=== PATIENT | female | born 1970 | race Caucasian/White ===

== ENCOUNTER → 2017-11-29 09:59 | Outpatient (CLI) | payer BC, SELFPAY ==
--- NOTE | 2017-11-29 10:01 | MM_ITS ---
MM Dig screening mamm BI w/CAD ORDERING PHYSICIAN : Prince Patel MD PATIENT AGE: 47 years GENDER: Female COMPARISON: Previous studies from this facility dated August 2011 . Also prior studies from [facility] dated March 2015 bilateral [facility] INDICATION: ITS.REASON: Screening TECHNIQUE: Standard CC and MLO images were obtained. R2 CAD reviewed. FINDINGS: Diffuse increased density of fibroglandular elements most likely reflects is not is hormone effect of some. However histories reports no hormone therapy. History sheet indicates prior hysterectomy thus this diffuse increased breast density pattern does not appear to reflect phase of menstrual cycle RIGHT BREAST: 2 Previous percutaneous biopsy with metallic markers. One small metallic marker seen seen at the upper-outer quadrant; and the other at the immediate retroareolar region. These are similar to previous studies. I see no significant new areas of concern otherwise at the right breast. There is no skin thickening associated with this mild diffuse accentuation of fibroglandular elements LEFT BREAST:. Postsurgical changes retroareolar region. Numerous vascular clips seen here unchanged since 2016. But apparently there is a needle biopsy with subsequent lumpectomy (mammogram report from [facility] dated March 14, 2015 states that the patient had a surgical excision yielding results papillomatosis/ fibrocystic change.) This is surgery occurred since 2015 mammogram & was present in March 2015 outside mammogram A small metallic marker from previous percutaneous biopsy is seen at the superior left breast. Stable since 2016 & 2011. On one of today's MLO view question some mild architectural irregularity just superior to this metallic percutaneous biopsy marker, this may reflect some subtle postbiopsy changes but does not persist on a repeat MLO view performed, for nipple profile view. But there may be a few tiny faint calcifications at superior left breast with a biopsy marker.. Slight accentuation area of anterior breast tissue just superior & lateral to the nipple I believe were seen before but mildly accentuated today with the other fibroglandular tissue. IMPRESSION: Diffuse accentuation of fibroglandular elements bilaterally. Typically this reflects his exogenous hormone affect but no history of such given. Clinical correlation required. No persistent new areas of significant concern Small questionable area at superior left breast dissipates on other views, & believe this merely is summation shadow However because of the diffuse increased breast density & overall appearance would suggest a bilateral follow-up in 6-8 months to confirm this appearance as a new stable baseline BI-RADS Category: 3 Probably Benign Finding Short Term Follow-up RECOMMENDED FOLLOW-UP: 6M -8 MONTH FOLLOW-UP (A letter has been sent to the patient regarding results of the study.)
--- NOTE | 2017-11-29 10:01 | US_ITS ---
US transvaginal Ordering Physician: Prince Patel MD Patient Age: 47 years: Female HISTORY: ITS.REASON: DUB Dysfunctional uterine bleeding. Abnormal pelvic exam TECHNIQUE: Transvaginal pelvic ultrasound. COMPARISON :July 2016. CT abdomen pelvis from November 2016 FINDINGS Patient has had a hysterectomy. Uterus and bilateral ovaries have been removed surgically by history. There is suggestion of a possible small cyst posterior aspect of the vaginal cuff. . This measures 4 mm AP x 7 mm transverse & pJust adjacent to the transducer. ( Immediate posterior to the transvaginal transducer) No associated ovary tissue appreciated here nor other structure evident. Otherwise note some moderate fluid filled bowel loops at the throughout the lower pelvis on submitted images. Most prominent measuring 2.25 cm with some semisolid fluid within it. There are some elongated benign-appearing lymph nodes at the right groin. At the right groin there is a 1.6 cm x 3.5 mm benign-appearing lymph node as well as another 1.5 cm node. On the November 2016 CT there were several fluid filled bowel loops seen here lower pelvis as well. AlsoStool filled cecum just to anterior, and above the bladder. IMPRESSION: ------- 1. The uterus & both ovaries have been removed by history. No adnexal findings. Only bowel loops seen here. 2. Note is made of a small 4 x 7 mm cyst at the posterior aspect of vaginal cuff. 3. benign nodes at the right groin incidentally noted. Largest measures 1.6 cm length
== END ==
PROVIDERS: Family Provider Family Medicine; PCP Family Medicine; Visit Provider Obstetrics & Gynecology
DX: Z12.31 Encounter for screening mammogram for malignant neoplasm of breast (principal); N93.8 Other specified abnormal uterine and vaginal bleeding
CPT/HCPCS: 76830; 77067

== ENCOUNTER → 2017-12-23 09:36 | Outpatient (CLI) | payer BC, SELFPAY ==
[2017-12-23 09:39] LABS: Microscopic, Urine URINE MICROSCOPIC (MICROSCOPIC)
[2017-12-23 09:57] LABS: Basophils # 0.1 K/mm3 (0-0.2); Basophils % 0.6 % (0.1-2.0); Eosinophils # 0.2 K/mm3 (0.0-0.4); Eosinophils % 1.9 % (0.1-12.0); Hematocrit 41.5 % (37.0-47.0); Hemoglobin 13.6 g/dL (12.2-16.2); Lymphocytes # 2.6 K/mm3 (0.7-4.5); Lymphocytes % 22.7 K/mm3 (10-50); Mean Corpuscular HGB Conc 32.6 g/dL (31.8-35.4); Mean Corpuscular Hemoglobin 30.5 pg (27.0-31.2); Mean Corpuscular Volume 93.5 fl (81-99); Monocytes # 0.4 K/mm3 (0.1-1.0); Monocytes % 3.6 % (1.7-9.3); Neutrophils # 8.2 K/mm3 (1.8-7.8); Neutrophils % 71.2 % (37.0-80.0); Platelet Count 302 K/mm3 (142-424); Red Blood Count 4.44 M/mm3 (4.20-5.40); Red Cell Distribution Width 12.9 % (11.5-17.5); White Blood Count 11.5 K/mm3 (4.8-10.8)
[2017-12-23 10:19] LABS: Appearance,Urine CLEAR (Clear); Bilirubin,Urine Negative (Negative); Blood, Urine Negative (Negative); Color,Urine YELLOW (Yellow); Glucose,Urine (UA) Negative (Negative); Ketones,Urine Negative (Negative); Leukocyte Esterase,Urine Negative (Negative); Nitrate,Urine Negative (Negative); Protein,Urine Negative (Negative); Specific Gravity, Urine <= 1.005 (1.005-1.030); Urobilinogen,Urine 0.2 EU/dl (0.2)
[2017-12-23 10:29] LABS: Bacteria,Urine 2+ /lpf; WBC,Urine Occasional #/hpf (0-3)
[2017-12-23 10:36] LABS: Alanine Aminotransferase 23 U/L (12-78); Albumin Level 3.5 gm/dL (3.4-5.0); Albumin/Globulin Ratio 1.2 (1.1-1.8); Alkaline Phosphatase 78 U/L (46-116); Anion Gap 11.8 mEq/L (5-15); Aspartate Amino Transferase 12 U/L (15-37); Bilirubin,Total 0.3 mg/dL (0.2-1.0); Blood Urea Nitrogen 11 mg/dL (7-18); Calcium 8.8 mg/dL (8.5-10.1); Carbon Dioxide 30 mmol/L (21.0-32.0); Chloride 105 mmol/L (98-107); Creatinine,Serum 0.69 mg/dL (0.55-1.02); Estimated Glomerular Filt Rate 91 ml/min (>60); GFR (African American) 110 ML/MIN (>60); Globulin 2.9 gm/dl (1.3-3.2); Glucose 86 mg/dL (74-106); Potassium 4.8 mmoL/L (3.5-5.1); Sodium 142 mmol/L (136-145); Total Protein,Serum 6.4 gm/dL (6.4-8.2)
== END ==
PROVIDERS: PCP Family Medicine; Visit Provider Obstetrics & Gynecology
DX: N80.9 Endometriosis, unspecified; Z01.812 Encounter for preprocedural laboratory examination
CPT/HCPCS: 36415; 80053; 81001; 85025; 87086; 87088; 87186

== ENCOUNTER → 2018-01-26 10:53 | Outpatient (CLI) | payer BC, SELFPAY ==
[2018-01-26 10:54] LABS: Adenovirus F 40/41, stool Not Detected (NotDetected); Astrovirus Not Detected (NotDetected); Campylobacter Not Detected (NotDetected); Clostridium Difficile A/B, PCR Not Detected (NotDetected); Cryptosporidium Not Detected (NotDetected); Cyclospora Cayetanesis Not Detected (NotDetected); Entamoeba histolytica Not Detected (NotDetected); Enteroaggregative E coli Not Detected (NotDetected); Enteropathogenic E coli Not Detected (NotDetected); Enterotoxigenic E coli Not Detected (NotDetected); Giardia lamblia Not Detected (NotDetected); Norovirus Not Detected (NotDetected); Plesimonas Shigalloides, PCR Not Detected (NotDetected); Rotavirus A Not Detected (NotDetected); Salmonella, PCR Not Detected (NotDetected); Sapovirus Not Detected (NotDetected); Shiga-like toxin E coli Not Detected (NotDetected); Shigella Enterovasive E coli Not Detected (NotDetected); Vibrio Cholerae Not Detected (NotDetected); Vibrio, PCR Not Detected (NotDetected); Yersinia Entercolitica, PCR Not Detected (NotDetected)
== END ==
PROVIDERS: Visit Provider Surgery
DX: R19.7 Diarrhea, unspecified (principal)
CPT/HCPCS: 87507

== ENCOUNTER → 2018-12-19 09:44 | Outpatient (CLI) | payer BC, SELFPAY ==
--- NOTE | 2018-12-19 09:47 | MM_ITS ---
PROCEDURE: MM DIG SCREENING MAMM BI W/CAD CLINICAL INDICATION: screening There is a history of breast cancer in the patient's 3 maternal aunts. The patient has had a biopsy in each breast, right breast for benign disease, atypical hyperplasia left breast. The previous mammogram had recommended a 6 month follow-up but the patient could not come for the follow-up as she had had a stroke COMPARISON: MY Galactogram Sgl Duct LT from 08/09/2014 MY Digital Dx BILAT from 03/14/2015 [facility] MM Dig screening mamm BI w/CAD from 11/29/2017 TECHNIQUE: . CC and MLO images were obtained. R2 CAD reviewed. FINDINGS: Diffuse heterogenic fibroglandular densities are seen throughout both breast slightly more prominent right breast than left as noted previously. Multiple surgical clips are seen in the subareolar region left breast and there is a biopsy clip upper outer right breast and outer left breast. There is no new or suspicious lesion in either breast and there are no suspicious microcalcifications. IMPRESSION: Moderately dense and heterogenic parenchymal pattern with no suspicious lesions seen BI-RAD Category: 2 Benign Finding(s) FOLLOW-UP: 1YR 1 Year Follow-up (A letter has been sent to the patient regarding results of the study.) Dictated by: Dr. Demetris Henning MD 12/21/2018 17:[address] Demetris Henning MD in [place] 12/21/2018 17:34
== END ==
PROVIDERS: PCP Family Medicine; Visit Provider Obstetrics & Gynecology
DX: Z12.31 Encounter for screening mammogram for malignant neoplasm of breast (principal)
CPT/HCPCS: 77067

== ENCOUNTER → 2020-01-18 10:41 | Outpatient (CLI) | payer BC, SELFPAY ==
--- NOTE | 2020-01-18 10:50 | CA_ITS ---
APPROVED REPORT Car Hop: Phyllis Hitchcock RVT Laterality: Bilateral Study Quality: Excellent Indications: RT BRUIT Risk Factors Hypertension: TIA/CVA History Hyperlipidemia Doppler Spectral Velocity Analysis ECA (R) 133.70/29.90 cm/s ECA (L) 121.00/19.10 cm/s dICA (R) 90.90/37.40 cm/s dICA (L) 83.70/41.80 cm/s Gregg (R) 84.50/27.80 cm/s Gregg (L) 88.20/30.00 cm/s pICA (R) 71.60/29.90 cm/s pICA (L) 81.90/33.70 cm/s dCCA (R) 86.60/23.50 cm/s dCCA (L) 76.40/22.70 cm/s pCCA (R) 114.40/26.70 cm/s pCCA (L) 87.30/30.00 cm/s Vert (R) 54.50/16.00 cm/s Vert (L) 49.10/20.90 cm/s ICA/CCA 1.05 ICA/CCA 1.15 Findings Study suggests no evidence of stenosis of the right internal cartoid artery. Study suggests less than 20% stenosis of the left internal cartoid artery. Antegrade flow seen bilateral vertebral arteries. Conclusion Study suggests no evidence of stenosis of the right internal cartoid artery. Study suggests less than 20% stenosis of the left internal cartoid artery. Antegrade flow seen bilateral vertebral arteries. Electronically signed by : Manolo Valdez MD 01/18/2020 17:44:59
== END ==
PROVIDERS: PCP Family Medicine; Visit Provider Family Medicine
DX: R09.89 Other specified symptoms and signs involving the circulatory and respiratory systems (principal)
CPT/HCPCS: 93880

== ENCOUNTER → 2020-03-14 08:30 | Outpatient (CLI) | payer BC, SELFPAY ==
--- NOTE | 2020-03-14 08:34 | MR_ITS ---
PROCEDURE: MR HEAD/BRAIN WO/W CON CLINICAL INDICATION: MIGRAINE WITH AURA OCULAR MIGRAINE 1 WEEK AGO, NO SYMPTOMS SINCE, PREVIOUS TIA. NO PRIOR COMPARISON: MG MY Galactogram Sgl Duct LT from 08/09/2014 TECHNIQUE: Routine multiplanar multi echo sequences are performed without gadolinium enhancement. FINDINGS: No midline shift, mass effect, intracranial hemorrhage, or hydrocephalus. The cerebellopontine angles, cerebellum, and brainstem have unremarkable appearance. No evidence of acute infarction. No enhancing lesions are apparent. The hippocampal gyri and temporal horns have an unremarkable appearance. There is a small T2 white matter hyperintensity in the left frontal lobe nonspecific this does not demonstrate contrast enhancement or restricted diffusion. The pituitary, optic chiasm, corpus callosum, and craniocervical junction have an unremarkable appearance. No mastoid effusion or sinus air-fluid level. IMPRESSION: 1. No acute intracranial findings. 2. Small T2 white matter hyperintensity in the deep white matter of the left frontal lobe nonspecific and may be due to small incidental ischemic gliotic focus. Stability may be confirmed with follow-up. Dictated by: Manolo Valdez MD 03/16/2020 08:30 Manolo Valdez MD in [place] 03/16/2020 08:30
== END ==
PROVIDERS: PCP Family Medicine; Visit Provider Family Medicine
DX: G43.109 Migraine with aura, not intractable, without status migrainosus (principal)
CPT/HCPCS: 70553; A9576

== ENCOUNTER → 2020-05-31 12:46 | Outpatient (CLI) | payer BC, SELFPAY ==
[2020-05-31 13:32] LABS: Basophils # 0.1 K/mm3 (0-0.2); Basophils % 0.6 % (0.1-2.0); Eosinophils # 0.3 K/mm3 (0.0-0.4); Eosinophils % 3.2 % (0.1-12.0); Hemoglobin 13.3 g/dL (12.2-16.2); Lymphocytes % 29.1 % (10-50); Mean Corpuscular HGB Conc 33.2 g/dL (31.8-35.4); Mean Corpuscular Hemoglobin 29.9 pg (27.0-31.2); Mean Corpuscular Volume 90.1 fl (81-99); Mean Platelet Volume 7.4 fl (7.4-10.4); Monocytes # 0.4 K/mm3 (0.1-1.0); Monocytes % 3.8 % (1.7-9.3); Neutrophils # 6.5 K/mm3 (1.8-7.8); Neutrophils % 63.4 % (37.0-80.0); Platelet Count 278 K/mm3 (142-424); Red Blood Count 4.44 M/mm3 (4.20-5.40); Red Cell Distribution Width 13.2 % (11.5-17.5); White Blood Count 10.3 K/mm3 (4.8-10.8)
== END ==
PROVIDERS: PCP Family Medicine; Visit Provider Nurse Practitioner
DX: Z20.822 Contact with and (suspected) exposure to COVID-19 (principal)
CPT/HCPCS: 36415; 85025; U0003

== ENCOUNTER → 2020-07-23 07:38 | Outpatient (CLI) | payer BC, SELFPAY ==
--- NOTE | 2020-07-23 07:43 | NM_ITS ---
APPROVED REPORT Exam: Nuclear Stress Test Indication: Fatigue, HTN, Former tobacco use Patient Location: Outpatient Stress Tech: Grecia Treadwell NM Tech:Marzena Robertson, ARRT, RT (R)(N) Ht: 5 ft 4 in Wt: 150 lbs Bra Size: B HR: 65 bpm BP: 138/72 mmHg BSA: 1.73 m2 BMI: 25.7 History: Fatigue, HTN, Former tobacco use Procedure: Patient exercised on Juan protocol 9:00 minutes and sec, resting heart rate 65 bpm, resting blood pressure 138/72 mmHg, with exercise maximum heart rate achived was 128 bpm which is Less than 85 % of the maximum predicted heart rate and blood pressure was 190/82 mmHg. Test was stopped due to SOA. Patient denied any complaint of chest pain. Patient has good exercise capacity, achieved 10.1 METs of workload on treadmill, the blood pressure response to exercise was Adequate. Electrocardiogram Resting electrocardiogram showed sinus rhythm, with exercise there is less than 1.[address] segment depression noted from the baseline EKG. The EKG portion of the exercise Myoview is nondiagnostic as patient did not achieve the target heart rate. Cardiac Stress and Resting SPECT Images: Cardiac Stress and Resting SPECT images were obtained using technetium 99m Myoview 28.8 mCi stress and 10.24 mCi at rest. Gated SPECT for analysis of segmental wall motion and calculation of the ejection fraction also done. Prone images were also obtained. Cardiac stress and resting SPECT images show uniform myocardial activity without segmental perfusion abnormality, computer derived ejection fraction 55% with no regional wall motion abnormality, right ventricle is normal size and contractility. Conclusion: 1. The EKG portion of the exercise Myoview was nondiagnostic as patient did not achieve the target heart rate, patient has good exercise capacity achieved 10.1 METs of workload on treadmill, the blood pressure response to exercise was adequate, there was no exercise-induced chest discomfort. 2. No scintigraphic evidence of reversible ischemia seen at this level of exercise, computer derived ejection fraction 55% with no regional wall motion abnormality, right ventricle is normal size and contractility. Electronically signed by : Hung Amezquita, 07/23/2020 19:28:42
--- NOTE | 2020-07-23 09:30 | CA_ITS ---
APPROVED REPORT Exam: Exercise Treadmill Technologist: Grecia Treadwell, Ht: 5 ft 5 in Wt: 150 lbs BSA: 1.75 m2 HR: 65 bpm BP: 138/72 mmHg Rhythm: NSR Medical History Medical History: Hyperlipidemia, Smoking Medications: Aspirin,,,,, Gabapentin,,,,, Estradiol,,,,, Acetaminophen,,,,, AtorvaASTATIN,,,,, ValERATE,,,,, Allergies: No known drug allergies Cardiac Risk Factors: Hyperlipidemia, Smoking Stress Test Details Test: Juan HR Resting HR: 73 bpm Max Heart Rate (APMHR): 170.235870 bpm Max HR Achieved: 128 bpm Target HR (85% APMHR): 144.393286 bpm % of APMHR: 75.29 Recovery HR: 70 bpm BP Resting BP: 138/72 mmHg Max BP: 190/82 mmHg Recovery BP: 126.0/73.0 mmHg ECG Resting ECG: NSR Clinical Exercise duration: 08:59 min Highest Stage Achieved: Stage 3: 3.4 mph at 14% grade. Exercise capacity: 10.1 METs Stress ECG Conclusion PT HAD NO CP, STOPPED DUE TO SOA. OCCASIONAL PVC. NORMAL ST RESPONSE. NORMAL GXP TO HR ACHIEED (73% OF PM) HALO2CLOUDVIEW IMAGES REPORTED SEPERATELY. Electronically signed by : Hung Amezquita, 07/23/2020 19:15:07
--- NOTE | 2020-07-23 10:23 | HMH.ITSHM ---
Current Home Medications as stated by this patient Maryjo Díaz or medical representative. []GABAPENTIN ESTRADIOL ATORVASTATIN ASA ACETAMINOPHEN
== END ==
PROVIDERS: PCP Family Medicine; Visit Provider Family Medicine
DX: R53.82 Chronic fatigue, unspecified (principal); I10 Essential (primary) hypertension; E78.5 Hyperlipidemia, unspecified; Z87.891 Personal history of nicotine dependence
CPT/HCPCS: 78452; 93017; A9502

== ENCOUNTER → 2021-07-31 12:44 | Outpatient (CLI) | payer BC, SELFPAY ==
--- NOTE | 2021-07-31 12:47 | MM_ITS ---
PROCEDURE INFORMATION: Exam: MG Bilateral Screening 3D Mammography Exam date and time: 07/31/2021 12:51 PM Age: 50 years old Clinical indication: Screening examination TECHNIQUE: Imaging protocol: Bilateral Screening tomosynthesis and 2D mammography including computer-aided detection (CAD) when performed. COMPARISON: 1. MG MM DIG SCREENING MAMM BI W/CAD 12/19/2018 10:09 AM 2. MG [facility] MM Dig screening mamm BI w/CAD 11/29/2017 10:38 AM 3. MG MY Digital Dx BILAT 03/14/2015 11:39 AM FINDINGS: MAMMOGRAPHY: Breast composition: The breast is heterogeneously dense, which may obscure small masses. Mass: None. Architectural distortion: No new or suspicious architectural distortion. Calcifications: No new or suspicious calcifications are present Asymmetric density: No new or suspicious asymmetric density is present Skin thickening: None. Axillary adenopathy: None. Other findings: Stable postoperative findings on the left. IMPRESSION: No mammographic evidence of malignancy. Recommend annual screening mammography unless otherwise clinically indicated. ASSESSMENT: BI-RADS category 2: Benign
== END ==
PROVIDERS: PCP Family Medicine; Visit Provider Family Medicine
DX: Z12.31 Encounter for screening mammogram for malignant neoplasm of breast (principal); N60.19 Diffuse cystic mastopathy of unspecified breast
CPT/HCPCS: 77063; 77067

== ENCOUNTER 2021-09-03 14:46 | Emergency (ER) | payer BC, SELFPAY ==
[2021-09-03 14:46] VITALS: BP 127/76; PULSE 86; RESP 18; TEMP 37.2; O2SAT 98; BMI 25.6
--- NOTE | 2021-09-03 14:51 | ECG_ITS ---
APPROVED REPORT Exam: Resting ECG HR:71 bpm ECG Measurements Heart Rate 71 AXES OH 163 P 74 QRSd 94 QRS 57 QT 334 T 57 QTc 356 Conclusion SINUS RHYTHM POSSIBLE LEFT ATRIAL ENLARGEMENT [-0.1mV P-WAVE IN V1/V2] BORDERLINE ECG UNCONFIRMED REPORT Electronically signed by : Chirag Arora MD 09/03/2021 17:26:42
--- NOTE | 2021-09-03 14:58 | PC.NURSE ---
KIM HICKS at
--- NOTE | 2021-09-03 15:01 | CT_ITS ---
FINAL REPORT CLINICAL HISTORY: fall, head injury FINDINGS: Axial images of the head were obtained without contrast. Coronal reformatted images were also obtained.This study was performed with techniques to keep radiation doses as low as reasonably achievable (ALARA). Individualized dose reduction techniques using automated exposure control or adjustment of mA and/or kV according to the patient's size were employed. There is no evidence of intracranial hemorrhage or mass. The ventricular size is within normal limits. There is no evidence of shift of the midline structures. No abnormal extra axial fluid collection is identified. No skull abnormality is seen on the bone window images. IMPRESSION: No acute intracranial abnormality. Reviewed, Interpreted and Dictated by Lexx Acosta III, MD Transcribed by Shawn Matthews Authenticated and [facility]
--- NOTE | 2021-09-03 15:01 | HMH.EDGENADL ---
ED Disposition Clinical Impression: Vasovagal syncope Closed head injury Qualifiers: Encounter type: initial encounter Qualified Code(s): S09.90XA - Unspecified injury of head, initial encounter Disposition: Home, Self-Care Condition on Discharge: Good Instructions: DI for Syncope in Adults (Fainting), DI for Dehydration -- Adult Additional Instructions: You have been evaluated for syncope, passing out. This is likely due to heat, dehydration. It is very important that you monitor your symptoms closely. Follow-up with your primary care doctor. Return to the emergency department at once for any new or worsening symptoms, chest pain, palpitations, headache, seizure-like activity. Referrals: Marcie Alvarez MD [Primary Care Provider] - Time of Disposition: 15:31 - Critical Care Critical Care Time: No Attestation: On 09/03/21, the high probability of a clinically significant, sudden or life threatening deterioration of the following system(s) required my full and direct attention, intervention and personal management. The time I documented below is in addition to time spent performing reported procedures but includes the following listed in this critical care notation. Medical Decision Making - Medical Records Medical records reviewed: Yes: I reviewed the patient's medical records. - Chad Inquiry Pt receiving controlled substance: No Vital Signs: 09/03/21 14:46 Temperature 99.0 F Temperature Source Oral Pulse Rate [Brachial] 86 Respiratory Rate 18 Blood Pressure [Right Arm] 127/76 Blood Pressure Mean [Right Arm] 93 Blood Pressure Source [Right Arm] Automatic Cuff Blood Pressure Position [Right Arm] Standing 02 Sat by Pulse Oximetry 98 - Lab Data Lab Results 09/03/21 15:03: WBC 13.4 H, RBC 5.24, Hgb 15.7, Hct 46.0, MCV 87.8, MCH 30.0, MCHC 34.1, RDW 12.6, Plt Count 293, MPV 7.3 L, Neut % (Auto) 75.6, Lymph % (Auto) 17.7, [place] % (Auto) 4.6, Eos % (Auto) 1.8, Baso % (Auto) 0.4, Neut # (Auto) 10.1 H, Lymph # (Auto) 2.4, [place] # (Auto) 0.6, Eos # (Auto) 0.2, Baso # (Auto) 0.1 09/03/21 15:03: Sodium 138, Potassium 3.8, Chloride 103, Carbon Dioxide 25, Anion Gap 13.8, BUN 15, Creatinine 1.10 H, Estimated Creat Clear 67, Estimated GFR 52 L, Est GFR ( Amer) 63, Glucose 86, Calcium 10.0, Total Bilirubin 0.5, AST 34, ALT 27, Alkaline Phosphatase 80, Total Protein 8.0, Albumin 5.2 H, Globulin 2.8, Albumin/Globulin Ratio 1.9 H Result diagrams: 09/03/21 15:03 09/03/21 15:03 Orders (Tests/Meds): ED MEDICATIONS Generic Name Dose Route Start Last Admin Trade Name Freq PRN Reason Stop Dose Admin Sodium Chloride 1,000 mls @ 999 mls/hr 09/03/21 15:00 09/03/21 15:05 Sod Chlor 0.9% 1000ml Bag IV 09/03/21 16:00 999 mls/hr .Q1H1M MAMI Administration ORDERS Category Date Time Status CT head/brain wo con Stat Cat Scan 09/03/21 15:01 Ordered C-Reactive Protein Stat Lab 09/03/21 15:03 Results Complete Blood Count Auto Diff Stat Lab 09/03/21 15:03 Results Comprehensive Metabolic Panel Stat Lab 09/03/21 15:03 Results Erythrocyte Sedimentation Rate Stat Lab 09/03/21 15:03 Results Trop I [Troponin I] Stat Lab 09/03/21 15:03 Results Troponin I Q3H Lab 09/03/21 18:00 Ordered Troponin I Q3H Lab 09/03/21 21:00 Ordered ECG Request by /Yareli Stat Y 09/03/21 14:50 Ordered - ECG Data Tracing #1 I reviewed this ECG and interpreted as documented below: Sinus rhythm with ventricular rate of 71 bpm. QRS 94, QTc 356. Slight benign early repolarization with J-point elevation. No ST segment elevation. No arrhythmia. Medical Decision Narrative: In summary this is a 50-year-old female presenting to the emergency department after syncopal episode. Patient clinically stable on arrival. Vital signs within normal limits. Will obtain CBC, CMP, AG, ESR, CRP, troponin profile, noncontrast head CT. Patient given IV fluids. EKG shows sinus rhythm without evidence of ischemia or arrh
--- NOTE | 2021-09-03 15:06 | PC.NURSE ---
IVF'S STARTED. BLANKET PROVIDED. FAMILY AT BEDSIDE. NO NEEDS AT THIS TIME
[2021-09-03 15:12] LABS: Basophils # 0.1 K/mm3 (0-0.2); Basophils % 0.4 % (0.1-2.0); Eosinophils # 0.2 K/mm3 (0.0-0.4); Eosinophils % 1.8 % (0.1-12.0); Hemoglobin 15.7 g/dL (12.2-16.2); Lymphocytes # 2.4 K/mm3 (0.7-4.5); Lymphocytes % 17.7 % (10-50); Mean Corpuscular HGB Conc 34.1 g/dL (31.8-35.4); Mean Corpuscular Volume 87.8 fl (81-99); Mean Platelet Volume 7.3 fl (7.4-10.4); Monocytes # 0.6 K/mm3 (0.1-1.0); Monocytes % 4.6 % (1.7-9.3); Neutrophils # 10.1 K/mm3 (1.8-7.8); Neutrophils % 75.6 % (37.0-80.0); Platelet Count 293 K/mm3 (142-424); Red Blood Count 5.24 M/mm3 (4.20-5.40); Red Cell Distribution Width 12.6 % (11.5-17.5); White Blood Count 13.4 K/mm3 (4.8-10.8)
[2021-09-03 15:15] LABS: Chloride 103 mmol/L (98-107); Potassium 3.8 mmoL/L (3.5-5.1); Sodium 138 mmol/L (136-145)
[2021-09-03 15:17] LABS: Alanine Aminotransferase 27 U/L (12-78); Alkaline Phosphatase 80 U/L (38-126); Aspartate Amino Transferase 34 U/L (14-36); Bilirubin,Total 0.5 mg/dl (0.2-1.3); Blood Urea Nitrogen 15 mg/dl (7-17); Creatinine Clearance Estimated 67 mL/min (50-200); Estimated Glomerular Filt Rate 52 ml/min (>60); GFR (African American) 63 ML/MIN (>60)
[2021-09-03 15:18] LABS: Albumin Level 5.2 g/dl (3.5-5.0); Albumin/Globulin Ratio 1.9 (1.1-1.8); Anion Gap 13.8 mEq/L (5-15); Carbon Dioxide 25 mmol/L (22.0-30.0); Globulin 2.8 g/dL (1.3-3.2); Glucose 86 mg/dl (74-100)
--- NOTE | 2021-09-03 15:30 | PC.NURSE ---
PT PROVIDED SOFT DRINK PER MD MORALES.
--- NOTE | 2021-09-03 15:32 | PC.NURSE ---
RADIOLOGY NOTIFIED OF CT HEAD ORDER
--- NOTE | 2021-09-03 15:39 | INFXCTL.NOTE ---
PT TO CT AT THIS TIME PER WHEELCHAIR
[2021-09-03 15:45] LABS: C-Reactive Protein < 0.3 mg/L (0-4); Erythrocyte Sedimentation Rate 5 mm/hr (0-30); Troponin I < 0.01 ng/ml (0.00-0.034)
--- NOTE | 2021-09-03 15:49 | PC.NURSE ---
PT RETURNED FROM CT
[2021-09-03 16:08] VITALS: BP 124/77; PULSE 68; RESP 13; O2SAT 100
--- NOTE | 2021-09-03 16:12 | PC.NURSE ---
PT UPDATED AT THIS TIME. AWAITING CT RESULTS. NO NEEDS VOICED
--- NOTE | 2021-09-03 16:18 | PC.NURSE ---
UPDATED PT AT THIS TIME
[2021-09-03 16:30] VITALS: BP 127/78; PULSE 78; O2SAT 100
[2021-09-03 16:56] VITALS: BP 127/78; PULSE 71; RESP 17; TEMP 37.2; O2SAT 100
== END 2021-09-03 16:57 | disposition home or self-care (01) ==
PROVIDERS: Emergency Provider Emergency Medicine; PCP Family Medicine
DX: R55 Syncope and collapse (principal); S09.90XA Unspecified injury of head, initial encounter; Z86.73 Personal history of transient ischemic attack (TIA), and cerebral infarction without residual deficits
CPT/HCPCS: 70450; 80053; 84484; 85025; 85651; 86140; 93005; 96360; 99284

== ENCOUNTER → 2021-11-04 13:21 | Outpatient (CLI) | payer BC, SELFPAY ==
--- NOTE | 2021-11-04 13:24 | XR_ITS ---
FINAL REPORT CLINICAL HISTORY: left shoulder pain..no trauma FINDINGS: Left shoulder Two views were obtained. There is no acute fracture or dislocation. There is mild AC and glenohumeral joint degenerative change. Postoperative changes are seen in the lower cervical spine. No soft tissue abnormality is identified. IMPRESSION: Mild degenerative changes. Reviewed, Interpreted and Dictated by Lexx Acosta III, MD Transcribed by Noelle Orozco Authenticated and [facility]
== END ==
PROVIDERS: PCP Nurse Practitioner; Visit Provider Nurse Practitioner
DX: M25.512 Pain in left shoulder (principal)
CPT/HCPCS: 73030

== ENCOUNTER → 2022-02-03 16:09 | Outpatient (CLI) | payer BC, SELFPAY ==
--- NOTE | 2022-02-03 16:19 | XR_ITS ---
PROCEDURE INFORMATION: Exam: XR Chest Exam date and time: 02/03/2022 4:17 PM Age: 51 years old Clinical indication: Cough; Additional info: Pneumonia, covid-19 TECHNIQUE: Imaging protocol: Radiologic exam of the chest. Views: 2 views. COMPARISON: CR XR SHOULDER LT MIN 2V 11/04/2021 1:35 PM FINDINGS: Lungs: No evidence of pneumonia or interstitial edema. Pleural spaces: Unremarkable. No pleural effusion. No pneumothorax. Heart/Mediastinum: Unremarkable. No cardiomegaly. Bones/joints: Unremarkable. Other findings: Surgical changes are present in the cervical spine. IMPRESSION: No evidence of pneumonia or interstitial edema.
[2022-02-03 19:33] LABS: Influenza A, PCR Not Detected (NotDetected); Influenza B, PCR Not Detected (NotDetected)
[2022-02-04 00:56] LABS: Coronavirus 19, PCR Detected (NotDetected)
== END ==
PROVIDERS: PCP Nurse Practitioner; Visit Provider Nurse Practitioner
DX: U07.1 COVID-19 (principal)
CPT/HCPCS: 71046; C9803; U0003; U0005

== ENCOUNTER → 2022-02-18 10:22 | Outpatient (CLI) | payer BC, SELFPAY ==
[2022-02-18 18:02] LABS: Adenovirus,PCR Not Detected (NotDetected); Bordetella Pertussis Not Detected (NotDetected); Chlamydophila Pneumoniae, PCR Not Detected (NotDetected); Coronavirus 229E Not Detected (NotDetected); Coronavirus NL63 Not Detected (NotDetected); Coronavirus OC43 Not Detected (NotDetected); Coronovirus HKU1,PCR Not Detected (NotDetected); Human Metapneumovirus Not Detected (NotDetected); Influenza A, PCR Not Detected (NotDetected); Influenza AH1, 2009 Not Detected (NotDetected); Influenza AH1, PCR Not Detected (NotDetected); Influenza AH3,PCR Not Detected (NotDetected); Influenza B, PCR Not Detected (NotDetected); Mycoplasma Pneumoniae, PCR Not Detected (NotDetected); Parainfluenza 1, PCR Not Detected (NotDetected); Parainfluenza 2, PCR Not Detected (NotDetected); Parainfluenza 3, PCR Not Detected (NotDetected); Parainfluenza 4, PCR Not Detected (NotDetected); Respiratory Syncytial Virus Not Detected (NotDetected); Rhinovirus/Enterovirus Not Detected (NotDetected)
[2022-02-19 20:28] LABS: Coronavirus 19, PCR Detected (NotDetected)
== END ==
PROVIDERS: PCP Nurse Practitioner; Visit Provider Nurse Practitioner
DX: U07.1 COVID-19 (principal); J06.9 Acute upper respiratory infection, unspecified
CPT/HCPCS: 87581; 87632; 87798; C9803; U0003; U0005

== ENCOUNTER → 2022-05-18 18:39 | Outpatient (CLI) | payer BC, SELFPAY | PROVIDERS: PCP Nurse Practitioner; Visit Provider Nurse Practitioner | DX: R30.0 Dysuria (principal); B96.29 Other Escherichia coli [E. coli] as the cause of diseases classified elsewhere | CPT/HCPCS: 87086; 87088; 87186 ==

== ENCOUNTER → 2022-06-24 18:39 | Outpatient (CLI) | payer BC, SELFPAY ==
[2022-06-24 18:56] LABS: Adenovirus,PCR Not Detected (NotDetected); Bordetella Pertussis Not Detected (NotDetected); Chlamydophila Pneumoniae, PCR Not Detected (NotDetected); Coronavirus 19, PCR Not Detected (NotDetected); Coronavirus 229E Not Detected (NotDetected); Coronavirus NL63 Not Detected (NotDetected); Coronavirus OC43 Not Detected (NotDetected); Coronovirus HKU1,PCR Not Detected (NotDetected); Human Metapneumovirus Not Detected (NotDetected); Influenza A, PCR Not Detected (NotDetected); Influenza AH1, 2009 Not Detected (NotDetected); Influenza AH1, PCR Not Detected (NotDetected); Influenza AH3,PCR Not Detected (NotDetected); Influenza B, PCR Not Detected (NotDetected); Mycoplasma Pneumoniae, PCR Not Detected (NotDetected); Parainfluenza 1, PCR Not Detected (NotDetected); Parainfluenza 2, PCR Not Detected (NotDetected); Parainfluenza 3, PCR Not Detected (NotDetected); Parainfluenza 4, PCR Not Detected (NotDetected); Respiratory Syncytial Virus Not Detected (NotDetected)
[2022-06-24 23:32] LABS: Rhinovirus/Enterovirus Detected (NotDetected)
== END ==
PROVIDERS: PCP Nurse Practitioner; Visit Provider Nurse Practitioner
DX: R05.9 Cough, unspecified (principal); J02.9 Acute pharyngitis, unspecified; R09.81 Nasal congestion
CPT/HCPCS: 87581; 87632; 87798; C9803; U0003; U0005

== ENCOUNTER → 2022-11-19 08:12 | Outpatient (CLI) | payer BC, SELFPAY ==
--- NOTE | 2022-11-19 08:12 | MM_ITS ---
PROCEDURE INFORMATION: Exam: MG Bilateral Screening 3D Mammography Exam date and time: 11/19/2022 8:24 AM Age: 52 years old Clinical indication: Screening mammogram TECHNIQUE: Imaging protocol: Bilateral Screening tomosynthesis and 2D mammography including computer-aided detection (CAD) when performed. COMPARISON: 1. MG MM DIG SCREENING MAMM BI W/CAD 07/31/2021 12:51 PM 2. MG MM DIG SCREENING MAMM BI W/CAD 12/19/2018 10:09 AM 3. MG [facility] MM Dig screening mamm BI w/CAD 11/29/2017 10:38 AM 4. MG MY Digital Dx BILAT 03/14/2015 11:39 AM FINDINGS: MAMMOGRAPHY: Breast composition: There are scattered areas of fibroglandular density. Mass: None. Architectural distortion: No new or suspicious architectural distortion. Calcifications: No new or suspicious calcifications are present Asymmetric density: No new or suspicious asymmetric density is present Skin thickening: None. Axillary adenopathy: None. Other findings: Stable postoperative findings on the left. IMPRESSION: No mammographic evidence of malignancy. Recommend annual screening mammography unless otherwise clinically indicated. ASSESSMENT: BI-RADS category 2: Benign
== END ==
PROVIDERS: PCP Nurse Practitioner; Visit Provider Nurse Practitioner
DX: Z12.39 Encounter for other screening for malignant neoplasm of breast (principal)
CPT/HCPCS: 77063; 77067

== ENCOUNTER → 2022-12-17 23:28 | Outpatient (CLI) | payer BC, SELFPAY ==
[2022-12-18 18:57] LABS: Basophils % 0.4 % (0.1-2.0); Eosinophils # 0.1 K/mm3 (0.0-0.4); Eosinophils % 1.1 % (0.1-12.0); Hemoglobin 15.3 g/dL (12.2-16.2); Lymphocytes # 2.5 K/mm3 (0.7-4.5); Lymphocytes % 24.4 % (10-50); Mean Corpuscular Hemoglobin 31.9 pg (27.0-31.2); Mean Corpuscular Volume 93.9 fl (81-99); Monocytes # 0.5 K/mm3 (0.1-1.0); Monocytes % 4.8 % (1.7-9.3); Neutrophils # 7.2 K/mm3 (1.8-7.8); Neutrophils % 69.2 % (37.0-80.0); Platelet Count 284 K/mm3 (142-424); Red Blood Count 4.79 M/mm3 (4.20-5.40); Red Cell Distribution Width 12.8 % (11.5-17.5); White Blood Count 10.4 K/mm3 (4.8-10.8)
[2022-12-18 19:23] LABS: Alanine Aminotransferase 25 U/L (12-78); Albumin/Globulin Ratio 1.8 (1.1-1.8); Alkaline Phosphatase 119 U/L (38-126); Anion Gap 15.7 mEq/L (5-15); Aspartate Amino Transferase 35 U/L (14-36); Bilirubin,Total 0.4 mg/dl (0.2-1.3); Blood Urea Nitrogen 13 mg/dl (7-17); Calcium 9.9 mg/dl (8.4-10.2); Carbon Dioxide 25 mmol/L (22.0-30.0); Chloride 105 mmol/L (98-107); Cholesterol 166 mg/dl (140-200); Estimated Glomerular Filt Rate 88 ml/min (>60); GFR (African American) 106 ML/MIN (>60); Globulin 2.8 g/dL (1.3-3.2); Glucose 97 mg/dl (74-100); HDL Cholesterol 83 mg/dl (40-60); Potassium 3.7 mmoL/L (3.5-5.1); Sodium 142 mmol/L (136-145); Total Protein,Serum 7.8 g/dl (6.3-8.2); Triglycerides 94 mg/dl (30-150); VLDL Cholesterol 19 mg/dL (0-40)
[2022-12-18 19:34] LABS: Direct LDL Cholesterol 68.07 mg/dL (100-129)
[2022-12-18 19:38] LABS: Hemoglobin A1C 5.5 % (4.0-6.0)
[2022-12-18 19:54] LABS: Thyroid Stimulating Hormone 0.35 uIU/mL (0.465-4.68)
== END ==
PROVIDERS: PCP Nurse Practitioner; Visit Provider Nurse Practitioner
DX: R05.9 Cough, unspecified (principal); E78.5 Hyperlipidemia, unspecified; K21.9 Gastro-esophageal reflux disease without esophagitis; Z13.1 Encounter for screening for diabetes mellitus; Z13.29 Encounter for screening for other suspected endocrine disorder; Z79.899 Other long term (current) drug therapy
CPT/HCPCS: 80053; 80061; 83036; 84443; 85025

== ENCOUNTER → 2022-12-18 23:25 | Outpatient (CLI) | payer BC, SELFPAY | PROVIDERS: PCP Nurse Practitioner; Visit Provider Nurse Practitioner | DX: J02.9 Acute pharyngitis, unspecified (principal) ==

== ENCOUNTER → 2023-01-06 13:28 | Outpatient (CLI) | payer BC, SELFPAY ==
--- NOTE | 2023-01-06 13:28 | US_ITS ---
FINAL REPORT TECHNIQUE: Sonographic images of the thyroid gland were obtained in the longitudinal and transverse planes. CLINICAL HISTORY: thyromegaly with nodule, intermittent hoarseness FINDINGS: The right lobe measures 1.1 x 4.4 x 1.5 cm. There is a 4 mm TI-RADS 4 nodule in the lower pole. The right lobe is otherwise homogeneous. The left lobe measures 1.3 x 3.9 x 1.7 cm. The left lobe is homogeneous. There are no cystic or solid nodules. The isthmus measures 4 mm. This is normal. IMPRESSION: No acute abnormality. 4 mm TI-RADS category 4 right thyroid nodule. Based on size of a less than 1 cm. There is no recommendation for follow-up. Reviewed, Interpreted and Dictated by Summer Washington MD Transcribed by Collette Balderas Authenticated and . [facility]
== END ==
PROVIDERS: PCP Nurse Practitioner; Visit Provider Nurse Practitioner
DX: E01.0 Iodine-deficiency related diffuse (endemic) goiter (principal); E04.1 Nontoxic single thyroid nodule; R49.9 Unspecified voice and resonance disorder
CPT/HCPCS: 76536

== ENCOUNTER → 2023-01-11 08:20 | Outpatient (CLI) | payer BC, SELFPAY ==
[2023-01-11 20:47] LABS: Free Thyroxine Index 2.7 ug/dL (5.93-13.13); T4 (Thyroxine) 8.6 ug/dl (5.53-11.0); Triiodothryronine (T3) Uptake 31 % (23.5-40.5)
[2023-01-11 20:48] LABS: Free T4 (Free Thyroxine) 1.41 ng/dl (0.78-2.19)
[2023-01-11 21:01] LABS: Thyroid Stimulating Hormone 0.95 uIU/mL (0.465-4.68)
[2023-01-13 14:19] LABS: Thyroid Peroxidase Antibodies <9 IU/mL (0-34)
== END ==
PROVIDERS: PCP Nurse Practitioner; Visit Provider Nurse Practitioner
DX: E01.0 Iodine-deficiency related diffuse (endemic) goiter (principal); E04.1 Nontoxic single thyroid nodule
CPT/HCPCS: 84436; 84439; 84443; 84479; 86376

== ENCOUNTER → 2023-02-05 10:50 | Outpatient (CLI) | payer BC, SELFPAY ==
--- NOTE | 2023-02-05 10:51 | ECG_ITS ---
APPROVED REPORT Exam: Resting ECG HR:62 bpm ECG Measurements Heart Rate 62 AXES SC 155 P 77 QRSd 102 QRS 81 QT 365 T 62 QTc 371 Conclusion SINUS RHYTHM NORMAL ECG UNCONFIRMED REPORT Electronically signed by : Chirag Arora MD 02/05/2023 16:29:02
--- NOTE | 2023-02-05 11:36 | XR_ITS ---
FINAL REPORT TECHNIQUE: Chest PA & Lateral CLINICAL HISTORY: Pre-Op, tobacco user COMPARISON: 02/03/2022 FINDINGS: 2 views of the chest were performed. The heart size is normal. The mediastinum is within normal limits. There is no acute cardiopulmonary process. There is mild scarring in the left lung base, with the right lung clear. There are no pleural effusions. There is no pneumothorax. The bony thorax appears intact. IMPRESSION: No acute cardiopulmonary process. Reviewed, Interpreted and Dictated by Richard Zuniga MD Transcribed by Lorena Lazar Authenticated and [facility]
[2023-02-05 11:45] LABS: Basophils # 0.1 K/mm3 (0-0.2); Basophils % 0.8 % (0.1-2.0); Eosinophils # 0.3 K/mm3 (0.0-0.4); Eosinophils % 3.7 % (0.1-12.0); Hematocrit 41.1 % (37.0-47.0); Hemoglobin 13.9 g/dL (12.2-16.2); Lymphocytes # 3.1 K/mm3 (0.7-4.5); Mean Corpuscular HGB Conc 33.9 g/dL (31.8-35.4); Mean Corpuscular Hemoglobin 31.1 pg (27.0-31.2); Mean Corpuscular Volume 91.9 fl (81-99); Mean Platelet Volume 7.8 fl (7.4-10.4); Monocytes # 0.4 K/mm3 (0.1-1.0); Monocytes % 4.5 % (1.7-9.3); Neutrophils # 4.1 K/mm3 (1.8-7.8); Platelet Count 247 K/mm3 (142-424); Red Blood Count 4.47 M/mm3 (4.20-5.40); Red Cell Distribution Width 12.7 % (11.5-17.5); White Blood Count 7.8 K/mm3 (4.8-10.8)
[2023-02-05 11:51] LABS: Chloride 107 mmol/L (98-107); Potassium 3.8 mmoL/L (3.5-5.1); Sodium 140 mmol/L (136-145)
[2023-02-05 11:54] LABS: Blood Urea Nitrogen 15 mg/dl (7-17); Estimated Glomerular Filt Rate 75 ml/min (>60); GFR (African American) 91 ML/MIN (>60)
[2023-02-05 11:55] LABS: Anion Gap 10.8 mEq/L (5-15); Carbon Dioxide 26 mmol/L (22.0-30.0); Glucose 96 mg/dl (74-100)
== END ==
PROVIDERS: PCP Nurse Practitioner; Visit Provider Otolaryngology
DX: Z01.818 Encounter for other preprocedural examination (principal); R09.89 Other specified symptoms and signs involving the circulatory and respiratory systems; R49.9 Unspecified voice and resonance disorder
CPT/HCPCS: 36415; 71046; 80048; 85025; 93005

== ENCOUNTER 2023-02-15 08:17 | Day surgery (SDC) | payer BC, SELFPAY ==
[2023-02-12 10:00] VITALS: BMI 29.0
[2023-02-15] VITALS (9 sets, daily range): BP systolic 129–181; BP diastolic 69–93; PULSE 66–83; RESP 16–18; TEMP 36.1–36.8; O2SAT 96–99
--- NOTE | 2023-02-15 09:25 | EXP.ANES.CKL ---
[facility] Disclaimer: The information contained in this section may have been updated after the patient was seen, as this information can be updated by other users. Medical History Arthritis of left shoulder region GERD (gastroesophageal reflux disease) Hoarseness or changing voice Hyperlipidemia Menopausal symptoms Throat fullness Thyroid nodule Thyromegaly Tobacco abuse Surgical History History of cholecystectomy History of hysterectomy History of tonsillectomy Family History Other No significant family history Social History (Updated 02/15/23 @ 09:07 by Patsy Azevedo RN) Smoking Status: Current every day smoker tobacco type: cigarettes packs per day: 1 alcohol intake: never substance use type: denies use current occupational status: unemployed Travel in the last 8 weeks: None household members: spouse housing: house 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 current occupational exposures/hazards: No caffeine: Yes [facility] Anesthesia Checklist Patient Identification Patient Identification: Arm Band, Family and Verbal (Name & ) Structural Data Admitted From: Home Planned Operative Procedure/s: Excision VC lesion Consent for Planned Operative Procedure(s) Verified: Yes Verified Documents: Surgical Consent and History and Physical NPO Status Verified Time NPO: 18:00 Chart Verification Results Verified: CBC, BMP, ECG and Chest Xray Additional verifications Patient : No Anesthesia Reactions: No Hx Blood Transfusions: No Blood Transfusion Reaction: No Cardiovascular Assessment Heart Sounds: S1 & S2 Pulse Rhythm: Irregular Peripheral Edema: No Airway Assessment Mallampati Score:: Class II C-Spine Mobility Assessed: Yes (limited extension s/p Cervical fusion) TMJ Mobility Assessed: Yes Dentition: Edentulous Neurological Assessment Level of Consciousness: Awake, Alert, Appropriate and Follows Commands Hx Seizures: No Numbness or tingling in extremities: No Anesthesia Plan Anesthesia Risk discussed: Yes Anesthesia Plan: Verified ASA Class: III Anesthesia Type: General
--- NOTE | 2023-02-15 12:04 | EXP.ANES.I ---
[facility] Anesthesia Record Part I Anesthesia Record I Intake, IV Amount: 800 Hydration: Adequate Estimated blood loss (mL): 0 Urine output (mL): 0 Blood Products used (#): none Blood Pressure: 149/93 SaO2: 99 Pulse Rate: 82 Airway Patency: Patent Respiratory Rate: 16 Temperature: 97.3 F Patient is:: Drowsy and Stable Stable to PACU at:: 12:00
--- NOTE | 2023-02-15 12:06 | P.OP_ITS ---
Date of procedure: 02/15/23 Pre-op Diagnosis:: Bilateral vocal cord edema with polyposis Post-op Diagnosis:: Same?pathology pending Procedure performed:: Microscopic direct laryngoscopy with biopsy right and left Surgeon:: Leo Medina III, MD ELECTRICAL ENGINEERING DRAFTING OFFICER:: Yoshi Daniels Anesthesia: GETA Estimated blood loss (mL): 5 Operative findings:: Bilateral Farheen's edema of anterior two thirds of vocal cord with partial airway obstruction Operative note:: The patient was brought to the operating room and placed under general endotracheal anesthesia with an SECOND CHEF tube. She was then placed in the neck extended head flexed position. We were careful not to extend the neck as she had had prior surgery. A suspension laryngoscope was then used to expose the hypopharynx and larynx. As noted she had severe polypoid edema of the anterior two thirds of both cords primarily at the medial surface. Under microscopic guidance I remove the polypoid damaged mucosa along with some of the submucosa that was polypoid from the left anterior cord. I did preserve a fair amount of mucosa to resurface the vocal cord area. I then did a similar procedure on the right side taking care to avoid injury to the anterior commissure area to prev ent web formation. Once the polypoid tissue was removed the mucosa was then reapproximated to cover the exposed submucosal tissue. Topical 4% lidocaine with Afrin was applied on cottonoid. After adequate time was allowed for vasoconstriction the cottonoid was removed and photograph was taken to document the procedure. Patient was then awakened in the operating room and taken to the recovery room in good condition. Condition: stable Disposition: PACU Complications:: None
--- NOTE | 2023-02-16 08:47 | P.PNANES_ITS ---
[facility] Anesthesia Record Part II Anesthesia Record Part II Discharge Time: 12:30 Destination: Surgical Day Care (OP Surgery) PACU nurse assessment reviewed?: Yes Patient Condition:: Good Anesthesia Complications:: None Swallowing reflex intact?: Yes Airway Patency: Patent Cyanosis?: No Blood Pressure: 146/82 SaO2: 96 Respiratory Rate: 18 Pulse Rate: 66 Temperature: 97 F Mental Status: Alert & Oriented Pain level:: 4 Nausea and/or vomitting:: None Intake, IV Amount: 0 Hydration: Adequate
[2023-02-16 08:48] VITALS: BP 146/82; PULSE 66; RESP 18; TEMP 36.1; O2SAT 96
== END 2023-02-15 12:55 | disposition home or self-care (01) ==
PROVIDERS: PCP Nurse Practitioner; Visit Provider Otolaryngology
PROC: (CPT 31536; principal; 2023-02-15 09:45)
DX: J38.1 Polyp of vocal cord and larynx (principal); J38.3 Other diseases of vocal cords
CPT/HCPCS: 31536; J2405

== ENCOUNTER 2023-06-03 18:54 | Outpatient (CLI) | payer BC, SELFPAY | END 2023-06-03 23:59 | LOC: LAB.DROPOF 18:54 | PROVIDERS: PCP Nurse Practitioner; Visit Provider Nurse Practitioner | DX: R30.0 Dysuria (principal); B96.29 Other Escherichia coli [E. coli] as the cause of diseases classified elsewhere | CPT/HCPCS: 87086 ==

== ENCOUNTER 2023-07-12 14:04 | Outpatient (CLI) | payer BC, SELFPAY ==
[2023-07-12 18:20] LABS: Coronavirus 19, PCR Not Detected (NotDetected); Influenza A, PCR Not Detected (NotDetected); Influenza B, PCR Not Detected (NotDetected)
[2023-07-12 18:56] LABS: Basophils # 0.1 K/mm3 (0-0.2); Basophils % 0.5 % (0.1-2.0); Eosinophils # 0.2 K/mm3 (0.0-0.4); Eosinophils % 2.6 % (0.1-12.0); Hematocrit 43.9 % (37.0-47.0); Hemoglobin 14.3 g/dL (12.2-16.2); Lymphocytes # 2.2 K/mm3 (0.7-4.5); Lymphocytes % 23.6 % (10-50); Mean Corpuscular HGB Conc 32.5 g/dL (31.8-35.4); Mean Corpuscular Hemoglobin 30.8 pg (27.0-31.2); Mean Corpuscular Volume 94.7 fl (81-99); Mean Platelet Volume 9.8 fl (7.4-10.4); Monocytes # 0.4 K/mm3 (0.1-1.0); Monocytes % 4.2 % (1.7-9.3); Neutrophils # 6.4 K/mm3 (1.8-7.8); Neutrophils % 69.1 % (37.0-80.0); Platelet Count 315 K/mm3 (142-424); Red Blood Count 4.63 M/mm3 (4.20-5.40); Red Cell Distribution Width 13.2 % (11.5-17.5); White Blood Count 9.3 K/mm3 (4.8-10.8)
[2023-07-12 19:47] LABS: C-Reactive Protein 1.4 mg/L (0-4)
[2023-07-12 20:05] LABS: Erythrocyte Sedimentation Rate 8 mm/hr (0-30)
[2023-07-14 16:32] LABS: Lyme Ab CIA Negative (Negative)
== END 2023-07-12 23:59 | disposition home or self-care (01) ==
LOC: LAB.DROPOF 07-13 14:05
PROVIDERS: PCP Nurse Practitioner; Visit Provider Nurse Practitioner
DX: J06.9 Acute upper respiratory infection, unspecified (principal); M25.50 Pain in unspecified joint
CPT/HCPCS: 85025; 85651; 86140; 86618; 87636

== ENCOUNTER 2023-08-02 08:18 | Emergency (ER) | payer BC, SELFPAY ==
[2023-08-02 08:35] VITALS: BP 140/86; PULSE 78; RESP 21; TEMP 37.1; O2SAT 98; BMI 26.1
--- NOTE | 2023-08-02 08:49 | ED_ITS ---
Discharge Plan Disposition Patient Disposition: Home, Self-Care Condition: Good Prescriptions Prescriptions: New amoxicillin-pot clavulanate 875-125 mg Tablet 1 tab PO Q12H Qty: 20 0RF fluticasone propionate [Flonase Allergy Relief] 50 mcg/actuation spray ,suspension 2 spray intranasal DAILY Qty: 16 0RF Rx Instructions: administer into each nostril meclizine 25 mg tablet 25 mg PO TID PRN (Reason: dizziness) Qty: 12 0RF methylprednisolone [Medrol (Angelo)] 4 mg tablets,dose pack See Rx Instructions .Route .COMPLEX 6 Days Qty: 21 0RF Rx Instructions: taper pack; No Action atorvastatin 40 mg tablet 40 mg PO HS clopidogrel 75 mg tablet 75 mg PO DAILY aspirin 81 mg tablet,delayed release (DR/EC) 81 mg PO DAILY varenicline 1 mg tablet 1 mg PO DAILY Patient Comments: TAKE 1 TABLET BY MOUTH TWICE A DAY Referrals Follow up/Referrals: Marcie Alvarez MD [Primary Care Provider] - See instructions Activity Restrictions/Add. Instructions Additional Instructions/Restrictions: *Monitor Temp, Over the counter Motrin or Tylenol as directed/as needed Tylenol every 4 hours and Motrin every 6 hours (as long as your family doctor has told you that you can take it) for fever or pain. and straight to ER if unable to lower temp less than 101.0 after medication given *Warm salt water gargles may help to soothe the throat *Throat Lozenges? *Warm fluids like tea with honey may help to soothe the throat? *Sleep elevated *Humidifier/Vaporizer *Flonase 2 sprays in each nostril daily but be aware that it may take 2-3 days before you notice improvement Start oral steriods and oral antibitoics tomorrow Your throat swab was sent for culture. Those results are typically sent to your primary care. Be sure to follow up in 2-3 days with your family doctor/primary care physician if no improvement so they can review those result and treat if necessary. If you don?t have a primary care doctor, I recommend you get one but in the mean time, you will have to return to a walk in clinic Follow up IMMEDIATELY for new or worsening symptoms or no Noticeable improvement over the next 48-72 hours. 911 for difficulty breathing or swallowing Clinical Impressions Clinical Impression: Sinusitis Qualifiers: Sinusitis location: unspecified location Chronicity: unspecified Qualified Code(s): J32.9 - Chronic sinusitis, unspecified Instructions Patient Instructions: Ear Infections (Alternative Therapy), Middle Ear Infection, DI for Sinusitis Discharge ED Provider: Vida Dejesus [facility] HPI General Stated complaint: headaches,fever, bodyaches Mode of Arrival: Ambulatory Source of Information: Patient Limitations: No Limitations Time Seen by Provider: 08/02/23 08:49 Description of Symptoms (Recalled from Triage Doc. by RN): PATIENT C/O FEVER, HEADACHE, BODY ACHES, DIZZINESS AND BILATERAL EAR PAIN SINCE YESTERDAY AFTERNOON HEENT Symptoms (Recalled from RN notes): Yes Resp Symptoms (Recalled from RN notes): No Skin Symptoms (Recalled from RN notes): No MS Symptoms (Recalled from RN notes): No Functional Status (Recalled from RN notes): WNL History of Present Illness Provider Complaint: Patient states that she has been around a lot of [facility] and yesterday she started not feeling well States that she has been having fever, chills, headache, sinus congestion, scratchy throat and pain and pressure in her ears and this morning when he stands up she has to stand for just a minute due to feeling off balance Related Data Home Medications Medication Instructions Recorded Confirmed aspirin 81 mg tablet,delayed 81 mg PO DAILY 08/02/23 08/02/23 release atorvastatin 40 mg tablet 40 mg PO HS 08/02/23 08/02/23 clopidogrel 75 mg tablet 75 mg PO DAILY 08/02/23 08/02/23 varenicline 1 mg tablet 1 mg PO DAILY 08/02/23 08/02/23 Previous Rx's Medication Instructions Recorded amoxicillin 875 mg-potassium 1 tab PO Q12H #20 tabs 08/02/23 clavulanate 125 mg tablet fluticasone propionate 50 2 spray intranasal DAILY #16 grams 08/02/23 mcg/actuation nasal spray,suspension (Flonase Allergy Relief) meclizine 25 mg tablet 25 mg PO TID PRN dizziness #12 tabs 08/02/23 methylprednisolone 4 mg tablets in See Rx Instructions .Route 08/02/23 a dose pack (Medrol (Angelo)) .COMPLEX 6 days #21 tabs Allergies Allergy/AdvReac Type Severity Reaction Status Date / Time No Known Drug Allergies Allergy Unknown Verified 07/12/23 09:15 Worker's Comp Is this a Worker's Comp case?: No [facility] Disclaimer: The information contained in this section may have been updated after the patient was seen, as this information can be updated by other users. Medical History Encounter for smoking cessation counseling Staphylococcus infection of nose Menopausal symptoms Tobacco abuse Hyperlipidemia GERD (gastroesophageal reflux disease) Throat fullness Hoarseness or changing voice Thyromegaly Thyroid nodule Arthritis of left shoulder region Surgical History H/O nasal polypectomy History of cholecystectomy History of hysterectomy History of tonsillectomy Family History Other No significant family history Social History Smoking Status: Current every day smoker tobacco type: cigarettes packs per day: 1 alcohol intake: never substance use type: denies use current occupational status: unemployed Travel in the last 8 weeks: None household members: spouse housing: house 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 current occupational exposures/hazards: No caffeine: Yes ROS Obtained: Yes All systems reviewed & no additional complaints except as documented and Yes Systems reviewed as appropriate & no additional complaints except as documented Constitutional Constitutional: Reports system reviewed and no additional complaints, except as documented, Reports as per HPI, Reports body ache, Reports chills, Reports fever(s) and Reports headache(s) ENT Ears, Nose, Mouth, and Throat: Reports system reviewed and no additional complaints, except as documented, Reports as per HPI, Reports dizziness, Reports otalgia, Reports headache(s), Reports nasal congestion, Reports sinus pressure and Reports sore throat Cardiovascular Cardiovascular: Reports system reviewed and no additional complaints, except as documented, Reports as per HPI, Denies chest pain, Denies dyspnea, Denies edema, Denies leg edema and Denies leg ulcers Respiratory Respiratory: Reports system reviewed and no additional complaints, except as documented, Reports as per HPI, Denies shortness of breath and Denies dyspnea Gastrointestinal Gastrointestingal: Reports system reviewed and no additional complaints, except as documented and as per HPI Neurologic Neurologic: Reports dizziness and Reports headache(s) Physical Exam General General appearance: alert and in no apparent distress ENT ENT exam: Present mucous membranes moist Expanded ENT Exam TM/Canal exam: Bilateral TM: erythema and bulging Nose exam: Present sinus tenderness Throat exam: Present other (Pharyngeal erythema noted with PND) Respiratory Respiratory exam: Present normal lung sounds bilaterally; Absent respiratory distress or wheezes Cardiovascular Cardiovascular exam: Present regular rate, normal rhythm and normal heart sounds Abdominal Exam Abdominal exam: Present soft and normal bowel sounds; Absent distention or tenderness Neurological Exam Neurological exam: Present alert, oriented X3 and normal gait Medical Decision Making Chad Inquiry Pt receiving controlled substance: No Chad was queried for this patient: No Vital Signs: 08/02/23 08:35 Temperature 98.7 F Temperature Source Oral Pulse Rate [Left Brachial] 78 Respiratory Rate 21 Blood Pressure [Left Arm] 140/86 Blood Pressure Mean [Left Arm] 104 Blood Pressure Source [Left Arm] Automatic Cuff Blood Pressure Position [Left Arm] Sitting 02 Sat by Pulse Oximetry 98 Oxygen Delivery Method Room Air Lab Data Lab results reviewed: Yes I reviewed the patient's lab results.
[2023-08-02 09:14] LABS: UTC Strep Screen (Rapid) Negative (Negative)
[2023-08-02] MEDS: LIDOCAINE 1% 5ML PF VIAL IM (09:31)
[2023-08-02] MEDS: METHYLPREDNISOLONE SOD SUCC 125MG VIAL 125 MG IM (09:31)
[2023-08-02] MEDS: cefTRIAXone 1GM VIAL 1 GM IM (09:31)
[2023-08-02 09:38] VITALS: BP 140/86; PULSE 78; RESP 21; TEMP 37.1; O2SAT 98
== END 2023-08-02 09:45 | disposition home or self-care (01) ==
PROVIDERS: Emergency Provider Nurse Practitioner; PCP Family Medicine
DX: J01.90 Acute sinusitis, unspecified (principal); R51.9 Headache, unspecified; R50.9 Fever, unspecified; R07.0 Pain in throat; H92.03 Otalgia, bilateral; R09.81 Nasal congestion
CPT/HCPCS: 87880; 96372; 99204; 99212; G0463; J0696

== ENCOUNTER 2024-04-24 11:40 | Outpatient (CLI) | payer BC, SELFPAY ==
[2024-04-24 18:46] LABS: Basophils # 0.1 K/mm3 (0-0.2); Basophils % 0.6 % (0.1-2.0); Eosinophils # 0.2 K/mm3 (0.0-0.4); Eosinophils % 2.7 % (0.1-12.0); Hematocrit 40.9 % (37.0-47.0); Hemoglobin 13.5 g/dL (12.2-16.2); Lymphocytes # 2.6 K/mm3 (0.7-4.5); Lymphocytes % 29.7 % (10-50); Mean Corpuscular Hemoglobin 30.4 pg (27.0-31.2); Mean Corpuscular Volume 92.1 fl (81-99); Mean Platelet Volume 10.5 fl (7.4-10.4); Monocytes # 0.4 K/mm3 (0.1-1.0); Monocytes % 4.9 % (1.7-9.3); Neutrophils # 5.5 K/mm3 (1.8-7.8); Neutrophils % 61.9 % (37.0-80.0); Platelet Count 280 K/mm3 (142-424); Red Blood Count 4.44 M/mm3 (4.20-5.40); Red Cell Distribution Width 12.8 % (11.5-17.5); White Blood Count 8.9 K/mm3 (4.8-10.8)
[2024-04-24 19:41] LABS: Creatinine,Urine Random 13 mg/dL (Not Estab.); Microalbumin < 6.000 mg/L (0-16.7)
[2024-04-24 19:42] LABS: Albumin Level 4.5 g/dl (3.5-5.0); Chloride 110 mmol/L (98-107)
[2024-04-24 19:43] LABS: Potassium 3.8 mmoL/L (3.5-5.1); Sodium 138 mmol/L (136-145)
[2024-04-24 19:45] LABS: Alanine Aminotransferase 16 U/L (12-78); Anion Gap 9.8 mEq/L (5-15); Aspartate Amino Transferase 22 U/L (14-36); Blood Urea Nitrogen 12 mg/dl (7-17); Carbon Dioxide 22 mmol/L (22.0-30.0); Estimated Glomerular Filt Rate 87 ml/min (>60); GFR (African American) 106 ML/MIN (>60)
[2024-04-24 19:46] LABS: Albumin/Globulin Ratio 2.3 (1.1-1.8); Alkaline Phosphatase 88 U/L (38-126); Bilirubin,Total 0.3 mg/dl (0.2-1.3); Calcium 9.5 mg/dl (8.4-10.2); Glucose 92 mg/dl (74-100); Total Protein,Serum 6.5 g/dl (6.3-8.2)
[2024-04-24 20:19] LABS: Thyroid Stimulating Hormone 1.05 uIU/mL (0.465-4.68)
[2024-04-24 22:23] LABS: Hemoglobin A1C 5.3 % (4.0-6.0)
== END 2024-04-24 23:59 | disposition home or self-care (01) ==
LOC: LAB.DROPOF 04-26 10:31
PROVIDERS: PCP Nurse Practitioner; Visit Provider Nurse Practitioner
DX: R55 Syncope and collapse (principal)
CPT/HCPCS: 80053; 82043; 82570; 83036; 84443; 85025

== ENCOUNTER 2024-08-04 10:04 | Outpatient (CLI) | payer BC, SELFPAY ==
--- OUTSIDE RECORDS SUMMARY | 2024-08-07 10:06 | XMS_ITS | Data Portability ---
Author Organization [facility] BETHANY Armstrong ELIZABETH CLOSED Address [address] [facility] [address] [place] [address] Assessment No assessment recorded. Plan of Treatment Reminders Order Date Submit Date Provider Last Modified By Organization Details Last Modified Time Details Appointments None recorded. Lab None recorded. Referral None recorded. Procedures None recorded. Surgeries None recorded. Imaging XR, cervical spine, 2 or 3 view 2016 017 [facility], [address] [place] [address], [phone], 7 13:37:55 CT, cervical spine, w/o contrast 2016 017 [facility], [address] [place] [address], [phone], 7 13:59:16 MRI, cervical spine, w/o contrast 2016 017 [facility], [address] [place] [address], [phone], 7 14:00:37 Medication Orders cyclobenza corrine 5 mg tablet 2016 017 [id number], [address] [place], [address], 7 11:51:38 Patient TargetsNo targets recorded. Patient Instructions Encounter Date Encounter Id Patient Instructions Last Modified By Organization Details Last Modified Time 10/27/2017 [id number] Spent 15# total minutes with the patient today. Greater than 50% of this time was spent counseling/coordi nation of care as documented in my assessment and plan above. [email or web address] Not available 10/27/2017 10:35:57 Reason for Referral None Reported. Results Created Date Observation Date Name Description Value Unit Range Abnormal Flag Note LastModifiedBy Organization Detail LastModifiedTime 01/27/20 17 01/26/2017 XR, cervi [place] spine , 2 or [address] [address] Rima dover Name: FERNANDEZ dover : [birth year] Rima dover Orderi ng Provid er: DAIN CANELA PS EXAM DATE: 2016 EXAM: XR CERVIC AL SPINE FLEX/E XT ONLY CLINIC AL INFORM ATION: Neck pain. IMAGES PROVID ED: Latera l views of the cervic al spine in flexio n and extens ion. COMPAR ACE: None. FINDIN GS AND IMPRES CHARLES: Anteri or fusion is noted at C5-C7 levels . No abnorm al moveme nt of the surgic al hardwa re is seen on flexio n and extens ion. Mild degene rative change s are seen at C4-C5 level. No instab ility is identi fied. Interp reted By: Alec Cosby MD Electr onical ly Signed By: Alec Cosby MD on 2016 1:32 PM [facility] [address], [phone], 02/08/2017 16:31:35 01/27/20 17 01/26/2017 CT, cervi [place] spine , w/o contr ast [place] [address] [place] [address] Rima dover Name: FERNANDEZ dover : [birth year] Rima dover Orderi ng Provid er: DAIN CANELA PS EXAM DATE: 2016 EXAM: CT CERVIC AL WITHOU T CONTRA ST HISTOR Y: 46-yea r-old female with recent onset of neck pain and left hand numbne ss. The patien t has had prior cervic al spine surger y. COMPAR ACE: MRI and radiog raph of the same date. Techni que: 1 mm direct axial slices were obtain ed throug h the cervic al spine. Comput er-gen erated axial, engle l, and sagitt al recons tructi ons are provid ed for interp retati on. FINDIN GS: The patien t is status post anteri or fusion from C5 throug h C7. There is beam harden ing artifa ct from the anteri or fusion plate and screws . There is no eviden ce of loosen ing of the hardwa re. There is no eviden ce of compli cation . There is mild focal kyphos is at C4-C5. There is no fractu re or pathol ogic intrao sseous lesion . There is mild anteri or margin al osteop hytic spurri ng. No parasp inous soft tissue abnorm ality is identi fied. The visual ized spinal cord and smoking pipe liner ior fossa of the brain are normal in appear ance. The cranio cervic al juncti on is normal in appear ance. There are minima l degene rative change s at C1-C2. C2-C3: There is mild left-s ided endpla te spurri ng with a small disc/o steoph yte comple x. There is no centra l canal stenos is. There is no neural forami nal stenos is. C3-C4: There is a mild disc bulge and minima l endpla te spurri ng. There is no centra l canal stenos is. There is no neural forami nal narrow ing. C4-C5: There is a broad- based left parace ntral disc protru charles with extens ion in the left latera l recess , and mild to modera te endpla te spurri ng. There is mild centra l canal stenos is. There is mild bilate ral neural forami nal narrow ing. C5-C6: There is prior fusion at this level with mild residu al endpla te spurri ng. There is mild centra l canal stenos is. There is modera te bilate ral neural forami nal stenos is. C6-C7: There is prior fusion at this level with residu al endpla te spurri ng. There is minima l centra l canal stenos is. There is minima l neural forami nal stenos is. C7-T1: There is a minima l disc bulge and minima l endpla te spurri ng. There is no centra l canal stenos is or neural forami nal stenos is.. There is a small centra l disc protru charles at T4-T5. IMPRES CHARLES: 1. The patien t is status post anteri or fusion from C5 throug h C7 withou t eviden ce of compli cation . 2. There is mild centra l canal narrow ing at C4-C5 and C5-C6. There is modera te neural forami nal narrow ing at C5-C6, and mild neural forami nal narrow ing at C4-C5. Interp reted By: Baltazar baker MD Electr onical ly Signed By: Baltazar baker MD on 2016 1:54 PM [facility] [address], [address], 02/01/2017 15:18:18 01/27/20 17 01/26/2017 MRI, cervi [place] spine , w/o contr ast [address] [address] Rima dover Name: FERNANDEZ dover : [birth year] Rima dover Orderi ng Provid er: DAIN HANNON EXAM DATE: 2016 EXAM: MR CERVIC AL W/O CONTRA ST HISTOR Y: 46-yea r-old female with recent onset of neck pain and left hand numbne ss. The patien t has had prior cervic al spine surger y. COMPAR ACE: CT scan and radiog raph of the same date. FINDIN GS: The patien t is status post anteri or fusion from C5 throug h C7. There is parama gnetic artifa ct from the anteri or fusion plate and screws . There is no eviden ce of compli cation . There is mild focal kyphos is at C4-C5. There is no fractu re or pathol ogic intrao sseous lesion . There is mild anteri or margin al osteop hytic spurri ng. No parasp inous soft tissue abnorm ality is identi fied. The visual ized spinal cord and smoking pipe liner ior fossa of the brain are normal in appear ance. The cranio cervic al juncti on is normal in appear ance. There are minima l degene rative change s at C1-C2. C2-C3: There is mild left-s ided endpla te spurri ng with a small disc/o steoph yte comple x. There is no centra l canal stenos is. There is no neural forami nal stenos is. C3-C4: There is a mild disc bulge and minima l endpla te spurri ng. There is no centra l canal stenos is. There is no neural forami nal narrow ing. C4-C5: There is a broad- based left parace ntral disc protru charles with extens ion in the left latera l recess , and mild to modera te endpla te spurri ng. There is mild centra l canal stenos is. There is mild bilate ral neural forami nal narrow ing. C5-C6: There is prior fusion at this level with mild residu al endpla te spurri ng. There is mild centra l canal stenos is. There is modera te bilate ral neural forami nal stenos is. C6-C7: There is prior fusion at this level with residu al endpla te spurri ng. There is minima l centra l canal stenos is. There is minima l neural forami nal stenos is. C7-T1: There is a minima l disc bulge and minima l endpla te spurri ng. There is no centra l canal stenos is or neural forami nal stenos is.. There is a small centra l disc protru charles at T4-T5. IMPRES CHARLES: 1. The patien t is status post anteri or fusion from C5 throug h C7 withou t eviden ce of compli cation . 2. There is mild centra l canal narrow ing at C4-C5 and C5-C6. There is modera te neural forami nal narrow ing at C5-C6, and mild neural forami nal narrow ing at C4-C5. Interp reted By: Baltazar baker MD Electr onical ly Signed By: Baltazar baker MD on 2016 1:55 PM [email or web address] [address] [place], [address], 02/08/2017 16:16:52 10/28/19 18 10/27/2017 MRI, cervi [place] spine , w/o contr ast [facility] [address] [facility] [place] [address] Patiphani t Name: FERNANDEZ dover : [birth year] Patien t Orderi ng Provid er: AKOSUA HOGUE EXAM DATE: 2017 EXAM: MR CERVIC AL W/O CONTRA ST HISTOR Y: 47-yea r-old female with neck pain radiat ing to the left arm. The patien t has had prior cervic al fusion . COMPAR ACE: MRI and CT scan dated 2016. FINDIN GS: The patien t is status post anteri or fusion from C5 throug h C7. There is parama gnetic artifa ct from the anteri or fusion plate and screws . There is no eviden ce of compli cation . There is mild focal kyphos is from C3 throug h C5. There is no fractu re or pathol ogic intrao sseous lesion . There is mild anteri or margin al osteop hytic spurri ng. No parasp inous soft tissue abnorm ality is identi fied. The visual ized spinal cord and smoking pipe liner ior fossa of the brain are normal in appear ance. The cranio cervic al juncti on is normal in appear ance. There are minima l degene rative change s at C1-C2. C2-C3: There is a small left-s ided small disc/o steoph yte comple x. There is no centra l canal stenos is. There is no neural forami nal stenos is. C3-C4: There is a minima l disc bulge and minima l endpla te spurri ng. There is no centra l canal stenos is. There is no neural forami nal narrow ing. C4-C5: There is a broad- based left parace ntral disc protru charles with extens ion in the left latera l recess , and mild to modera te endpla te spurri ng. There is mild centra l canal stenos is. There is mild bilate ral neural forami nal narrow ing. C5-C6: There is prior fusion at this level with mild to modera te residu al endpla te spurri ng. There is mild centra l canal stenos is. There is modera te bilate ral neural forami nal stenos is. C6-C7: There is prior fusion at this level with residu al endpla te spurri ng. There is minima l centra l canal stenos is. There is no neural forami nal stenos is. C7-T1: There is a minima l disc bulge and minima l endpla te spurri ng. There is no centra l canal stenos is or neural forami nal stenos is.. IMPRES CHARLES: 1. The patien t is status post anteri or fusion from C5 throug h C7 withou t eviden ce of compli cation . 2. There is mild centra l canal narrow ing at C4-C5 and C5-C6. There is modera te neural forami nal narrow ing at C5-C6, and mild neural forami nal narrow ing at C4-C5. 3. There is a left parace ntral disc protru charles at C3-C4 which appear s stable . 4. This study appear s unchan ged from the prior MRI. Interp reted By: Baltazar baker MD Electr onical ly Signed By: Baltazar baker MD on 018 12:53 PM [facility] [address] [place] [address], [address], 11/03/2017 11:45:57 Result Notes None recorded. Problems Name Problem SNOMED Code Status Onset Date Resolution Date Notes Provider Name and Address Organization Details Recorded Time Cervical radiculopa thy 41635559 Active 2015 From Automated Load;Provi mago: Hilda Stokesus: Active Not Available [facility] 6 07:[facility]:44 Cervical spondylosi s with radiculopa thy Active 2015 From Automated Load;Provi mago: Ronnie Stokes;St atus: Active Not Available [facility] 6 07:51:44 Problem Notes None recorded. Procedures Surgical History Date Name Laterality Status Provider Name and Address Organization Details Recorded Time Removal of gallbladder completed [facility] 01/26/2017 11:25:27 Other completed [facility] 01/26/2017 11:25:37 Other completed [facility] 01/26/2017 11:26:08 Removal of tonsils completed [facility] 01/26/2017 11:26:16 Imaging Results None recorded. Procedure Notes None recorded. Medical Equipment None Reported. Allergies No known drug allergies Medications Name Sig Start Date Stop Date Status Note LastModified by Organization Details LastModified Time methylprednisolo ne dose pack 4 mg tbpk active Not Available Not Available Not Available cyclobenzaprine hcl 5 mg tabs active Not Available Not Availabl e Not Available amoxicillin 875 mg tabs active Not Available Not Available Not Available sklice 0.5 % lotn active Not Available Not Available Not Available etodolac 200 mg caps active Not Available Not Available Not Available gabapentin 100 mg caps active Not Available Not Available Not Available benzonatate 200 mg caps active Not Available Not Available Not Available triamcinolone acetonide 0.025 % crea active Not Available Not Available Not Available promethazine syp dm active Not Available Not Available Not Available sulfacetamide sodium 10 % oint active Not Available Not Avail able Not Available cyclobenzaprine 5 mg tablet Take 1 tablet 3 times a day by oral route. 2016 active Not Available Not Available Not Avai lable Vitals Date Recorded Body height Body mass index (BMI) Body weight Systolic blood pressure Diastolic blood pressure Provider Name and Address Organization Details Last Updated DateTime 10/27/2017 162.56 cm 24 kg/m2 87451.93 g 126 mm[Hg] 82 mm[Hg] [facility] 8 09:48:34 Date Recorded Body height Body mass index (BMI) Body weight Systolic blood pressure Diastolic blood pressure Provider Name and Address Organization Details Last Updated DateTime 01/26/2017 162.56 cm 25.4 kg/m2 96415.67 g 122 mm[Hg] 82 mm[Hg] Theodora Cardona [facility] 7 11:22:09 Social History Question Answer Notes LastModified by Organizat ion Details LastModified Time Tobacco Smoking Status Current Every Day Smoker Theodora Cardona null, [facility] 01/26/2017 11:25:17 What Was The Date Of Your Most Recent Tobacco Screening? 10/27/2017 Information n ot available 04[birth year]25[birth year]2019 Sex: Unknown Functional Status None recorded. Mental Status None recorded. Family History Relationship Description Onset Age of this Age Resolved Age Notes LastModified by Organization Details LastModified Time Unspecified Relation Hypertensive disorder [email or web address] Not available 01/26 11:25:11 Medical History No medical history recorded. Gynecological HistoryNo gynecological history recorded. Obstetrics History GPAL:G 0 P 0 0 0 0 Past Encounters Encounter ID Performer Location Encounter Start Date Encounter Closed Date Diagnosis/Indication Diagnosis SNOMED-CT Code Diagnosis ICD10 Code Diagnosis Note [id number] RONNIE STOKES [facility] [address] [place] [address] 01/26/2017 10:51:12 02/02/2017 10:35:32 Cervical radiculopathy 43487820 M54.12 She does not have a copy of the image from some cervical films done a few weeks ago, but the report commented on moderate to severe foraminal stenosis at C5-6. Given her new onset of Right-side d symptoms as well as some recurrent left hand symptoms, will proceed with a cervical MRI to assess for any new nerve root compressio n. Will also get a cervical CT and flexion/ex tension films to verify no hardware issues or pseudoarth rosis. I will also provide her with some flexeril to see if this helps any with her neck and shoulder pain. Will call her with the results of her imaging. Should these be negative for any of the aforementi oned issues, will have her start physical therapy and have her follow up in a couple of months to see how she's doing. She is happy with this plan. [id number] ABBI DELEON PA-C [facility] [address] [place] [address] 10/27/2017 09:35:24 10/29/2017 14:24:29 Cervical radiculopathy 46065807 M54.12 1 month of posterior neck pain with radiation down the left shoulder and diffusely down the left arm. She has been to PT, and is taking nsaids and gabapentin . She is s/p C5-6, C6-7 ACDF on 09/06/15 for left radicular arm pain and left tricep weakness. Dr. Stokes will order a cervical mri wo to evaluate. We will refer her to PM for injections . She will follow up in 6 weeks. If no improvemen t, may discuss extension of cervical fusion. She is happy with the plan. The patient was seen and examined by Dr. Stokes and myself. He agrees with the plan as stated above. Addendum: The patient was seen by us in January. At which time she was having symptoms down the arms bilaterall y. Persistent , refractory left-sided symptoms. Correlatio n with a C5 radiculopa thy appears to be present. Most recent MRI last January indicated left C4-5 foraminal stenosis. Suspect this is the underlying etiology of her left arm pain. Referral for a left C4-5 epidural injection. Reassess in 6 weeks. May need ACDF C4-5 if she is unresponsi ve to the above treatment. Health Concerns Section Related Observation LastModified by Organization Detai ls LastModified Time None Recorded Concern Status LastModified by Organization Details LastModified Time None Recorded Advance Directives Directive None Recorded Payers Insurance Date Sequence Insurance Name Policy Number Policy Munoz Covered Member ID Munoz Member ID Guarantor Name 01/31/2020 1 [place] [id number] Teja Díaz [id number] Fernandez Díaz Notes Date Note Type Note Provider Name and Address Organization Details Recorded Time 01/26/2017 text/html Ms. Arjun sosa ts to clinic for recurrent neck and right shoulder pain. She is accompanied today by her . She is s/p C5-6, C6-7 ACDF on 09/06/15 for Left radicular arm pain and Left tricep weakness. She had an uncomplicated post-operative course. About 2 months ago, she started to develop some posterior neck pain with radiation to her Right shoulder. The pain is constant. No arm pain, weakness, decreased welder experimental/dropping objects, gait/balance changes, or b/b changes. She also reports some numbness in her Left 3rd and 4th fingers that started about the same time as her right sided symptoms. No relief from oral steroids or NSAIDs. She had some plain films done a few weeks ago, but she does not have the images with her today. CHE FLORENTINO PA-C [address] [place], [address], [facility] 02/01/2017 19:52:37 10/27/2017 text/html Ms. Arjun sosa ts to clinic for recurrent neck pain which radiates to the left shoulder and diffusely down the left arm. She is accompanied today by her . She is s/p C5-6, C6-7 ACDF on 09/06/15 for left radicular arm pain and left tricep weakness. She did not come in for a post-op visit. She was last seen on 01/26/17 with L>R arm pain. A CT cervical, cervical MRI, and flex/extension cervical xrays were performed revealing no instability but a mild HNP at C4-5 on the left. This is managed conservatively. She went to PT x 3 visits, and has been taking gabapentin 200mg TID and NSAIDS without much relief. About 1 month ago, she started to develop some posterior neck pain with radiation down the left shoulder and diffusely down the left arm. The pain is constant. Rates as 6/10. No weakness, decreased welder experimental/dropping objects, gait/balance changes, or b/b changes. She also reports some numbness in her Left 1st and 2nd fingers which started before her surgery in 2015. She has no updated imaging. RONNIE STOKES MD [address] [place], [address], [facility] 10/27/2017 10:51:04 OBGyn Episode No OBEpisode recorded.
== END 2024-08-04 23:59 | disposition home or self-care (01) ==
LOC: LAB.DROPOF 08-07 10:04
PROVIDERS: PCP Nurse Practitioner Family; Visit Provider Nurse Practitioner Family
DX: R50.9 Fever, unspecified (principal)
CPT/HCPCS: 87086; 87088; 87186

== ENCOUNTER 2024-08-16 08:53 | Outpatient (CLI) | payer BC, SELFPAY ==
--- OUTSIDE RECORDS SUMMARY | 2024-07-13 10:24 | XMS_ITS | Encounter Summary ---
Author [place] [address] Care Team Providers Care Food Editor Name Role Phone LeslieNayeli Contreras Primary Care Provider [phone] Encounter Details Date Type Department Care Team (Latest Contact Info) Description 07/13/2024 10:24 AM EDT - 07/13/2024 11:59 PM EDT Hospital Encounter [facility] [address] [place] [address] Preop testing; Other fatigue; AC joint arthropathy Discharge Disposition: Home or Self Care Social History Tobacco Use Types Packs/Day Years Used Date Smoking Tobacco: Every Day Cigarettes 0.5 36.4 Started: 03/12/1988 Smokeless Tobacco: Never Alcohol Use Standard Drinks/Week Comments Yes 0 (1 standard drink = 0.6 oz pur e alcohol) occ rare Comments No Sex and Gender Information Value Date Recorded Sex Assigned at Not on file Legal Sex Female 1:41 PM EDT Gender Identity Not on file Sexual Orientation Not on file documented as of this encounter Medications at Time of Discharge atorvastatin (LIPITOR) 40 mg Oral Tablet Take 1 Tablet by mouth daily. 12/30/2021 celecoxib (CELEBREX) 200 mg Oral Capsule Take 1 Capsule by mouth daily. 11/05/2021 clopidogreL (PLAVIX) 75 mg Oral Tablet Take 1 Tablet by mouth daily. 11/05/2021 docusate sodium (COLACE) 100 mg Oral Capsule Take one capsule three times a day while on pain meds 90 Capsule 07/17/2024 gabapentin (NEURONTIN) 800 mg Oral Tablet Take 800 mg by mouth 4 times daily as needed (takes for neck pain). meloxicam (MOBIC) 15 mg Oral Tablet Take 15 mg by mouth daily. multivit-min/iron /FA/vit K/lut (MULTIVITAMIN WOMEN 50 PLUS ORAL) Take by mouth. oxyCODONE (ROXICODONE) 5 mg Oral Tablet Take 1 Tablet by mouth every 4 hours as needed for Major Surgery/Traum a (G89.18) for up to 28 doses. 28 Tablet 07/17/2024 promethazine (PHENERGAN) 25 mg Oral Tablet Take 1 Tablet by mouth every 6 hours as needed for Nausea for up to 20 doses. 20 Tablet 07/17/2024 traMADoL (ULTRAM) 50 mg Oral Tablet Take 50 mg by mouth as needed. 03/15/2023 07/17/2024 documented as of this encounter Discharge Disposition Disposition Code Departure Means Destination Home or Self Care documented in this encounter Plan of Treatment Upcoming Encounters Date Type Department Care Team (Late st Contact Info) Description 09/06/2024 9:00 AM EDT [facility] [address] [facility] [address] [address] Luis Alberto Lezama MD [address] [address] 02/12/2025 10:45 AM EST Office Visit [facility] [address] [phone] Michael Jacome, [address] [place] [address] [phone] documented as of this encounter Procedures Procedure Name Priority Date/Time Associated Diagnosis Comments TSH REFLEX TO FT4 Routine 07/13/2024 10: 30 AM EDT Preop testing Other fatigue CBC WITH DIFF Routine 07/13/2024 10:30 AM EDT Preop testing Other fatigue AC joint arthropathy BASIC METABOLIC PANEL Routine 07/13/2024 10:30 AM EDT Preop testing Other fatigue AC joint arthropathy documented in this encounter Results * TSH REFLEX TO FT4 (07/13/2024 10:30 AM EDT) TSH Reflex 0.539 0.270 - 4.200 mcIU/mL 07/13/2024 5:33 PM EDT [facility] Blood VENOUS BLOOD / Unknown Venipuncture / Unknown 07/13/2024 10:30 AM EDT 07/13/2024 10:30 AM EDT Narrative [facility] - 07/13/2024 5:33 PM EDT Ingestion of hawa doses of biotin (>5 mg/day) taken within 8 hours of drawing blood sample can interfere with this immunoassay test. Concepcion Valencia PLUGGING MACHINE OPERATOR CHEMISTRY ORDERABLES Final Result [facility] [address] [facility] , [address] [place] [id number] * CBC WITH DIFF (07/13/2024 10:30 AM EDT) WBC 9.1 3.7 - 10.3 x10(3)/mcL 07/13/2024 3:38 PM EDT [facility] RBC 4.54 3.90 - 5.20 x10(6)/mcL 07/13/2024 3:38 PM EDT [facility] Hgb 13.6 11.2 - 15.7 g/dL 07/13/2024 3:38 PM EDT [facility] Hct 42.0 34.0 - 45.0 % 07/13/2024 3:38 PM EDT [facility] MCV 92.5 80.0 - 100.0 fL 07/13/2024 3:38 PM EDT [facility] MCH 30.0 26.0 - 34.0 pg 07/13/2024 3:38 PM EDT [facility] MCHC 32.4 30.7 - 35.5 g/dL 07/13/2024 3:38 PM EDT [facility] RDW 13.1 <=14.9 % 07/13/2024 3:38 PM EDT [facility] Platelet 287 155 - 369 x10(3)/mcL 07/13/2024 3:38 PM EDT [facility] MPV 9.8 8.8 - 12.5 fL 07/13/2024 3:38 PM EDT [facility] Neut Percent 60.6 % 07/13/2024 3:38 PM EDT [facility] Comment:Neutrophils equals s egs plus bands Imm Gran% 0.3 % 07/13/2024 3:38 PM EDT [facility] Comment:Automated count of m etamyelocytes, myelocytes and promyelocytes. Lymph Percent 31.8 % 07/13/2024 3:38 PM EDT [facility] [place] Percent 4.3 % 07/13/2024 3:38 PM EDT [facility] Eos Percent 2.5 % 07/13/2024 3:38 PM EDT [facility] Baso Percent 0.5 % 07/13/2024 3:38 PM EDT [facility] Neut # 5.5 1.6 - 6.1 x10(3)/mcL 07/13/2024 3:38 PM EDT [facility] Comment:Neutrophils equals s egs plus bands IMMGRAN# 0.0 0.0 - 0.1 x10(3)/mcL 07/13/2024 3:38 PM EDT [facility] Comment:Automated count of m etamyelocytes, myelocytes and promyelocytes. An absolute IG <0.1 is reported as 0.0. Lymph # 2.9 1.2 - 3.9 x10(3)/mcL 07/13/2024 3:38 PM EDT [facility] [place] # 0.4 0.3 - 0.9 x10(3)/mcL 07/13/2024 3:38 PM EDT [facility] Eos# 0.2 0.0 - 0.5 x10(3)/mcL 07/13/2024 3:38 PM EDT [facility] Baso # 0.1 0.0 - 0.1 x10(3)/mcL 07/13/2024 3:38 PM EDT [facility] Blood VENOUS BLOOD / Unknown Venipuncture / Unknown 07/13/2024 10:30 AM EDT 07/13/2024 10:30 AM EDT us Concepcion Perea Record PLUGGING MACHINE OPERATOR HEMATOLOGY ORDERABLES Final Result [facility] [address] [facility] , [place] [address] * (ABNORMAL) BASIC METABOLIC PANEL (07/13/2024 10:30 AM EDT) Sodium 138 136 - 145 mmol/L 07/13/2024 5:33 PM EDT [facility] Potassium 3.9 3.5 - 5.0 mmol/L 07/13/2024 5:33 PM EDT [facility] Chloride 106 98 - 107 mmol/L 07/13/2024 5:33 PM EDT [facility] Total CO2 24 22 - 29 mmol/L 07/13/2024 5:33 PM EDT [facility] Anion Gap 8 7 - 16 mmol/L 07/13/2024 5:33 PM EDT [facility] Calcium 9.7 8.6 - 10.4 mg/dL 07/13/2024 5:33 PM EDT [facility] Glucose Lvl 158(H) 70 - 99 mg/dL 07/13/2024 5:33 PM EDT [facility] BUN 12 6 - 20 mg/dL 07/13/2024 5:33 PM EDT [facility] Creatinine 0.82 0.51 - 1.30 mg/dL 07/13/2024 5:33 PM EDT [facility] eGFR (CKD-EPIcr 2020) 85 >=60 mL/min/1.7 3 m2 07/13/2024 5:33 PM EDT [facility] Comment:Estimated GFR was ca lculated using the CKD-EPIcr (2020) equation refit without race. The equation is recommended by the National Kid[employer] - [place] [employer] of Nephrology Task Force. Blood VENOUS BLOOD / Unknown Venipuncture / Unknown 07/13/2024 10:30 AM EDT 07/13/2024 10:30 AM EDT us Concepcion Perea Record PLUGGING MACHINE OPERATOR CHEMISTRY ORDERABLES Final Result [facility] [address] [facility] , [address] [place] [phone] documented in this encounter Visit Diagnoses Diagnosis Preop testing Preoperative examination, unspecified Other fatigue AC joint arthropathy Unspecified disorder of shoulder joint documented in this encounter Care Teams Food Editor Relationship Specialty Start Date End Date Nayeli Nelson [address] [facility] [address] [place] [address] PCP - General Family Medicine 08/07/15 documented as of this encounter
--- OUTSIDE RECORDS SUMMARY | 2024-07-17 07:30 | XMS_ITS | Encounter Summary ---
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 [address] Luis Alberto Lezama MD [id number] [address] [address] Preop testing (Primary Dx); Other fatigue; AC joint arthropathy Discharge Disposition: [...] on file documented as of this encounter Last Filed Vital Signs Vital Sign Reading Time Taken Comments Blood Pressure 164/82 07/17/2024 12:12 PM EDT Pulse 60 07/17/2024 12:12 PM EDT Temperature 36.1 C (97 F) 07/17/2024 12:12 PM EDT Respiratory Rate 13 07/17/2024 12:12 PM EDT Oxygen Saturation 98% 07/17/2024 12:12 PM EDT Inhaled Oxygen Concentration - - Weight 73 kg (161 lb) 07/17/2024 8:02 AM EDT Height 162.6 cm (5' 4 ) 07/17/2024 8:02 AM EDT Body Mass Index 27.64 07/17/2024 8:02 AM EDT documented in this encounter Discharge Instructions * Discharge Instructions* Luis Alberto Lezama MD - 07/17/2024 8:17 AM EDT Images from the original note were not included. +++++++++++++++++++++++++++++++++++++++++++++++++++++++++++++++++++ [facility] Discharge Instructions - Following Anesthesia We appreciate the opportunity to care for you today! Here are a few reminders as you head home: A responsible adult, 18 years or older must be in attendance until tomorrow morning. Rest quietly today. May resume usual diet as tolerated or as directed by your surgeon. Do not drive or operate any machinery until tomorrow morning or as instructed. Do not make any legal or important decisions for the next 24 hours. Do not drink alcoholic beverages or take sleeping pills for 24 hours unless otherwise directed. If you received a nerve block for post-operative pain control, protect your blocked arm/leg. It maybe numb. Carefully pad your limb to prevent pressure sores and other injuries. Be careful with applying cold/warm to the blocked limb. Numbness will alter the sensation of the limb and could damage your skin if you cannot correctly feel the temperature. If you have questions or concerns regarding your anesthesia experience, please call our office at . Get Well Soon! [facility] +++++++++++++++++++++++++++++++++++++++++++++++++++++++++++++++++++ Home Care Instructions following Orthopaedic Surgery performed by Luis Alberto Lezama MD 1. A responsible adult, 18 years of age or older, must be in attendance for 24 hours following discharge. 2. Rest quietly today. 3. Start with liquids first like 7-up or Gatorade. If no nausea after 1 hour, proceed with a light meal. 4. Do not drive or operate heavy machinery. 5. No alcoholic beverages for 24 hours, or while taking pain medicine. 6. Do not make any legal or important decisions for at least the next 24 hours. 7. Check temperature over the next five days and call if greater than 101.0 F. 8. Notify physician if you have a rash, hives, difficulty breathing, severe nausea and vomiting. 9. Contact your family physician for questions concerning home medications. 10. If pain gets worse, call your physician. 11. If physician is unavailable, go to the Emergency Room. Shoulder Discharge Instructions 1. Keep operative shoulder elevated (above the level of the heart). 2. Apply ice pack/ polar care to your shoulder. 3. Dressing: Keep your dressing on, clean and dry until seen back in office in about 7 days. 4. Physical therapy: Yes, begin in 7-10 days. 5. Sling: Until seen by physician. 6.Call physician's office for post-op visit in 7-10 days. 7. Physician's phone number: [phone]. 8. Resume home medications as prescribed by your primary care doctor. 9. Phenergan for nausea and Colace for constipation are already escribed and waiting for you at your pharmacy. 10. If you are in pain management, or get pain meds from another doctor, check with that doctor BEFORE filling new pain meds 11. If you received oxycodone or tramadol, take 2 extra-strength Tylenol (500mg tablet) three timesa day for a week, and the pain medicine/narcotic as needed. Check your other medicines for acetaminophen, and keep total daily dosage at 3000mg. documented in this encounter Medications at Time of Discharge [...] every 4 hours as needed for Major Surgery/Trauma (G89.18) for up to 28 doses. 28 Tablet 07/17/2024 promethazine (PHENERGAN) 25 mg Oral Tablet Take 1 Tablet by mouth every 6 hours as needed for Nausea for up to 20 doses. 20 Tablet 07/17/2024 documented as of this encounter Ordered Prescriptions Prescription Sig Dispense Quantity Refills Last Filled Start Date End Date docusate sodium (COLACE) 100 mg Oral Capsule Take one capsule three times a day while on pain meds 90 Capsule 07/17/2024 oxyCODONE (ROXICODONE) 5 mg Oral Tablet Take 1 Tablet by mouth every 4 hours as needed for Major Surgery/Traum a (G89.18) for up to 28 doses. 28 Tablet 07/17/2024 promethazine (PHENERGAN) 25 mg Oral Tablet Take 1 Tablet by mouth every 6 hours as needed for Nausea for up to 20 doses. 20 Tablet 07/17/2024 documented in this encounter Discharge Disposition Disposition Code Departure Means Destination Comment s Home or Self Care Car Home documented in this encounter H&P Notes * Javy Ortiz NP - 07/17/2024 7:34 AM EDT [facility] History and Physical Name: Maryjo Díaz ADDRESS: [address] [place] [id number] : 1970 AGE: 53 y.o. 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 Past Medical History: Diagnosis Date Cervical spondylolysis Chronic pain Stroke (HCC) 2018 Past Surgical History: Procedure Laterality Date CHOLECYSTECTOMY COLONOSCOPY HYSTERECTOMY NECK SURGERY cervical spine fusion TONSILLECTOMY Prior to Admission medications Medication Sig Start Date End Date Taking? Authorizing Provider clopidogreL (PLAVIX) 75 mg Oral Tablet Take 1 Tablet by mouth daily. 11/05/21 Yes Provider, Historical gabapentin (NEURONTIN) 800 mg Oral Tablet Take 800 mg by mouth 4 times daily as needed (takes for neck pain). Yes Provider, Historical meloxicam (MOBIC) 15 mg Oral Tablet Take 15 mg by mouth daily. Yes Provider, Historical multivit-min/iron/FA/vit K/lut (MULTIVITAMIN WOMEN 50 PLUS ORAL) Take by mouth. Yes Provider, Historical traMADoL (ULTRAM) 50 mg Oral Tablet Take 50 mg by mouth as needed. 03/15/23 Yes Provider, Historical atorvastatin (LIPITOR) 40 mg Oral Tablet Take 1 Tablet by mouth daily. Patient not taking: Reported on 05/16/2024 12/30/21 Provider, Historical celecoxib (CELEBREX) 200 mg Oral Capsule Take 1 Capsule by mouth daily. Patient not taking: Reported on 05/16/2024 11/05/21 Provider, Historical No Known Allergies Social History Socioeconomic History Marital status: Spouse name: None Number of children: None Years of education: None Highest education level: None Tobacco Use Smoking status: Every Day Current packs/day: 0.50 Average packs/day: 0.5 packs/day for 36.3 years (18.2 ttl pk-yrs) Types: Cigarettes Start date: 03/12/1988 Smokeless tobacco: Never Vaping Use Vaping status: Never Used Substance and Sexual Activity Alcohol use: Yes Comment: occ rare Drug use: Never Family History Problem Relation Age of Onset Heart Disease Mother Arthritis Mother Kidney Disease Father Arthritis Father Active Hospital Problems Diagnosis *AC joint arthropathy Blood pressure (!) 168/78, pulse 67, temperature 97.3 ??F (36.3 ??C), temperature source Forehead, resp. rate 16, height 5' 4 (1.626 m), weight 168 lb (76.2 kg), SpO2 100%.Pain: 09/14 Review of Systems: The listed systems were reviewed and reveal the following in addition to any already discussed in the HPI: Review of Systems Constitutional: Negative. Negative for chills, fever and weight loss. HENT: Negative for congestion, ear discharge, ear pain, hearing loss, nosebleeds and sore throat. Eyes: Negative for blurred vision, double vision, pain, discharge and redness. Respiratory: Negative. Negative for cough, hemoptysis, sputum production, shortness of breath and wheezing. Cardiovascular: Negative for chest pain, palpitations, orthopnea and leg swelling. Last cards visit 05/2024 - return in 6 months (+)Hyperlipidemia Arrhythmias: SVT and PVC Had syncopal episode while on vacation in [place]. Was seen recently per cardiology. States she was told dehydration . Denies sequela. Gastrointestinal: Negative. Negative for abdominal pain, heartburn, nausea and vomiting. Genitourinary: Negative. Musculoskeletal: Positive for joint pain and myalgias. Negative for back pain, falls and neck pain. Hx of left shoulder pain. Denies accident, injury or trauma. Pain waxes and wanes, increases with use of her arm. Denies weakness, numbness or changes since exam per Dr Lezama. Skin: Negative. Negative for itching and rash. Neurological: Negative for dizziness, seizures, weakness and headaches. +) Cerebrovascular disease (2019): stroke Syncope (hx) Cervical pain (cervical spondylolysis s/p fusion) Endo/Heme/Allergies: Negative. Plavix: last dose was on Wednesday Psychiatric/Behavioral: Negative for depression. The patient is not nervous/anxious. Objective OBJECTIVE Physical Exam: Body mass index is 28.84 kg/m??. Body surface area is 1.82 meters squared. Physical Exam Vitals and nursing note reviewed. Exam conducted with a beef cattle farm manager present. Constitutional: General: She is not in acute distress. Appearance: Normal appearance. She is well-developed. She is not ill-appearing or diaphoretic. HENT: Head: Normocephalic and atraumatic. Nose: Nose normal. No congestion or rhinorrhea. Mouth/Throat: Mouth: Mucous membranes are moist. Pharynx: Oropharynx is clear. No oropharyngeal exudate or posterior oropharyngeal erythema. Eyes: General: No scleral icterus. Right eye: No discharge. Left eye: No discharge. Conjunctiva/sclera: Conjunctivae normal. Pupils: Pupils are equal, round, and reactive to light. Neck: Thyroid: No thyromegaly. Vascular: No JVD. Trachea: No tracheal deviation. Cardiovascular: Rate and Rhythm: Normal rate and regular rhythm. Pulses: Normal pulses. Heart sounds: Normal heart sounds. No murmur heard. No friction rub. No gallop. Pulmonary: Effort: Pulmonary effort is normal. No respiratory distress. Breath sounds: Normal breath sounds. No stridor. No wheezing, rhonchi or rales. Chest: Chest wall: No tenderness. Abdominal: General: Bowel sounds are normal. There is no distension. Palpations: Abdomen is soft. Tenderness: There is no abdominal tenderness. There is no guarding. Musculoskeletal: General: Tenderness present. No deformity. Cervical back: Normal range of motion and neck supple. Comments: Left shoulder: TTP Decreased ROM Lymphadenopathy: Cervical: No cervical adenopathy. Skin: General: Skin is warm and dry. Capillary Refill: Capillary refill takes less than 2 seconds. Coloration: Skin is not pale. Findings: No erythema or rash. Neurological: General: No focal deficit present. Mental Status: She is alert and oriented to person, place, and time. Mental status is at baseline. Cranial Nerves: No cranial nerve deficit. Sensory: No sensory deficit. Motor: No weakness. Coordination: Coordination normal. Gait: Gait normal. Psychiatric: Mood and Affect: Mood normal. Behavior: Behavior normal. Thought Content: Thought content normal. Labs: Latest Reference Range & Units 07/13/24 10:30 Sodium 136 - 145 mmol/L 138 Potassium 3.5 - 5.0 mmol/L 3.9 Chloride 98 - 107 mmol/L 106 CO2 22 - 29 mmol/L 24 Calcium 8.6 - 10.4 mg/dL 9.7 Glucose 70 - 99 mg/dL 158 (H) BUN 6 - 20 mg/dL 12 Creatinine, Ser 0.51 - 1.30 mg/dL 0.82 eGFR (CKD-EPIcr 2020) >=60 mL/min/1.73 m2 85 Anion Gap 7 - 16 mmol/L 8 Hct 34.0 - 45.0 % 42.0 TSH Reflex 0.270 - 4.200 mcIU/mL 0.539 (H): Data is abnormally high Radiology: EKG:EKG 05/2024 - Sinus rhythm, early repol Echo 05/2024 - * Left ventricular chamber dimension is normal. * Left ventricular function is normal with an estimated ejection fraction of 60-65%. * The left ventricular diastolic function is normal. * Right ventricular systolic function is normal. * Unable to estimate pulmonary arterial systolic pressure due to lack of tricuspid regurgitation jet. * Agitated saline contrast study at rest and with Valsalva is negative for a shunt. HM 05/2024 - Predominantly normal sinus rhythm Short runs of SVT, likely atrial tachycardia Occasional premature ventricular complexes, PVC burden estimated at 3.75% No sustained arrhythmias No patient triggered events during monitoring period Javy Ortiz NP 07/17/2024 Cosigned by Manolo Roper MD at 07/17/2024 7:54 AM EDT documented in this encounter Procedure Notes * Luis Alberto Lezama MD - 07/17/2024 10:27 AM EDT Just got off phone with [facility], discussed surgical findings and answered all questions * Luis Alberto Lezama MD - 07/17/2024 10:25 AM EDT DATE OF OPERATION: 07/17/2024 PREOPERATIVE DIAGNOSIS: Left shoulder acromioclavicular arthropathy. POSTOPERATIVE DIAGNOSIS: Left shoulder acromioclavicular arthropathy. PROCEDURE: Left shoulder open [place]. SURGEON: Luis Alberto Lezama MD SEED YEAST OPERATOR: Shawna Sunshine NP/YEIMY. An ward assistant was necessary as she actively assisted in patient positioning, instrumentation, retraction, and suture management. ANESTHESIA: General with block. ESTIMATED BLOOD LOSS: Minimal. COMPLICATIONS: None apparent. INDICATIONS: The patient is a 53-year-old female with longstanding acromioclavicular arthropathy, has been resistant to conservative treatment. She presents now for surgical intervention. The risks and benefits of surgery as well as alternatives were discussed with her at length prior to the procedure. She understands in general, there are no guarantees surgery will make it better and she could possibly be worse after surgery. Despite the risks involved with surgery and despite the lack of guarantee that she would be made better by surgery, she would still like to proceed. Questions were elicited and answered fully to her satisfaction. Again, no guarantees were expressed nor implied. PROCEDURE DETAILS: Once informed consent had been obtained and preoperative site marking had been performed, the patient was properly identified and taken to the operating room and placed supine on the operating room table. Perioperative antibiotics and general anesthesia was administered. She was then placed in a beach chair position. Examination under anesthesia revealed full range of motion ofher shoulder with no instability. Her left upper extremity was prepped and draped in sterile fashion. Timeout was performed. A small saber-type incision was made medial to the AC joint. It was carried down through the level of skin and then the deep tissues were divided in a T-shaped fashion and the distal end of the clavicle was skeletonized. The distal 10 mm was marked and then removed with an oscillating saw. The distal end of the clavicle was found to be quite hypertrophic. The anterior, superior, and posterior aspect of the distal clavicle edges were bevelled with a rongeur and then the inferior aspect was beveled with a rasp. Copious irrigation was used to flush throughout the wound and then the deep tissues were reapproximated with 0 Vicryl, followed by 2-0 Vicryl in the skin, followed by 4-0 Monocryl and Steri-Strips. A sterile dressing is being applied. The patient tolerated the procedure well and will be transferred to the recovery room in stable condition. Postoperatively, the patient is in a sling. Follow up in my office in about 1 week for a wound check. Reviewed in full by kentrell/SANDRA, 07/17/2024 Luis Alberto Lezama M.D. 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 ANESTHESIA: General w/Block ESTIMATED BLOOD LOSS: approx 5ml or as listed by anesthesia SPECIMEN: * No specimens in log * DISPOSITION/POST PROC COURSE: Stable -> Recovery Room Luis Alberto Lezama MD Date: 07/17/2024 documented in this encounter Nursing Notes * Regina Storm RN - 07/12/2024 10:01 AM EDT Called pt and requested her to get labs done prior to surgery. Pt will go 07/13 * Jadyn Mackenzie RN - 07/05/2024 11:40 AM EDTSjeremiah: preoperative instructions Images from the original note were not included. PREPARING FOR YOUR SURGERY Date of Surgery: 07/17/2024 Time of Surgery: Your surgeon???s office will notify you of your scheduled arrival time. Medications on the Day of Surgery Take the following medications on the morning of surgery: gabapentin if needed, Medications to hold prior to surgery; Verify with your doctor for possibly discontinuing the following medications: blood thinners, aspirin, anti-inflammatories, or supplements. Food, Drinks, Tobacco Do not eat any food after midnight. This includes gum, mints, candy, chewing tobacco, and dip. Unless otherwise instructed by your surgeon, you may consume water, Gatorade, Powerade, black coffee/tea(no milk, no cream/creamers, no sugar) up to two hours prior to your scheduled arrival time. No exceptions or substitutions to these restrictions. Do not smoke, vape, or use any type of tobacco or marijuana products within 24 hours prior to surgery. Smoking will also slow your rate of healing. It is advised that you do not smoke during the healing process. No alcohol 24 hours prior to surgery. Reclamation Engineer It is important to have a Reclamation Engineer, someone who is 18 years or older, to accompany you and remain in the facility for the duration of your surgery. This person should be available for the Perioperative Team, which includes your surgeon, to communicate with before, during and after your surgery. Because you are receiving anesthesia, someone is needed to drive you home and remain with you for at least 24 hours after surgery to make sure you are safe during that time We also recommend that no children be present on the day of surgery. If you have a concern, please reach out to our department [phone]. Hygiene Stevenson your teeth and gargle the morning of surgery. Shower the morning of surgery or the night before. Do not wear makeup (including eye makeup) lotion, powder, deodorant, perfume, or cologne. Do not shave the operative extremity or near the operative area. Remove nail monegasque prior to surgery. This includes artificial nails and gel nail monegasque. Personal Items Wear clean, simple, loose-fitting clothing (no jeans) and sturdy shoes (no flip flops, slides or crocs) to the hospital. Do not bring unnecessary valuables with you. It is policy that [facility] does not assume responsibility for lost, stolen or broken personal items that are brought in. Exceptions may be consideredfor items which are considered necessary for your healthcare. These items will be formally documented. Remove all jewelry prior to surgery to prevent injury. We will not tape wedding rings/bands Remove all body piercings prior to arrival. Plastic inserts are acceptable. If you have dentures, they may need to be removed before going into the operating room. We will have a case for them. Glasses and contacts will need to be removed prior to surgery. Please bring a case for them.. Bring with You Bring a copy of your Living Will and/or Durable Power of Vegetable Grader for Healthcare. Notify the Surgeon Notify your surgeon if you develop any illness (fever, cold, cough, sore throat, nausea, vomiting, skin rashes etc.) between now and surgery time Notify your surgeon and Pre-admission testing ([phone]) if you have any changes in your healthconditions or if any new medications are ordered between now and surgery.. Questions or Concerns? If you have any questions or concerns, feel free to call the Pre-Admission testing department at [phone]. We want to make sure you feel safe and have an excellent experience while you are here. Do not reply to this message through [employer] as it may not be answered promptly. Same Day Surgery Unit - [facility] at [phone]; FTT: Main Entrance 1A, stop at front maker lockstitch and you will be sent to registration - [address] [place] [address], [place] [address]. DOORS OPEN AT 6:00 AM WED-WED AND 6:30 AM ON WEDNESDAY Surgical Site Infections FAQs What is a Surgical Site Infection (SSI)? A surgical site infection is an infection that occurs after surgery in the part of the body where the surgery took place. Most patients who have surgery do not develop an infection. However, infections develop in about 1 to 3 out of every 100 patients who have surgery. Some of the common symptoms of a surgical site infection are: Redness and pain around the area where you had surgery Drainage of cloudy fluid from your surgical wound. Fever Can SSIs be treated? Yes. Most surgical site infections can be treated with antibiotics. The antibiotic given to you depends on the bacteria (germs) causing the infection. Sometimes patients with SSIs also need another surgery to treat the infection. What are some of the things that hospitals are doing to prevent SSIs? To prevent SSIs, doctors, nurses, and other healthcare providers: Clean their hands and arms up to their elbows with an antiseptic agent just before the surgery. Clean their hands with soap and water or an alcohol-based hand rub before and after caring for eachpatient. May remove some of your hair immediately before your surgery using electric clippers if the hair isin the same area where the procedure will occur. They should not shave you with a razor. Wear special hair covers, masks, gowns, and gloves during surgery to keep the surgery area clean. Give you antibiotics before your surgery starts. In most cases, you should get antibiotics within 60 minutes before the surgery starts and the antibiotics should be stopped within 24 hours after surgery. Clean the skin at the site of your surgery with a special soap that kills germs. What can I do to help prevent SSIs? Before your surgery: Tell your doctor about other medical problems you may have. Health problems such as allergies, diabetes, and obesity could affect your surgery and your treatment. Quit smoking. Patients who smoke get more infections. Talk to your doctor about how you can quit before your surgery. Do not shave near where you will have surgery. Shaving with a razor can irritate your skin and makeit easier to develop an infection. At the time of your surgery: Speak up if someone tries to shave you with a razor before surgery. Ask why you need to be shaved and talk with your surgeon if you have any concerns. Ask if you will get antibiotics before surgery. After your surgery: Make sure that your healthcare providers clean their hands before examining you, either with soap and water or an alcohol-based hand rub. If you do not see your providers clean their hands, please ask them to do so. Family and friends who visit you should not touch the surgical wound or dressings. Family and friends should clean their hands with soap and water or an alcohol- based hand rub beforeand after visiting you. If you do not see them clean their hands, ask them to clean their hands. What do I need to do when I go home from the hospital? Before you go home, your doctor or nurse should explain everything you need to know about taking care of your wound. Make sure you understand how to care for your wound before you leave the hospital. Always clean your hands before and after caring for your wound. Before you go home, make sure you know who to contact if you have questions or problems after you get home. If you have any symptoms of an infection, such as redness and pain at the surgery site, drainage, or fever, call your doctor immediately. If you have additional questions, please ask your doctor or nurse. Developed and co-sponsored by The Society for Healthcare Epidemiology of [place] (RIOS); InfectiousDiseases Society of [place] (IDSA); [facility]; Association for Professionals inInfection Control and Epidemiology (APIC); Centers for Disease Control and Prevention (CDC); and The Joint Commission. This information is not intended to replace advice given to you by your health care provider. Make sure you discuss any questions you have with your health care provider. , ANESTHESIA - COMMON SIDE EFFECTS (if present, these should resolve within 24 hours) TIREDNESS SHIVERING DIZZINESS DRY MOUTH MILD NAUSEA/VOMITING SORE THROAT OR HOARSENESS MILD PAIN OR DISCOMFORT IS NORMAL CALL THE SURGEON DAY OR NIGHT You have nausea or vomiting that doesn???t go away by the next morning. You experience severe pain not relieved by suggested medications. Thank you for letting us care for you. documented in this encounter Plan of Treatment Upcoming Encounters Date Type Department Care Team (Late st Contact Info) Description 09/06/2024 9:00 AM EDT Office Visit [facility] [address] [address] Luis Alberto Lezama MD [address] [address] 02/12/2025 10:45 AM EST Office Visit [facility] [address] [place] [address] [id number] JacomeMichael, [address] [place] [address] documented as of this encounter Procedures Procedure Name Priority Date/Time Associated Diagnosis Comments ID SURGICAL ARTHROSCOPY SHOULDER DSTL CLAVICULC 07/17/2024 9:43 AM EDT AC joint arthropathy Special Needs SCALENE BLOCK Notified Ngoc 07/10-AT US ANES GUIDANCE FOR NERVE BLOCK STAT 07/17/2024 8:17 AM EDT documented in this encounter Results * US ANES GUIDANCE FOR NERVE BLOCK (07/17/2024 8:17 AM EDT) Narrative Genericuser, Pati - 07/17/2024 8:17 AM EDT Ultrasound guided nerve block performed by Anesthesiologist The study image(s) are for reference only and will not be interpreted by a Radiologist. Refer to the Anesthesia procedure note for image description and procedure details. Rush Smith MD G US ORDERABLES Final Resu lt documented in this encounter Visit Diagnoses Diagnosis AC joint arthropathy- Primary Unspecified disorder of shoulder joint Preop testing Preoperative examination, unspecified Other fatigue AC joint arthropathy Unspecified disorder of shoulder joint documented in this encounter Admitting Diagnoses Diagnosis AC joint arthropathy Unspecified disorder of shoulder joint documented in this encounter Administered Medications Inactive Administered Medications - up to 1 most recent administrations Medication Order MAR Action Action Date Dose Rate Site acetaminophen (TYLENOL) tablet 1,000 mg 1,000 mg, Oral, PREPROCEDURE, 1 dose, Starting on Wed07/17/24 at 0749, Until Wed07/17/24 at 0820, Coanalgesic, Do not give if patient received acetaminophen within the last 6 hours Maximum adult dose of acetaminophen is 4000 mg from all sources in 24 hours., Pre-op (Holding/SDS Meds) Given 07/17/2024 8:20 AM EDT 1,000 mg bupivacaine (MARCAINE/SENSORCAINE) 0.5 % (5 mg/mL) injection 50 mg 50 mg (10 mL), Perineural, ONCE PREPROCEDURE, 1 dose, On Wed07/17/24 at 0830, For administration during pre-op peripheral block, Pre-op (Holding/SDS Meds) Given 07/17/2024 9:14 AM EDT 50 mg BUPivacaine liposome (PF) (EXPAREL) 1.3 % (13.3 mg/mL) liposomal suspension Susp 133 mg 133 mg (10 mL), Perineural, ONCE PREPROCEDURE, 1 dose, On Wed07/17/24 at 0830, Invert vial to resuspend suspension prior to withdrawal for administration, Pre-op (Holding/SDS Meds) Given 07/17/2024 9:14 AM EDT 133 mg dimenhyDRINATE (DRAMAMINE) 12.5-25 mg in sodium chloride 0.9% injection 12.5-25 mg, Intravenous, PRN, Starting on Wed07/17/24 at 1024, Until Wed07/17/24 at 1637, Nausea, Third Line Antiemetic, For persistent nausea unrelieved by other antiemetics. Begin with lowest dose unless otherwise directed. Give remainder of dose if nausea unrelieved in 20 minutes. May give total of two doses if needed. dilute each 50 mg with 10 mL 0.9% saline for IV use, PACU droPERidol (INAPSINE) injection 0.625 mg 0.625 mg, Intravenous, PRN, Starting on Wed07/17/24 at 1024, Until Wed07/17/24 at 1637, Nausea, First Line Antiemetic, If unable to give Zofran. Give second dose if nausea unrelieved in 10 minutes. May give total of two doses if needed., PACU fentaNYL (SUBLIMAZE) injection 100 mcg 100 mcg, Intravenous, ONCE, 1 dose, On Wed07/17/24 at 0830, Pre-op (Holding/SDS Meds) Given 07/17/2024 9:20 AM EDT 100 mcg fentaNYL (SUBLIMAZE) injection 25 mcg 25 mcg, Intravenous, EVERY 5 MIN PRN, Starting on Wed07/17/24 at 1024, Until Wed07/17/24 at 1637, Pain, For initial pain. Maximum dose not to exceed 100 mcg., PACU Given 07/17/2024 11:25 AM EDT 25 mcg HYDROmorphone (DILAUDID) injection 0.5 mg 0.5 mg, Intravenous, EVERY 10 MIN PRN, 4 doses, Starting on Wed07/17/24 at 1024, Until Wed07/17/24 at 1637, Breakthrough Pain, Do not exceed 2 mg in one hour unless otherwise ordered by the Anesthesia Coordinator For pain unrelieved by fentanyl or oral opioid, PACU lactated ringers infusion Intravenous, at 50 mL/hr, PREPROCEDURE CONTINUOUS, Starting on Wed07/17/24 at 0749, Until Wed07/17/24 at 1637, To be given in SDS/Pre-op Holding Area, Pre-op (Holding/SDS Meds) IV Restarted 07/17/2024 10:44 AM EDT meperidine (DEMEROL) injection (PF) 12.5 mg 12.5 mg, Intravenous, ONCE PRN, 1 dose, Starting on Wed07/17/24 at 1024, Until Wed07/17/24 at 1637, Shivering, Shivering, unless otherwise ordered by Anesthesia Coordinator, PACU midazolam (VERSED) injection 2 mg 2 mg, Intravenous, ONCE, 1 dose, On Wed07/17/24 at 0830, VESICANT , Pre-op (Holding/SDS Meds) Given 07/17/2024 9:14 AM EDT 2 mg ondansetron (ZOFRAN) injection 4 mg 4 mg, Intravenous, ONCE PRN, 1 dose, Starting on Wed07/17/24 at 1024, Until Wed07/17/24 at 1637, Nausea, First Line Antiemetic, Do not give if patient received granisetron (Kytril) or ondansetron (Zofran) within 4 hours., PACU ondansetron (ZOFRAN-ODT) disintegrating tablet 8 mg 8 mg, Oral, ONCE PRN, 1 dose, Starting on Wed07/17/24 at 1024, Until Wed07/17/24 at 1637, Nausea, First Line Antiemetic, Do not give if patient received granisetron (Kytril) or ondansetron (Zofran) within 4 hours., PACU oxyCODONE (ROXICODONE) immediate release tablet 5 mg 5 mg, Oral, EVERY 1 HOUR PRN, Starting on Wed07/17/24 at 1024, Until Wed07/17/24 at 1637, Pain, When tolerating oral intake. Maximum dose not to exceed 10 mg unless otherwise directed by the Anesthesia Coordinator., PACU Given 07/17/2024 11:25 AM EDT 5 mg promethazine (PHENERGAN) 12.5 mg in sodium chloride 0.9% 10 mL injection 12.5 mg, Intravenous, PRN, Starting on Wed07/17/24 at 1024, Until Wed07/17/24 at 1637, Nausea, Second Line Antiemetic, For nausea unrelieved by droperidol or pre-op antiemetic. Begin with lowest dose unless otherwise directed. Give remainder of dose if nausea unrelieved in 20 minutes. Not to exceed 25 mg in one hour unless otherwise ordered by Anesthesia Coordinator. VESICANT , PACU promethazine (PHENERGAN) 6.25 mg in sodium chloride 0.9% 10 mL injection 6.25 mg, Intravenous, PRN, Starting on Wed07/17/24 at 1024, Until Wed07/17/24 at 1637, Nausea, Second Line Antiemetic, For nausea unrelieved by droperidol or pre-op antiemetic. Begin with lowest dose unless otherwise directed. Give remainder of dose if nausea unrelieved in 20 minutes. Not to exceed 25 mg in one hour unless otherwise ordered by Anesthesia Coordinator. VESICANT , PACU documented in this encounter Discontinued Medications Medication Sig Discontinue Reason Start Date End Da te traMADoL (ULTRAM) 50 mg Oral Tablet Take 50 mg by mouth as needed. Stop Taking at Discharge 03/15/2023 07/17/2024 documented as of this encounter Historical Medications * This list may reflect changes made after this encounter. multivit-min/iron/ FA/vit K/lut (MULTIVITAMIN WOMEN 50 PLUS ORAL) Take by mouth. added in this encounter Active and Recently Administered Medications Times are shown in EDT. Scheduled Medication Order 07/15/2024 07/16/2024 07/17/2024 acetaminophen (TYLENOL) tablet 1,000 mg 1,000 mg, Oral, ONCE, 1 dose, On Wed07/17/24 at 1030, Do not give if patient received acetaminophen within the last 6 hours Maximum adult dose of acetaminophen is 4000 mg from all sources in 24 hours., PACU 1030 (Due) bupivacaine (MARCAINE/SENSORCAINE) 0.5 % (5 mg/mL) injection 50 mg (COMPLETED) 50 mg (10 mL), Perineural, ONCE PREPROCEDURE, 1 dose, On Wed07/17/24 at 0830, For administration during pre-op peripheral block, Pre-op (Holding/SDS Meds) 0914 (Given - Provid er: Niya Live RN) BUPivacaine liposome (PF) (EXPAREL) 1.3 % (13.3 mg/mL) liposomal suspension Susp 133 mg (COMPLETED) 133 mg (10 mL), Perineural, ONCE PREPROCEDURE, 1 dose, On Wed07/17/24 at 0830, Invert vial to resuspend suspension prior to withdrawal for administration, Pre-op (Holding/SDS Meds) 0914 (Given - Provid er: Niya Live RN) ceFAZolin (ANCEF) IVPB 2 g (COMPLETED) 2 g, Intravenous, ONCE PREPROCEDURE, 1 dose, On Wed07/17/24 at 0800, Administer over 30 Minutes, Administer 30 minutes prior to surgery for patient body weight less than (<) 120 kg, Reason for Therapy: Surgical Prophylaxis, Pre-op (Antibiotic) 0942 (Given - Provid er: Stacey Mason CRNA) fentaNYL (SUBLIMAZE) injection 100 mcg (COMPLETED) 100 mcg, Intravenous, ONCE, 1 dose, On Wed07/17/24 at 0830, Pre-op (Holding/SDS Meds) 0920 (Given - Provid er: Niya Live RN) midazolam (VERSED) injection 2 mg (COMPLETED) 2 mg, Intravenous, ONCE, 1 dose, On Wed07/17/24 at 0830, VESICANT , Pre-op (Holding/SDS Meds) 0914 (Given - Provid er: Niya Live RN) PRN Medication Order 07/15/2024 07/16/2024 07/17/2024 acetaminophen (TYLENOL) tablet 1,000 mg (COMPLETED) 1,000 mg, Oral, PREPROCEDURE, 1 dose, Starting on Wed07/17/24 at 0749, Until Wed07/17/24 at 0820, Coanalgesic, Do not give if patient received acetaminophen within the last 6 hours Maximum adult dose of acetaminophen is 4000 mg from all sources in 24 hours., Pre-op (Holding/SDS Meds) 0820 (Given - Provid er: Maria C Way RN) dimenhyDRINATE (DRAMAMINE) 12.5-25 mg in sodium chloride 0.9% injection 12.5-25 mg, Intravenous, PRN, Starting on Wed07/17/24 at 1024, Until Wed07/17/24 at 1637, Nausea, Third Line Antiemetic, For persistent nausea unrelieved by other antiemetics. Begin with lowest dose unless otherwise directed. Give remainder of dose if nausea unrelieved in 20 minutes. May give total of two doses if needed. dilute each 50 mg with 10 mL 0.9% saline for IV use, PACU droPERidol (INAPSINE) injection 0.625 mg 0.625 mg, Intravenous, PRN, Starting on Wed07/17/24 at 1024, Until Wed07/17/24 at 1637, Nausea, First Line Antiemetic, If unable to give Zofran. Give second dose if nausea unrelieved in 10 minutes. May give total of two doses if needed., PACU fentaNYL (SUBLIMAZE) injection 25 mcg 25 mcg, Intravenous, EVERY 5 MIN PRN, Starting on Wed07/17/24 at 1024, Until 07/17/24 at 1637, Pain, For initial pain. Maximum dose not to exceed 100 mcg., PACU 1125 (Given - Provid er: Vida Ruggiero RN) HYDROmorphone (DILAUDID) injection 0.5 mg 0.5 mg, Intravenous, EVERY 10 MIN PRN, 4 doses, Starting on Wed07/17/24 at 1024, Until 07/17/24 at 1637, Breakthrough Pain, Do not exceed 2 mg in one hour unless otherwise ordered by the Anesthesia Coordinator For pain unrelieved by fentanyl or oral opioid, PACU lactated ringers infusion Intravenous, at 50 mL/hr, PREPROCEDURE CONTINUOUS, Starting on Wed07/17/24 at 0749, Until Wed07/17/24 at 1637, To be given in SDS/Pre-op Holding Area, Pre-op (Holding/SDS Meds) 0820 (New Bag - Prov ider: Maria C Way RN)1043 (IV Paused - Provider: Stacey Mason CRNA - Comment: Switch to gravity)1044 (IV Restarted - Provider: Stacey Mason CRNA)1206 (Due: Order Ending - Provider: Rachel Robles RN - Comment: [Order ends at this time. Document the following action when infusion is complete: Stopped])1637 (Due: Order Ending - Provider: Automatic Discharge Provider - Comment: [Order ends at this time. Document the following action when infusion is complete: Stopped]) meperidine (DEMEROL) injection (PF) 12.5 mg 12.5 mg, Intravenous, ONCE PRN, 1 dose, Starting on Wed07/17/24 at 1024, Until Wed07/17/24 at 1637, Shivering, Shivering, unless otherwise ordered by Anesthesia Coordinator, PACU ondansetron (ZOFRAN) injection 4 mg(Linked Group 1) 4 mg, Intravenous, ONCE PRN, 1 dose, Starting on Wed07/17/24 at 1024, Until Wed07/17/24 at 1637, Nausea, First Line Antiemetic, Do not give if patient received granisetron (Kytril) or ondansetron (Zofran) within 4 hours., PACU ondansetron (ZOFRAN-ODT) disintegrating tablet 8 mg(Linked Group 1) 8 mg, Oral, ONCE PRN, 1 dose, Starting on Wed07/17/24 at 1024, Until 07/17/24 at 1637, Nausea, First Line Antiemetic, Do not give if patient received granisetron (Kytril) or ondansetron (Zofran) within 4 hours., PACU oxyCODONE (ROXICODONE) immediate release tablet 5 mg 5 mg, Oral, EVERY 1 HOUR PRN, Starting on Wed07/17/24 at 1024, Until Wed07/17/24 at 1637, Pain, When tolerating oral intake. Maximum dose not to exceed 10 mg unless otherwise directed by the Anesthesia Coordinator., PACU 1125 (Given - Provid er: Vida Ruggiero RN) promethazine (PHENERGAN) 12.5 mg in sodium chloride 0.9% 10 mL injection(Linked Group 2) 12.5 mg, Intravenous, PRN, Starting on Wed07/17/24 at 1024, Until 07/17/24 at 1637, Nausea, Second Line Antiemetic, For nausea unrelieved by droperidol or pre-op antiemetic. Begin with lowest dose unless otherwise directed. Give remainder of dose if nausea unrelieved in 20 minutes. Not to exceed 25 mg in one hour unless otherwise ordered by Anesthesia Coordinator. VESICANT , PACU promethazine (PHENERGAN) 6.25 mg in sodium chloride 0.9% 10 mL injection(Linked Group 2) 6.25 mg, Intravenous, PRN, Starting on Wed07/17/24 at 1024, Until Wed07/17/24 at 1637, Nausea, Second Line Antiemetic, For nausea unrelieved by droperidol or pre-op antiemetic. Begin with lowest dose unless otherwise directed. Give remainder of dose if nausea unrelieved in 20 minutes. Not to exceed 25 mg in one hour unless otherwise ordered by Anesthesia Coordinator. VESICANT , PACU Linked Groups Order Group 1: ondansetron (ZOFRAN) injection 4 mgJump to med 4 mg, Intravenous, ONCE PRN, 1 dose, Starting on Wed07/17/24 at 1024, Until 07/17/24 at 1637, Nausea, First Line Antiemetic, Do not give if patient received granisetron (Kytril) or ondansetron (Zofran) within 4 hours., PACU Or ondansetron (ZOFRAN-ODT) disintegrating tablet 8 mgJump to med 8 mg, Oral, ONCE PRN, 1 dose, Starting on Wed07/17/24 at 1024, Until 07/17/24 at 1637, Nausea, First Line Antiemetic, Do not give if patient received granisetron (Kytril) or ondansetron (Zofran) within 4 hours., PACU Group 2: promethazine (PHENERGAN) 6.25 mg in sodium chloride 0.9% 10 mL injectionJump to med 6.25 mg, Intravenous, PRN, Starting on Wed07/17/24 at 1024, Until Wed07/17/24 at 1637, Nausea, Second Line Antiemetic, For nausea unrelieved by droperidol or pre-op antiemetic. Begin with lowest dose unless otherwise directed. Give remainder of dose if nausea unrelieved in 20 minutes. Not to exceed 25 mg in one hour unless otherwise ordered by Anesthesia Coordinator. VESICANT , PACU Or promethazine (PHENERGAN) 12.5 mg in sodium chloride 0.9% 10 mL injectionJump to med 12.5 mg, Intravenous, PRN, Starting on Wed07/17/24 at 1024, Until Wed07/17/24 at 1637, Nausea, Second Line Antiemetic, For nausea unrelieved by droperidol or pre-op antiemetic. Begin with lowest dose unless otherwise directed. Give remainder of dose if nausea unrelieved in 20 minutes. Not to exceed 25 mg in one hour unless otherwise ordered by Anesthesia Coordinator. VESICANT , PACU documented in this encounter Orders Medications Ordered That Femi ht Not Have Been Administered Count Last Ordered Date First Ordered Date acetaminophen (TYLENOL) tablet 1,000 mg 1 0 07/17/2024 ceFAZolin (ANCEF) IVPB 2 g 1 07/17/2024 dimenhyDRINATE (DRAMAMINE) 1 2.5-25 mg in sodium chloride 0.9% injection 1 07/17/2024 droPERidol (INAPSINE) injection 0.625 mg 1 07/17/2024 HYDROmorphone (DILAUDID) injection 0.5 mg 1 07/17/2024 meperidine (DEMEROL) injecti on (PF) 12.5 mg 1 07/17/2024 ondansetron (ZOFRAN) injection 4 mg 1 07/17 ondansetron (ZOFRAN-ODT) dis integrating tablet 8 mg 1 07/17/2024 promethazine (PHENERGAN) 12. 5 mg in sodium chloride 0.9% 10 mL injection 1 07/17/2024 promethazine (PHENERGAN) 6.2 5 mg in sodium chloride 0.9% 10 mL injection 1 07/17/2024 Discharge Count Last Ordered Date First Orde red Date DISCHARGE PATIENT 1 07/17/2024 documented in this encounter Care Teams Hand Stonecutter Relationship Specialty Start Date End Date Nayeli Nelson [address] [place] [address] [address] [place] [id number] PCP - General Family Medicine 08/07/15 documented as of this encounter
--- OUTSIDE RECORDS SUMMARY | 2024-07-17 08:20 | XMS_ITS | Encounter Summary ---
Author Organization [place] [address] Care Team Providers Care Miller Head Assistant Wet Process Name Role Phone Nayeli Nelson Primary Care Provider [phone] Reason for Visit * Auth/Cert/Inpt Specialty Diagnoses / Procedures Referred By Patricia dover Referred To Contact Diagnoses AC joint arthropathy AC joint arthropathy [M19.019] Procedures GA SURGICAL ARTHROSCOPY SHOULDER DSTL CLAVICULC LEFT SHOULDER OPEN KERRICK Referral ID Status Reason Start Date Expiration Date Visits Re quested Visits Authorized [id number] 1 1 Encounter Details Date Type Department Care Team (Late st Contact Info) Description 07/17/2024 8:20 AM EDT Ancillary Procedure FTT SAME DAY SURGERY [address] [facility] [address] [place] [address] Luis Alberto Lezama MD [address] [address] Social History Tobacco Use Types Packs/Day Years [...] on file documented as of this encounter Plan of Treatment Upcoming Encounters Date Type Department Care Team (Late st Contact Info) Description 09/06/2024 9:00 AM EDT Office Visit [facility] [address] [place], [place] [id number] Luis Alberto Lezama MD [address] [place], [place] [id number] 02/12/2025 10:45 AM EST Office Visit [facility] [address] [address] Michael Jacome, [address] [place], [place] [id number] documented as of this encounter Procedures Procedure Name Priority Date/Time Associated Diagnosis Comments US ANES GUIDANCE FOR NERVE BLOCK STAT 07/17/2024 8:17 AM EDT documented in this encounter Results * US ANES GUIDANCE FOR NERVE BLOCK (07/17/2024 8:17 AM EDT) Narrative Genericuser, Audit - 07/17/2024 8:17 AM EDT Ultrasound guided nerve block performed by Anesthesiologist The study image(s) are for reference only and will not be interpreted by a Radiologist. Refer to the Anesthesia procedure note for image description and procedure details. us Rush Smith MD IMG US ORDERABLES Final Resu lt documented in this encounter Visit Diagnoses Not on filedocumented in this encounter Care Teams Miller Head Assistant Wet Process Relationship Specialty Start Date End Date Nayeli Nelson [address] [facility] [address] [place] [id number] PCP - General Family Medicine 08/07/15 documented as of this encounter
--- OUTSIDE RECORDS SUMMARY | 2024-07-17 09:42 | XMS_ITS | Encounter Summary ---
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 [address] Rush Smith MD 1 [place] [address] Record, Concepcion Perea APRN 1 [place], [place] [id number] Anesthesia Record Procedure Summary Procedure Name Responsible Anesthesiologist Anesthesia Start Time Anesthesia Stop Time OPEN SHOULDER ROTATOR CUFF REPAIR (COVERS MARY / DISTAL CLAVICLE EXCSION) (Left: Shoulder) Rush Smith MD 07/17/24 0942 07/17/24 1044 Events Date Time Event Comment 07/17/2024 0852 AN Equip Check 0907 0942 An Start 0945 An Start Data 0945 Immediate Pre Anesthetic Ass es 0947 An Induction 0948 An Intubation 0955 Anesthesia Ready 1011 Time out 1011 Incision 1035 An Emergence 1036 An Extubation 1040 an stop data 1044 An Stop 1044 Handoff I completed my SBAR handoff to the receiving nurse which has included the followin. Identification of the patient, family, or patient surrogate 2. Identification of the responsible practitioner 3. Pertinent medical history 4. Surgical procedure and reason for procedure 5. Intraoperative anesthetic management 6. All current lines, drains and respiratory support. 7. Outstanding follow up orders (X-rays, consults etc) 8. Expectations/Plans for the early post-procedure period 9. Opportunity for questions and acknowledgement of understanding from the receiving PACU/ICU team guide Meds Name Total lidocaine injection 1% 50 mg fentaNYL 50 MCG/ML INJ 100 mcg propofol (DIPRIVAN) injection 200 mg rocuronium (ZEMURON) 10 mg/mL injection 10 mg succinylcholine (ANECTINE) 20 mg/mL inje ction (EDG, ADRIEN, FTT) 140 mg phenylephrine 100 mcg/ml 10ml (syringe) 100 mcg dexamethasone (DECADRON) injection 4 mg/ mL 4 mg ondansetron (ZOFRAN) injection 4 mg /2 m L 4 mg lidocaine 4 % (GPQLRE-V-DYF) laryngotrac heal solution 4 mL ceFAZolin (ANCEF) IVPB 2 g 2 g lactated ringers infusion 800 mL * Agents Name O2 N2O Air Et Desflurane * Blood No blood administrations on file. Lines, Drains, and Airways Type Details Placement Removal Peripheral IV 07/17/24; 0817; 20; Right; Hand; Rachel RN; 1; 07/17/24; 1210; Therapy completed, Per Protocol, Discharged; Catheter intact, Dressing applied, No Complications 07/17/[address], RN 07/17/24 1210 by Rachel Robles, RN Airway Device: ETT- Cuffed; Size: 7.5 mm; Placement Date: 07/17/24; Placement Time: 0948 (created via procedure documentation); Removal Date: 07/17/24; Removal Time: 1036 07/17/24 0948 by Stacey Mason CRNA 07/17/24 1036 by Stacey Mason CRNA Incision/Wound 07/17/24; 1013; No; Closed Surgical; Shoulder; Left; 07/17/24; 1632 07/17/24 1013 by Roberto Carlos Guzman RN 07/17/24 1632 by Discharge Provider, Automatic documented in this encounter Social History Tobacco Use Types Packs/Day Years [...] on file documented as of this encounter Procedure Notes * Stacey Mason CRNA - 07/17/2024 10:01 AM EDTAssociated Order(s): Intraop Airway Placement Intraop Airway Placement: Date/Time: 07/17/2024 9:48 AM Induction type: IV Mask size: Standard adult Pre-Oxygenation: Standard Mask ventilation: Easy mask ventilation Technique: Video laryngoscope Laryngoscope blade: Salas Blade size: 3 Grade view: I Airway type: ETT- cuffed Intubation assist devices: Stylet 14fr Airway location: Oral Device size: 7.5mm Secured at: 21 cm Secured by: Tape Measured from: Lips Placement verified: Auscultation, End tidal CO2 and Symmetric chest wall motion Condition: Unchanged and Atraumatic Insertion attempts: 1 Attempt 1 by: medic student Title: Other (Comment) * Rush Smith MD - 07/17/2024 9:23 AM EDTAssociated Order(s): Peripheral Block by Anesthesia Peripheral Block by Anesthesia Procedure Date/Time: 07/17/2024 9:24 AM Patient location during procedure: pre-op Reason for block: at surgeon's request and post-op pain management Staff and Pre-procedure checks Anesthesiologist: Rush Smith MD Performed: anesthesiologist Preanesthetic Checklist: Allergies confirmed, Block plan confirmed, Necessary block equipment present, Supplemental O2 applied, if needed, Anticoagulant confirmed, Block site marked, Patient identified- 2 criteria, Surgical procedure consent verified, Aseptic technique used, Drug/solution labeled, Resuscitaion equipment available, JADON recommended monitors applied, IV access functioning, Sedationgiven, if needed and Resuscitation equipment available Immediate perianesthetic assessment completed: Yes Patient position: Supine Prep: Chloraprep Monitoring: BP, EKG and O2 Sat Position: Peripheral Block Block type: Interscalene Block Laterality: Left Injection technique: single-shot Pain pump: no pain pump placed Needle Needle type: Stimuplex Needle size: 22Gx2 Nerve localization: ultrasound guidance (Interscalene block- Anterior Scalene and Middle Scalene, upper, middle and lower trunks of the brachial plexus are identified; the tip of the needle and the spread of the local anesthetic around the Brachial Plexus are visualized. Ultrasound image document) Ultrasound probe: linear Ultrasound needle approach: in-plane Assessment Block success: complete Events: Uneventful Heart rate change: noParesthesia pain: none Resistance on injection: normal Intermittent incremental injection LA at 5ml Ultrasound Image of the block is attached/scanned to the [facility] chart. documented in this encounter OR Notes * Anesthesia Postprocedure Evaluation - Rush Smith MD - 07/17/2024 3:06 PM EDT Post-Anesthesia Evaluation Note Patient Name: Maryjo Díaz Patient Date: July 17, 2024 Post-Anesthesia Evaluation Patient Location: PACU Post op vitals: stable Difficult airway: no Nausea controlled: yes Level of consciousness: awake Post anesthesia pain: adequate analgesia Airway patency: patent Respiratory status: room air Cardiovascular status: stable Hydration status: euvolemic Temperature: Normothermia Perioperative complications: NONE Vitals Value Taken Time BP 154/90 07/17/24 11:45 Resp 19 07/17/24 11:45 SpO2 98 % 07/17/24 11:45 Temp 36.2 ??C (97.2 ??F) 07/17/24 11:52 Pulse 64 07/17/24 11:45 * Anesthesia Preprocedure Evaluation - Rush Smith MD - 07/17/2024 8:16 AM EDT Pre-Anesthesia Evaluation Note Patient Name: Maryjo Díaz Sex: female Patient : 1970 Age: 53 y.o. Patient Date: July 17, 2024 Procedure(s): LEFT SHOULDER OPEN [facility] Anesthesia Evaluation Previous anesthesia. Airway Mallampati: II TM distance: >3 FB Neck ROM: full Dental - normal exam Pulmonary (+) History of tobacco use (18.2 pack years): current Physical exam: Comments: Clear to auscultation Cardiovascular Comments: Last cards visit 05/2024 - return in 6 months (+)Hyperlipidemia Arrhythmias: SVT and PVC Physical exam: Rhythm: regular Rate: normal Neuro/Psych Comments: Chronic pain (+) Cerebrovascular disease (2019): stroke Syncope (hx) Cervical pain (cervical spondylolysis s/p fusion) GI/Hepatic/Renal Endo/Other Comments: AC joint arthropathy (+)anticoagulation therapy (plavix) PRESS READER (+) Non childbearing due to: Hysterectomy Additional Pre-evaluation comments CBC/BMP/TSH ordered EKG 05/2024 - Sinus rhythm, early repol Echo [...] No patient triggered events during monitoring period Opioids Body mass index is 27.64 kg/m??. Anesthesia Plan ASA 3 Last solid intake: The patient has not eaten within the last 8 hours. Last clear liquid intake: The patient has not had clear liquids within the last 2 hours. Anesthesia Plan: general and regional Induction: intravenous Monitors: STD Dr Jacome 06/22/24 - Acceptable risk for non-cardiac surgery PONV Risk Score: 2. Score of 2 is Moderate Risk for PONV, at least one antiemetic indicated for prophylaxis. Informed consent Anesthetic plan and risks discussed with: patient. Cardiology Clearance Obtained Chart Reviewed and patient examined documented in this encounter Miscellaneous Notes * PAT Pre Evaluation for Anesthesia - AnnieClaudiophani Perea APRN - 07/12/2024 9:40 AM EDT Pre-Anesthesia Evaluation Note Patient Name: Maryjo Díaz Sex: female Patient : 1970 Age: 53 y.o. Patient Date: July 12, 2024 Procedure(s): LEFT SHOULDER OPEN [facility] Anesthesia Evaluation Previous anesthesia. Airway Dental Pulmonary (+) History of tobacco use (18.2 pack years): current Cardiovascular Comments: Last cards visit 05/2024 - return in 6 months (+)Hyperlipidemia Arrhythmias: SVT and PVC Neuro/Psych Comments: Chronic pain (+) Cerebrovascular disease (2019): stroke Syncope (hx) Cervical pain (cervical spondylolysis s/p fusion) GI/Hepatic/Renal Endo/Other Comments: AC joint arthropathy (+)anticoagulation therapy (plavix) PRESS READER (+) Non childbearing due to: Hysterectomy Additional Pre-evaluation comments CBC/BMP/TSH ordered EKG 05/2024 - Sinus rhythm, early repol Echo [...] No patient triggered events during monitoring period Opioids Body mass index is 28.84 kg/m??. Anesthesia Plan Anesthesia Plan: general and regional Dr Jacome 06/22/24 - Acceptable risk for non-cardiac surgery PONV Risk Score: 2. Score of 2 is Moderate Risk for PONV, at least one antiemetic indicated for prophylaxis. Cardiology Clearance Obtained Chart Reviewed documented in this encounter Plan of Treatment Upcoming Encounters Date Type Department Care Team (Late st Contact Info) Description 09/06/2024 9:00 AM EDT Office Visit [facility] [address] [place] [address] [phone] Luis Alberto Lezama MD [address] [place] [address] [phone] 02/12/2025 10:45 AM EST Office Visit [facility] [address] [phone] Michael Jacome, [address] [place] [address] [phone] documented as of this encounter Procedures Procedure Name Priority Date/Time Associated Diagnosis Comments INTRAOP AIRWAY PLACEMENT Routine 07/17/2024 9:48 AM EDT PERIPHERAL BLOCK Routine 07/17/2024 9:24 AM EDT documented in this encounter Results * INTRAOP AIRWAY PLACEMENT (07/17/2024 9:48 AM EDT) Narrative [facility] - 07/17/2024 9:48 AM EDT Stacey Mason CRNA 07/17/2024 10:01 AM Intraop Airway Placement: Date/Time: 07/17/2024 9:48 AM Induction type: IV Mask size: Standard adult Pre-Oxygenation: Standard Mask ventilation: Easy mask ventilation Technique: Video laryngoscope Laryngoscope blade: Salas Blade size: 3 Grade view: I Airway type: ETT- cuffed Intubation assist devices: Stylet 14fr Airway location: Oral Device size: 7.5mm Secured at: 21 cm Secured by: Tape Measured from: Lips Placement verified: Auscultation, End tidal CO2 and Symmetric chest wall motion Condition: Unchanged and Atraumatic Insertion attempts: 1 Attempt 1 by: medic student Title: Other (Comment) us Rush Smith MD [place] ANESTHESIA Final Result Performing Organization Address [facility] Co de Phone Number [facility] [address] [place] [address] * Peripheral Block by Anesthesia (07/17/2024 9:24 AM EDT) Narrative [facility] - 07/17/2024 9:24 AM EDT Rush Smith MD 07/17/2024 9:24 AM Peripheral Block by Anesthesia Procedure Date/Time: 07/17/2024 9:24 AM Patient location during procedure: pre-op Reason for block: at surgeon's request and post-op pain management Staff and Pre-procedure checks Anesthesiologist: Rush Smith MD Performed: anesthesiologist Preanesthetic Checklist: Allergies confirmed, Block plan confirmed, Necessary block equipment present, Supplemental O2 applied, if needed, Anticoagulant confirmed, Block site marked, Patient identified- 2 criteria, Surgical procedure consent verified, Aseptic technique used, Drug/solution labeled, Resuscitaion equipment available, JADON recommended monitors applied, IV access functioning, Sedation given, if needed and Resuscitation equipment available Immediate perianesthetic assessment completed: Yes Patient position: Supine Prep: Chloraprep Monitoring: BP, EKG and O2 Sat Position: Peripheral Block Block type: Interscalene Block Laterality: Left Injection technique: single-shot Pain pump: no pain pump placed Needle Needle type: Stimuplex Needle size: 22Gx2 Nerve localization: ultrasound guidance (Interscalene block- Anterior Scalene and Middle Scalene, upper, middle and lower trunks of the brachial plexus are identified; the tip of the needle and the spread of the local anesthetic around the Brachial Plexus are visualized. Ultrasound image document) Ultrasound probe: linear Ultrasound needle approach: in-plane Assessment Block success: complete Events: Uneventful Heart rate change: noParesthesia pain: none Resistance on injection: normal Intermittent incremental injection LA at 5ml Ultrasound Image of the block is attached/scanned to the [facility] chart. us Rush Smith MD ANESTHESIA ORDERABLES Final Result Performing Organization Address [facility] Co de Phone Number [facility] [address] [place] [address] documented in this encounter Visit Diagnoses Not on filedocumented in this encounter Administered Medications Inactive Administered Medications - up to 1 most recent administrations Medication Order MAR Action Action Date Dose Rate Site ceFAZolin (ANCEF) IVPB 2 g 2 g, Intravenous, ONCE PREPROCEDURE, 1 dose, On Wed07/17/24 at 0800, Administer over 30 Minutes, Administer 30 minutes prior to surgery for patient body weight less than (<) 120 kg, Reason for Therapy: Surgical Prophylaxis, Pre-op (Antibiotic) Given 07/17/2024 9:42 AM EDT 2 g dexAMETHasone (DECADRON) injection Intravenous, PRN (Anesthesia), Starting on Wed07/17/24 at 0959, Until Wed07/17/24 at 1044, Anesthesia Intra-op Given 07/17/2024 9:59 AM EDT 4 mg fentaNYL (SUBLIMAZE) injection Intravenous, PRN (Anesthesia), Starting on Wed07/17/24 at 1020, Until Wed07/17/24 at 1044, Anesthesia Intra-op Given 07/17/2024 10:38 AM EDT 50 mcg lactated ringers infusion Intravenous, at 50 mL/hr, PREPROCEDURE CONTINUOUS, Starting on Wed07/17/24 at 0749, Until Wed07/17/24 at 1637, To be given in SDS/Pre-op Holding Area, Pre-op (Holding/SDS Meds) IV Restarted 07/17/2024 10:44 AM EDT lidocaine 1% 10 mg/mL (1 %) injection Intravenous, PRN (Anesthesia), Starting on Wed07/17/24 at 0947, Until Wed07/17/24 at 1044, Anesthesia Intra-op Given 07/17/2024 9:47 AM EDT 50 mg lidocaine HCl (MLGSNC-R-CEV) 4 % topical solution Laryngotracheal, PRN (Anesthesia), Starting on Wed07/17/24 at 0947, Until Wed07/17/24 at 1044, Anesthesia Intra-op Given 07/17/2024 9:47 AM EDT 4 mL ondansetron (ZOFRAN) injection Intravenous, PRN (Anesthesia), Starting on Wed07/17/24 at 0959, Until Wed07/17/24 at 1044, Anesthesia Intra-op Given 07/17/2024 9:59 AM EDT 4 mg phenylephrine injection Intravenous, PRN (Anesthesia), Starting on Wed07/17/24 at 1007, Until Wed07/17/24 at 1044, Anesthesia Intra-op Given 07/17/2024 10:07 AM EDT 100 mcg propofoL (DIPRIVAN) injection Intravenous, PRN (Anesthesia), Starting on Wed07/17/24 at 0947, Until Wed07/17/24 at 1044, Anesthesia Intra-op Given 07/17/2024 9:47 AM EDT 200 mg rocuronium injection Intravenous, PRN (Anesthesia), Starting on Wed07/17/24 at 0947, Until Wed07/17/24 at 1044, Anesthesia Intra-op Given 07/17/2024 9:47 AM EDT 10 mg succinylcholine (ANECTINE) injection Intravenous, PRN (Anesthesia), Starting on Wed07/17/24 at 0947, Until Wed07/17/24 at 1044, Anesthesia Intra-op Given 07/17/2024 9:47 AM EDT 140 mg documented in this encounter Care Teams Auto Overhauler Relationship Specialty Start Date End Date Nayeli Nelson [facility] [address] [place] [address] PCP - General Family Medicine 08/07/15 documented as of this encounter
--- OUTSIDE RECORDS SUMMARY | 2024-07-24 10:30 | XMS_ITS | Encounter Summary ---
Author Organization [facility] Address [address] [place] [address] Care Team Providers Care Driver/Guide Name Role Phone Nayeli Nelson Primary Care Provider [phone] Reason for Visit * Physical Therapy (Routine) - Authorization Not Needed Specialty Diagnoses / Procedures Referred By Patricia dover Referred To Contact Physical Therapy Diagnoses AC joint arthropathy Luis Alberto Lezama MD [address] [place] [address] Phone: tel: fax: [facility] [address] [place] [address] Phone: tel: fax: Referral ID Status Reason Start Date Expiration Date Visits Requested Visits Authorized [id number] Authorization Not Needed 05/26/2024 03/07/2025 1 30 Encounter Details Date Type Department Care Team (Late st Contact Info) Description 07/24/2024 10:30 AM EDT Office Visit [facility] [address] [place] [address] Amira Arceo, PT [address] [place] [address] AC joint arthropathy (Primary Dx) Social History Tobacco Use Types Packs/Day Years [...] on file documented as of this encounter Progress Notes * Amira Arceo, PT - 07/24/2024 10:30 AM EDT Images from the original note were not included. Physical Therapy Evaluation 07/24/2024 Maryjo Díza : 1970 Referring Provider: Luis Alberto Lezama MD Next MD visit: 07/28/24 Encounter Diagnosis Name Primary? AC joint arthropathy Yes Surgery Date: 07/17/24 Onset date: chronic Contraindications/Precautions: SEE MD PROTOCOL Visit: Time In: 10:32 am Time Out: 11:25 am Subjective: Maryjo Díaz is a 53 y.o. female referred by Luis Alberto Lezama MD to outpatient PhysicalTherapy with a primary diagnosis of: Encounter Diagnosis Name Primary? AC joint arthropathy Yes History of Injury/Mechanism of Inury: Pt is a right hand dominant female who present for evaluationof the left shoulder. Pt notes that she has experienced pain of insidious onset in the left shoulder for years. She notes that over the years she has addressed this issue with injection and NSAID. Recently the pain has progressed to limit her ability to perform her daily activities and sleep. She consulted Dr Lezama once again and due to failure of conservative management, it was determined that surgery was required to address the issue. She underwent a Eliz procedure on July 17. She reports that her pain has been tolerable since the procedure. She received her postop phone call the day after surgery and notes that she was advised to wear the sling when she felt that she needed it so she has not been using it at all. Pt presents today for postop PT evaluation and initiation of treatment. Functional Deficits Since Injury: ADL, IADL, household chore work, sleep Diagnostic Tests: MRI 2021 1. Negative for full-thickness or high-grade partial-thickness rotator cuff tendon tear. Mild rotator cuff tendinosis. 2. Advanced/severe AC joint arthritis with subchondral irregularities and edematous changes about the joint. No history of trauma reported by the technologist. Findings likely indicate active/symptomatic arthritis, and please correlate with repetitive/overhead activity history. 3. Less advanced/milder glenohumeral arthritis as described Relevant Past Medical/Surgical History: see pt chart Current medications and allergies were reviewed with the patient. 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 Patient stated goals: Return to work at a safe time Pain at highest: 7/10 Pain at lowest: 5/10 Location: top of the L shoulder Description: Pain is described as dull, sharp, aching, and throbbing. What Increases Pain?: moving arm away from the body, dressing, grooming, sleeping/bed mobility What Decreases Pain?: pain medication, ice rest Objective Posture :Protective positioning L UE Joint Mobility: Decreased L GH mobility in all planes due to tightness, guarding and discomfort Palpation: TTP noted L UT, proximal bicep and anterior joint line Gait: Decreased arm swing noted L Sensation: Intact L UE Flexibility: Functional Mobility Screening: Other: Shoulder Date: 07/24/24 Date: Date: Date: PROM Left Right Left Right Shoulder Flexion 112 Shoulder Abduction 115 External Rotation 52 Internal Rotation 68 Extension Horizontal Adduction Elbow Flexion Elbow Extension Date: 07/24/24 Date: 07/24/24 Date: Date: AROM Left Right Left Right Shoulder Flexion NT 174 Shoulder Abduction NT 175 External Rotation NT T4 Internal Rotation NT T8 Extension Horizontal Adduction Elbow Flexion Elbow Extension Date: 07/24/24 Date: 07/24/24 Date: Date: Strength Left Right Left Right Shoulder Flexion NT 5/5 Shoulder Abduction NT 5/5 External Rotation NT 5/5 Internal Rotation NT 5/5 Rhomboid Middle Trap Lower Trap Biceps Tricips Special Tests: None Functional Assessment: 07/24/2024 10:00 AM Rehab Outcomes UEFS Score 30 UEFS Maximal Function Score 37.5 Treatment s/p LEFT open [place] 07/17/24 Treatment Date 07/24/24 1/pending Date Date Date gripping small ball x 3' UT/LS str 30 x 3 ea AROM elbow flex/ext x 20 ea scap squ 10 x 10 table slide flex 10 x 10 MANUAL passive str all planes + gentle Gr I GH mob x 10' total Modalities VASO x 10' to reduce pain Pt Education advised that pt wear her sling when out of her home to protect the shoulder and limit strain Measurements Charges 53' 1 E, 1 TE, 1 M, 1 V HEP ID: [id number] Treatment today included: Timed Units: Therapeutic exercise: 13 minutes Manual therapy: 10 minutes Total Time for Timed Treatments: 23 minutes Untimed Units: Vaso and PT Eval Low Patient's Tolerance of Evaluation and/or Treatment: Good Response to HEP instruction/patient education: The patient verbalized understanding and demonstrated independence with home exercise program. Impression: Patient presents with signs and symptoms consistent with Encounter Diagnosis Name Primary? AC joint arthropathy Yes . Impairments (physical, cognitive and/or psychosocial): decreased mobility, impaired body mechanics,weakness, and pain/tenderness Performance Deficits: functional mobility, household tasks, sleeping/rest, recreational activities,and community/social participation Based on the functional impairments as stated and activity limitations above, Maryjo presents as a good candidate for skilled intervention by a licensed therapist. Prognosis for Maryjo based on the above objective findings is good . Goals Short-Term Goals set for 4 weeks. Pt will demonstrate PROM flexion to 120*, External rotation to 45* and internal rotation to 45* to aid with functional tasks such as independent donning/doffing of clothing with min/mod compensatory action and minimal pain 2. Pt will demonstrate muscular strength of 3+/5 to aid with functional activities such as donning/doffing clothing with moderate compensatory action at the shoulder with minimal pain 3. Pt will be able to d/c sling to promote improved ability to perform self care activities. 4. Pt will demo Independent and understanding of HEP to promote improved ROM, strength and function. Long-Term Goals set for 8 weeks. Pt will demonstrate full PROM of the shoulder in flexion and ER to indicate appropriate progressioninto AROM of the shoulder to aid with functional activities of daily living such as donning/doffingclothing, hygiene, and house cleaning activities 2. Pt will demonstrate full AROM of the shoulder in flexion, ER and IR, showing strength of at least 4+/5 with minimal compensatory action to achieve end range in preparation for full return to all functional independent activities 3. Pt will demonstrate good neuromuscular control of the shoulder displaying no compensatory actionat the scapulothoracic and glenohumeral joint in order to achieve full overhead motion and ER functional reach, IR functional reach 4. Pt to report UEFS >/= 70/80 to demonstrate improved overall function Plan Patient will be seen 2 times per week for 8 weeks. Treatment to include therapeutic exercise, neuromuscular reeducation, manual therapy, therapeutic activity, vasopneumatic pump, electrical stimulation, blood flow restriction, and dry needling. Signature: Amira Arceo, PT Date: 07/24/2024 [place] License: [id number] documented in this encounter Plan of Treatment Upcoming Encounters Date Type Department Care Team (Late st Contact Info) Description 09/06/2024 9:00 AM EDT Office Visit [facility] [address] [address] Luis Alberto Lezama MD [address] [address] 02/12/2025 10:45 AM EST Office Visit [facility] [address] [id number] Michael Jacome, DO [address] [place], [place] [id number] Scheduled Referrals Name Type Priority Associated Diagnoses Orde r Schedule AMB REFERRAL TO PHYSICAL THERAPY Outpatient Referral Routine AC joint arthropathy Ordered: 05/26/2024 documented as of this encounter Visit Diagnoses Diagnosis AC joint arthropathy- Primary Unspecified disorder of shoulder joint documented in this encounter Care Teams Driver/Guide Relationship Specialty Start Date End Date Nayeli Nelson [address] [facility] [address] [place] [id number] PCP - General Family Medicine 08/07/15 documented as of this encounter
--- OUTSIDE RECORDS SUMMARY | 2024-07-26 09:30 | XMS_ITS | Encounter Summary ---
Author Organization [facility] Address [address] [place] [address] Care Team Providers Care Turbine Engine Assembler Name Role Phone Leslie Nayeli Chairez Primary Care Provider [phone] Reason for Visit * Reason Comments Post-Operative Exam Encounter Details Date Type Department Care Team (Late st Contact Info) Description 07/26/2024 9:30 AM EDT [facility] [address] [place] [address] Shawna Sunshine APRN [address] [place] [address] AC joint arthropathy (Primary Dx) Social History Tobacco Use Types Packs/Day Years Used Date Smoking Tobacco: Every Day Cigarettes 0.5 36.4 Started: 03/12/1988 Smokeless Tobacco: Never Tobacco Cessation:Ready to Q uit: Not Asked; Counseling Given: Not Answered Alcohol Use Standard Drinks/Week Comments Yes 0 [...] Sign Reading Time Taken Comments Blood Pressure - - Pulse - - Temperature - - Respiratory Rate - - Oxygen Saturation - - Inhaled Oxygen Concentration - - Weight 73 kg (161 lb) 07/26/2024 9:08 AM EDT Height 162.6 cm (5' 4 ) 07/26/2024 9:08 AM EDT Body Mass Index 27.64 07/26/2024 9:08 AM EDT documented in this encounter Progress Notes * Shawna Sunshine APRN - 07/26/2024 9:30 AM EDT Images from the original note were not included. Shawna Bita FLOAT NURSE/SA Orthopaedic Surgery/Sports Medicine [address] [place] [address] Patient Name: Maryjo Díaz [id number] Date of : 1970 Patient Primary Care Physician: Nayeli Nelson DATE OF VISIT: 07/26/2024 Chief Complaint: Recheck of Left shoulder. Procedure Note: Dr Lezama 07/17/2024 POSTOPERATIVE DIAGNOSIS: Left shoulder acromioclavicular arthropathy. PROCEDURE: Left shoulder open Joie. Medical History: The patients medications, allergies, past medical, surgical, social and family histories were reviewed and updated as appropriate. Review of Systems: Pertinent items are noted in HPI. Review of systems reviewed from patient history form is availablein the patient's chart. BMI: 28.5 per last recorded measurement. HISTORY: The patient returns to the office today for follow up status post left shoulder open joie procedure. No specific problems. They have had no nausea, vomiting, fever, or drainage from theirincision. She states she noted some achy discomfort to the shoulder but nothing too significant. She has been attending physical therapy. 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 PHYSICAL EXAMINATION: The patient is alert and oriented adequately groomed in no acute distress. Exam of the operative shoulder reveals a mild swelling. Range of motion and strength testing were not performed today given this early post-operative period. Skin incisions well approximated, clean and dry. No signs of infection. There is some mild swelling distally. Distally, the patient is neurovascularly intact. Good motion to the elbow and wrist. IMPRESSION: Status post shoulder open joie procedure. (See procedure note for full description). PLAN: At this time the patient will continue physical therapy working on range of motion and strengthening exercises. We discussed scar massage, and how to clean the wound. We will continue use of the sling weaning from it with physical therapies guidance. Ice with regularity, its ok to do some gentle range of motion to the elbow and wrist. We will see the patient in 6 weeks or sooner if they have any additional problems. The patient understands and is in agreement with the plan. GUIDELINES: The patient understands the critical importance of post-operative rehabilitation and they understand that if they do not work hard in physical therapy or are non-compliant that they are compromising the outcome of their the reconstruction and they understand the risk of re-injury. They understand the typical time to return to play for professional and or recreational sport is between 6 to 12 months, and also have a clear understanding that not all patients are able to return to their previous level of function, although we fully intend for them to be able to do so. The time clock repairer-frame for healing can be a year or longer, based on each individuals healing potential, genetics, and work with physical therapy. There is typically some numbness around the incisional areas where the incisions were made to perform the procedure. This should improve over time, however; some numbness may remain. We have discussed the nature of the diagnosis and treatment options with the patient today. Ample time was given for discussion and questions about different treatment strategies and the patient is in full agreement with our treatment plan. All decisions were made with the patient's full understanding. 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 Take extra care with the injured areafor several months. Ultimately, the patient or the family assume risk of return to play/work from the injury. The patient is advise to call with any issues or concerns in the future. Shawna Sunshine APRN Parts of this note may have been created by a chart review, combined by taking my own patient history. The patient was physically seen and examined by myself, including a personal review of images, tests, and formation of the impression and plan. In addition, this note may been dictated utilizing voice recognition software. Unfortunately this leads to occasional typographical errors. I apologize in advance if the situation occurs. If questions occur please do not hesitate to call our office. The patient was advised to call with any issues or concerns in the future. documented in this encounter Plan of Treatment Upcoming Encounters Date Type Department Care Team (Late st Contact Info) Description 09/06/2024 9:00 AM EDT Office Visit [facility] [address] [place] [address] Luis Alberto Lezama MD [address] [place] [address] 02/12/2025 10:45 AM EST Office Visit [facility] [address] [id number] Michael Jacome, DO [address] [place], [place] [phone] documented as of this encounter Visit Diagnoses Diagnosis AC joint arthropathy- Primary Unspecified disorder of shoulder joint documented in this encounter Care Teams Turbine Engine Assembler Relationship Specialty Start Date End Date Nayeli Nelson [address] [facility] [address] [place] [id number] PCP - General Family Medicine 08/07/15 documented as of this encounter
--- OUTSIDE RECORDS SUMMARY | 2024-07-28 07:00 | XMS_ITS | Encounter Summary ---
Author Organization [facility] Address [address] [place] [address] Care Team Providers Care Assembler And Tester Electronics Name Role Phone Nayeli Nelson Primary Care Provider [phone] Reason for Visit * Physical Therapy (Routine) - Authorization Not Needed Specialty Diagnoses / Procedures Referred By Patricia dover Referred To Contact Physical Therapy Diagnoses AC joint arthropathy Luis Alberto Lezama MD [address] [place] [address] Phone: tel: fax: [facility] [address] [place] [address] Phone: tel: fax: Referral ID Status Reason Start Date Expiration Date Visits Requested Visits Authorized [id number] Authorization Not Needed 05/26/2024 03/07/2025 1 30 Encounter Details Date Type Department Care Team (Late st Contact Info) Description 07/28/2024 7:00 AM EDT Office Visit [facility] [address] [place] [address] Amira Arceo, PT [address] [place] [address] AC joint arthropathy (Primary Dx) Social History [...] as of this encounter Progress Notes * Eugenia Orourke, PT - 07/28/2024 7:00 AM EDT Images from the original note were not included. Physical Therapy Daily Progress Note 07/28/2024 Maryjo Díaz : 1970 Referring Provider: Luis Alberto Lezama MD Next MD visit: 07/28/24 Encounter Diagnosis Name Primary? AC joint arthropathy Yes Surgery Date: 07/17/24 Onset date: chronic Contraindications/Precautions: SEE MD PROTOCOL Visit: Time In: 7:00am Time Out: 7:46am Subjective: Her shoulder is feeling a lot better this week compared to last week. 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 see treatment grid below Treatment s/p LEFT open [place] 07/17/24 Treatment Date 07/24/24 1/pending Date 07/28/2024 1w 4d Date Date Pulleys x5' gripping small ball x 3' green gripper x3' UT/LS str 30 x 3 ea 30 x2 ea AROM elbow flex/ext x 20 ea x30 ea scap squ 10 x 10 10 x10 table slide flex 10 x 10 flex/scap 10 x10 ea cane flex supine 10 x10 supine LLLD ER str hands behind head x2' MANUAL passive str all planes + gentle Gr I GH mob x 10' total passive str all planes + gentle oscillation x 10' total Modalities VASO x 10' to reduce pain Pt Education advised that pt wear her sling when out of her home to protect the shoulder and limit strain Measurements Charges 53' 1 E, 1 TE, 1 M, 1 V 46' 2te man HEP ID: [id number] Treatment today included: Timed Units: Therapeutic exercise: 36 minutes Manual therapy: 10 minutes Total Time for Timed Treatments: 46 minutes Untimed Units: None Patient's Tolerance of Evaluation and/or Treatment: Good Response to HEP instruction/patient education: The patient verbalized understanding and demonstrated independence with home exercise program. Assessment: Pt's L shoulder PROM is improving excellently, and she cher all new exercises well without increased shoulder pain. Plan: Continue current plan of care. Signature: Eugenia Orourke PT Date: 07/28/2024 [place] License: [id number] documented in this encounter Plan of Treatment Upcoming Encounters Date Type Department Care Team (Late st Contact Info) Description 09/06/2024 9:00 AM EDT Office Visit [facility] [address] [address] Luis Alberto Lezama MD [address] [place] [address] 02/12/2025 10:45 AM EST Office Visit [facility] [address] [phone] Michael Jacome, [address] [place], [place] [phone] documented as of this encounter Visit Diagnoses Diagnosis AC joint arthropathy- Primary Unspecified disorder of shoulder joint documented in this encounter Care Teams Assembler And Tester Electronics Relationship Specialty Start Date End Date Nayeli Nelson [facility] [address] [place] [id number] PCP - General Family Medicine 08/07/15 documented as of this encounter
--- OUTSIDE RECORDS SUMMARY | 2024-08-01 07:45 | XMS_ITS | Encounter Summary ---
Author Organization [facility] Address [address] [place] [address] Care Team Providers Care Blemish Remover Name Role Phone Nayeli Nelson Primary Care Provider [phone] Reason for Visit * Physical Therapy (Routine) - Authorization Not Needed Specialty Diagnoses / Procedures Referred By Patricia dover Referred To Contact Physical Therapy Diagnoses AC joint arthropathy Luis Alberto Lezama MD [address] [place] [address] Phone: tel: fax: [facility] [address] [place] [address] Phone: tel: fax: Referral ID Status Reason Start Date Expiration Date Visits Requested Visits Authorized [id number] Authorization Not Needed 05/26/2024 03/07/2025 1 30 Encounter Details Date Type Department Care Team (Late st Contact Info) Description 08/01/2024 7:45 AM EDT Office Visit [facility] [address] [place] [address] Amira Arceo, PT [address] [place] [address] AC joint arthropathy (Primary Dx) Social History [...] Progress Notes * Amira Arceo, PT - 08/01/2024 7:45 AM EDT Images from the original note were not included. Physical Therapy Daily Progress Note 08/01/2024 Maryjo Lopes Arjun : 1970 Referring Provider: Luis Alberto Lezama MD Next MD visit: 07/28/24 Encounter Diagnosis Name Primary? AC joint arthropathy Yes Surgery Date: 07/17/24 Onset date: chronic Contraindications/Precautions: SEE MD PROTOCOL Visit: 06/04 Time In: 7:39 am Time Out: 8:24 am Subjective: Pt notes that there is a deep ache that continues in the shoulder but she has not needed any pain medication to control it. see exercise grid below for objective data Treatment s/p LEFT open [place] 07/17/24 Treatment Date 07/24/24 1/pending Date 07/28/2024 1w 4d Date 08/01/2406/04 Date Pulleys x5' x 5' gripping small ball x 3' green gripper x3' green gripper x 3' UT/LS str 30 x 3 ea 30 x2 ea AROM elbow flex/ext x 20 ea x30 ea x 30 scap squ 10 x 10 10 x10 10 x 10 scap clock x20 table slide flex 10 x 10 flex/scap 10 x10 ea flex/scap 20 x 5 ea cane flex supine 10 x10 10 x 10 SA PRE 0# x20 supine LLLD ER str hands behind head x2' hands behind head x 2' submax iso ER/IR 5 x 10 ea MANUAL passive str all planes + gentle Gr I GH mob x 10' total passive str all planes + gentle oscillation x 10' total passive str all planes + gentle oscillation x 10' total Modalities VASO x 10' to reduce pain declined Pt Education advised that pt wear her sling when out of her home to protect the shoulder and limit strain Measurements Charges 53' 1 E, 1 TE, 1 M, 1 V 46' 2te man 45' 2 TE, 1 M HEP ID: [id number] Treatment today included: Timed Units: Therapeutic exercise: 35 minutes Manual therapy: 10 minutes Total Time for Timed Treatments: 45 minutes Untimed Units: None Patient's Tolerance of Evaluation and/or Treatment: Good Response to HEP instruction/patient education: The patient verbalized understanding and demonstrated independence with home exercise program. Assessment: Pt tolerated all exercise well today. She demo improved compliance to limited active movement of the arm today. Her PROM is progressing however guarding and discomfort remain at end ranges. Reviewed healing process and postop restrictions with pt today including no lifting, pushing or pulling resistance. Plan: Continue current plan of care. Signature: Amira Arceo PT Date: 08/01/2024 [place] License: [id number] documented in this encounter Plan of Treatment Upcoming Encounters Date Type Department Care Team (Late st Contact Info) Description 09/06/2024 9:00 AM EDT Office Visit [facility] [address] [address] Luis Alberto Lezama MD [address] [address] 02/12/2025 10:45 AM EST Office Visit [facility] [address] [address] Michael Jacome, [address] [place], [place] [id number] documented as of this encounter Visit Diagnoses Diagnosis AC joint arthropathy- Primary Unspecified disorder of shoulder joint documented in this encounter Care Teams Blemish Remover Relationship Specialty Start Date End Date Nayeli Nelson [address] [facility] [address] [place] [address] PCP - General Family Medicine 08/07/15 documented as of this encounter
--- OUTSIDE RECORDS SUMMARY | 2024-08-03 08:15 | XMS_ITS | Encounter Summary ---
Author Organization [facility] Address [address] [place] [address] Care Team Providers Care Occupational Therapy Program Director Name Role Phone Nayeli Nelson Primary Care Provider [phone] Reason for Visit * Physical Therapy (Routine) - Authorization Not Needed Specialty Diagnoses / Procedures Referred By Patricia dover Referred To Contact Physical Therapy Diagnoses AC joint arthropathy Luis Alberto Lezama MD [address] [place] [address] Phone: tel: fax: [facility] [address] [place] [address] Phone: tel: fax: Referral ID Status Reason Start Date Expiration Date Visits Requested Visits Authorized [id number] Authorization Not Needed 05/26/2024 03/07/2025 1 30 Encounter Details Date Type Department Care Team (Late st Contact Info) Description 08/03/2024 8:15 AM EDT Office Visit [facility] [address] [place] [address] Amira Arceo, PT [address] [place] [address] AC joint arthropathy (Primary Dx) Social History [...] Progress Notes * Eugenia Orourke, PT - 08/03/2024 8:15 AM EDT Images from the original note were not included. Physical Therapy Daily Progress Note 08/03/2024 Maryjo Díaz : 1970 Referring Provider: Luis Alberto Lezama MD Next MD visit: 07/28/24 Encounter Diagnosis Name Primary? AC joint arthropathy Yes Surgery Date: 07/17/24 Onset date: chronic Contraindications/Precautions: SEE MD PROTOCOL Visit: 07/05 Time In: 8:08am Time Out: 8:56pm Subjective: She has been having more elbow pain than shoulder pain, and she has tingling in the L hand, primarily between digits 2-3. see treatment grid below Treatment s/p LEFT open [place] 07/17/24 Treatment Date 07/24/24 1/pending Date 07/28/2024 1w 4d Date 08/01/2406/04 Date 08/03/202407/05 Pulleys x5' x 5' x5' gripping small ball x 3' green gripper x3' green gripper x 3' eccentric wrist flexion 3# 2x15 UT/LS str 30 x 3 ea 30 x2 ea AROM elbow flex/ext x 20 ea x30 ea x 30 3# 2x10 with eccentric lower scap squ 10 x 10 10 x10 10 x 10 scap clock x20 rows/orlando GTB 3x10 ea table slide flex 10 x 10 flex/scap 10 x10 ea flex/scap 20 x 5 ea incline flex/scap 10 x10 ea cane flex supine 10 x10 10 x 10 SA PRE 0# x20 2# 20 x5 supine LLLD ER str hands behind head x2' hands behind head x 2' not needed submax iso ER/IR 5 x 10 ea median nerve glides x10 median nerve glide x10 MANUAL passive str all planes + gentle Gr I GH mob x 10' total passive str all planes + gentle oscillation x 10' total passive str all planes + gentle oscillation x 10' total quick PROM L shoulder + STM @ wrist flexor mass + median nerve glides x12' total Modalities VASO x 10' to reduce pain declined declined Pt Education advised that pt wear her sling when out of her home to protect the shoulder and limit strain Measurements Charges 53' 1 E, 1 TE, 1 M, 1 V 46' 2te man 45' 2 TE, 1 M 48' 2te man HEP ID: [id number] Treatment today included: Timed Units: Therapeutic exercise: 36 minutes Manual therapy: 12 minutes Total Time for Timed Treatments: 48 minutes Untimed Units: None Patient's Tolerance of Evaluation and/or Treatment: Good Response to HEP instruction/patient education: The patient verbalized understanding and demonstrated independence with home exercise program. Assessment: Pt experienced some relief from elbow pain and tingling in L hand by the end of her session. L shoulder PROM is WNL. She cher all new exercises well today with no increased shoulder pain. Plan: Continue current plan of care. Signature: Eugenia Orourke PT Date: 08/03/2024 [place] License: [id number] documented in this encounter Plan of Treatment Upcoming Encounters Date Type Department Care Team (Late st Contact Info) Description 09/06/2024 9:00 AM EDT Office Visit [facility] [address] [address] Luis Alberto Lezama MD [address] [address] 02/12/2025 10:45 AM EST Office Visit [facility] [address] [address] Michael Jacome DO [address] [place] [id number] documented as of this encounter Visit Diagnoses Diagnosis AC joint arthropathy- Primary Unspecified disorder of shoulder joint documented in this encounter Care Teams Occupational Therapy Program Director Relationship Specialty Start Date End Date Leslie, R Contreras [address] [place] [address] PCP - General Family Medicine 08/07/15 documented as of this encounter
[2024-08-16 18:37] LABS: Basophils % 0.5 % (0.1-2.0); Eosinophils # 0.2 Kmm3 (0.0-0.4); Eosinophils % 1.9 % (0.1-12.0); Hematocrit 36.8 % (37.0-47.0); Hemoglobin 11.9 g/dL (12.2-16.2); Immature Granulocytes # 0.04 10^3uL; Immature Granulocytes % 0.5 %; Lymphocytes # 2.6 K/mm3 (0.7-4.5); Lymphocytes % 32.4 % (10-50); Mean Corpuscular HGB Conc 32.3 g/dL (31.8-35.4); Mean Corpuscular Hemoglobin 30.9 pg (27.0-31.2); Mean Corpuscular Volume 95.6 fl (81-99); Mean Platelet Volume 9.5 fl (7.4-10.4); Monocytes # 0.5 K/mm3 (0.1-1.0); Monocytes % 6.1 % (1.7-9.3); Neutrophils # 4.7 K/mm3 (1.8-7.8); Neutrophils % 58.6 % (37.0-80.0); Nucleated Red Blood Cells # 0 10^3/uL; Nucleated Red Blood Cells % 0 %; Platelet Count 372 K/mm3 (142-424); Red Blood Count 3.85 M/mm3 (4.20-5.40); Red Cell Distribution Width 14.3 % (11.5-17.5); Red Cell Distribution Width-SD 50.3 fL; White Blood Count 8.1 K/mm3 (4.8-10.8)
[2024-08-16 18:47] LABS: Alanine Aminotransferase 44 U/L (12-78); Albumin/Globulin Ratio 1.7 (1.1-1.8); Alkaline Phosphatase 87 U/L (38-126); Anion Gap 7.7 mEq/L (5-15); Aspartate Amino Transferase 40 U/L (14-36); Bilirubin,Total 0.5 mg/dl (0.2-1.3); Blood Urea Nitrogen 18 mg/dl (7-17); Calcium 10.5 mg/dl (8.4-10.2); Carbon Dioxide 25 mmol/L (22.0-30.0); Chloride 111 mmol/L (98-107); Estimated Glomerular Filt Rate 75 ml/min (>60); GFR (African American) 90 ML/MIN (>60); Globulin 2.3 g/dL (1.3-3.2); Glucose 146 mg/dl (74-100); Potassium 3.7 mmoL/L (3.5-5.1); Sodium 140 mmol/L (136-145); Total Protein,Serum 6.3 g/dl (6.3-8.2)
--- OUTSIDE RECORDS SUMMARY | 2024-08-17 08:56 | XMS_ITS | Encounter Summary ---
Author Organization [facility] [place] [address] Care Team Providers Care Stitcher Standard Machine Name Role Phone Nayeli Nelson Primary Care Provider [phone] Encounter Details Date Type Department Care Team (Latest Contact Info) Description 07/05/2024 Travel Social History Tobacco Use Types Packs/Day Years [...] Office Visit [facility] [address] [address] Luis Alberto Lezama MD [address] [address] 02/12/2025 10:45 AM EST Office Visit [facility] [address] [address] Michael Jacome, DO [address] [place] [address] documented as of this encounter Visit Diagnoses Not on filedocumented in this encounter Care Teams Stitcher Standard Machine Relationship Specialty Start Date End Date Nayeli Nelson [address] [place] [address] PCP - General Family Medicine 08/07/15 documented as of this encounter
--- OUTSIDE RECORDS SUMMARY | 2024-08-17 08:56 | XMS_ITS | Encounter Summary ---
Author Organization [facility] [place] [address] Care Team Providers Care Soil Engineer Name Role Phone Nayeli Nelson Primary Care Provider [phone] Encounter Details Date Type Department Care Team (Latest Contact Info) Description 07/17/2024 Travel Social History Tobacco Use Types Packs/Day [...] Office Visit [facility] [address] [address] Luis Alberto Lezama MD [address] [address] 02/12/2025 10:45 AM EST Office Visit [facility] [address] [phone] Michael Jacome, DO [address] [place] [address] documented as of this encounter Visit Diagnoses Not on filedocumented in this encounter Care Teams Soil Engineer Relationship Specialty Start Date End Date Nayeli Nelson [address] [place] [address] PCP - General Family Medicine 08/07/15 documented as of this encounter
--- OUTSIDE RECORDS SUMMARY | 2024-08-17 08:56 | XMS_ITS | Encounter Summary ---
Author Organization [facility] Address [address] [place] [address] Care Team Providers Care Faculty Instructor Name Role Phone Leslie, R Contreras Primary Care Provider [phone] Reason for Visit * Reason Onset Date Comments Post-op Call 07/18/2024 Encounter Details Date Type Department Care Team (Late st Contact Info) Description 07/18/2024 Telephone [facility] [address] [facility] [address] [place] [address] Shawna Sunshine APRN [address] [place] [address] Post-op Call Social History Tobacco Use Types Packs/Day Years [...] on file documented as of this encounter Miscellaneous Notes * Telephone Encounter - Shawna Sunshine APRN - 07/18/2024 9:55 AM EDT Post op call: Sling is bothering her neck told her it's for comfort only. She is doing well otherwise. documented in this encounter Plan of Treatment Upcoming Encounters Date Type Department Care Team (Late st Contact Info) Description 09/06/2024 9:00 AM EDT Office Visit [facility] [address] [place] [address] Luis Alberto Lezama MD [address] [place] [id number] 02/12/2025 10:45 AM EST Office Visit [facility] [address] [address] Michael Jacome, [address] [place], [place] [phone] documented as of this encounter Visit Diagnoses Not on filedocumented in this encounter Care Teams Faculty Instructor Relationship Specialty Start Date End Date Nayeli Nelson [address] [facility] [address] [place] [phone] PCP - General Family Medicine 08/07/15 documented as of this encounter
--- OUTSIDE RECORDS SUMMARY | 2024-08-17 08:56 | XMS_ITS | Encounter Summary ---
Author Organization [facility] Address [address] [place] [address] Care Team Providers Care Valve Maker Name Role Phone Leslie, Nayeli Chairez Primary Care Provider [phone] Reason for Visit * Reason Onset Date Comments Surgery 07/14/2024 Encounter Details Date Type Department Care Team (Late st Contact Info) Description 07/14/2024 Telephone [facility] [address] [place] [address] Luis Alberto Lezama MD [address] [facility] [employer] [address] [address] Surgery Social History Tobacco Use Types Packs/Day Years [...] encounter Miscellaneous Notes * Telephone Encounter - Obdulia Ramos, Clerical Staff - 07/14/2024 2:28 PM EDT SPOKE TO PATIENT: SX ARRIVAL TIME 7:45 am 07/17/24 FTT documented in this encounter Plan of Treatment Upcoming Encounters Date Type Department Care Team (Late st Contact Info) Description 09/06/2024 9:00 AM EDT Office Visit [facility] [address] [place] [address] Luis Alberto Lezama MD [address] [place] [address] 02/12/2025 10:45 AM EST Office Visit [facility] [address] [address] Michael Jacome, 1400 [place], [place] [phone] documented as of this encounter Visit Diagnoses Not on filedocumented in this encounter Care Teams Valve Maker Relationship Specialty Start Date End Date Nayeli [place] 1210 [facility] [address] [place] [address] PCP - General Family Medicine 08/07/15 documented as of this encounter
--- OUTSIDE RECORDS SUMMARY | 2024-08-17 08:58 | XMS_ITS | Clinical Summary ---
Author Organization [facility] Address [address] [place] [address] Phone Care Team Providers Care Customer Care Associate Name Role Phone LeslieNayeli Contreras Primary Care Provider [phone] Allergies No known active allergies Medications atorvastatin (LIPITOR) 40 mg Oral Tablet Take 1 Tablet by mouth daily. 12/30/2021 Active celecoxib (CELEBREX) 200 mg Oral Capsule Take 1 Capsule by mouth daily. 11/05/2021 Active clopidogreL (PLAVIX) 75 mg Oral Tablet Take 1 Tablet by mouth daily. 11/05/2021 Active gabapentin (NEURONTIN) 800 mg Oral Tablet Take 800 mg by mouth 4 times daily as needed (takes for neck pain). Active meloxicam (MOBIC) 15 mg Oral Tablet Take 15 mg by mouth daily. Active multivit-min/ir on/FA/vit K/lut (MULTIVITAMIN WOMEN 50 PLUS ORAL) Take by mouth. Active promethazine (PHENERGAN) 25 mg Oral Tablet Take 1 Tablet by mouth every 6 hours as needed for Nausea for up to 20 doses. 20 Tablet 07/17/2024 Active oxyCODONE (ROXICODONE) 5 mg Oral Tablet Take 1 Tablet by mouth every 4 hours as needed for Major Surgery/Trau ma (G89.18) for up to 28 doses. 28 Tablet 07/17/2024 Active docusate sodium (COLACE) 100 mg Oral Capsule Take one capsule three times a day while on pain meds 90 Capsule 07/17/2024 Active Active Problems Problem Noted Date Diagnosed Date AC joint arthropathy 05/26/2024 Encounters Date Type Department Care Team Description 08/03/2024 8:15 AM EDT Office Visit [facility] [address] [place] [address] Amira Arceo, PT AC joint arthropathy (Primary Dx) 08/01/2024 7:45 AM EDT Office Visit [facility] [address] [place] [address] Amira Arceo, PT AC joint arthropathy (Primary Dx) 07/28/2024 7:00 AM EDT Office Visit [facility] [address] [place] [address] Amira Arceo, PT AC joint arthropathy (Primary Dx) 07/26/2024 9:30 AM EDT Office Visit [facility] [address] [address] Shawna Sunshine APRN AC joint arthropathy (Primary Dx) 07/24/2024 10:30 AM EDT Office Visit [facility] [address] [address] Amira Arceo, PT AC joint arthropathy (Primary Dx) 07/24/2024 Plan of Care Documentation [facility] [address] [address] 07/18/2024 Telephone [facility] [address] [address] Shawna Sunshine APRN Post-op Call 07/17/2024 9:42 AM EDT Anesthesia Event [facility] [address] [place] [address] Rush Smith MD Record, Concepcion Perea, ENVIRONMENTAL ENGINEER 07/17/2024 9:30 AM EDT - 07/17/2024 10:40 AM EDT Surgery [facility] [address] [place] [address] Luis Alberto Lezama MD OPEN SHOULDER ROTATOR CUFF REPAIR (COVERS MARY / DISTAL CLAVICLE EXCSION) 07/17/2024 8:20 AM EDT Ancillary Procedure [facility] SAME DAY SURGERY [address] [place] [address] Luis Alberto Lezama MD 07/17/2024 7:30 AM EDT - 07/17/2024 12:23 PM EDT Hospital Encounter [facility] SAME DAY SURGERY [address] [place] [address] Luis Alberto Lezama MD Preop testing (Primary Dx); Other fatigue; AC joint arthropathy Discharge Disposition: Home or Self Care 07/17/2024 Travel 07/14/2024 Telephone [facility] [address] [address] Luis Alberto Lezama MD Surgery 07/13/2024 10:24 AM EDT - 07/13/2024 11:59 PM EDT Hospital Encounter [facility] [address] [place] [address] Preop testing; Other fatigue; AC joint arthropathy Discharge Disposition: Home or Self Care 07/05/2024 Travel 06/22/2024 Telephone [facility] H&V [address] [place] [address] Michael Jacome DO Cardiology Clearance 06/21/2024 Telephone EDG PRE-ADMIT TESTING [facility] [place] [address] Charity Benitez, building official Clearance 05/26/2024 3:15 PM EDT Ancillary Procedure [facility] [address] [place] [address] Luis Alberto Lezama MD Acute pain of left shoulder; Acute pain of right shoulder 05/26/2024 3:00 PM EDT Office Visit [facility] [address] [address] Luis Alberto Lezama MD Acute pain of left shoulder (Primary Dx); Acute pain of right shoulder; AC joint arthropathy from Last 3 Months Surgical History Surgery Date Site/Laterality Comments HYSTERECTOMY CHOLECYSTECTOMY TONSILLECTOMY NECK SURGERY cervical spine fusion COLONOSCOPY ROTATOR CUFF REPAIR 07/17/2024 Shoulder/Left LEFT SHOULDER OPEN MARY; Surgeon: Luis Alberto Lezama MD; Location: [facility] MAIN OR; Service: Orthopedics Medical History Medical History Date Comments Cervical spondylolysis Chronic pain Stroke (HCC) 2019 Family History Medical History Relation Name Comments Arthritis Father Kidney Disease Father Arthritis Mother Heart Disease Mother Relation Name Status Comments Father Mother Social History Tobacco Use Types Packs/Day Years [...] on file Sexual Orientation Not on file Obstetrics History Last Filed Vital Signs Vital Sign Reading [...] Mass Index 27.64 07/26/2024 9:08 AM EDT Plan of Treatment Upcoming Encounters Date Type Department Care Team (Late st Contact Info) Description 09/06/2024 9:00 AM EDT Office Visit [facility] [address] [address] Luis Alberto Lezama MD [address] [place] [address] 02/12/2025 10:45 AM EST Office Visit [facility] [place] [address] [place] [address] Michael Jacome, DO [address] [place] [address] Health Maintenance Due Date Last Done Comments Annual Wellness Exam 1972 DTaP/TDaP/Td (1 - Tdap) 1988 Hepatitis B Vaccine (1 of 3 - 19+ 3-dose series) 1988 Pneumococcal Vaccine 50+ (1 of 2 - PCV) 1988 Cervical Cancer Screening 1990 Pap Smear 1990 HPV/Pap Cotest 10/10/1999 Breast Cancer Screening 2009 Cologuard 2014 Colon Cancer Screening 2014 Colonoscopy 2014 FIT 2014 Sigmoidoscopy 2014 Virtual Colonography 2014 Zoster (1 of 2) 10/10/2019 COVID-19 Vaccine (2 - 2023-2 5 season) 2023 03/18/2021 Influenza Vaccine (Season Ended) 2024 Meningococcal B Vaccine Aged Out No l onger eligible based on patient's age to complete this topic Medical Devices Implanted Type Area Wind Field Manager Device Identifier Shelf Expiration Date Model / Serial / Lot Hardware Neck Procedures Procedure Name Priority Date/Time Associated Diagnosis Comments INTRAOP AIRWAY PLACEMENT Routine 07/17/2024 9:[address] SURGICAL ARTHROSCOPY SHOULDER DSTL CLAVICULC 07/17/2024 9:43 AM EDT AC joint arthropathy Special Needs SCALENE BLOCK Notified Ngoc 07/10-AT sk PERIPHERAL BLOCK Routine 07/17/2024 9:24 AM EDT US ANES GUIDANCE FOR NERVE BLOCK STAT 07/17/2024 8:17 AM EDT TSH REFLEX TO FT4 Routine 07/13/2024 10: 30 AM EDT Preop testing Other fatigue CBC WITH DIFF Routine 07/13/2024 10:30 AM EDT Preop testing Other fatigue AC joint arthropathy BASIC METABOLIC PANEL Routine 07/13/2024 10:30 AM EDT Preop testing Other fatigue AC joint arthropathy XR SHOULDER BILATERAL 3 VIEWS Routine 05/26/2024 3:13 PM EDT Acute pain of left shoulder Acute pain of right shoulder CT ARTHROCENTESIS ASPIR&/INJ MAJOR JT/BURSA W/O US Routine 05/26/2024 3:00 PM EDT AC joint arthropathy from Last 3 Months Results * INTRAOP AIRWAY PLACEMENT (07/17/2024 9:48 AM EDT) Narrative [facility] - 07/17/2024 9:48 AM EDT Stacey [...] Title: Other (Comment) us Rush Smith MD CT ANESTHESIA Final Result [facility] [address] [place] [id number] * Peripheral Block by Anesthesia (07/17/2024 9:24 AM EDT) Narrative [facility] - 07/17/2024 9:24 AM EDT Rush [...] of the block is attached/scanned to the epic chart. us Rush Smith MD ANESTHESIA [place] [address] * US ANES GUIDANCE FOR NERVE BLOCK (07/17/2024 8:17 AM EDT) Narrative [facility] - 07/17/2024 8:17 AM EDT Ultrasound guided nerve block performed by Anesthesiologist The study image(s) are for reference only and will not be interpreted by a Radiologist. Refer to the Anesthesia procedure note for image description and procedure details. us Rush Smith MD IMG US ORDERABLES Final Resu lt * TSH REFLEX TO FT4 (07/13/2024 10:30 AM EDT) TSH Reflex 0.539 0.270 - 4.200 mcIU/mL 07/13/2024 5:33 PM EDT [facility] [employer], [facility] Blood VENOUS BLOOD / Unknown Venipuncture / Unknown 07/13/2024 10:30 AM EDT 07/13/2024 10:30 AM EDT Narrative [facility] [employer] - 07/13/2024 5:33 PM EDT Ingestion of hawa doses of biotin (>5 mg/day) taken within 8 hours of drawing blood sample can interfere with this immunoassay test. Concepcion Valencia ENVIRONMENTAL ENGINEER CHEMISTRY ORDERABLES Final Result [facility] [address] [facility] , [place] [address] * CBC WITH DIFF (07/13/2024 10:30 AM [...] 3:38 PM EDT [facility] RDW 13.1 <=14.9 % 07/13/2024 3:38 PM EDT [facility] Platelet 287 155 - 369 x10(3)/mcL 07/13/2024 3:38 PM EDT [facility] MPV 9.8 8.8 - 12.5 fL 07/13/2024 3:38 PM EDT [facility] Neut Percent 60.6 % 07/13/2024 3:38 PM EDT [facility] Comment:Neutrophils equals s egs plus bands Imm Gran% 0.3 % 07/13/2024 3:38 PM EDT [facility], [facility] Comment:Automated count of m etamyelocytes, myelocytes and promyelocytes. Lymph Percent 31.8 % 07/13/2024 3:38 PM EDT [facility] Marin Percent 4.3 % 07/13/2024 3:38 PM EDT [facility] Eos Percent 2.5 % 07/13/2024 3:38 PM EDT [facility] Baso Percent 0.5 % 07/13/2024 3:38 PM EDT [facility] Neut # 5.5 1.6 - 6.1 x10(3)/[facility] 07/13/2024 3:38 PM EDT [facility], [facility] Comment:Neutrophils equals s egs plus bands IMMGRAN# 0.0 0.0 - 0.1 x10(3)/[facility] 07/13/2024 3:38 PM EDT [facility] Comment:Automated count of m etamyelocytes, myelocytes and promyelocytes. An absolute IG <0.1 is reported as 0.0. Lymph # 2.9 1.2 - 3.9 x10(3)/mcL 07/13/2024 3:38 PM EDT [facility] Marin # 0.4 0.3 - 0.9 x10(3)/[facility] 07/13/2024 3:38 PM EDT [facility] Eos# 0.2 0.0 - 0.5 x10(3)/[facility] 07/13/2024 3:38 PM EDT [facility], [facility] Baso # 0.1 0.0 - 0.1 x10(3)/[facility] 07/13/2024 3:38 PM EDT [facility], [facility] Blood VENOUS BLOOD / Unknown Venipuncture / Unknown 07/13/2024 10:30 AM EDT 07/13/2024 10:30 AM EDT us Concepcion M Record ENVIRONMENTAL ENGINEER HEMATOLOGY ORDERABLES Final Result [facility] [address], [place] [address] * (ABNORMAL) BASIC METABOLIC PANEL (07/13/2024 10:30 AM EDT) Sodium 138 136 - 145 mmol/L 07/13/2024 5:33 PM EDT [facility] Potassium 3.9 3.5 - 5.0 mmol/L 07/13/2024 5:33 PM EDT [facility] Chloride 106 98 - 107 mmol/L 07/13/2024 5:33 PM EDT [facility] Total CO2 24 22 - 29 mmol/L [...] recommended by the National Kidney Foundation - [place] Society of Nephrology Task Force. Blood VENOUS BLOOD / Unknown Venipuncture / Unknown 07/13/2024 10:30 AM EDT 07/13/2024 10:30 AM EDT us Concepcion Perea Record ENVIRONMENTAL ENGINEER CHEMISTRY ORDERABLES Final Result Performing Organization Address City/[facility]/ZIP Co de Phone Number [facility] [address] [facility] , [address] [place] [id number] * XR SHOULDER BILATERAL 3 VIEWS (05/26/2024 3:13 PM EDT) Narrative Pati Cueva - 05/26/2024 3:13 PM EDT Please see physician's note from office encounter for x-ray imaging result us Luis Alberto Lezama MD IMG DIAGNOSTIC IMAGING ORDERABL ES Final Result * CT ARTHROCENTESIS ASPIR&/INJ MAJOR JT/BURSA W/O US (05/26/2024 3:00 PM EDT) Narrative [facility] - 05/26/2024 3:00 PM EDT Cristine Escobar NA 06/05/2024 10:50 AM Large Joint Injection/Arthrocentesis: R glenohumeral on 05/26/2024 3:00 PM Indications: pain Details: 22 G needle Medications: 3 mL BUPivacaine HCl 0.25 % (2.5 mg/mL); 40 mg triamcinolone acetonide 40 mg/mL Outcome: tolerated well, no immediate complications Procedure, treatment alternatives, risks and benefits explained, specific risks discussed. Consent was given by the patient. Immediately prior to procedure a time out was called to verify the correct patient, procedure, equipment, customer support manager and site/side marked as required. Patient was prepped and draped in the usual sterile fashion. us Luis Alberto Lezama MD PROCEDURE/MINOR SURGICAL ORDERA BLES Final Result [facility] from Last 3 Months Insurance RILEY PPO ANTHEM PPO ANTHDARREL PPO Care Teams Customer Care Associate Relationship Specialty Start Date End Date Nayeli Nelson [address] [facility] [address] [place] [address] PCP - General Family Medicine 08/07/15
--- OUTSIDE RECORDS SUMMARY | 2024-08-17 08:58 | XMS_ITS | Encounter Summary ---
Author Organization [facility] Address [facility] [place] [address] Care Team Providers Care Switchboard Operator Assistant Name Role Phone Nayeli Nelson Primary Care Provider [phone] Reason for Visit * Reason Onset Date Comments Cardiology Clearance 06/21/2024 Encounter Details Date Type Department Care Team (Late st Contact Info) Description 06/21/2024 Telephone EDG PRE-ADMIT TESTING [facility] [address] [place] [phone] Charity Benitez RN Cardiology Clearance Social History Tobacco Use Types Packs/Day Years Used Date Smoking Tobacco: Every Day Cigarettes 0.5 36.4 Started: 03/12/1988 Smokeless Tobacco: Never Alcohol Use Standard Drinks/Week Comments Yes 0 (1 standard drink = 0.6 oz pur e alcohol) Comments Unknown Sex and Gender Information Value Date Recorded Sex Assigned at Not on file Legal Sex Female 1:41 PM EDT Gender Identity Not on file Sexual Orientation Not on file documented as of this encounter Miscellaneous Notes * Telephone Encounter - Aure Dominguez MA - 06/22/2024 8:55 AM EDT Faxed clearance. * Telephone Encounter - Michael Jacome DO - 06/21/2024 3:14 PM EDT Acceptable risk for non-cardiac surgery. * Telephone Encounter - Charity Benitez RN - 06/21/2024 9:39 AM EDT Images from the original note were not included. Surgical Clearance Date: 05/26/24 Patient: Maryjo Díaz : 1970 Surgery Date: 07/17/24 Surgery: LEFT OPEN [place] Dear Dr. JACOME, I am requesting cardiac clearance for the above patient. We have asked the patient to schedule an appointment with you if not recently seen. If you feel the patient requires any testing, this would need to be completed prior to the surgery date with appropriate documentation clearing the patient for surgery. Please fax this letter with any comments or test results to the number below. Please feelfree to contact us with any questions or concerns you may have regarding this patient and the upcoming surgery. Please advise patient when to discontinue blood thinners prior to surgery. Thank you in advance, Luis Alberto Lezama MD [] This patient has been cleared for surgery. [] This patient has NOT been cleared for surgery. Comments: Signature: Date: Please fax finished form to: Obdulia Burgos at [phone]. documented in this encounter Plan of Treatment Upcoming Encounters Date Type Department Care Team (Late st Contact Info) Description 09/06/2024 9:00 AM EDT Office Visit [facility] [address] [address] Luis Alberto Lezama MD [address] [address] 02/12/2025 10:45 AM EST Office Visit [facility] [address] [address] Michael Jacome, DO [address] [place] [address] documented as of this encounter Visit Diagnoses Not on filedocumented in this encounter Care Teams Switchboard Operator Assistant Relationship Specialty Start Date End Date Nayeli Nelson [address] [place] [address] [address] [place] [address] PCP - General Family Medicine 08/07/15 documented as of this encounter
--- OUTSIDE RECORDS SUMMARY | 2024-08-17 08:58 | XMS_ITS | Encounter Summary ---
Author [place] [address] Care Team Providers Care Square Dance Caller Name Role Phone Nayeli Nelson Primary Care Provider Reason for Visit * Reason Onset Date Comments Cardiology Clearance 06/22/2024 Encounter Details Date Type Department Care Team (Late st Contact Info) Description 06/22/2024 Telephone [facility] [place] [address] [facility] [address] [place] [address] Michael Jacome DO [address] [place] [address] Cardiology Clearance Social History Tobacco Use Types [...] Encounter - Aure Dominguez MA - 06/22/2024 2:08 PM EDT Faxed clearance. * Telephone Encounter - Michael Jacome DO - 06/22/2024 1:58 PM EDT Acceptable risk for non-cardiac surgery * Telephone Encounter - Aure Dominguez MA - 06/22/2024 8:32 AM EDT ote The assessment below is only valid for 30 days from signature and is subject to change based upon the patient's clinical condition. Cardiac Clearance Patient: Maryjo Díaz : 1970 Procedure: Left Open [place] Surgery date: 07/17/2024 Surgeon: Dr. Lezama Telephone: Anesthesia: Not specified Patient takes: [] ASA [] Plavix [] Brilinta [] Effient [] Eliquis [] Xarelto [] Pradaxa [] Warfarin [] Pletal Surgery office did not specify how long to hold anticoagulant(s). Please advise. documented in this encounter Plan of Treatment Upcoming Encounters Date Type Department Care Team (Late st Contact Info) Description 09/06/2024 9:00 AM EDT Office Visit [facility] [address] [address] Luis Alberto Lezama MD [address] [place] [address] 02/12/2025 10:45 AM EST Office Visit [facility] [address] [phone] Michael Jacome DO [address] [place] [address] documented as of this encounter Visit Diagnoses Not on filedocumented in this encounter Care Teams Square Dance Caller Relationship Specialty Start Date End Date Nayeli Nelson [address] [facility] [address] [place] [address] PCP - General Family Medicine 08/07/15 documented as of this encounter
--- OUTSIDE RECORDS SUMMARY | 2024-08-17 08:58 | XMS_ITS | Encounter Summary ---
Author Organization [facility] Address [address] [place] [address] Care Team Providers Care Insulation Sprayer Name Role Phone LeslieNayeli manzanares Primary Care Provider [phone] Encounter Details Date Type Department Care Team (Late st Contact Info) Description 07/24/2024 Plan of Care Documentation [facility] [address] [facility] [address] [place], [place] [id number] Social History Tobacco Use Types Packs/Day Years [...] as of this encounter Miscellaneous Notes * Therapist Plan of Care - Amira Arceo, PT - 07/24/2024 11:17 AM EDT Images from the original note were not included. Please sign to acknowledge agreement with this updated plan of care. Physical Therapy Evaluation 07/24/2024 Maryjo Díaz : 1970 Referring Provider: Luis Alberto Lezama MD Next MD visit: 07/28/24 Encounter Diagnosis Name Primary? AC joint arthropathy Yes Surgery Date: 07/17/24 Onset date: chronic Contraindications/Precautions: SEE MD PROTOCOL Visit: pending Time In: 10:32 am Time Out: 11:25 [...] allergies were reviewed with the patient. 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 Signature: Amira Arceo PT Date: 07/24/2024 [place] License: [id number] documented in this encounter Plan of Treatment Upcoming Encounters Date Type Department Care Team (Late st Contact Info) Description 09/06/2024 9:00 AM EDT [facility] [address] [place] [address] Luis Alberto Lezama MD [address] [place] [address] 02/12/2025 10:45 AM EST Office Visit [facility] [address] [address] Michael Jacome, DO [address] [place] [address] documented as of this encounter Visit Diagnoses Not on filedocumented in this encounter Care Teams Insulation Sprayer Relationship Specialty Start Date End Date Nayeli Nelsno [address] [facility] [address] [place] [address] PCP - General Family Medicine 08/07/15 documented as of this encounter
--- OUTSIDE RECORDS SUMMARY | 2024-08-17 08:58 | XMS_ITS | Clinical Summary ---
Author Organization [facility] Address [address] [place] [address] Care Team Providers Care Chip Applying Machine Tender Name Role Phone George Alvarez MD Primary Care Provider [phone] Social History Tobacco Use Types Packs/Day Years Used Date Smoking Tobacco: Never Comments Unknown Sex and Gender Information Value Date Recorded Sex Assigned at Not on file Legal Sex Female 8:19 PM EDT Gender Identity Not on file Sexual Orientation Not on file Last Filed Vital Signs Vital Sign Reading Time Taken Comments Blood Pressure 132/72 06/08/2018 12:36 PM EDT Pulse - - Temperature - - Respiratory Rate - - Oxygen Saturation - - Inhaled Oxygen Concentration - - Weight 63.5 kg (139 lb 15.9 oz) 019 12:36 PM EDT Height 162.6 cm (5' 4 ) 06/08/2018 12:3 6 PM EDT Body Mass Index 24.03 06/08/2018 12:36 PM EDT Plan of Treatment Not on file Care Teams Chip Applying Machine Tender Relationship Specialty Start Date End Date George Alvarez MD [address] [place], [place] [id number] PCP - General 07/19/20
== END 2024-08-16 23:59 ==
PROVIDERS: PCP Nurse Practitioner; Visit Provider Nurse Practitioner
DX: R30.0 Dysuria (principal)
CPT/HCPCS: 80053; 85025; 87086

== ENCOUNTER 2025-01-25 07:52 | Outpatient (CLI) | payer BC, SELFPAY ==
--- OUTSIDE RECORDS SUMMARY | 2025-01-10 09:00 | XMS_ITS | Encounter Summary ---
Author Organization [facility] Address [address] [place] [address] Care Team Providers Care Logistics And Planning Manager Name Role Phone Nayeli Nelson Primary Care Provider [phone] Reason for Visit * Reason Comments Follow-up Follow-up Pain Encounter Details Date Type Department Care Team (Late st Contact Info) Description 01/10/2025 9:00 AM EST Office Visit [facility] [address] [address] Luis Alberto Lezama MD [address] [place] [address] Acute pain of right shoulder (Primary Dx) Social History Tobacco Use Types Packs/Day Years Used Date Smoking Tobacco: Every Day Cigarettes 0.5 36.9 Started: 03/12/1988 Smokeless Tobacco: Never Alcohol Use [...] note were not included. Maryjo Díaz 01/10/2025 [id number] HISTORY: Ms. Díaz returns today for reevaluation [...] shoulder acromioclavicular arthropathy. 2. Status post left [place]. PLAN: I discussed with her options. As [...] Care Team (Late st Contact Info) Description 02/12/2025 10:45 AM EST Office Visit [facility] [address] [place] [phone] Michael Jacome DO [address] [place], [place] [id number] 05/16/2025 1:15 PM EDT Office Visit [facility] [address] [place] [address] Luis Alberto Lezama MD [address] [place] [address] documented as of this encounter Procedures Procedure Name Priority Date/Time Associated Diagnosis Comments [place] ARTHROCENTESIS ASPIR&/INJ MAJOR JT/BURSA W/O US Routine 01/10/2025 9:00 AM EST Acute pain of right shoulder documented in this encounter Results * [place] ARTHROCENTESIS ASPIR&/INJ MAJOR JT/BURSA W/O US (01/10/2025 [...] Alberto Lezama MD PROCEDURE/MINOR SURGICAL ORDERA BLES Edited Result - Final [facility] documented in [...] Shoulder documented in this encounter Care Teams Logistics And Planning Manager Relationship Specialty Start Date End Date Nayeli Nelson [address] [place] [address] [address] [place] [address] PCP - General Family Medicine 08/07/15 documented as of this encounter
--- OUTSIDE RECORDS SUMMARY | 2025-01-25 07:54 | XMS_ITS | Data Portability ---
Author Organization [facility] BETHANY Armstrong [place] CLOSED Address [address] [facility] [address] [place] [address] Assessment No assessment recorded. Plan of Treatment Reminders Order Date Submit Date Provider Last Modified By Organization Details Last Modified Time Details Appointments None recorded. Lab None recorded. Referral None recorded. Procedures None recorded. Surgeries None recorded. Imaging XR, cervical spine, 2 or 3 view 2016 017 [facility], [address] [place] [address], [phone], 7 13:37:55 CT, cervical spine, w/o contrast 2016 017 [facility], [address] [place] [address], [phone], 7 13:59:16 MRI, cervical spine, w/o contrast 2016 017 [facility], [address] [place] [address], [phone], 7 14:00:37 Medication Orders cyclobenza corrine 5 mg tablet 2016 017 INTERFACE [id number], [facility] [place], [address], 7 11:51:38 Patient TargetsNo targets recorded. Patient Instructions Encounter Date Encounter Id Patient Instructions Last Modified By Organization Details Last Modified Time 10/27/2017 [id number] Spent 15 total minutes with the patient today. Greater than 50% of this time was spent counseling/coordi nation of care as documented in my assessment and plan above. [email or web address] Not available 10/27/2017 10:35:57 Reason for Referral None Reported. Results Created Date Observation Date Name Description Value Unit Range Abnormal Flag Note LastModifiedBy Organization Detail LastModifiedTime 01/27/20 17 01/26/2017 XR, cervi [place] spine , 2 or [address] [place] [address] Rima dover Name: FERNANDEZ dover : [birth year] [...] Alec Cosby MD on 2016 1:32 PM [facility] [address], [address], 02/08/2017 16:31:35 01/27/20 17 01/26/2017 CT, cervi [place] spine , [facility] [address] [place] [address] Rima dover Name: FERNANDEZ dover : [birth year] [...] fied. The visual ized spinal cord and doll wigs hackler ior fossa of the brain are normal [...] Baltazar baker MD on 2016 1:54 PM [facility] [address], [address], 02/01/2017 15:18:18 01/27/20 17 01/26/2017 MRI, cervi [place] spine , w/o contr ast [address] [address] Rima dover Name: FERNANDEZ dover : [birth year]18 [...] fied. The visual ized spinal cord and doll wigs hackler ior fossa of the brain are normal [...] baker MD Electr onical ly Signed By: Mal goode Hidla baker MD on 2016 1:55 PM [email or web address] [facility] [address] [place], [address], 02/08/2017 16:16:52 10/28/19 18 10/27/2017 MRI, cervi [place] spine , [facility] [address] [facility] [place] [address] Patien t Name: FERNANDEZ Abarca t : [birth year] 69 Patien t Orderi ng [...] fied. The visual ized spinal cord and doll wigs hackler ior fossa of the brain are normal [...] Baltazar baker MD on 018 12:53 PM [facility] [address] [place], [address], 11/03/2017 11:45:57 Result Notes Documentation Provider Name and Address Organization Details Recorded Time Xr, Cervical Spine, 2 Or 3 View : [facility] [address] [place] [address] Patient Name: FERNANDEZ DÍAZ Patient : 1970 Patient Ordering Provider: RONNIE STOKES EXAM DATE: 01/26/2017 EXAM: XR CERVICAL SPINE FLEX/EXT ONLY CLINICAL INFORMATION: Neck pain. IMAGES PROVIDED: Lateral views of the cervical spine in flexion and extension. COMPARISON: None. FINDINGS AND IMPRESSION: Anterior fusion is noted at C5-C7 levels. No abnormal movement of the surgical hardware is seen on flexion and extension. Mild degenerative changes are seen at C4-C5 level. No instability is identified. Interpreted By: Michael Cosby MD Chaparrita Dukes [facility] 02/08/2017 16:31:35 Ct, Cervical Spine, W/o Contrast : [facility] [address] [place] [address] Patient Name: FERNANDEZ DÍAZ Patient : 1970 Patient Ordering Provider: RONNIE STOKES EXAM DATE: 01/26/2017 EXAM: CT CERVICAL WITHOUT CONTRAST HISTORY: 46-year-old female with recent onset of neck pain and left hand numbness. The patient has had prior cervical spine surgery. COMPARISON: MRI and radiograph of the same date. Technique: 1 mm direct axial slices were obtained through the cervical spine. Computer-generated axial, coronal, and sagittal reconstructions are provided for interpretation. FINDINGS: The patient is status post anterior fusion from C5 through C7. There is beam hardening artifact from the anterior fusion plate and screws. There is no evidence of loosening of the hardware. There is no evidence of complication. There is mild focal kyphosis at C4-C5. There is no fracture or pathologic intraosseous lesion. There is mild anterior marginal osteophytic spurring. No paraspinous soft tissue abnormality is identified. The visualized spinal cord and posterior fossa of the brain are normal in appearance. The craniocervical junction is normal in appearance. There are minimal degenerative changes at C1-C2. C2-C3: There is mild left-sided endplate spurring with a small disc/osteophyte complex. There is no central canal stenosis. There is no neural foraminal stenosis. C3-C4: There is a mild disc bulge and minimal endplate spurring. There is no central canal stenosis. There is no neural foraminal narrowing. C4-C5: There is a broad-based left paracentral disc protrusion with extension in the left lateral recess, and mild to moderate endplate spurring. There is mild central canal stenosis. There is mild bilateral neural foraminal narrowing. C5-C6: There is prior fusion at this level with mild residual endplate spurring. There is mild central canal stenosis. There is moderate bilateral neural foraminal stenosis. C6-C7: There is prior fusion at this level with residual endplate spurring. There is minimal central canal stenosis. There is minimal neural foraminal stenosis. C7-T1: There is a minimal disc bulge and minimal endplate spurring. There is no central canal stenosis or neural foraminal stenosis.. There is a small central disc protrusion at T4-T5. IMPRESSION: 1. The patient is status post anterior fusion from C5 through C7 without evidence of complication. 2. There is mild central canal narrowing at C4-C5 and C5-C6. There is moderate neural foraminal narrowing at C5-C6, and mild neural foraminal narrowing at C4-C5. Interpreted By: González Mcdowell MD Chaparrita Dukes [facility] 02/01/2017 15:18:18 Mri, Cervical Spine, W/o Contrast : [facility] [address] [place] [address] Patient Name: FERNANDEZ DÍAZ Patient : 1970 Patient Ordering Provider: RONNIE STOKES EXAM DATE: 01/26/2017 EXAM: MR CERVICAL W/O CONTRAST HISTORY: 46-year-old female with recent onset of neck pain and left hand numbness. The patient has had prior cervical spine surgery. COMPARISON: CT scan and radiograph of the same date. FINDINGS: The patient is status post anterior fusion from C5 through C7. There is paramagnetic artifact from the anterior fusion plate and screws. There is no evidence of complication. There is mild focal kyphosis at C4-C5. There is no fracture or pathologic intraosseous lesion. There is mild anterior marginal osteophytic spurring. No paraspinous soft tissue abnormality is identified. The visualized spinal cord and posterior fossa of the brain are normal in appearance. The craniocervical junction is normal in appearance. There are minimal degenerative changes at C1-C2. C2-C3: There is mild left-sided endplate spurring with a small disc/osteophyte complex. There is no central canal stenosis. There is no neural foraminal stenosis. C3-C4: There is a mild disc bulge and minimal endplate spurring. There is no central canal stenosis. There is no neural foraminal narrowing. C4-C5: There is a broad-based left paracentral disc protrusion with extension in the left lateral recess, and mild to moderate endplate spurring. There is mild central canal stenosis. There is mild bilateral neural foraminal narrowing. C5-C6: There is prior fusion at this level with mild residual endplate spurring. There is mild central canal stenosis. There is moderate bilateral neural foraminal stenosis. C6-C7: There is prior fusion at this level with residual endplate spurring. There is minimal central canal stenosis. There is minimal neural foraminal stenosis. C7-T1: There is a minimal disc bulge and minimal endplate spurring. There is no central canal stenosis or neural foraminal stenosis.. There is a small central disc protrusion at T4-T5. IMPRESSION: 1. The patient is status post anterior fusion from C5 through C7 without evidence of complication. 2. There is mild central canal narrowing at C4-C5 and C5-C6. There is moderate neural foraminal narrowing at C5-C6, and mild neural foraminal narrowing at C4-C5. Interpreted By: González Mcdowell MD A GIBBONS PA-C [address] [place] [address], [phone], [facility] 02/08/2017 16:16:52 Mri, Cervical Spine, W/o Contrast : [place] [address] Patient Name: FERNANDEZ DÍAZ Patient : 1970 Patient Ordering Provider: ABBI HOGUE EXAM DATE: 10/27/2017 EXAM: MR CERVICAL W/O CONTRAST HISTORY: 47-year-old female with neck pain radiating to the left arm. The patient has had prior cervical fusion. COMPARISON: MRI and CT scan dated 01/26/2017. FINDINGS: The patient is status post anterior fusion from C5 through C7. There is paramagnetic artifact from the anterior fusion plate and screws. There is no evidence of complication. There is mild focal kyphosis from C3 through C5. There is no fracture or pathologic intraosseous lesion. There is mild anterior marginal osteophytic spurring. No paraspinous soft tissue abnormality is identified. The visualized spinal cord and posterior fossa of the brain are normal in appearance. The craniocervical junction is normal in appearance. There are minimal degenerative changes at C1-C2. C2-C3: There is a small left-sided small disc/osteophyte complex. There is no central canal stenosis. There is no neural foraminal stenosis. C3-C4: There is a minimal disc bulge and minimal endplate spurring. There is no central canal stenosis. There is no neural foraminal narrowing. C4-C5: There is a broad-based left paracentral disc protrusion with extension in the left lateral recess, and mild to moderate endplate spurring. There is mild central canal stenosis. There is mild bilateral neural foraminal narrowing. C5-C6: There is prior fusion at this level with mild to moderate residual endplate spurring. There is mild central canal stenosis. There is moderate bilateral neural foraminal stenosis. C6-C7: There is prior fusion at this level with residual endplate spurring. There is minimal central canal stenosis. There is no neural foraminal stenosis. C7-T1: There is a minimal disc bulge and minimal endplate spurring. There is no central canal stenosis or neural foraminal stenosis.. IMPRESSION: 1. The patient is status post anterior fusion from C5 through C7 without evidence of complication. 2. There is mild central canal narrowing at C4-C5 and C5-C6. There is moderate neural foraminal narrowing at C5-C6, and mild neural foraminal narrowing at C4-C5. 3. There is a left paracentral disc protrusion at C3-C4 which appears stable. 4. This study appears unchanged from the prior MRI. Interpreted By: González Mcdowell MD [facility] 11/03/2017 11:45:57 Problems Name Problem SNOMED Code Status Onset Date Resolution Date Notes Provider Name and Address Organization Details Recorded Time Cervical radiculopa thy 88824637 Active 2015 From Automated Load;Provi mago: Hilda Stokes atus: Active Not Available [facility] 6 07:51:44 Cervical spondylosi s with radiculopa thy Active 2015 From Automated Load;Provi mago: Ronnie Stokes;St atus: Active Not Available [facility] 6 07:51:44 Problem Notes None recorded. Procedures Surgical History Date Name Laterality Status Provider Name and Address Organization Details Recorded Time Removal of gallbladder completed [facility] 01/26/2017 11:25:27 Other completed [facility] 01/26/2017 11:25:37 Other completed [facility] 01/26/2017 11:26:08 Removal of tonsils completed [facility] 01/26/2017 11:26:16 Imaging Results None recorded. Procedure Notes None recorded. Medical Equipment None Reported. Allergies No known drug allergies Medications Name Sig Start Date Stop Date Status Note LastModified by Organization Details LastModified Time gabapentin 100 mg caps active Not Available Not Available Not Available methylprednisolo ne dose pack 4 mg tbpk [...] Body mass index (BMI) Body weight Systolic And Diastolic Provider Name and Address Organization Details Last Updated DateTime 10/27/2017 162.56 cm 24 kg/m2 79233.93 g 126/82 mm[Hg] [facility] 10/27/2017 09:48:34 Date Recorded Body height Body mass index (BMI) Body weight Systolic And Diastolic Provider Name and Address Organization Details Last Updated DateTime 01/26/2017 162.56 cm 25.4 kg/m2 82920.67 g 122/82 mm[Hg] Theodora Cardona [facility] 01/26/2017 11:22:09 Social History Question Answer Notes LastModified by Organizat ion Details LastModified Time Tobacco Smoking Status Current Every Day Smoker Theodora Cardona null, [facility] 01/26/2017 11:25:17 What Was The [...] Diagnosis SNOMED-CT Code Diagnosis ICD10 Code Diagnosis IMO Codes Diagnosis Note [id number] RONNIE STOKES MD [facility] [address] [place] [address] 01/26/2017 10:51:12 02/02/2017 10:35:32 Cervical radiculopathy [id number] M54.12 She does not have a copy [...] doing. She is happy with this plan. [id number] ABBI DELEON PA-C [facility] [address] [place] [address] 10/27/2017 09:35:24 10/29/2017 14:24:29 Cervical radiculopathy 39620132 M54.12 1 month of posterior neck pain [...] ID Guarantor Name 01/31/2020 1 [place] [id number] Teja Díaz [id number] Fernandez Díaz Notes Date Note Type Note Provider Name and Address Organization Details Recorded Time 01/26/2017 text/html ROS as noted in the HPI Ms. Díaz presents to clinic for recurrent neck and right [...] is constant. No arm pain, weakness, decreased senior licensing manager/dropping objects, gait/balance changes, or b/b changes. She also reports some numbness in her Left 3rd and 4th fingers that started about the same time as her right sided symptoms. No relief from oral steroids or NSAIDs. She had some plain films done a few weeks ago, but she does not have the images with her today. CHE FLORENTINO PA-C [address] [place], [address], [facility] 02/01/2017 19:52:37 10/27/2017 text/html ROS as noted in the HPI Ms. Díaz presents to clinic for recurrent neck pain which [...] constant. Rates as 6/10. No weakness, decreased senior licensing manager/dropping objects, gait/balance changes, or b/b changes. She also reports some numbness in her Left 1st and 2nd fingers which started before her surgery in 2015. She has no updated imaging. RONNIE STOKES MD [address] [place], [address], [facility] 10/27/2017 10:51:04 OBGyn Episode No OBEpisode recorded.
--- OUTSIDE RECORDS SUMMARY | 2025-01-25 07:54 | XMS_ITS | Clinical Summary ---
Author Organization [facility] Address [address] [place] [address] Phone Care Team Providers Care Barytes Grinder Name Role Phone LeslieNayeli Contreras Primary Care Provider [phone] Allergies No known active allergies Medications atorvastatin (LIPITOR) 40 mg Oral Tablet Take 1 Tablet by mouth daily. 2 Active celecoxib (CELEBREX) 200 mg Oral Capsule Take 1 Capsule by mouth daily. 2 Active clopidogreL (PLAVIX) 75 mg Oral Tablet Take 1 Tablet by mouth daily. 2 Active gabapentin (NEURONTIN) 800 mg Oral Tablet Take 800 mg by mouth 4 times daily as needed (takes for neck pain). Active meloxicam (MOBIC) 15 mg Oral Tablet Take 15 mg by mouth daily. Active multivit-min/ir on/FA/vit K/lut (MULTIVITAMIN WOMEN 50 PLUS ORAL) Take by mouth. Activ e promethazine (PHENERGAN) 25 mg Oral Tablet Take 1 Tablet by mouth every 6 hours as needed for Nausea for up to 20 doses. 20 Tablet 5 Active oxyCODONE (ROXICODONE) 5 mg Oral Tablet Take 1 Tablet by mouth every 4 hours as needed for Major Surgery/Trauma (G89.18) for up to 28 doses. 28 Tablet 5 Active Additional Information Patient not taking.Reported on 09/06/2024 docusate sodium (COLACE) 100 mg Oral Capsule Take one capsule three times a day while on pain meds 90 Capsule Active Additional Information Patient not taking.Reported on 09/06/2024 VEOZAH 45 mg Oral Tablet Take 1 Tablet by mouth daily. Active Hospital, Clinic, or Other Facility Administered Medication Ordered Dose Route Frequency Start Date End Date Status triamcinolone acetonide (KENALOG-40) injection 1 mgIndications:Acute pain of right shoulder 1 mg IAtc ONCE PRN 01/10/2025 01/10/2025 Ended BUPivacaine HCl (MARCAINE) 0.25 % (2.5 mg/mL) injection 3 mLIndications:Acute pain of right shoulder 3 mL IAtc ONCE PRN 01/10/2025 01/10/2025 Ended betamethasone acet-betamethasone sodium phos (CELESTONE) injection 1 mgIndications:Acute pain of right shoulder 1 mg IAtc ONCE PRN 01/10/2025 01/10/2025 Ended BUPivacaine HCl (MARCAINE) 0.25 % (2.5 mg/mL) injection 3 mLIndications:Acute pain of right shoulder 3 mL IAtc ONCE PRN 01/10/2025 01/10/2025 Ended Active Problems Problem Noted Date Diagnosed Date AC joint arthropathy 05/26/2024 Encounters Date Type Department Care Team Description 01/10/2025 9:00 AM EST [facility] [address] [facility] [address] [place] [address] Luis Alberto Lezama MD Acute pain of right shoulder (Primary Dx) from Last 3 Months Surgical History Surgery Date Site/Laterality Comments HYSTERECTOMY CHOLECYSTECTOMY TONSILLECTOMY NECK SURGERY cervical spine fusion COLONOSCOPY ROTATOR CUFF REPAIR 07/17/2024 Shoulder/Left LEFT SHOULDER OPEN DOROTHY; Surgeon: Luis Alberto Lezama MD; Location: [facility]; Service: Orthopedics Medical History Medical History Date Comments Cervical spondylolysis Chronic pain Stroke (HCC) 2019 Family History Medical History Relation Name Comments Arthritis Father Kidney Disease Father Arthritis Mother Heart Disease Mother Relation Name Status Comments Father Mother Social History Tobacco Use Types Packs/Day Years Used Date Smoking Tobacco: Every Day Cigarettes 0.5 36.9 Started: 03/12/1988 Smokeless Tobacco: Never Tobacco Cessation:Ready [...] EDT Inhaled Oxygen Concentration - - Weight 76.2 kg (168 lb) 01/10/2025 9:08 AM EST Height 162.6 cm (5' 4 ) 01/10/2025 9:08 AM EST Body Mass Index 28.84 01/10/2025 9:08 AM EST Plan of Treatment Upcoming Encounters Date Type Department Care Team (Late st Contact Info) Description 02/12/2025 10:45 AM EST Office Visit [facility] [address] [address] Michael Jacome, [address] [place] [address] 05/16/2025 1:15 PM EDT Office Visit [facility] [address] [address] Luis Alberto Lezama MD [address] [address] Health Maintenance Due Date Last Done Comments [...] of 2) 10/10/2019 COVID-19 Vaccine (2 - 2024-2 6 season) 2024 03/18/2021 Influenza Vaccine (#1) 2024 Meningococcal B Vaccine Aged Out No l onger eligible based on patient's age to complete this topic Medical Devices Implanted Type Area Linux System 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 Luis Alberto Lezama MD PROCEDURE/MINOR SURGICAL ORDERA BLES Edited Result - Final ORTHOCINCY from Last 3 Months Insurance RILEY PPO ANTHEM PPO ANTHEM PPO Care Teams Barytes Grinder Relationship Specialty Start Date End Date Nayeli Nelson [address] [facility] [address] [place] [id number] PCP - General Family Medicine 08/07/15
--- OUTSIDE RECORDS SUMMARY | 2025-01-25 07:54 | XMS_ITS ---
Author Organization Unknown ENCOUNTERS Encounter Performer Location Date Diagnosis Diagnosis Status Pre Admit [facility] [address] [place] [address] [id number] Emergency [facility] [address] [place] [address] [id number] BUDDY [facility] [address] [place] [address] [id number] BUDDY *Note: Encounters from your own facility or health system may be excluded. Allergies, Adverse Reactions, Alerts Allergen Type Severity Identification Date Medications Name Date Quantity Days Supplied GPI Number
--- OUTSIDE RECORDS SUMMARY | 2025-01-25 07:54 | XMS_ITS | Continuity of Care Document ---
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 Her symptoms remain stable and unchanged since last visit. Her primary concern is the axial pain in her cervical spine that extends into bilateral paraspinal regions. She denies any radiation of pain into her upper extremities. The symptoms do fluctuate depending on her activity level, made worse with rotation of the head, lifting, pushing, pulling and repetitive movements. At this time, she does not feel that injection therapy is necessary. This is an established patient with chronic pain that has been treated here since 2018. Past Medical History: History of stroke Imaging: Cervical MRI shows multilevel disc protrusions with most pronounced at C6-7 with high grade foraminal narrowing Surgical evaluation/ history: C5-C7 fusion 2017 Carpal tunnel release Conservative Treatments: Patient has failed conservative measures for greater than 6 weeks including physical therapy/chiropr actic care/spinal manipulation, a monitored home exercise program, and/or NSAIDs within the last six months. Interventional treatment history: 07/27/23:LEFT CERVICAL RFA C2-C4-95% Previous analgesics: Prior failure to Cymbalta Lyrica. Current analgesics: Tramadol 50 mg 1 nightly. Gabapentin 800 mg 1 3 times daily. Compliance Monitoring: No UDS today Most recent UDS confirmation from 10/03/2024 was appropriate. Recall UDS from 01/18/2024 was negative for tramadol. Gabapentin was appropriate. She is only prescribed 1 tramadol a day and states there are days that she does not take it. The patient was advised that the purpose of this urine drug screen is to monitor for compliance and to assist in risk stratification. MITALI/OARS/INS PECT was reviewed and is appropriate. Based on the patients urine confirmation (LCMS) results, the patient's overall risk level will remain the same. I would consider the patient to be moderate risk based on these new results. In response to the patient's risk level and urine confirmation I plan to continue the patient's opioid prescription. Anticoagulant/A ntiplatelet Medications: Plavix and 81 ASA Follow-up in 60 days. This dictation is generated using voice recognition technology. There may be unintended errors. [email or web address] Not available 11/29/2024 09:51:49 Plan of Treatment Reminders Order Date Submit Date Provider Last Modified By Organization Details Last Modified Time Details Appointments FOLLOW UP 15 2024 01:30P Eliazar NAVA NP Not available Not available Not available Lab None recorded. Referral None recorded. Procedures None recorded. Surgeries None recorded. Imaging None recorded. Medication Orders gabapenti n 800 mg tablet 2024 025 [facility] [place], [address], 12/02/2024 09:02:27 tramadol 50 mg tablet 2024 025 [facility], [address] [place], [address], 12/02/2024 09:02:08 Patient TargetsNo targets recorded. Patient InstructionsNo instructions recorded. Reason for Referral None Reported. Problems Name Problem SNOMED Code Status Onset Date Resolution Date Notes Provider Name and Address Organization Details Recorded Time Cervical radiculopathy 56037844 Active 2017 CODIE Zuniga - [facility] 8 08:20:26 Long-term drug therapy Active 2018 CODIE Cole - [facility] 9 10:37:54 Cervical spondylosis 290795012 Active 2018 Grecia sutton, [facility] 5 14:26:46 Low back pain 835621944 Active 2022 MERCEDES NAVA NP [address] [place] [address], [phone] , [facility] 3 13:22:39 Chronic pain 14316077 Active 2023 Grecia Wattsby herman, [facility] 5 14:26:46 Problem Notes None recorded. Procedures Surgical History Date Name Laterality Status Provider Name and Address Organization Details Recorded Time 07/18/19 25 excision of distal clavicle completed Ryan Grimaldo [facility] 07/21/2024 09:34:54 07/18/19 25 operation on shoulder joint completed MERCEDES NAVA NP [address] [place] [address], [phone], [facility] 07/21/2024 09:54:36 07/27/19 24 Cervical RFA: Posterior (2 Level Unilateral) completed Arcadio Boggs MD [address] [place] [address], [phone], [facility] 07/27/2023 09:41:47 06/23/19 24 Diagnostic Cervical MBB: Posterior (2 Level Unilateral) completed Arcadio Boggs MD [address] [place] [address], [phone], [facility] 06/23/2023 11:24:31 09/02/19 22 Cervical RFA: Posterior (2 Level Unilateral) completed Arcadio Boggs MD [address] [place] [address], [phone], [facility] 09/01/2021 14:48:52 07/15/19 22 Cervical RFA: Posterior (2 Level Unilateral) completed Arcadio Boggs MD [address] [place] [address], [phone], [facility] 07/14/2021 14:21:48 01/28/20 21 Cervical RFA: Posterior (2 Level Unilateral) completed Arcadio Boggs MD [address] [place] [address], [phone], [facility] 01/27/2021 09:35:13 12/24/19 21 Cervical RFA: Posterior (2 Level Unilateral) completed Arcadio Boggs MD [address] [place] [address], [phone], [facility] 12/23/2020 10:09:32 07/18/19 21 Cervical RFA: Posterior (2 Level Unilateral) completed Arcadio Boggs MD [address] [place] [address], [phone], [facility] 07/17/2020 09:06:51 05/28/19 21 Cervical RFA: Posterior (2 Level Unilateral) completed Arcadio Boggs MD [address] [place] [address], [phone], [facility] 05/27/2020 16:19:02 09/28/19 20 Cervical RFA: Posterior (2 Level Unilateral) completed Arcadio Boggs MD [address] [place] [address], [phone], [facility] - [facility] 09/28/2019 09:16:09 08/30/19 20 Diagnostic Cervical MBB: Posterior (2 Level Unilateral) completed Arcadio Boggs MD [address] [place] [address], [phone], [facility] 08/30/2019 10:39:23 08/16/19 20 Diagnostic Cervical MBB: Posterior (2 Level Unilateral) completed Arcadio Boggs MD [address] [place] [address], [phone], [facility] 08/16/2019 09:49:04 07/17/19 20 Cervical RFA: Posterior (2 Level Unilateral) completed Arcadio Boggs MD [address] [place] [address], [phone], [facility] 07/17/2019 16:11:22 01/12/20 19 Cervical RFA: Posterior (2 Level Unilateral) completed Arcadio Boggs MD [address] [place] [address], [phone], [facility] - [facility] 01/11/2019 10:24:52 12/01/19 19 Cervical MBB (Lateral) 2 level completed Arcadio Boggs MD [address] [place], [phone], [facility] 11/30/2018 10:39:15 11/10/19 19 Cervical MBB (Lateral) 2 level completed Arcadio Boggs MD [address] [place] [address], [phone], [facility] - [facility] 11/09/2018 09:49:48 09/15/19 19 Cervical Epidural Steroid Injection: Interlaminar completed Arcadio Boggs MD [address] [place] [address], [phone], [facility] - [facility] 09/14/2018 11:37:03 06/08/19 19 Cervical Epidural Steroid Injection: Interlaminar completed Arcadio Boggs MD [address] [place] [address], [phone], [facility] - [facility] 06/07/2018 13:12:42 02/23/20 18 Cervical Epidural Steroid Injection: Interlaminar completed Arcadio Boggs MD [address] [place] [address], [phone], [facility] - [facility] 02/22/2018 11:51:00 11/25/19 18 Cervical Epidural Steroid Injection: Interlaminar completed Arcadio Boggs MD [address] [place] [address], [phone], [facility] 11/24/2017 10:05:10 11/11/19 18 Cervical Epidural Steroid Injection: Interlaminar completed Eleanor Díaz [place] - [facility] 11/10/2017 12:37:14 08/07/19 17 General Surgery completed Chika Rose [place] [facility] 11/10/2017 08:31:22 Carpal Tunnel Release completed Maria C Rice [place] [facility] 09/19/2019 09:30:44 ACDF completed [facility] C [facility] [place] [facility] 09/19/2019 09:30:44 General Surgery completed Reyna Alvarado [place] [facility] 03/15/2023 11:01:05 Hysterectomy completed Chika Rose [place] [facility] 11/10/2017 08:21:30 Cholecystectomy completed Chika Rose [place] [facility] 11/10/2017 08:21:32 General Surgery completed Chika Rose [facility] 11/10/2017 08:21:44 Imaging Results None recorded. Procedure Notes None recorded. Medical Equipment None Reported. Allergies No known drug allergies Medications Name Sig Start Date Stop Date Status Note LastModified by Organization Details LastModified Time ventolin hfa 108 mcg/act aers 02/18 completed Not Available Not Available Not Available losartan/hc t tab 50-12.5 12/06 completed Not Available Not Available Not Available gabapentin 100 mg caps 02/18 completed Not Available Not Available Not Available methylpredn isolone dose pack 4 mg tbpk 02/18 completed Not Available Not Available Not Available benzonatate 200 mg caps 02/18 completed Not Available Not Available Not Available cryselle-28 tab 28 tabs 07/06 completed Not Available Not Available Not Available atorvastati n calcium 40 mg tabs 09/18 completed Not Available Not Available Not Available gabapentin 300 mg caps 05/23 completed Not Available Not Available Not Available celecoxib 200 mg caps 05/07 completed Not Available Not Available Not Available cyclobenzap rine hcl 5 mg tabs 11/10 completed Not Available Not Available Not Available amoxicillin 875 mg tabs 11/10 completed Not Available Not Available Not Available gavilyte-g raymundo 07/06 completed Not Available Not Available Not Available oxycod/apap tab 5-325mg 05/23 completed Not Available Not Available Not Available azithromyci n 250 mg tabs 02/18 completed Not Available Not Available Not Available ciprofloxac in hydrochlori de 500 mgtabs 02/18 completed Not Available Not Available Not Available gabapentin 800 mg tabs 08/29 completed Not Available Not Available Not Available triamcinolo ne acetonide 0.025 % crea 11/10 completed Not Available Not Available Not Available sklice 0.5 % lotn 11/10 completed Not Available Not Available Not Available promethazin e syp dm 02/18 completed Not Available Not Available Not Available etodolac 200 mg caps 11/10 completed Not Available Not Available Not Available sulfacetami de sodium 10 % oint 11/10 completed Not Available Not Available Not Available amox/k clav tab 875-125 02/18 completed Not Available Not Available Not Available celecoxib 200 mg capsule TAKE 1 CAPSULE BY MOUTH DAILY 07/27 completed Not Available Not Available Not Available cyclobenzap rine 10 mg tablet TAKE 1 TABLET BY MOUTH 3 TIMES DAILY NEEDED FOR MUSCLE SPASMS. active Not Available Not Available No t Available atorvastati n 40 mg tablet TAKE ONE TABLET BY MOUTH ONCE DAILY active Not Available Not Available No t Available bupropion HCl SR 150 mg tablet,12 hr sustained-r elease 02/09 completed Not Available Not Available Not Available promethazin e-DM 6.25 mg-15 mg/5 mL oral syrup 07/06 completed Not Available Not Available Not Available gabapentin 600 mg tablet Take 1 tablet 4 times a day by oral route as directed for 90 days. 02/09 completed Not Available Not Available Not Available azithromyci n 250 mg tablet 03/16 completed Not Available Not Available Not Available tizanidine 4 mg tablet Take 1 tablet every day by oral route for 30 days. 07/27 completed Not Available Not Available Not Available benzonatate 200 mg capsule TAKE 1 CAPSULE BY MOUTH THREE TIMES A DAY NEEDED FOR COUGH 03/16 completed Not Available Not Available Not Available meloxicam 15 mg tablet TAKE 1 TABLET BY MOUTH ONCE DAILY. active Not Available Not Available No t Available prednisone 20 mg tablet TAKE 1 TABLET BY MOUTH TWICE DAILY FOR 5 DAYS. THEN TAKE 1 TABLET BY MOUTH ONCE DAILY FOR 5 DAYS. active Not Available Not Available No t Available gabapentin 400 mg capsule TAKE 1 CAPSULE BY MOUTH THREE TIMES A DAY DIRECTED FILL ON OR AFTER 04-11-18 PER 06/14 completed Not Available Not Available Not Available clopidogrel 75 mg tablet TAKE 1 TABLET BY MOUTH ONCE DAILY. active Not Available Not Available No t Available tretinoin 0.05 % topical cream APPLY TOPICALLY ONCE DAILY AT BEDTIME 07/27 completed Not Available Not Available Not Available valacyclovi r 500 mg tablet TAKE 1 TABLET BY MOUTH ONCE DAILY. active Not Available Not Available No t Available aspirin 81 mg tablet,richard yed release active Not Available Not Available Not Available tramadol 50 mg tablet TAKE 1 TABLETS BY MOUTH ONCE DAILY DIRECTED * DO NOT FILL UNTIL 12-02 active Not Available Not Available No t Available prednisolon e acetate 1 % eye drops,suspe nsion 02/05 completed Not Available Not Available Not Available gabapentin 800 mg tablet TAKE 1 TABLET BY MOUTH 3 TIMES A DAY FOR 30 DAYS. * DNF UNTIL 12-02 active Not Available Not Available No t Available benzonatate 100 mg capsule TAKE 1 CAPSULE BY MOUTH 3 TIMES DAILY NEEDED FOR COUGH active Not Available Not Available No t Available clotrimazol e-betametha sone 1 %-0.05 % topical cream 02/09 completed Not Available Not Available Not Available promethazin e 25 mg tablet TAKE 1 TABLET BY MOUTH EVERY 6 HOURS NEEDED FOR NAUSEA FOR UP TO 20 DOSES. active Not Available Not Available No t Available gabapentin 300 mg capsule TAKE 1 CAPSULE BY MOUTH THREE TIMES A DAY DIRECTED 05/23 completed Not Available Not Available Not Available metoprolol succinate ER 25 mg tablet,exte nded release 24 hr 04/10 completed Not Available Not Available Not Available Valium 10 mg tablet Take one tab 30 mins prior to procedure . Must have clark driver to and from appoint 09/12 completed Not Available Not Available Not Available methylpredn isolone 4 mg tablets in a dose pack TAKE 6 TABLETS ON DAY 1,THEN 5 TABS ON DAY 2,THEN 4 TABS ON DAY 3, 3 TABS ON DAY 4,THEN 2 TABS ON DAY 5 AND 1 TAB ON DAY 6. *TAKE WITH FOOD* 03/15 completed Not Available Not Available Not Available albuterol sulfate HFA 90 mcg/actuati on aerosol inhaler 07/27 completed Not Available Not Available Not Available losartan 50 mg-hydrochl orothiazide 12.5 mg tablet TAKE 1/2 TABLET BY MOUTH ONCE DAILY 07/27 completed Not Available Not Available Not Available bromphenira mine-pseudo ephedrine-D M 2 mg-30 mg-10 mg/5 mL oral syrup TAKE 5 ML BY MOUTH 4 TIMES DAILY NEEDED FOR COUGH 07/04 completed Not Available Not Available Not Available cefdinir 300 mg capsule TAKE 1 CAPSULE BY MOUTH TWICE DAILY FOR 10 DAYS active Not Available Not Available No t Available fluticasone propionate 50 mcg/actuati on nasal spray,suspe nsion PLACE 1 SPRAY INTO EACH NOSTRIL ONCE DAILY 04/29 completed Not Available Not Available Not Available lisinopril 2.5 mg tablet 10/19 completed Not Available Not Available Not Available oxycodone 5 mg tablet TAKE 1 TABLET BY MOUTH EVERY 4 HOURS NEEDED FOR MAJOR SURGERY/T RAUMA (G89.18) FOR UP TO 28 DOSES. active Not Available Not Available No t Available ciprofloxac in 0.3 %-dexametha sone 0.1 % ear drops,suspe nsion 07/27 completed Not Available Not Available Not Available nitrofurant oin monohydrate /macrocryst als 100 mg capsule TAKE 1 CAPSULE BY MOUTH EVERY 12 HOURS FOR 7 DAYS; MUST ADMINISTE R WITH A MEAL/FOOD active Not Available Not Available No t Available duloxetine 30 mg capsule,del ayed release TAKE 1 CAPSULE BY MOUTH EVERY DAY DIRECTED 10/14 completed Not Available Not Available Not Available pregabalin 100 mg capsule Take 1 capsule twice a day by oral route as directed for 30 days. 04/10 completed Not Available Not Available Not Available varenicline tartrate 1 mg tablet TAKE 1 TABLET BY MOUTH TWICE DAILY active Not Available Not Available No t Available varenicline tartrate 0.5 mg (11)-1 mg (42) tablets in a dose pack USE DIRECTED PER PACKAGE INSTRUCTI ONS 03/15 completed Not Available Not Available Not Available diclofenac 1 % topical gel 04/10 completed Not Available Not Available Not Available Caplyta 42 mg capsule TAKE 1 CAPSULE BY MOUTH DAILY active Not Available Not Available No t Available Lagevrio 200 mg capsule (EUA) 07/27 completed Not Available Not Available Not Available Veozah 45 mg tablet TAKE 1 TABLET BY MOUTH ONCE DAILY. active Not Available Not Available No t Available Vitals Date Recorded Body height Body mass index (BMI) Body weight Pain severity - 0-10 verbal numeric rating [Score] - Reported Heart rate Oxygen saturation Systolic And Diastolic Provider Name and Address Organization Details Last Updated DateTime 5 162.56 cm 27.8 kg/m2 34189.9 6 g 3 68 /min 100 % 165/76 mm[Hg] Grecia Viveros [facility] 5 08:52:04 Social History Question Answer Notes LastModified by Organizat ion Details LastModified Time Tobacco Smoking Status Current Some Day Smoker Chika sutton [place] - [facility] 11/10/2017 08:20:35 Do You Have An Advance Directive? No [email or web address] Information not available 11/23/2022 What Is Your Level Of Caffeine Consumption? Occasional Information not available 07/28/2022 How Much Tobacco Do You Chew? None Information not available 07/28/2022 In The 14 Days Before Symptom Onset, Have You Had Close Contact With A Laboratory-confir med COVID-19 While That Case Was Ill? No Information not available 07/28/2022 In The 14 Days Before Symptom Onset, Have You Had Close Contact With A Person Who Is Under Investigation For COVID-19 While That Person Was Ill? No Information not available 07/28/2022 Are You Deaf Or Do You Have Serious Difficulty Hearing? No Information not available 07/28/2022 What Type Of Diet Are You Following? REGULAR [email or web address] Information not available 11/23/2022 Which Illicit Or Recreational Drugs Have You Used? None [email or web address] Information not available 11/10/2017 Education 12 Information n ot available 07/28/2022 What Is The Highest Grade Or Level Of School You Have Completed Or The Highest Degree You Have Received? [id number] [email or web address] Information not available 11/23/2022 How Many Times Per Week Do You Exercise? Less Than 1 Time Per Week Information not available 11/23/2022 Hard Of Hearing Or Deaf In One Or Both Ears? No Information not available 07/28/2022 Prescription Drug Abuse No [email or web address] Information not available 11/10/2017 Disability No Information no t available 11/10/2017 History Of Sexual Abuse No [email or web address] Information not available 11/10/2017 Marital Status Informati on not available 07/28/2022 What Was The Date Of Your Most Recent Tobacco Screening? 11/29/2024 Information not available 11/29/2024 What Is Your Relationship Status? Information not available 07/28/2022 At What Age Did You Start Smoking Tobacco? 19 Information not available 07/28/2022 How Much Tobacco Do You Smoke? 0.25 PPD Information not available 11/10/2017 General Stress Level Medium Information not available 07/28/2022 Has Tobacco Cessation Counseling Been Provided? No Information not available 07/28/2022 On What Date Was Tobacco Cessation Counseling Provided? 11/29/2024 [email or web address] Information not available 11/29/2024 How Many Years Have You Smoked Tobacco? 30 Information not available 07/28/2022 Do You Have Difficulty Walking Or Climbing Stairs? No Information not available 07/28/2022 Sex: Unknown Functional Status Question Answer Note LastModified by Organizat ion Details LastModified Time What is your level of alcohol consumption? Occasional [email or web address] Information not available 11/10/2017 Do you or have you ever used smokeless tobacco? Never used smokeless tobacco Information not available 07/28/2022 Are you currently employed? Yes [email or web address] Information not available 11/23/2022 Are you able to walk independently without assistance or assistive devices? [email or web address] Information not available 09/19/2019 Do you have difficulty doing errands alone? 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 Information not available 11/10/2017 Do you have difficulty dressing, bathing, grooming, or toileting? No Information not available 07/28/2022 Do you or have you ever used e-cigarettes or vape? Never used electronic cigarettes Information not available 07/28/2022 What is your exercise level? Heavy Information not available 09/19/2019 Mental Status Question Answer Note LastModified by Organization D etails LastModified Time Do you have difficulty concentrating, remembering or making decisions? No Information no t available 07/28/2022 Family History Relationship Description Onset Age of this Age Resolved Age Notes LastModified by Organization Details LastModified Time Father No current problems or disability [email or web address] Not available 11/10 08:20:31 Mother No current problems or disability [email or web address] Not available 11/10 08:20:31 Medical History Condition Response Bipolar Disease N Coronary Artery Disease N Gout N Seizure Disorder N Atrial Fibrillation N Thyroid Disease N Head Trauma/Injury N Hernia N Depression N COPD N Anxiety Disorder N Acid Reflux (GERD) N Cancer N Stroke Y Skin Disorder N High Cholesterol N Liver Disease N Rheumatoid Arthritis N Headaches N Fibromyalgia N Kidney Disease N Autoimmune Disease N Osteoarthritis N Neurosurgery N DVT N Peptic Ulcer Disease N Anemia N Heart Attack (MS) N Diabetes N Cardiomyopathy N Bleeding Disorder N CHF N AIDS/HIV N Inflammatory Bowel Disease N Dementia N Asthma N Substance Abuse N Sleep Apnea N Hepatitis N Heart Disease N Pulmonary Embolism N Chronic Low Back Pain N Hypertension N Osteoporosis N Gynecological HistoryNo gynecological history recorded. Obstetrics History GPAL:G 0 P 0 0 0 0 Past Encounters Encounter ID Performer Location Encounter Start Date Encounter Closed Date Diagnosis/Indication Diagnosis SNOMED-CT Code Diagnosis ICD10 Code Diagnosis IMO Codes Diagnosis Note [id number] LENIN YOUNG MD [place] [address] [place] [address] 11/29/2024 08:42:48 11/29/2024 09:19:58 Cervical spondylosis [id number] M47.812 Patient's had success with cervical RFA in the past. She states she will let us know if pain increases and she wishes to repeat. She continues to be very happy with her current oral medication regimen. The relief she receives allows her to remain active and independen t as well as engage in several different hobbies. Will not make any changes at this time. Chronic pain [id number] G8 9.29 Health Concerns Section Related Observation LastModified by Organization Detai ls LastModified Time None Recorded Concern Status LastModified by Organization Details LastModified Time None Recorded Payers Encounter Date Sequence Insurance Name Policy Number Policy Munoz Covered Member ID Munoz Member ID Guarantor Name 11/29/2024 1 [employer] [id number] Teja Díaz [id number] Maryjo Díaz Notes Date Note Type Note Provider Name and Address Organization Details Recorded Time 11/30/19 25 text/ht ml Neck painReported by PatientHPIFor quality, patient reportsthrobbing,stabbing,sharp, andtingling. For associated symptoms, patient reportsnumbnessandtinglingbut reportsno weakness,no dizziness,no pain in upper extremities,no popping/clicking,no bladder incontinence, andno bowel incontinence. 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 For onset, patient reportsdate of onset: (2016). For location, patient reportsbilateral paraspinal,midline spine, andpain is not radiating. For duration, patient reportsconstant. For context, patient reportsstarted without cause. For pain intensity, patient reportscurrent pain level: 2/10andworst pain level: 7/10. For alleviating factors, patient reportsrelieved by changing position. For aggravating factors, patient reportscold weatherandmovement/positioning. For timing, patient reportsconstant. For prior imaging, patient reportsmri. For previous cervical surgery, patient reportsposterior cervical decompression: (anterior fusion). For interventional treatment history, patient reportscervical mbb/facet injections: helped significantlyandcervical rfa: helped significantly. For previous pt, patient reportscompleted all recommended pt visits,4weeks of pt completed:,response to therapy: no pain improvement, andcurrently participating in home exercise program(hep): not effective. For other conservative treatment, patient reportsheat: effective,ice: not effective,tens unit: not effective, andstress management: not effective. For current analgesics, patient reportstramadol effective (50mg),gabapentin effective (800mg), andreported pain relief- 70% for 5 hours(ld 11/29/24). For medications history, patient reportsnsaids: (meloxicam-not helpful, ibu 800-not helpful.)andneuropathics: (cymbalta-not helpful.). For working, patient reportsregular duty. For prior pain management, patient reportsno. For for female patients, patient reportsare you ? no. For complete care program, patient reportsorder date: (11/18/2023). Caroline York, [facility] [employer] [facility] [address] [facility], [place], [id number], [facility] 11/29/2024 09:53:13 OBGyn Episode No OBEpisode recorded.
--- OUTSIDE RECORDS SUMMARY | 2025-01-25 07:54 | XMS_ITS | Clinical Summary ---
Author Organization Healthcare Address [address] [place] [address] Care Team Providers Care Manager Adult Name Role Phone George Alvarez MD Primary Care Provider [phone] Social History Tobacco Use Types Packs/Day Years [...] of Treatment Not on file Care Teams Manager Adult Relationship Specialty Start Date End Date George Alvarez MD [address] Tim [address] [place], [place] [id number] PCP - General 07/19/20
--- OUTSIDE RECORDS SUMMARY | 2025-01-25 07:55 | XMS_ITS | Data Portability ---
Author Organization 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 She states her pain has been stable since last seen. Neck pain is currently nonradiating, axial pain is nonradiating described as stiff, aching, sharp. Her symptoms are aggravated with increased activity, repetitive movements, pushing, pulling, lifting. Relieving factors include pain medication, rest, heat, ice, activity modification. No numbness tingling or weakness in upper extremities. This is an established patient with chronic pain that has been treated here since 2018. Past Medical History: History of stroke Imaging: Cervical MRI shows multilevel disc protrusions with most pronounced at C6-7 with high grade foraminal narrowing Surgical evaluation/ history: C5-C7 fusion 2017 Carpal tunnel release Conservative Treatments: Patient has failed conservative measures for greater than 6 weeks including physical therapy/chiropra ctic care/spinal manipulation, a monitored home exercise program, and/or NSAIDs within the last six months. Interventional treatment history: 07/27/23:LEFT CERVICAL RFA C2-C4-95% Previous analgesics: Prior failure to Cymbalta Lyrica. Current analgesics: Tramadol 50 mg 1 nightly. Gabapentin 800 mg 1 3 times daily. Compliance Monitoring: Most recent UDS confirmation from 01/18/2024 was negative for tramadol. Gabapentin was appropriate. She is only prescribed 1 tramadol a day and states there are days that she does not take it. UDS performed today. I will send out for results. MITALI/OARS/INSP ECT was reviewed and is appropriate Based on the patients urine confirmation (LCMS) results, the patient's overall risk level will remain the same. I would consider the patient to be moderate risk based on these new results. In response to the patient's risk level and urine confirmation I plan to continue the patient's opioid prescription. Anticoagulant/An tiplatelet Medications: Plavix and 81 ASA Follow-up in 60 days. This dictation is generated using voice recognition technology. There may be unintended errors. [email or web address] Not available 03/14/2024 12:18:48 05/19/2024 05/19/2024 Pain History: 53-year-old female returns for follow-up of her ongoing neck pain. She feels her neck pain has been better in the last few months. She feels the weather having is helping it. Currently neck pain is axial right side worse than left. She describes as stiff, sharp, throbbing. Activities such as lifting, pushing, pulling, rotation of her neck aggravate her pain. She does get good relief with use of pain medication and conservative measures. This is an established patient with chronic pain that has been treated here since 2018. Past Medical History: History of stroke Imaging: Cervical MRI shows multilevel disc protrusions with most pronounced at C6-7 with high grade foraminal narrowing Surgical evaluation/ history: C5-C7 fusion 2017 Carpal tunnel release Conservative Treatments: Patient has failed conservative measures for greater than 6 weeks including physical therapy/chiropra ctic care/spinal manipulation, a monitored home exercise program, and/or NSAIDs within the last six months. Interventional treatment history: 07/27/23:LEFT CERVICAL RFA C2-C4-95% Previous analgesics: Prior failure to Cymbalta Lyrica. Current analgesics: Tramadol 50 mg 1 nightly. Gabapentin 800 mg 1 3 times daily. Compliance Monitoring: Most recent UDS confirmation from 03/14/2024 was appropriate. Recall UDS from 01/18/2024 was negative for tramadol. Gabapentin was appropriate. She is only prescribed 1 tramadol a day and states there are days that she does not take it. UDS performed today. I will send out for results. MITALI/OARS/INSP ECT was reviewed and is appropriate Based on the patients urine confirmation (LCMS) results, the patient's overall risk level will remain the same. I would consider the patient to be moderate risk based on these new results. In response to the patient's risk level and urine confirmation I plan to continue the patient's opioid prescription. Anticoagulant/An tiplatelet Medications: Plavix and 81 ASA Follow-up in 60 days. This dictation is generated using voice recognition technology. There may be unintended errors. [email or web address] Not available 05/19/2024 11:01:18 07/21/2024 07/21/2024 Pain History: 53-year-old female here for evaluation of her chronic cervical spine pain and left shoulder pain. She states her pain has been stable since last seen.Pain is nonradiating described as stiff, aching, sharp. Her symptoms are aggravated with increased activity, lifting, pushing, pulling, rotation and flexion of the neck. Relieving factors include pain medication, rest, heat, ice, activity modification. No numbness tingling or weakness in upper extremities. Patient did undergo left shoulder arthroscopic surgery 5 days ago. She states they did remove quite a bit of arthritis. She was given 5 days of oxycodone postop. She is currently still taking this. She has held her tramadol during this time. She does start physical therapy next week. This is an established patient with chronic pain that has been treated here since 2018. Past Medical History: History of stroke Imaging: Cervical MRI shows multilevel disc protrusions with most pronounced at C6-7 with high grade foraminal narrowing Surgical evaluation/ history: C5-C7 fusion 2017 Carpal tunnel release Conservative Treatments: Patient has failed conservative measures for greater than 6 weeks including physical therapy/chiropra ctic care/spinal manipulation, a monitored home exercise program, and/or NSAIDs within the last six months. Interventional treatment history: 07/27/23:LEFT CERVICAL RFA C2-C4-95% Previous analgesics: Prior failure to Cymbalta Lyrica. Current analgesics: Tramadol 50 mg 1 nightly. Gabapentin 800 mg 1 3 times daily. Compliance Monitoring: Most recent UDS confirmation from 05/19/2024 was appropriate. Recall UDS from 01/18/2024 was negative for tramadol. Gabapentin was appropriate. She is only prescribed 1 tramadol a day and states there are days that she does not take it. No UDS today MITALI/OARS/INSP ECT was reviewed and is appropriate. She did receive oxycodone 5 mg postop shoulder surgery for 5 days July 2024. This was approved. Based on the patients urine confirmation (LCMS) results, the patient's overall risk level will remain the same. I would consider the patient to be moderate risk based on these new results. In response to the patient's risk level and urine confirmation I plan to continue the patient's opioid prescription. Anticoagulant/An tiplatelet Medications: Plavix and 81 ASA Follow-up in 60 days. This dictation is generated using voice recognition technology. There may be unintended errors. [email or web address] Not available 07/21/2024 09:55:13 10/03/2024 10/03/2024 Pain History: 53-year-old female comes in for routine follow-up of her ongoing neck and left shoulder pain. Pain has been doing well since she was last seen. She states that she still has a little soreness in her left shoulder from the arthroscopic surgery she had a few months back however she feels it has significantly improved. Neck pain is currently nonradiating. She describes it as throbbing, aching. Pain is mainly increased with repetitive motion, overexertion, frequent pulling and pushing. Currently symptoms are well-maintained with medication regimen and injection therapy. She states she does not feel pain is severe enough to consider repeating cervical RFA as of yet. This is an established patient with chronic pain that has been treated here since 2018. Past Medical History: History of stroke Imaging: Cervical MRI shows multilevel disc protrusions with most pronounced at C6-7 with high grade foraminal narrowing Surgical evaluation/ history: C5-C7 fusion 2017 Carpal tunnel release Conservative Treatments: Patient has failed conservative measures for greater than 6 weeks including physical therapy/chiropra ctic care/spinal manipulation, a monitored home exercise program, and/or NSAIDs within the last six months. Interventional treatment history: 07/27/23:LEFT CERVICAL RFA C2-C4-95% Previous analgesics: Prior failure to Cymbalta Lyrica. Current analgesics: Tramadol 50 mg 1 nightly. Gabapentin 800 mg 1 3 times daily. Compliance Monitoring: Most recent UDS confirmation from 05/19/2024 was appropriate. Recall UDS from 01/18/2024 was negative for tramadol. Gabapentin was appropriate. She is only prescribed 1 tramadol a day and states there are days that she does not take it. The patient was advised that the purpose of this urine drug screen is to monitor for compliance and to assist in risk stratification. MITALI/OARS/INSP ECT was reviewed and is appropriate. She did receive oxycodone 5 mg postop shoulder surgery for 5 days July 2024. This was approved. Based on the patients urine confirmation (LCMS) results, the patient's overall risk level will remain the same. I would consider the patient to be moderate risk based on these new results. In response to the patient's risk level and urine confirmation I plan to continue the patient's opioid prescription. Anticoagulant/An tiplatelet Medications: Plavix and 81 ASA Follow-up in 60 days. This dictation is generated using voice recognition technology. There may be unintended errors. [email or web address] Not available 10/03/2024 09:54:33 11/29/2024 11/29/2024 Pain History: 54-year-old female who [...] for greater than 6 weeks including physical therapy/chiropra ctic care/spinal manipulation, a monitored home exercise program, [...] compliance and to assist in risk stratification. MITALI/OARS/INSP ECT was reviewed and is appropriate. Based on the patients urine confirmation (LCMS) results, the patient's overall risk level will remain the same. I would consider the patient to be moderate risk based on these new results. In response to the patient's risk level and urine confirmation I plan to continue the patient's opioid prescription. Anticoagulant/An tiplatelet Medications: Plavix and 81 ASA Follow-up in 60 days. This dictation is generated using voice recognition technology. There may be unintended errors. [email or web address] Not available 11/29/2024 09:51:49 Plan of Treatment Reminders Order Date Submit Date Provider Last Modified By Organization Details Last Modified Time Details Appointments FOLLOW UP 15 2024 01:30P M MERCEDES NAVA NP Not available Not available Not available Lab drug screen, urine 2024 025 [facility], [address] [place] [address], [id number], 10/06/2024 12:49:52 drug screen, urine 2024 025 [facility], [facility], [address] [place] [address], [id number], 05/24/2024 13:13:33 drug screen, urine 2024 025 [facility], [address] [place] [address], [id number], 03/21/2024 21:01:48 Referral None recorded. Procedures None recorded. Surgeries None recorded. Imaging None recorded. Medication Orders gabapenti n 800 mg tablet 2024 025 [facility], [address] [facility] [place] [place], [address], 12/02/2024 09:02:27 tramadol 50 mg tablet 2024 025 [facility], [address] [place], [address], 12/02/2024 09:02:08 gabapenti n 800 mg tablet 2024 025 [facility], [address] [place], [address], 10/03/2024 11:03:26 tramadol 50 mg tablet 2024 025 [facility], [address] [place], [address], 10/03/2024 11:02:52 tramadol 50 mg tablet 2024 025 [facility], [address] [place], [address], 08/16/2024 13:29:32 gabapenti n 800 mg tablet 2024 025 [id number], [address] [place], [id number], 07/21/2024 09:53:03 tramadol 50 mg tablet 2024 025 [facility], [address] [place], [address], 05/31/2024 11:28:42 gabapenti n 800 mg tablet 2024 025 [id number], [address] [place], [id number], 05/19/2024 10:59:35 tramadol 50 mg tablet 2024 025 [facility], [address] [place], [id number], 03/14/2024 12:17:46 gabapenti n 800 mg tablet 2024 025 [id number], [address] [place], [id number], 03/14/2024 12:17:49 Patient TargetsNo targets recorded. Patient Instructions Encounter Date Encounter Id Patient Instructions Last Modified By Organization Details Last Modified Time 10/03/2024 [id number] A healthy lifestyle: care instructions [email or web address] Not available 10/03/2024 09:50:11 safe use of opioid pain medicine: care instructions [email or web address] Not available 10/03/2024 09:50:11 Learning About Benefits of Quitting Smoking Not available 10/03/2024 09:50:11 Reason for Referral None Reported. Results Created Date Observation Date Name Description Value Unit Range Abnormal Flag Note LastModifiedBy Organization Detail LastModifiedTime Result Notes None recorded. Problems Name Problem SNOMED Code Status Onset Date Resolution Date Notes Provider Name and Address Organization Details Recorded Time Cervical radiculopathy 52225323 Active 2017 Chika Rose [facility] 8 08:20:26 Long-term drug therapy Active 2018 Bettye Hill [facility] 9 10:37:54 Cervical spondylosis 805435141 Active 2018 Grecia Viveros [facility] 5 14:26:46 Low back pain 918933993 Active 2022 MERCEDES NAVA NP [address] [place] [address], [id number] [facility] 3 13:22:39 Chronic pain 57898682 Active 2023 Grecia sutton [facility] 5 14:26:46 Problem Notes None recorded. Procedures Surgical History Date Name Laterality Status Provider Name and Address Organization Details Recorded Time 07/18/19 25 excision of distal clavicle completed Ryan Grimaldo [facility] 07/21/2024 09:34:54 07/18/19 25 operation on shoulder joint completed MERCEDES NAVA NP [address] [place], [address], [place] [facility] 07/21/2024 09:54:36 07/27/19 24 Cervical RFA: Posterior (2 Level Unilateral) completed Arcadio Boggs MD [address] [place], [address], [place] [facility] 07/27/2023 09:41:47 06/23/19 24 Diagnostic Cervical MBB: Posterior (2 Level Unilateral) completed Arcadio Boggs MD [address] [place] [address], [phone], [place] [facility] 06/23/2023 11:24:31 09/02/19 22 Cervical RFA: Posterior (2 Level Unilateral) completed Arcadio Boggs MD [address] [place] [address], [phone], [place] [facility] 09/01/2021 14:48:52 07/15/19 22 Cervical RFA: Posterior (2 Level Unilateral) completed Arcadio Boggs MD [address] [place] [address], [phone], [place] [facility] 07/14/2021 14:21:48 01/28/20 21 Cervical RFA: Posterior (2 Level Unilateral) completed Arcadio Boggs MD [address] [place] [address], [address], [place] [facility] 01/27/2021 09:35:13 12/24/19 21 Cervical RFA: Posterior (2 Level Unilateral) completed Arcadio Boggs MD [address] [place] [address], [phone], [place] [facility] 12/23/2020 10:09:32 07/18/19 21 Cervical RFA: Posterior (2 Level Unilateral) completed Arcadio Boggs MD [address] [place] [address], [phone], [place] [facility] 07/17/2020 09:06:51 05/28/19 21 Cervical RFA: Posterior (2 Level Unilateral) completed Arcadio Boggs MD [address] [place] [address], [phone], [place] [facility] 05/27/2020 16:19:02 09/28/19 20 Cervical RFA: Posterior (2 Level Unilateral) completed Arcadio Boggs MD [address], [place], [address], [place] [facility] 09/28/2019 09:16:09 08/30/19 20 Diagnostic Cervical MBB: Posterior (2 Level Unilateral) completed Arcadio Boggs MD [address], [place], [address], [place] [facility] 08/30/2019 10:39:23 08/16/19 20 Diagnostic Cervical MBB: Posterior (2 Level Unilateral) completed Arcadio Boggs MD [address], [place], [address], [place] [facility] 08/16/2019 09:49:04 07/17/19 20 Cervical RFA: Posterior (2 Level Unilateral) completed Arcadio Boggs MD [address] [place], [address], [place] [facility] 07/17/2019 16:11:22 01/12/20 19 Cervical RFA: Posterior (2 Level Unilateral) completed Arcadio Boggs MD [address], [place], [address], [place] [facility] 01/11/2019 10:24:52 12/01/19 19 Cervical MBB (Lateral) 2 level completed Arcadio Boggs MD [address] [place], [address], [place] [facility] 11/30/2018 10:39:15 11/10/19 19 Cervical MBB (Lateral) 2 level completed Arcadio Boggs MD [address] [place], [address], [place] [facility] 11/09/2018 09:49:48 09/15/19 19 Cervical Epidural Steroid Injection: Interlaminar completed Arcadio Boggs MD [address] [place], [address], [place] [facility] 09/14/2018 11:37:03 06/08/19 19 Cervical Epidural Steroid Injection: Interlaminar completed Arcadio Boggs MD [address] [place], [address], [place] [facility] 06/07/2018 13:12:42 02/23/20 18 Cervical Epidural Steroid Injection: Interlaminar completed Arcadio Boggs MD [address] [place], [address], [facility] 02/22/2018 11:51:00 11/25/19 18 Cervical Epidural Steroid Injection: Interlaminar completed Arcadio Boggs MD [address] [place], [address], [facility] 11/24/2017 10:05:10 11/11/19 18 Cervical Epidural Steroid Injection: Interlaminar completed Eleanor Díaz [facility] 11/10/2017 12:37:14 08/07/19 17 General Surgery completed Chika Rose [facility] 11/10/2017 08:31:22 Carpal Tunnel Release completed Maria C Higuera [facility] 09/19/2019 09:30:44 ACDF completed Maria C Higuera [facility] 09/19/2019 09:30:44 General Surgery completed Reyna Alvarado [facility] 03/15/2023 11:01:05 Hysterectomy completed Chika [facility] 11/10/2017 08:21:30 Cholecystectomy completed Chika Rose [facility] 11/10/2017 08:21:32 General Surgery completed [facility] 11/10/2017 08:21:44 Imaging Results None recorded. Procedure [...] mins prior to procedure . 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 appoint 09/12 completed [...] t Available Vitals Date Recorded Body height Heart rate Systolic And Diastolic Provider Name and Address Organization Details Last Updated DateTime 03/14/2024 162.56 cm 70 /min 172/88 mm[Hg] [facility] 03/14/2024 10:53:59 Date Recorded Body height Heart rate Oxygen saturation Body mass index (BMI) Body weight Pain severity - 0-10 verbal numeric rating [Score] - Reported Systolic And Diastolic Provider Name and Address Organization Details Last Updated DateTime 5 162.56 cm 69 /min 97 % 27.5 kg/m2 39143.7 8 g 2 141/83 mm[Hg] [facility] 5 10:17:36 Date Recorded Body height Body mass index (BMI) Body weight Pain severity - 0-10 verbal numeric rating [Score] - Reported Heart rate Oxygen saturation Systolic And Diastolic Provider Name and Address Organization Details Last Updated DateTime 5 162.56 cm 27.5 kg/m2 16231.7 8 g 2 81 /min 99 % 77/66 mm[Hg] [facility] 5 09:35:12 Date Recorded Body height Body mass index (BMI) Body weight Provider Name and Address Organization Details Last Updated DateTime 10/03/2024 162.56 cm 27.5 kg/m2 77700.78 g [facility] 10/03/2024 09:28:39 Date Recorded Body height Body mass index (BMI) Body weight Pain severity - 0-10 verbal numeric rating [Score] - Reported Heart rate Oxygen saturation Systolic And Diastolic Provider Name and Address Organization Details Last Updated DateTime 5 162.56 cm 27.8 kg/m2 57510.9 6 g 3 68 /min 100 % 165/76 mm[Hg] Grecia Felice MACK[place] - [facility] 5 08:52:04 Social History Question Answer Notes LastModified by Organizat ion Details LastModified Time Tobacco Smoking Status Current Some Day Smoker Chika Rose CODIE sutton - [facility] 11/10/2017 08:20:35 Do You Have An Advance Directive? No [email or web address] Information not available 11/23/2022 What Is Your [...] Type Of Diet Are You Following? REGULAR Information not available 11/23/2022 Which Illicit Or Recreational Drugs Have You Used? None [email or web address] Information not available 11/10/2017 Education 12 Information n ot available 07/28/2022 What Is The Highest Grade Or Level Of School You Have Completed Or The Highest Degree You Have Received? [id number] [email or web address] Information not available 11/23/2022 How Many Times Per Week Do You Exercise? Less Than 1 Time Per Week [email or web address] Information not available 11/23/2022 Hard Of Hearing Or Deaf In One Or Both Ears? No Information not available 07/28/2022 Prescription Drug Abuse No [email or web address] Information not available 11/10/2017 Disability No [email or web address] Information no t available 11/10/2017 History Of Sexual Abuse No Information not available 11/10/2017 Marital Status Informati on not available 07/28/2022 What Was The Date Of Your Most Recent Tobacco Screening? 11/29/2024 [email or web address] Information not available 11/29/2024 What Is Your Relationship Status? Information not available 07/28/2022 At What Age Did You Start Smoking Tobacco? 19 Information not available 07/28/2022 How Much Tobacco Do You Smoke? 0.25 PPD [email or web address] Information not available 11/10/2017 General Stress Level Medium Information not available 07/28/2022 Has Tobacco Cessation Counseling Been Provided? No Information not available 07/28/2022 On What Date Was Tobacco Cessation Counseling Provided? 11/29/2024 Information not available 11/29/2024 How Many Years Have You Smoked Tobacco? 30 Information not available 07/28/2022 Do You Have Difficulty Walking Or Climbing Stairs? No Information not available 07/28/2022 Sex: Unknown Functional Status Question Answer Note LastModified by Organizat ion Details LastModified Time What is your level of alcohol consumption? Occasional [email or web address] Information not available 11/10/2017 Do you or have you ever used smokeless tobacco? Never used smokeless tobacco Information not available 07/28/2022 Are you currently employed? Yes [email or web address] Information not available 11/23/2022 Are you able to walk independently without assistance or assistive devices? YESWOREST Information not available 09/19/2019 Do you have difficulty doing errands alone? 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 [email or web address] Information not available 11/10/2017 Do you have [...] Time Father No current problems or disability [email or web address] Not available 11/10 08:20:31 Mother No current problems or disability [email or web address] Not available 11/10 08:20:31 Medical History Condition Response Bipolar Disease N Coronary Artery Disease N Seizure Disorder N Gout N Atrial Fibrillation N Thyroid Disease N Hernia N Head Trauma/Injury N COPD N Depression N Anxiety Disorder N Acid Reflux (GERD) N Cancer N Skin Disorder N Stroke Y High Cholesterol N Liver Disease N Rheumatoid Arthritis N Headaches N Fibromyalgia N Autoimmune Disease N Kidney Disease N Osteoarthritis N Neurosurgery N DVT N Peptic Ulcer Disease N Anemia N Heart Attack (AK) N Diabetes N Cardiomyopathy N Bleeding Disorder [...] ICD10 Code Diagnosis IMO Codes Diagnosis Note [id number] Arcadio Boggs MD [facility] [address] [place] [address] 11/10/2017 08:11:20 11/10/2017 09:26:37 Long-term drug therapy [id number] Z79.899 Cervical radiculopathy 97068096 M54.12 history and exam are consistent with cervical radiculiti s, supported by imaging. Symptoms have not responded to >3 months conservati ve therapy and symptoms are affecting her ability to perform ADLs. I will set her up for a diagnostic cervical epidural injection. Medication monitoring [id number] Z79.899 A preliminar y urine drug screen was obtained today and will be sent for confirmati on of all substances for baseline testing to aid in risk stratifica tion and rule out illicit drug use prior to prescribin g controlled substances . [id number] Arcadio Boggs MD [facility] [address] [place] [address] 11/10/2017 08:12:41 11/10/2017 09:26:13 Cervical radiculopathy 98599643 M54.12 [id number] Arcadio Boggs MD [facility] [address] [place] [address] 11/24/2017 09:08:50 11/24/2017 09:50:32 Cervical radiculopathy 54153969 M54.12 [id number] Arcadio Boggs MD [facility] [address] [place] [address] 12/22/2017 09:29:11 12/22/2017 10:03:28 Long-term drug therapy 096730059 Z79.899 Cervical radiculopathy 24309539 M54.12 Consider MATILDA in future as patient reports ongoing relief of 95% at this time from injection on 11/24/17. [id number] Arcadio Boggs MD [facility] [address] [place] [address] 02/18/2018 09:11:00 02/18/2018 09:38:56 Cervical radiculopathy 55341655 M54.12 History and exam are consistent with cervical radiculiti s, supported by imaging. Has not responded to greater than 3 months conservati ve therapy including but not limited to rest, ice/heat, medication s, therapy. Symptoms are affecting ability to perform ADLs. History of >95% fpc relief with MATILDA. [id number] Arcadio Boggs MD [facility] [address] [place] [address] 02/22/2018 10:28:56 02/22/2018 11:35:23 Cervical radiculopathy 62498832 M54.12 [id number] Arcadio Boggs MD [facility] [address] [place] [address] 03/24/2018 10:11:49 03/24/2018 10:49:38 Cervical radiculopathy 42207514 M54.12 Long-term drug therapy 538511893 Z79.899 [id number] Acradio Boggs MD [facility] [address] [place] [address] 05/23/2018 13:25:18 05/23/2018 14:10:25 Long-term drug therapy 632562517 Z79.899 Cervical radiculopathy 41517024 M54.12 History and exam are consistent with cervical radiculiti s, supported by imaging which we reviewed today. Has not responded to greater than 3 months conservati ve therapy including but not limited to rest, ice/heat, medication s, therapy. Symptoms are affecting ability to perform ADLs. Prior MATILDA's offering up to 95% relief. I will submit for therapeuti c MATILDA C6-7. [id number] Arcadio Boggs MD [facility] [address] [place] [address] 06/07/2018 10:15:22 06/07/2018 10:56:34 Cervical radiculopathy 15358545 M54.12 [id number] Arcadio Boggs MD [facility] [address] [place] [address] 6 07/06/2018 10:42:10 07/06/2018 11:06:20 Cervical radiculopathy 55730628 M54.12 Most recent epidural injection with ongoing relief of >60%. Long-term drug therapy 197306105 Z79.899 [id number] Arcadio Boggs MD [facility] [address] [place] [address] 08/31/2018 08:46:33 08/31/2018 09:53:57 Cervical radiculopathy 85232916 M54.12 History and exam are consistent with cervical radiculiti s, supported by imaging which we reviewed today. Has not responded to greater than 3 months conservati ve therapy including but not limited to rest, ice/heat, medication s, therapy. Symptoms are affecting ability to perform ADLs. Last MATILDA offered >80% lasting approximat chanda 2 months. Will submit for therapeuti c MATILDA C6-7. Long-term drug therapy [id number] Z79.899 [id number] Arcadio Boggs MD [facility] [address] [place] [address] 09/14/2018 08:49:22 09/14/2018 09:49:38 Cervical radiculopathy 73413687 M54.12 [id number] MD [facility] [address] [place] [address] 10/19/2018 08:47:57 10/19/2018 09:58:31 Long-term drug therapy 645935517 Z79.899 Cervical spondylosis 387 004817 M47.812 History and exam are consistent with symptoms from cervical facet OA, supported by imaging. Pain is axial with no radicular component. Has not responded to > 3 months conservati ve therapy and symptoms are affecting her ability to perform ADLs. Will submit for left CMBB C2-4 and plan to proceed to RFA if results favorable. [id number] MD [facility] [address] [place] [address] 11/09/2018 08:07:32 11/09/2018 08:42:19 Cervical spondylosis 667781114 M47.812 [id number] MD [facility] [address] [place] [address] 11/30/2018 08:15:08 11/30/2018 08:58:45 Cervical spondylosis 766198259 M47.812 [id number] Bettye Hill NP [facility] [address] [place] [address] 12/07/2018 08:38:43 12/07/2018 09:02:48 Cervical spondylosis 883882107 M47.812 Patient with cervical arthritis confirmed by imaging. She has completed two successful left sided CMBB's on with >90% relief lasting up to 4 days. Will submit for left RFA C2-4. Long-term drug therapy 716409164 Z79.899 [id number] MD [facility] [address] [place] [address] 01/11/2019 08:14:25 01/11/2019 09:35:23 Cervical spondylosis 945239650 M47.812 [id number] Bettye Hill NP [facility] [address] [place] [address] 02/09/2019 09:34:34 02/09/2019 10:26:46 Cervical spondylosis 974684582 M47.812 Long-term drug therapy 379613873 Z79.899 [id number] Arcadio Boggs MD [facility] [address] [place] [address] 04/10/2019 08:44:45 04/10/2019 09:24:16 Long-term drug therapy 328661325 Z79.899 Send for LCMS confirmati on of Gabapentin to confirm the quantitati ve level of this drug and its metabolite as it will not be detected in IA testing and the patient is currently prescribed Gabapentin . Cervical radiculopathy 16459823 M54.12 [id number] Bettye Hill NP [facility] [address] [place] [address] 07/06/2019 08:46:45 07/06/2019 09:20:36 Long-term drug therapy 962849773 Z79.899 Cervical spondylosis 387 335748 M47.812 Patient with cervical arthritis confirmed by imaging. She has completed two successful left sided CMBB's with >90% relief lasting up to 4 days. Prior left cervical RFA offering 98% relief for nearly 6 months. Will submit for repeat Cervical RFA left sided C2-4. [id number] Arcadio Boggs MD [facility] [address] [place] [address] 07/17/2019 14:34:46 07/17/2019 15:32:14 Cervical spondylosis 126686822 M47.812 [id number] Bettye Hill NP [facility] [address] [place] [address] 08/03/2019 11:30:46 08/03/2019 12:16:39 Long-term drug therapy 289485978 Z79.899 Send for LCMS confirmati on of Gabapentin to confirm the quantitati ve level of this drug and its metabolite as it will not be detected in IA testing and the patient is currently prescribed Gabapentin . Cervical spondylosis 387 969356 M47.812 History and exam are consistent with pain from cervical spondylosi s, supported by imaging. Pain is axial, no radicular component. Has not responded to > 3 months conservati ve therapy and symptoms are affecting her ability to perform ADLs. Schedule for right sided diagnostic CMBB C2-4 with eventual advancemen t to cervical RFA if appropriat e. [id number] Arcadio Boggs MD [facility] [address] [place] [address] 08/16/2019 08:54:50 08/16/2019 09:42:07 Cervical spondylosis 059360071 M47.812 [id number] Arcadio Boggs MD [facility] [address] [place] [address] 08/30/2019 08:58:00 08/30/2019 09:14:30 Cervical spondylosis 524412824 M47.812 [id number] MD [facility] [address] [place] [address] 09/19/2019 09:02:47 09/19/2019 09:43:25 Cervical spondylosis 362692540 M47.812 Long-term drug therapy 163989768 Z79.899 The urine sample is being sent for quantitati ve LCMS analysis of illicit drugs (Cocaine, Methamphet amine, Heroin, Fentanyl, THC, Synthetic Cannabinoi ds, Kratom, MDMA, PCP, and Synthetic Stimulants , Opiates (Codeine, Hydrocodon e, Hydromorph one, and Morphine), Oxycodone, Oxymorphon e, Methadone, Synthetic Opioids (Tramadol, Tapentadol , and Buprenorph ine), Benzodiaze pines (Alprazola m, Clonazepam , Lorazepam, Diazepam, Nordazepam , Oxazepam, and Temazepam) , Gabapentin , Pregabalin , Muscle Relaxants (Carisopro dol, Cyclobenza corrine, and Meprobamat e), Ketamine, Nalaxone, and Amphetamin e, as this patient is being prescribed opioid medication s for the first time at this practice. The purpose of this analysis is to confirm the patients stated medication usage and to establish baseline medication and metabolite quantities , and to evaluate for use of medication s that are not prescribed or reported by the patient. [id number] MD Ling [facility] [address] [place] [address] 09/28/2019 07:57:01 09/28/2019 08:30:09 Cervical spondylosis 968198400 M47.812 [id number] MD [facility] [address] [place] [address] 10/17/2019 09:39:46 10/17/2019 10:03:13 Cervical spondylosis 916328294 M47.812 Long-term drug therapy 626886329 Z79.899 Send for LCMS confirmati on of Opiates (Codeine, Hydrocodon e, Hydromorph one, Morphine, and Heroin) to confirm the quantitati ve level of drug and metabolite s in this urine sample, as hydrocodon e is part of a larger family of drugs that could be present with a positive Opiate IA test. Send for LCMS confirmati on of Oxycodone and Oxymorphon e as these drugs are frequently not detected with IA testing at 300 ng/mL and these are frequently used and/or abused pain medication s in our community. Send for LCMS confirmati on of Synthetic Opioids (Fentanyl, Methadone, Tramadol, Tapentadol , and Buprenorph ine) as these drugs will not be detected in Opiate IA testing and these are frequently used and/or abused pain medication s in our community. Cervical radiculopathy 05119668 M54.12 [id number] MD Ling [facility] [address] [place] [address] 12/07/2019 09:07:16 12/07/2019 09:48:37 Cervical spondylosis 755483159 M47.812 Cervical radiculopathy 82649944 M54.12 Long-term drug therapy 332298979 Z79.899 Up to date Informed Consent and Opioid Agreement have been signed and incorporat ed into the chart. Patient has been provided written educationa l materials regarding potential adverse effects of fpc opioid therapy MEDICAL INDICATION S: Pain has been refractory to repeated attempts at conservati ve management , is of a moderate to severe degree and an organic source is suspected. The medication prescribed will be used in conjuction with a comprehens saroj pain program to meet the establishe d goals. Urine drug screening is regularly performed to monitor compliance during active treatment for medication misuse or diversion. MITALI/OAR S has been reviewed and documented to assure compliance with dosing scheduling , pain agreement MY OVERALL IMPRESSION IS THAT THIS PATIENT IS BENEFITING FROM OPIOID THERAPY. [id number] MD Ling [address] [place] [address] 02/06/2020 13:00:21 02/06/2020 13:20:41 Long-term drug therapy 218707242 Z79.899 Up to date Informed Consent and Opioid Agreement have been signed and incorporat ed into the chart. Patient has been provided written educationa l materials regarding potential adverse effects of fpc opioid therapy MEDICAL INDICATION S: Pain has been refractory to repeated attempts at conservati ve management , is of a moderate to severe degree and an organic source is suspected. The medication prescribed will be used in conjuction with a comprehens saroj pain program to meet the establishe d goals. Urine drug screening is regularly performed to monitor compliance during active treatment for medication misuse or diversion. MITALI/OAR S has been reviewed and documented to assure compliance with dosing scheduling , pain agreement MY OVERALL IMPRESSION IS THAT THIS PATIENT IS BENEFITING FROM OPIOID THERAPY. Cervical spondylosis 387 669767 M47.812 Cervical radiculopathy 63110178 M54.12 [id number] Arcadio Boggs MD [facility] [address] [place] [address] 04/08/2020 09:18:48 04/08/2020 09:40:41 Cervical spondylosis 266797640 M47.812 Cervical radiculopathy 53760042 M54.12 Long-term drug therapy 780671152 Z79.759 [id number] Arcadio Boggs MD [facility] [address] [place] [address] 05/07/2020 11:27:53 05/07/2020 12:10:21 Long-term drug therapy 398342279 Z79.899 Send for LCMS confirmati on of Gabapentin to confirm the quantitati ve level of this drug and its metabolite as it will not be detected in IA testing and the patient is currently prescribed Gabapentin . Send for LCMS confirmati on of Synthetic Opioids (Fentanyl, Tramadol, Tapentadol , Methadone, and Buprenorph ine) confirm the quantitati ve levels of these drugs as they will not be detected in IA testing and the patient is currently prescribed a Synthetic Opioid. Cervical spondylosis 387 414173 M47.812 Patient with cervical arthritis confirmed by imaging. She has completed two successful left sided CMBB's with >90% relief lasting up to 4 days. Previous cervical RFA with 90% relief lasting >6 months. Will submit to repeat Cervical RFA C2-4 starting with right side and proceeding to the left. Cervical radiculopathy 92796066 M54.12 [id number] Arcadio Boggs MD [facility] [address] [place] [address] 05/27/2020 14:28:50 05/27/2020 15:17:12 Cervical spondylosis 031995651 M47.475 [id number] Arcadio Boggs MD [facility] [address] [place] [address] 07/04/2020 11:12:57 07/04/2020 11:43:33 Cervical spondylosis 172565790 M47.812 Long-term drug therapy 772909805 Z79.700 [id number] Arcadio Boggs MD [facility] [address] [place] [address] 07/17/2020 07:50:10 07/17/2020 08:20:49 Cervical spondylosis 445617294 M47.388 [id number] Arcadio Boggs MD [facility] [address] [place] [address] 09/03/2020 10:19:03 09/03/2020 10:41:02 Long-term drug therapy 296886454 Z79.377 [id number] Arcadio Boggs MD [facility] [address] [address] 10/31/2020 10:16:26 10/31/2020 10:49:58 Cervical spondylosis 646255173 M47.812 Long-term drug therapy 609127260 Z79.899 Cervical radiculopathy 32981733 M54.12 [id number] Arcadio Boggs MD [facility] [address] [place] [address] 12/23/2020 08:52:44 12/23/2020 09:26:02 Cervical spondylosis 128577029 M47.983 [id number] Arcadio Boggs MD [facility] [address] [place] [address] 12/31/2020 10:00:22 12/31/2020 10:30:56 Cervical spondylosis 678492967 M47.812 Long-term drug therapy 232216325 Z79.899 Cervical radiculopathy 55314656 M54.12 [id number] Arcadio Boggs MD [facility] [address] [address] 01/27/2021 08:32:56 01/27/2021 09:00:29 Cervical spondylosis 482832667 M47.685 [id number] Arcadio Boggs MD [facility] [address] [address] 02/25/2021 10:23:25 02/25/2021 10:36:33 Cervical spondylosis 369144928 M47.812 Cervical radiculopathy 07966749 M54.12 Long-term drug therapy 513315773 Z79.899 Send for LCMS confirmati on of Synthetic Opioids (Fentanyl, Tramadol, Tapentadol , Methadone, and Buprenorph ine) confirm the quantitati ve levels of these drugs as they will not be detected in IA testing and the patient is currently prescribed a Synthetic Opioid.Sen d for LCMS confirmati on of Gabapentin to confirm the quantitati ve level of this drug and its metabolite as it will not be detected in IA testing and the patient is currently prescribed Gabapentin . [id number] Arcadio Boggs MD [facility] [address] [address] 04/29/2021 09:40:01 04/29/2021 10:00:57 Cervical spondylosis 811364936 M47.812 Cervical radiculopathy 09471883 M54.12 [id number] Arcadio Boggs MD [facility] [address] [address] 06/24/2021 09:17:17 06/24/2021 10:14:56 Long-term drug therapy 237873746 Z79.899 Send for LCMS confirmati on of Synthetic Opioids (Fentanyl, Tramadol, Tapentadol , Methadone, and Buprenorph ine) confirm the quantitati ve levels of these drugs as they will not be detected in IA testing and the patient is currently prescribed a Synthetic Opioid. Cervical spondylosis 387 721038 M47.812 Cervical radiculopathy 69631373 M54.12 [id number] Arcadio Boggs MD [facility] [address] [address] 07/14/2021 12:38:25 07/14/2021 13:07:18 Cervical spondylosis 632769689 M47.954 [id number] Arcadio Boggs MD [facility] [address] [place] [address] 08/19/2021 09:19:27 08/19/2021 09:54:52 Long-term drug therapy 725215689 Z79.899 Send for LCMS confirmati on of Synthetic Opioids (Fentanyl, Tramadol, Tapentadol , Methadone, and Buprenorph ine) confirm the quantitati ve levels of these drugs as they will not be detected in IA testing and the patient is currently prescribed a Synthetic Opioid. Cervical spondylosis 387 972303 M47.812 Cervical radiculopathy 80182380 M54.12 [id number] Arcadio Boggs MD [facility] [address] [address] 09/01/2021 13:06:58 09/01/2021 13:54:11 Cervical spondylosis 717914221 M47.096 [id number] Arcadio Boggs MD [facility] [address] [address] 01/12/2022 07:50:42 01/12/2022 08:05:37 Long-term drug therapy 821814948 Z79.899 Send for LCMS confirmati on of Synthetic Opioids (Fentanyl, Tramadol, Tapentadol , Methadone, and Buprenorph ine) confirm the quantitati ve levels of these drugs as they will not be detected in IA testing and the patient is currently prescribed a Synthetic Opioid. Cervical spondylosis 387 825215 M47.812 Cervical radiculopathy 96132917 M54.12 [id number] MD [facility] [address] [address] 03/16/2022 08:19:26 03/16/2022 08:42:16 Long-term drug therapy 895511503 Z79.899 Cervical spondylosis 387 040695 M47.812 Cervical radiculopathy 61468435 M54.12 [id number] Caroline York APRN [facility] [address], [place] [address] 06/02/2022 12:49:42 06/02/2022 13:12:20 Long-term drug therapy 428421045 Z79.899 Based on the patients urine confirmati on (LCMS) results, the patient's overall risk level will remain the same. I would consider the patient to be Low risk based on these new results. In response to the patient's risk level and urine confirmati on I plan to not change the patient's opioid prescripti on. Cervical spondylosis 387 602171 M47.812 Cervical radiculopathy 97883566 M54.12 [id number] Arcadio Boggs MD [facility] [address] [address] 07/28/2022 14:42:13 07/28/2022 15:12:54 Cervical spondylosis 097600367 M47.812 Cervical radiculopathy 96617709 M54.12 Long-term drug therapy 767907775 Z79.899 Up to date Informed Consent and Opioid Agreement have been signed and incorporat ed into the chart. Patient has been provided written educationa l materials regarding potential adverse effects of extermination inspector opioid therapy MEDICAL INDICATION S: Pain has been refractory to repeated attempts at conservati ve management , is of a moderate to severe degree and an organic source is suspected. The medication prescribed will be used in conjuction with a comprehens saroj pain program to meet the establishe d goals. Urine drug screening is regularly performed to monitor compliance during active treatment for medication misuse or diversion. MITALI/OAR S has been reviewed and documented to assure compliance with dosing scheduling , pain agreement MY OVERALL IMPRESSION IS THAT THIS PATIENT IS BENEFITING FROM OPIOID THERAPY. [id number] Arcadio Boggs MD [facility] [address], [place] [address] 09/16/2022 12:28:42 09/16/2022 12:52:14 Long-term drug therapy 271899565 Z79.899 Up to date Informed Consent and Opioid Agreement have been signed and incorporat ed into the chart. Patient has been provided written educationa l materials regarding potential adverse effects of extermination inspector opioid therapy MEDICAL INDICATION S: Pain has been refractory to repeated attempts at conservati ve management , is of a moderate to severe degree and an organic source is suspected. The medication prescribed will be used in conjuction with a comprehens saroj pain program to meet the establishe d goals. Urine drug screening is regularly performed to monitor compliance during active treatment for medication misuse or diversion. MITALI/OAR S has been reviewed and documented to assure compliance with dosing scheduling , pain agreement MY OVERALL IMPRESSION IS THAT THIS PATIENT IS BENEFITING FROM OPIOID THERAPY. Cervical radiculopathy 41010745 M54.12 Cervical spondylosis 387 404941 M47.095 [id number] Arcadio Boggs MD [facility] [address] [place] [address] 11/23/2022 07:49:14 11/23/2022 08:24:14 Cervical radiculopathy 40621026 M54.12 Cervical spondylosis 387 385730 M47.812 Long-term drug therapy 267372462 Z79.383 [id number] Arcadio Boggs MD [facility] [address] [place] [address] 01/21/2023 12:49:23 01/21/2023 13:13:31 Cervical spondylosis 613297536 M47.812 Cervical radiculopathy 60337527 M54.12 Long-term drug therapy 237207963 Z79.899 Low back pain 611049351 M54.50 [id number] MD Ling [facility] [address] [place] [address] 6 03/15/2023 10:50:44 03/15/2023 11:11:09 Long-term drug therapy 065829373 Z79.899 Cervical spondylosis 387 222721 M47.812 Low back pain 187733892 M54.50 Cervical radiculopathy 61409898 M54.12 [id number] MD [facility] [address] [place] [address] 6 05/17/2023 12:36:48 05/17/2023 13:03:11 Cervical spondylosis 456064419 M47.812 Long-term drug therapy 307651804 Z79.899 Send for LCMS confirmati on of Tramadol to confirm the quantitati ve level of drug and metabolite s, as the preliminar y qualitativ e screen for Tramadol is negative, but the patient is prescribed these medication s and reports taking them within the last 48-72 hours. Send for LCMS confirmati on of Gabapentin to confirm the quantitati ve level of this drug and its metabolite as it will not be detected in qualitativ e screen and the patient is currently prescribed Gabapentin . Cervical radiculopathy 14204752 M54.12 Low back pain 998329657 M54.50 [id number] Arcadio Boggs MD [facility] [place] [address] [place] [address] 06/23/2023 09:42:41 06/23/2023 10:47:33 Cervical spondylosis 702099177 M47.092 [id number] Arcadio Boggs MD [facility] [address] [place] [address] 07/15/2023 13:51:26 07/15/2023 14:28:20 Cervical spondylosis 289212803 M47.812 Cervical radiculopathy 33583109 M54.12 Long-term drug therapy [id number] Z79.767 [id number] Arcadio Boggs MD [facility] [address] [place] [address] 07/27/2023 07:51:28 07/27/2023 08:00:19 Cervical spondylosis [id number] M47.081 [id number] MD [facility] [address] [place] [address] 09/13/2023 13:32:37 09/13/2023 13:55:42 Long-term drug therapy 839819158 Z79.899 Cervical radiculopathy 30467844 M54.12 Cervical spondylosis 387 865547 M47.812 Chronic pain 69313217 G8 9.29 [id number] Arcadio Boggs MD [place] [address] [place] [address] 11/18/2023 13:24:16 11/18/2023 13:51:27 Cervical radiculopathy 96009164 M54.12 Cervical spondylosis 387 975146 M47.812 Chronic pain 13450488 G8 9.29 Long-term drug therapy 584462068 Z79.529 [id number] ABDIAZIZ QUIROZ MD [facility] [address] [place] [address] 01/18/2024 09:07:06 01/18/2024 09:57:27 Long-term drug therapy 621894585 Z79.899 Cervical radiculopathy 45367325 M54.12 Patient denies any radiating pain into the arms. She has ongoing benefit with use of the gabapentin would like to continue as prescribed . Cervical spondylosis 387 632799 M47.812 Ongoing relief from cervical RFA performed back in July. She states she will let us know if pain returns and she wishes to repeat this treatment. Overall with use of the tramadol she states she is able to remain functional on a daily basis and denies any side effects. Will continue this plan unchanged. Chronic pain 99208556 G8 9.29 [id number] ABDIAZIZ QUIROZ MD [facility] [address] [place] [address] 03/14/2024 10:47:09 03/14/2024 11:03:56 Long-term drug therapy 553944006 Z79.899 Send for LCMS confirmati on of Tramadol to confirm the quantitati ve level of drug and metabolite s, as the preliminar y qualitativ e screen for Tramadol is negative, but the patient is prescribed these medication s and reports taking them within the last 48-72 hours. Send for LCMS confirmati on of Gabapentin to confirm the quantitati ve level of this drug and its metabolite as it will not be detected in qualitativ e screen and the patient is currently prescribed Gabapentin . Chronic pain 80433118 G8 9.29 Cervical spondylosis 387 411070 M47.812 Patient reports continued benefit with use of the medication regimen. Maryjo reports she is able to maintain daily activities , perform household duties, engage in hobbies as pain allows. No side effects noted. Will continue at same dose and frequency. She does have ongoing relief from cervical RFA performed back in July 2023. She will let us know if pain increases and she wishes to repeat this. Cervical radiculopathy 88273624 M54.12 No significan t radiating arm pain at this time. [id number] ABDIAZIZ QUIROZ MD [facility] [address] [address] 05/19/2024 10:09:27 05/19/2024 10:32:03 Long-term current use of drug therapy 698530369 Z79.899 [id number] Send for LCMS confirmati on of Tramadol to confirm the quantitati ve level of drug and metabolite s, as the preliminar y qualitativ e screen for Tramadol is negative, but the patient is prescribed these medication s and reports taking them within the last 48-72 hours. Send for LCMS confirmati on of Gabapentin to confirm the quantitati ve level of this drug and its metabolite as it will not be detected in qualitativ e screen and the patient is currently prescribed Gabapentin . Chronic pain 18846053 G8 9.29 Cervical spondylosis 387 171417 M47.812 For now the patient feels well-maint ained with use of oral medication . She states she is able to remain functional and care for self on a daily basis. She does have ongoing relief from cervical RFA performed back in July 2023. She will let us know if pain increases and she wishes to repeat this. Cervical radiculopathy 61463572 M54.12 [id number] LENIN YOUNG MD [facility] [address], [place] [address] 07/21/2024 09:26:30 07/21/2024 09:50:31 Cervical spondylosis 098454111 M47.812 She does not feel injection therapy is necessary for her neck pain currently. She did have cervical RFA performed last July. She will let us know if pain increases and she wishes to repeat We will continue with their current medication at same dose and frequency. Patient states they are able to complete daily tasks, the range of motion is improved, as well as improved functional ity with use of this. They deny any side effects. Fill date removed out 5 days to reflect the postop medication she still taking from shoulder surgery 5 days ago. Chronic pain 16581132 G8 9.29 Cervical radiculopathy 80980582 M54.12 [id number] LENIN YOUNG MD [facility] [address] [address] 10/03/2024 09:24:49 10/03/2024 09:45:11 Cervical spondylosis 480153618 M47.812 Patient's had success with cervical RFA in the past. She states she will let us know if pain increases and she wishes to repeat. Patient has continued reports of benefit with use of the medication s we prescribed for their pain. They state they are able to perform ADLs, engage in hobbies as pain allows, their quality of life is improved. No changes with this plan today. Chronic pain 62099986 G8 9 Long-term drug therapy 789154098 Z79.899 Send for LCMS confirmati on of Tramadol to confirm the quantitati ve levels of these drugs that the patient is prescribed . Send for LCMS confirmati on of Gabapentin to confirm the quantitati ve level of this drug and its metabolite as it will not be detected in qualitativ e screen and the patient is currently prescribed Gabapentin . [id number] LENIN YOUNG MD [facility] [address] [address] 11/29/2024 08:42:48 11/29/2024 09:19:58 Cervical spondylosis 839520620 M47.812 Patient's had success with cervical RFA [...] any changes at this time. Chronic pain 89654388 G8 9.29 Health Concerns Section Related Observation LastModified by Organization Detai ls LastModified Time None Recorded Concern Status LastModified by Organization Details LastModified Time None Recorded Advance Directives Directive N: Payers Insurance Date Sequence Insurance Name Policy Number Policy Munoz Covered Member ID Munoz Member ID Guarantor Name 01/23/2025 1 [place] [id number] Teja [id number] Maryjo Díaz 03/15/2023 1 [place] [id number] B Teja Díaz [id number] Maryjo Díaz Notes Date Note Type Note Provider Name and Address Organization Details Recorded Time 03/14/19 25 text/ht ml Neck painReported by PatientHPIFor quality, patient reportsthrobbing,stabbing,sharp, andtingling. For associated symptoms, patient reportsnumbnessandtinglingbut reportsno weakness,no dizziness,no pain in upper extremities,no popping/clicking,no bladder incontinence, andno bowel incontinence. 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 For onset, patient reportsdate of onset: (2015). For location, patient reportsmidline spineandpain is not radiating. For duration, patient reportsconstant. For context, patient reportsstarted without cause. For pain intensity, patient reportscurrent pain level: 5/10andworst pain level: 7/10. For alleviating factors, patient [...] (800mg), andreported pain relief- 70% for 5 hours(last dose was this am). For medications history, patient reportsnsaids: (meloxicam-not helpful, ibu 800-not helpful.)andneuropathics: (cymbalta-not helpful.). For working, patient reportsregular duty. For prior pain management, patient reportsno. For for female patients, patient reportsare you ? no. For complete care program, patient reportsorder date: (11/18/2023). MERCEDES NAVA NP [address] [place] [address], [phone], [facility] 03/14/2024 12:20:15 05/20/19 25 text/ht ml Neck painReported by PatientHPIFor quality, patient reportsthrobbing,stabbing,sharp, andtingling. For associated symptoms, patient reportsnumbnessandtinglingbut reportsno weakness,no dizziness,no pain in upper extremities,no popping/clicking,no bladder incontinence, andno bowel incontinence. 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 For onset, patient reportsdate of onset: (2016). For location, patient reportsmidline spineandpain is not radiating. For duration, patient reportsconstant. [...] (800mg), andreported pain relief- 70% for 5 hours(05/19/24). For medications history, patient reportsnsaids: (meloxicam-not helpful, ibu 800-not helpful.)andneuropathics: (cymbalta-not helpful.). For working, patient reportsregular duty. For prior pain management, patient reportsno. For for female patients, patient reportsare you ? no. For complete care program, patient reportsorder date: (11/18/2023). MERCEDES NAVA NP [address] [place] [address], [phone], [facility] 05/19/2024 11:03:01 07/22/19 25 text/ht ml Neck painReported by PatientHPIFor quality, patient reportsthrobbing,stabbing,sharp, andtingling. For associated symptoms, patient reportsnumbnessandtinglingbut reportsno weakness,no dizziness,no pain in upper extremities,no popping/clicking,no bladder incontinence, andno bowel incontinence. 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 For onset, patient reportsdate of onset: (2015). For location, patient reportsbilateral paraspinal,midline spine, andpain [...] (800mg), andreported pain relief- 70% for 5 hours(05/19/24). For medications history, patient reportsnsaids: (meloxicam-not helpful, ibu 800-not helpful.)andneuropathics: (cymbalta-not helpful.). For working, patient reportsregular duty. For prior pain management, patient reportsno. For for female patients, patient reportsare you ? no. For complete care program, patient reportsorder date: (11/18/2023). MERCEDES NAVA NP [address] [place] [address], [phone], [facility] 07/21/2024 09:56:22 10/04/19 25 text/ht ml Neck painReported by PatientHPIFor quality, patient reportsthrobbing,stabbing,sharp, andtingling. For associated symptoms, patient reportsnumbnessandtinglingbut reportsno weakness,no dizziness,no pain in upper extremities,no popping/clicking,no bladder incontinence, andno bowel incontinence. 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 For onset, patient reportsdate of onset: (2015). For location, patient reportsbilateral paraspinal,midline spine, andpain [...] (800mg), andreported pain relief- 70% for 5 hours(10/03/24). For medications history, patient reportsnsaids: (meloxicam-not helpful, ibu 800-not helpful.)andneuropathics: (cymbalta-not helpful.). For working, patient reportsregular duty. For prior pain management, patient reportsno. For for female patients, patient reportsare you ? no. For complete care program, patient reportsorder date: (11/18/2023). MERCEDES NAVA NP [address] [place] [address], [phone], [facility] 10/03/2024 09:56:15 11/30/19 25 text/ht ml Neck painReported by PatientHPIFor quality, patient reportsthrobbing,stabbing,sharp, andtingling. For associated symptoms, patient reportsnumbnessandtinglingbut reportsno weakness,no dizziness,no pain in upper extremities,no popping/clicking,no bladder incontinence, andno bowel incontinence. 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 For onset, patient reportsdate of onset: (2015). For location, patient reportsbilateral paraspinal,midline spine, andpain [...] care program, patient reportsorder date: (11/18/2023). Caroline York APRN [address] [place], [address], [facility] 11/29/2024 09:53:13 OBGyn Episode No OBEpisode recorded.
--- NOTE | 2025-01-25 08:00 | MM_ITS ---
PROCEDURE INFORMATION: Exam: MG Bilateral Screening 3D Mammography Exam date and time: 01/25/2025 8:09 AM Age: 54 years old Clinical indication: Screening mammogram TECHNIQUE: Imaging protocol: Bilateral Screening tomosynthesis and 2D mammography including computer-aided detection (CAD) when performed. COMPARISON: 1. MG MM DIG SCREENING MAMM BI W/CAD 11/19/2022 8:24 AM 2. MG MM DIG SCREENING MAMM BI W/CAD 07/31/2021 12:51 PM 3. MG MM DIG SCREENING MAMM BI W/CAD 12/19/2018 10:09 AM 4. MG SCBI MM Dig screening mamm BI w/CAD 11/29/2017 10:38 AM FINDINGS: MAMMOGRAPHY: Breast composition: There are scattered areas of fibroglandular density. Mass: None. Architectural distortion: No new or suspicious architectural distortion. Calcifications: No new or suspicious calcifications are present Asymmetric density: No new or suspicious asymmetric density is present Skin thickening: None. Axillary adenopathy: None. Other findings: Stable postoperative findings IMPRESSION: No mammographic evidence of malignancy. Recommend annual screening mammography unless otherwise clinically indicated. ASSESSMENT: BI-RADS category 2: Benign.
== END 2025-01-25 23:59 | disposition home or self-care (01) ==
LOC: RAD 07:52
PROVIDERS: PCP Nurse Practitioner; Visit Provider Nurse Practitioner
DX: Z12.31 Encounter for screening mammogram for malignant neoplasm of breast (principal); R92.323 Mammographic fibroglandular density, bilateral breasts; Z98.890 Other specified postprocedural states
CPT/HCPCS: 77063; 77067

== ENCOUNTER 2025-02-22 08:22 | Outpatient (CLI) | payer BC, SELFPAY ==
--- OUTSIDE RECORDS SUMMARY | 2025-01-10 09:00 | XMS_ITS | Encounter Summary ---
Author Organization [facility] Address [address] [place] [address] Care Team Providers Care Skein Straightener Name Role Phone Nayeli Nelson Primary Care Provider [phone] Reason for Visit * Reason Comments Follow-up Follow-up Pain Encounter Details Date Type Department Care Team (Late st Contact Info) Description 01/10/2025 9:00 AM EST Office Visit [facility] [address] [place] [address] Luis Alberto Lezama MD [address] [place] [address] Acute pain of right shoulder (Primary Dx) Social History Tobacco Use Types Packs/Day Years Used Date Smoking Tobacco: Every Day Cigarettes 0.5 37 Started: 03/12/1988 Smokeless Tobacco: Never Alcohol Use [...] - Inhaled Oxygen Concentration - - Weight 76.2 kg (168 lb) 01/10/2025 9:08 AM EST Height 162.6 cm (5' 4 ) 01/10/2025 9:08 AM EST Body Mass Index 28.84 01/10/2025 9:08 AM EST documented in this encounter Progress Notes * Jossy Will ATC - 01/10/2025 9:00 AM ESTAssociated Order(s): Large Joint Injection/Arthrocentesis: R subacromial bursa Large Joint Injection/Arthrocentesis: R subacromial bursa on 01/10/2025 9:00 AM Indications: pain and joint swelling Details: 22 G needle, lateral approach Medications: 1 mg triamcinolone acetonide 40 mg/mL; 3 mL BUPivacaine HCl 0.25 % (2.5 mg/mL) Outcome: tolerated well, no immediate complications Procedure, treatment alternatives, risks and benefits explained, specific risks discussed. Consent was given by the patient. Patient was prepped and draped in the usual sterile fashion. * Luis Alberto Lezama MD - 01/10/2025 9:00 AM EST Images from the original note were not included. Maryjo Díaz 01/10/2025 [id number] HISTORY: Ms. Díaz returns today for reevaluation both of her shoulders. I did an open Eliz backon July 17. 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 Her right shoulder though, is even more problematic in that same spot. Her AC joint is flared up and is causing her a lot of problems and limitations in her activities. She is here for both shoulders. PHYSICAL EXAMINATION: On examination, the left side has a well-healed scar. Some tenderness about the scar. No erythema. No warmth or sign of infection. Neurovascularly distally and has full range ofmotion and good strength. Her right side though, has exquisite point tenderness over her hypertrophic AC joint. Positive cross body adduction test. Negative Neer-Baltazar impingement sign. Negative drop arm test. 5/5 strength throughout. Less than 1 cm inferior sulcus. She is neurovascularly intact distally. IMPRESSION: 1. Right shoulder acromioclavicular arthropathy. 2. Status post left [place]. PLAN: I discussed with her options. As far as the left shoulder goes, she is going to continue to use ice and activities as tolerated. Her right side though, she would like to do a cortisone shot. We discussed the possibility of an open Eliz, but she would like to wait on that. I discussed the risks and benefits and an injection was given directly in the AC joint. She tolerated it well. We will do ice, elevation and activity modification. I will have her do a home exercise program and I have her follow up in about 4 months for reevaluation, earlier if she has problems and later if she does not. She likes the plan. PROCEDURE: After a strict sterile prep we injected 1 mL 0.5% bupivacaine and 1 mL Celestone into the right acromioclavicular joint. I did discuss with the patient the risks associated with it including, but not limited to, bleeding, infection, cartilage damage, weakening of the soft tissue, high blood sugar and despite the risks the patient would still like to proceed. The patient tolerated it well. Luis Alberto Lezama MD * Luis Alberto Lezama MD - 01/10/2025 9:00 AM ESTAssociated Order(s): Large Joint Injection/Arthrocentesis: R subacromial bursa Post-Procedure Diagnose(s): Acute pain of right shoulder Large Joint Injection/Arthrocentesis: R subacromial bursa on 01/10/2025 9:00 AM Indications: pain and joint swelling Details: 22 G needle, anterolateral approach Medications: 3 mL BUPivacaine HCl 0.25 % (2.5 mg/mL); 1 mg betamethasone acet- betamethasone sodium phos 6 mg/mL Outcome: tolerated well, no immediate complications Procedure, treatment alternatives, risks and benefits explained, specific risks discussed. Consent was given by the patient. Patient was prepped and draped in the usual sterile fashion. documented in this encounter Plan of Treatment Upcoming Encounters Date Type Department Care Team (Late st Contact Info) Description 03/05/2025 1:00 PM EST Appointment [facility] [place] [address] Michael Jacome, DO [address] [place], [place] [id number] 05/16/2025 1:15 PM EDT Office Visit [facility] [address] [place] [address] Luis Alberto Lezama MD [address] [place], [place] [id number] 08/13/2025 10:00 AM EDT Office Visit [facility] [address] [place], [place] [id number] Michael Jacome, [address] [place], [place] [phone] documented as of this encounter Procedures Procedure Name Priority Date/Time Associated Diagnosis Comments UT ARTHROCENTESIS ASPIR&/INJ MAJOR JT/BURSA W/O US Routine 01/10/2025 9:00 AM EST Acute pain of right shoulder documented in this encounter Results * UT ARTHROCENTESIS ASPIR&/INJ MAJOR JT/BURSA W/O US (01/10/2025 9:00 AM EST) Narrative [facility] - 01/10/2025 9:00 AM EST Luis Alberto Lezama MD 01/11/2025 10:29 AM Large Joint Injection/Arthrocentesis: R subacromial bursa on 01/10/2025 9:00 AM Indications: pain and joint swelling Details: 22 G needle, anterolateral approach Medications: 3 mL BUPivacaine HCl 0.25 % (2.5 mg/mL); 1 mg betamethasone acet-betamethasone sodium phos 6 mg/mL Outcome: tolerated well, no immediate complications Procedure, treatment alternatives, risks and benefits explained, specific risks discussed. Consent was given by the patient. Patient was prepped and draped in the usual sterile fashion. us Luis Alberto Lezama MD PROCEDURE/MINOR SURGICAL ORDERA IMAN Edited Result - Final [facility] documented in this encounter Visit Diagnoses Diagnosis Acute pain of right shoulder- Primary documented in this encounter Administered Medications Inactive Administered Medications - up to 1 most recent administrations Medication Order MAR Action Action Date Dose Rate Site betamethasone acet-betamethasone sodium phos (CELESTONE) injection 1 mg 1 mg, Intra-articular, ONCE PRN, 1 dose, Starting on Wed01/10/25 at 0900, Until Wed01/10/25 at 0900, Dx: 1. Acute pain of right shoulderIndications:Acute pain of right shoulder Given 01/10/2025 9:00 AM EST 1 mg Right Shoulder BUPivacaine HCl (MARCAINE) 0.25 % (2.5 mg/mL) injection 3 mL 3 mL, Intra-articular, ONCE PRN, 1 dose, Starting on Wed01/10/25 at 0900, Until Wed01/10/25 at 0900, Dx: 1. Acute pain of right shoulderIndications:Acute pain of right shoulder Given 01/10/2025 9:00 AM EST 3 mL Right Shoulder BUPivacaine HCl (MARCAINE) 0.25 % (2.5 mg/mL) injection 3 mL 3 mL, Intra-articular, ONCE PRN, 1 dose, Starting on Wed01/10/25 at 0900, Until Wed01/10/25 at 0900, Dx: 1. Acute pain of right shoulderIndications:Acute pain of right shoulder Given 01/10/2025 9:00 AM EST 3 mL Right Shoulder triamcinolone acetonide (KENALOG-40) injection 1 mg 1 mg, Intra-articular, ONCE PRN, 1 dose, Starting on Wed01/10/25 at 0900, Until Wed01/10/25 at 0900, Dx: 1. Acute pain of right shoulderIndications:Acute pain of right shoulder Given 01/10/2025 9:00 AM EST 1 mg Right Shoulder documented in this encounter Care Teams Skein Straightener Relationship Specialty Start Date End Date Nayeli Nelson [address] [place] [address] PCP - General Family Medicine 08/07/15 documented as of this encounter
--- OUTSIDE RECORDS SUMMARY | 2025-02-12 10:45 | XMS_ITS | Encounter Summary ---
Author Organization [facility] [place] [address] Care Team Providers Care Process Coordinator Name Role Phone Nayeli Nelson Primary Care Provider [phone] Reason for Referral * MRI/CAT Scan (Routine) - Pending Review Specialty Diagnoses / Procedures Referred By Contac t Referred To Contact Radiology Diagnoses Anginal equivalent Procedures CT ANGIOGRAM CORONARY W CONTRAST Michael Jacome DO [address] [place] [address] Phone: tel: fax: Referral ID Status Reason Start Date Expiration Date V isits Requested Visits Authorized [id number] Pending Review 02/12/2025 02/12/2026 1 1 Reason for Visit * Reason Comments Follow-up 9 mo ck Chest Pain occasionally Shortness of Breath with exertion Encounter Details Date Type Department Care Team (Late st Contact Info) Description 02/12/2025 10:45 AM EST Office Visit [facility] [address] [place] [address] Michael Jacome DO [address] [place] [address] Anginal equivalent (Primary Dx); Cerebrovascular accident (CVA), unspecified mechanism (HCC); Syncope, unspecified syncope type; Supraventricular tachycardia Social History Tobacco Use Types Packs/Day Years [...] Sign Reading Time Taken Comments Blood Pressure 128/88 02/12/2025 10:32 AM EST Pulse 72 02/12/2025 10:32 AM EST Temperature - - Respiratory Rate - - Oxygen Saturation 97% 02/12/2025 10:32 AM EST Inhaled Oxygen Concentration - - Weight 75.8 kg (167 lb) 02/12/2025 10:32 AM EST Height 162.6 cm (5' 4 ) 02/12/2025 10:32 AM EST Body Mass Index 28.67 02/12/2025 10:32 AM EST documented in this encounter Ordered Prescriptions Prescription Sig Dispense Quantity Refills Last Filled Start Date End Date dilTIAZem 120 mg Oral Capsule, Sust. Release 24 hrIndications:Supr aventricular tachycardia Take 1 Capsule by mouth daily. 90 Capsule 3 02/12/2025 documented in this encounter Progress Notes * Michael Jacome, - 02/12/2025 10:45 AM EST [facility] Note CC: Chief Complaint Patient presents with Follow-up 9 mo ck Chest Pain occasionally Shortness of Breath with exertion HPI Maryjo Díaz is a 54 y.o. female w/ a past medical hx of CVA, HLD, here for follow-up. Chest pain w/ exertion and anxiety, dyspnea w/ exertion, no orthopnea/PND. No syncope. Palpitationsdaily, last ~ 1 minute per episode. Medications Current Outpatient Medications Medication Sig Dispense Refill aspirin 81 mg Oral Tablet, Chewable Take 81 mg by mouth daily. clopidogreL (PLAVIX) 75 mg Oral Tablet Take 1 Tablet by mouth daily. gabapentin (NEURONTIN) 800 mg Oral Tablet Take 800 mg by mouth 4 times daily as needed (takes for neck pain). meloxicam (MOBIC) 15 mg Oral Tablet Take 15 mg by mouth daily. multivit-min/iron/FA/vit K/lut (MULTIVITAMIN WOMEN 50 PLUS ORAL) Take by mouth. promethazine (PHENERGAN) 25 mg Oral Tablet Take 1 Tablet by mouth every 6 hours as needed for Nausea for up to 20 doses. 20 Tablet 0 traMADoL (ULTRAM) 50 mg Oral Tablet 50 mg as needed. VEOZAH 45 mg Oral Tablet Take 1 Tablet by mouth daily. atorvastatin (LIPITOR) 40 mg Oral Tablet Take 1 Tablet by mouth daily. (Patient not taking: Reported on 02/12/2025) celecoxib (CELEBREX) 200 mg Oral Capsule Take 1 Capsule by mouth daily. (Patient not taking: Reported on 02/12/2025) docusate sodium (COLACE) 100 mg Oral Capsule Take one capsule three times a day while on pain meds (Patient not taking: Reported on 02/12/2025) 90 Capsule 0 oxyCODONE (ROXICODONE) 5 mg Oral Tablet Take 1 Tablet by mouth every 4 hours as needed for Major Surgery/Trauma (G89.18) for up to 28 doses. (Patient not taking: Reported on 02/12/2025) 28 Tablet 0 No current facility-administered medications for this visit. Past Medical Hx: Past Medical History: Diagnosis Date Cervical spondylolysis Chronic pain Stroke (HCC) 2019 Family History Problem Relation Age of Onset Heart Disease Mother Arthritis Mother Kidney Disease Father Arthritis Father Social History Socioeconomic History Marital status: Spouse name: None Number of children: None Years of education: None Highest education level: None Tobacco Use Smoking status: Every Day Current packs/day: 0.50 Average packs/day: 0.5 packs/day for 36.9 years (18.5 ttl pk-yrs) Types: Cigarettes Start date: 03/12/1988 Smokeless tobacco: Never Vaping Use Vaping status: Never Used Substance and Sexual Activity Alcohol use: Yes Comment: occ rare Drug use: Never Past Surgical History: Procedure Laterality Date CHOLECYSTECTOMY COLONOSCOPY HYSTERECTOMY NECK SURGERY cervical spine fusion ROTATOR CUFF REPAIR Left 07/17/2024 LEFT SHOULDER OPEN [place]; Surgeon: Luis Alberto Lezama MD; Location: [facility]; Service: Orthopedics TONSILLECTOMY Review of Systems: Review of Systems Constitutional: Positive for malaise/fatigue. Negative for chills and fever. Eyes: Negative for blurred vision, double vision and photophobia. Respiratory: Negative for cough, shortness of breath and wheezing. Cardiovascular: Negative for chest pain, palpitations, orthopnea, leg swelling and PND. Gastrointestinal: Negative for diarrhea, nausea and vomiting. Musculoskeletal: Negative for falls and myalgias. Neurological: Positive for loss of consciousness. Negative for dizziness, seizures and weakness. Physical Exam: Vitals: 02/12/25 1032 BP: 128/88 Pulse: (!) 47 SpO2: 97% Body mass index is 28.67 kg/m??. Physical Exam Vitals and nursing note reviewed. Constitutional: General: She is not in acute distress. Appearance: She is not ill-appearing. HENT: Head: Normocephalic and atraumatic. Neck: Vascular: No carotid bruit. Cardiovascular: Rate and Rhythm: Normal rate and regular rhythm. Pulses: Normal pulses. Heart sounds: No murmur heard. No gallop. Pulmonary: Effort: Pulmonary effort is normal. No respiratory distress. Breath sounds: Normal breath sounds. No rales. Abdominal: Palpations: Abdomen is soft. Musculoskeletal: Cervical back: No tenderness. Skin: General: Skin is warm. Neurological: General: No focal deficit present. Mental Status: She is alert and oriented to person, place, and time. Mental status is at baseline. Labs and Imaging: Clinical labs and imaging studies were independently reviewed and results were discussed with the patient. Lab Results Component Value Date WBC 9.1 07/13/2024 HGB 13.6 07/13/2024 HCT 42.0 07/13/2024 MCV 92.5 07/13/2024 PLT 287 07/13/2024 Lab Results Component Value Date CREATININE 0.82 07/13/2024 BUN 12 07/13/2024 NA 138 07/13/2024 K 3.9 07/13/2024 CL 106 07/13/2024 CO2 24 07/13/2024 No results found for: INR , PROTIME Lab Results Component Value Date TSHREFLEX 0.539 07/13/2024 No results found for: BNP No results found for: CHOLESTEROL No results found for: HDL No results found for: LDLCALC No results found for: TRIG The ASCVD Risk score ([place] DK, et al., 2019) failed to calculate. EKG No results found for this visit on 02/12/25. Assessment/Plan Maryjo íDaz is a 54 y.o. female w/ a past medical hx of CVA, HLD, here for follow-up. Echocardiogram 04/2024: Normal LVEF, no obstructive CM, normal diastolic function, no significant valve disease Precordial Pain Plan for CCTA Palpitations Short runs of SVT on monitor, occasional PVC's w/ PVC burden of ~4% on holter Start diltizem 120 Cerebrovascular accident (CVA), unspecified mechanism (HCC) Back in 2019, no obstructive vascular disease on CTA head/neck No residual deficits Intolerant to atorvastatin Repeat lipids w/ PCP Continue plavix, stop ASA Follow-up in 6 months Signed: Michael Jacome DO, FACC documented in this encounter Plan of Treatment Upcoming Encounters Date Type Department Care Team (Late st Contact Info) Description 03/05/2025 1:00 PM EST Appointment [place] [address] Michael Jacome DO [address] [place] [address] 05/16/2025 1:15 PM EDT Office Visit [facility] [address] [address] Luis Alberto Lezama MD [address] [address] 08/13/2025 10:00 AM EDT Office Visit [facility] [address] [place] [id number] Michael Jacome DO [address] [place] [address] Scheduled Orders Name Type Priority Associated Diagnoses Orde r Schedule CT ANGIOGRAM CORONARY W CONTRAST Imaging Routine Anginal equivalent 1 Occurrences starting 02/12/2025 until 02/12/2026 documented as of this encounter Visit Diagnoses Diagnosis Anginal equivalent- Primary Cerebrovascular accident (CVA), unspecified mechanism (HCC) Syncope, unspecified syncope type Supraventricular tachycardia Other specified cardiac dysrhythmias documented in this encounter Discontinued Medications Medication Sig Discontinue Reason Start Date End Da te aspirin 81 mg Oral Tablet, Chewable Take 81 mg by mouth daily. Cancelled by 02/12/2025 documented as of this encounter Historical Medications * This list may reflect changes made after this encounter. traMADoL (ULTRAM) 50 mg Oral Tablet 50 mg as needed. 07/21/2024 aspirin 81 mg Oral Tablet, Chewable Take 81 mg by mouth daily. 02/12/2025 added in this encounter Care Teams Process Coordinator Relationship Specialty Start Date End Date Nayeli Nelson [address] [place] [address] [address] [place] [address] PCP - General Family Medicine 08/07/15 documented as of this encounter
[2025-02-22 16:12] LABS: Hematocrit 43.8 % (37.0-47.0); Hemoglobin 14.5 g/dL (12.2-16.2); Immature Granulocytes % 0.2 %; Mean Corpuscular HGB Conc 33.1 g/dL (31.8-35.4); Mean Corpuscular Hemoglobin 31.1 pg (27.0-31.2); Mean Corpuscular Volume 94.0 fl (81-99); Nucleated Red Blood Cells % 0 %; Platelet Count 352 K/mm3 (142-424); Red Blood Count 4.66 M/mm3 (4.20-5.40); Red Cell Distribution Width-SD 42.8 fL; White Blood Count 9.2 K/mm3 (4.8-10.8)
[2025-02-22 16:24] LABS: Alanine Aminotransferase 16 U/L (12-78); Albumin Level 4.8 g/dl (3.5-5.0); Albumin/Globulin Ratio 1.9 (1.1-1.8); Alkaline Phosphatase 91 U/L (38-126); Anion Gap 12.3 mEq/L (5-15); Aspartate Amino Transferase 39 U/L (14-36); Bilirubin,Total 0.6 mg/dl (0.2-1.3); Blood Urea Nitrogen 12 mg/dl (7-17); Calcium 9.6 mg/dl (8.4-10.2); Carbon Dioxide 22 mmol/L (22.0-30.0); Chloride 110 mmol/L (98-107); Cholesterol 194 mg/dl (140-200); Creatinine,Serum 0.70 mg/dl (0.52-1.04); Estimated Glomerular Filt Rate 87 ml/min (>60); GFR (African American) 105 ML/MIN (>60); Globulin 2.5 g/dL (1.3-3.2); Glucose 98 mg/dl (74-100); HDL Cholesterol 66 mg/dl (40-60); Potassium 4.3 mmoL/L (3.5-5.1); Sodium 140 mmol/L (136-145); Total Protein,Serum 7.3 g/dl (6.3-8.2); Triglycerides 185 mg/dl (30-150)
[2025-02-22 17:11] LABS: Vitamin B12 877 pg/mL (239-931)
[2025-02-22 18:36] LABS: Hepatitis C Ab Qual. W/ RFX NEGATIVE (Negative)
--- OUTSIDE RECORDS SUMMARY | 2025-02-23 10:41 | XMS_ITS | Data Portability ---
Author Organization [facility] B[place] Address [address] [facility] [place] [address] Assessment No assessment recorded. Plan of Treatment Reminders Order Date Submit Date Provider Last Modified By Organization Details Last Modified Time Details Appointments None recorded. Lab None recorded. Referral None recorded. Procedures None recorded. Surgeries None recorded. Imaging XR, cervical spine, 2 or 3 view 2016 017 [facility] Radiology [facility], [address] [place] [address], [id number], 7 13:37:55 CT, cervical spine, w/o contrast 2016 017 [facility] Radiology [facility], [address] [place] [address], [phone], 7 13:59:16 MRI, cervical spine, w/o contrast 2016 017 [facility] Radiology [facility], [address] [place] [address], [id number], 7 14:00:37 Medication Orders cyclobenza corrine 5 mg tablet 2016 017 INTERFACE [id number], [facility] [place], [address], 7 11:51:38 Patient TargetsNo targets recorded. Patient Instructions Encounter Date Encounter Id Patient Instructions Last Modified By Organization Details Last Modified Time 10/27/2017 [id number] Spent 15 total minutes with the patient today. Greater than 50% of this time was spent counseling/coordi nation of care as documented in my assessment and plan above. Not available 10/27/2017 10:35:57 Reason for Referral None Reported. Results Created Date Observation Date Name Description Value Unit Range Abnormal Flag Note LastModifiedBy Organization Detail LastModifiedTime 01/27/20 17 01/26/2017 XR, cervi [place] spine , 2 or [address] [place] [address] Rima dover Name: FERNANDEZ dover : [birth year] [...] Alec Cosby MD on 2016 1:32 PM [facility] Radiology [address], [phone], 02/08/2017 16:31:35 01/27/20 17 01/26/2017 CT, cervi [place] spine , w/o contr ast [facility] [address] [place] [address] Rima dover Name: FERNANDEZ dover : [birth year] [...] fied. The visual ized spinal cord and java j2ee technical lead ior fossa of the brain are normal [...] Baltazar baker MD on 2016 1:54 [facility] [address], [address], 02/01/2017 15:18:18 01/27/20 17 01/26/2017 MRI, cervi [place] spine , w/o contr ast [address] [address] Rima dover Name: FERNANDEZ dover : [birth year] [...] fied. The visual ized spinal cord and java j2ee technical lead ior fossa of the brain are normal [...] Electr onical ly Signed By: Mal goode Hilda baker MD on 2016 1:55 PM [email or web address] [facility] Radiology [facility] [address] [place], [address], 02/08/2017 16:16:52 10/28/19 18 10/27/2017 MRI, cervi [place] spine , w/o contr [facility] [address] [facility] y [facility] [place] [address] Patien t Name: FERNANDEZ Abarca t : [...] fied. The visual ized spinal cord and java j2ee technical lead ior fossa of the brain are normal [...] Baltazar baker MD on 018 12:53 PM [facility] Radiology [facility] [address] [place], [address], 11/03/2017 11:45:57 Result Notes Documentation Provider Name and Address Organization Details Recorded Time Xr, Cervical Spine, 2 Or 3 View : [facility] [address] [place] [address] Patient Name: FERNANDEZ DÍAZ Patient : 1970 [...] Interpreted By: Michael Cosby MD Chaparrita Dukes [facility] 02/08/2017 16:31:35 Ct, Cervical Spine, W/o Contrast : [facility] [address] [place] [address] Patient Name: FERNANDEZ DÍAZ Patient : 1970 [...] Interpreted By: González Mcdowell MD [facility]rit[facility] 02/01/2017 15:18:18 Mri, Cervical Spine, W/o Contrast : [facility] [address] [place] [address] Patient Name: FERNANDEZ DÍAZ Patient : 1970 Patient Ordering Provider: ORNNIE STOKES EXAM DATE: 01/26/2017 EXAM: MR CERVICAL [...] By: González Mcdowell MD A GIBBONS PA-C [address] [place] [address], [phone], [facility] 02/08/2017 16:16:52 Mri, Cervical Spine, W/o Contrast : [place] [address] Patient Name: FERNANDEZ DÍAZ Patient : 1970 [...] Interpreted By: González Mcdowell MD E Crump [facility] 11/03/2017 11:45:57 Problems Name Problem SNOMED Code Status Onset Date Resolution Date Notes Provider Name and Address Organization Details Recorded Time Cervical radiculopa thy 68215369 Active 2015 From Automated Load;Provi mago: Hilda Stokes atus: Active Not Available [facility] 6 07:51:44 Cervical spondylosi s with radiculopa thy Active 2015 From Automated Load;Provi mago: Ronnie Stokes;St atus: Active Not Available [facility] 6 07:51:44 Problem Notes None recorded. Procedures Surgical History Date Name Laterality Status Provider Name and Address Organization Details Recorded Time Removal of gallbladder completed [facility] 01/26/2017 11:25:27 Other completed [facility] 01/26/2017 11:25:37 Other completed [facility] 01/26/2017 11:26:08 Removal of tonsils completed [facility] 01/26/2017 11:26:16 Imaging Results None recorded. [...] Updated DateTime 10/27/2017 162.56 cm 24 kg/m2 13105.93 g 126/82 mm[Hg] [facility] 10/27/2017 09:48:34 Date Recorded Body height Body mass index (BMI) Body weight Systolic And Diastolic Provider Name and Address Organization Details Last Updated DateTime 01/26/2017 162.56 cm 25.4 kg/m2 87142.67 g 122/82 mm[Hg] Theodora Cardona [facility] 01/26/2017 11:22:09 Social History Question Answer Notes LastModified by Organizat ion Details LastModified Time Tobacco Smoking Status Current Every Day Smoker Theodora Cardona null, [facility] 01/26/2017 11:25:17 What Was The Date [...] ICD10 Code Diagnosis IMO Codes Diagnosis Note [id number] RONNIE STOKES MD [facility] [address] [place] [address] 01/26/2017 10:51:12 02/02/2017 10:35:32 Cervical radiculopathy 39103327 M54.12 She does not have a copy [...] doing. She is happy with this plan. [id number] ABBI DELEON PA-C [facility] [address] [place] [address] 10/27/2017 09:35:24 10/29/2017 14:24:29 Cervical radiculopathy [id number] M54.12 1 month of posterior neck pain [...] ID Guarantor Name 01/31/2020 1 [employer] [id number] Teja Díaz [id number] Fernandez Díaz Notes Date Note Type [...] is constant. No arm pain, weakness, decreased ballaster/dropping objects, gait/balance changes, or b/b changes. She also reports some numbness in her Left 3rd and 4th fingers that started about the same time as her right sided symptoms. No relief from oral steroids or NSAIDs. She had some plain films done a few weeks ago, but she does not have the images with her today. CHE FLORENTINO PA-C [address] [place], [address], [facility] 02/01/2017 19:52:37 10/27/2017 text/html ROS as [...] constant. Rates as 6/10. No weakness, decreased ballaster/dropping objects, gait/balance changes, or b/b changes. She also reports some numbness in her Left 1st and 2nd fingers which started before her surgery in 2015. She has no updated imaging. RONNIE STOKES MD [address] [place], [address], [facility] 10/27/2017 10:51:04 OBGyn Episode No OBEpisode recorded.
--- OUTSIDE RECORDS SUMMARY | 2025-02-23 10:41 | XMS_ITS | Clinical Summary ---
Author Organization [facility] Address [address] [place] [address] Phone Care Team Providers Care Pattern Marker Name Role Phone Nayeli Nelson Primary Care Provider Allergies No known active allergies Medications atorvastatin (LIPITOR) 40 mg Oral Tablet Take 1 Tablet by mouth daily. 12/31/19 Active celecoxib (CELEBREX) 200 mg Oral Capsule Take 1 Capsule by mouth daily. 11/06/19 Active clopidogreL (PLAVIX) 75 mg Oral Tablet Take 1 Tablet by mouth daily. 11/06/19 Active gabapentin (NEURONTIN) 800 mg Oral Tablet Take 800 mg by mouth 4 times daily as needed (takes for neck pain). Active meloxicam (MOBIC) 15 mg Oral Tablet Take 15 mg by mouth daily. Active multivit-min/i twan/FA/vit K/lut (MULTIVITAMIN WOMEN 50 PLUS ORAL) Take by mouth. Activ e promethazine (PHENERGAN) 25 mg Oral Tablet Take 1 Tablet by mouth every 6 hours as needed for Nausea for up to 20 doses. 20 Tablet 07/18/19 25 Active oxyCODONE (ROXICODONE) 5 mg Oral Tablet Take 1 Tablet by mouth every 4 hours as needed for Major Surgery/Trauma (G89.18) for up to 28 doses. 28 Tablet 07/18/19 25 Active Additional Information Patient not taking.Reported on 02/12/2025 docusate sodium (COLACE) 100 mg Oral Capsule Take one capsule three times a day while on pain meds 90 Capsule 07/18/19 Active Additional Information Patient not taking.Reported on 02/12/2025 VEOZAH 45 mg Oral Tablet Take 1 Tablet by mouth daily. 05/30/19 Active traMADoL (ULTRAM) 50 mg Oral Tablet 50 mg as needed. 07/22/19 Active dilTIAZem 120 mg Oral Capsule, Sust. Release 24 hrIndications: Supraventricul ar tachycardia Take 1 Capsule by mouth daily. 90 Capsule 3 02/13/20 Active aspirin 81 mg Oral Tablet, Chewable Take 81 mg by mouth daily. 025 Discontinued(C ancelled by ) dilTIAZem 120 mg Oral Capsule, Sust. Release 24 hrIndications: Supraventricul ar tachycardia Take 1 Capsule by mouth daily. 90 Capsule 3 02/13/20 025 Discontinued Active Problems Problem Noted Date Diagnosed Date AC joint arthropathy 05/26/2024 Encounters Date Type Department Care Team Description 02/12/2025 10:45 AM EST Office Visit [facility] [address] Michael Jacome DO Anginal equivalent (Primary Dx); Cerebrovascular accident (CVA), unspecified mechanism (HCC); Syncope, unspecified syncope type; Supraventricular tachycardia 02/12/2025 Telephone [facility] [address] Michael Jacome DO Medication Question (Needs pharmacy changed) 01/10/2025 9:00 AM EST Office Visit [address] [address] Luis Alberto Lezama MD Acute pain of right shoulder (Primary Dx) from Last 3 Months Surgical History Surgery Date Site/Laterality Comments HYSTERECTOMY CHOLECYSTECTOMY TONSILLECTOMY NECK SURGERY cervical spine fusion COLONOSCOPY ROTATOR CUFF REPAIR 07/17/2024 Shoulder/Left LEFT SHOULDER OPEN HAMLIN; Surgeon: Luis Alberto Lezama MD; Location: [facility] MAIN OR; Service: Orthopedics Medical History Medical History Date Comments Cervical spondylolysis Chronic pain Stroke (HCC) 2019 Family History Medical History Relation Name Comments Arthritis Father Kidney Disease Father Arthritis Mother Heart Disease Mother Relation Name Status Comments Father Mother Social History Tobacco Use Types Packs/Day Years Used Date Smoking Tobacco: Every Day Cigarettes 0.5 37 Started: 03/12/1988 Smokeless Tobacco: Never Tobacco Cessation:Ready [...] Pulse 72 02/12/2025 10:32 AM EST Temperature 36.1 C (97 F) 07/17/2024 12:12 PM EDT Respiratory Rate 13 07/17/2024 12:12 PM EDT Oxygen Saturation 97% 02/12/2025 10:32 AM EST Inhaled Oxygen Concentration - - Weight 75.8 kg (167 lb) 02/12/2025 10:32 AM EST Height 162.6 cm (5' 4 ) 02/12/2025 10:32 AM EST Body Mass Index 28.67 02/12/2025 10:32 AM EST Plan of Treatment Upcoming Encounters Date Type Department Care Team (Late st Contact Info) Description 03/05/2025 1:00 PM EST Appointment [facility] [place] [phone] Michael Jacome DO [address] [place] [address] 05/16/2025 1:15 PM EDT Office Visit [facility] [address] [address] Luis Alberto Lezama MD [address] [address] 08/13/2025 10:00 AM EDT Office Visit [facility] [address] [place] [id number] Michael Jacome DO [address] [place] [address] Health Maintenance Due Date Last [...] this topic Medical Devices Implanted Type Area Portal Developer Device Identifier Shelf Expiration Date Model / Serial / Lot Hardware Neck Procedures Procedure Name Priority Date/Time Associated Diagnosis Comments SC ARTHROCENTESIS ASPIR&/INJ MAJOR JT/BURSA W/O US Routine 01/10/2025 9:00 AM EST Acute pain of right shoulder from Last 3 Months Results * SC ARTHROCENTESIS ASPIR&/INJ MAJOR JT/BURSA W/O US (01/10/2025 [...] ORDERA IMAN Edited Result - Final ORTHOCINCY from Last 3 Months Insurance ANTHEM PPO ANTHEM PPO [employer] PPO Care Teams Pattern Marker Relationship Specialty Start Date End Date Nayeli Nelson [facility] [address] [place] [id number] PCP - General Family Medicine 08/07/15
--- OUTSIDE RECORDS SUMMARY | 2025-02-23 10:42 | XMS_ITS | Data Portability ---
Author Organization [facility] Address [address] [place] [address] Care Team Providers Care Civil Attorney Name Role Phone Unavailable Primary Care Provider Unavailabl e Assessment Encounter Date Assessment Date Assessment LastModified by Organization Details LastModified Time 05/19/2024 05/19/2024 Pain History: 53-year-old female returns [...] recognition technology. There may be unintended errors. [email or web address] Not available 05/19/2024 11:01:18 07/21/2024 07/21/2024 Pain [...] recognition technology. There may be unintended errors. [email or web address] Not available 07/21/2024 09:55:13 10/03/2024 10/03/2024 Pain [...] recognition technology. There may be unintended errors. [email or web address] Not available 10/03/2024 09:54:33 11/29/2024 11/29/2024 Pain [...] unintended errors. [email or web address] Not available 11/29/2024 09:51:49 02/07/2025 02/07/2025 Pain History: 54-year-old female comes in for routine follow-up of her ongoing pain in her neck and left shoulder. She states his pain has remained stable over the last few months. She describes her pain as aching, stiff, throbbing, constant. Pain is made worse with increased activity, walking, standing, going up and down stairs, weather change. Ms. Díaz currently reports with use of oral medication and conservative measures his pain is well managed. Denies any changes in health. This is an established patient with chronic [...] mg 1 3 times daily. Compliance Monitoring: UDS performed today for compliance monitoring. Most recent UDS confirmation from 10/03/2024 was [...] recognition technology. There may be unintended errors. [email or web address] Not available 02/07/2025 14:10:45 Plan of Treatment Reminders Order Date Submit Date Provider Last Modified By Organization Details Last Modified Time Details Appointments FOLLOW UP 15 2025 01:00P Eliazar NAVA NP Not available Not available Not available Lab drug screen, urine 2024 025 [facility], [facility], [address] [place] [address], [id number], 02/12/2025 09:45:38 drug screen, urine 2024 025 [facility], [facility], [address] [place] [address], [id number], 10/06/2024 12:49:52 drug screen, urine 2024 025 [facility], [facility], [address] [place] [address], [id number], 05/24/2024 13:13:33 Referral None recorded. Procedures remote therapeut ic monitorin g to monitor musculosk eletal system (PROC) - Patient prescribe d RTM (Remote Therapeut ic Monitorin g) to prevent further functiona l decline and monitor treatment effective ness. Patient will complete medicatio n tracking and physical therapy exercises as reza mai to take place over the next 12 months using the CP&S Ezra to also include functiona l assessmen ts as well as daily pain scores. Patient consent obtained and device provided. 2024 025 [email or web address] Not available 02/07/2025 14:12:52 Surgeries None recorded. Imaging None recorded. Medication Orders gabapenti n 800 mg tablet 2024 025 [facility], [address] [place], [address], 02/07/2025 15:01:20 tramadol 50 mg tablet 2024 025 [facility], [address] [place], [address], 02/07/2025 15:02:30 gabapenti n 800 mg tablet 2024 025 [facility], [address] [place], [address], 12/02/2024 09:02:27 tramadol 50 mg tablet 2024 025 [facility], [address] [place], [address], 12/02/2024 09:02:08 gabapenti n 800 mg tablet 2024 025 [facility], [address] [place], [address], 10/03/2024 11:03:26 tramadol 50 mg tablet 2024 025 [facility], [address] [place], [address], 10/03/2024 11:02:52 tramadol 50 mg tablet 2024 025 [facility], [address] [facility] [place], [address], 08/16/2024 13:29:32 gabapenti n 800 mg tablet 2024 025 [facility], [address] [place], [id number], 07/21/2024 09:53:03 tramadol 50 mg tablet 2024 025 [facility], [address] [place], [address], 05/31/2024 11:28:42 gabapenti n 800 mg tablet 2024 025 [facility], [address] [place] [place], [id number], 05/19/2024 10:59:35 Patient TargetsNo targets recorded. Patient Instructions Encounter Date Encounter Id Patient Instructions Last Modified By Organization Details Last Modified Time 10/03/2024 [id number] A healthy lifestyle: care instructions [email or web address] Not available 10/03/2024 09:50:11 safe use of opioid pain medicine: care instructions [email or web address] Not available 10/03/2024 09:50:11 Learning About Benefits of Quitting Smoking [email or web address] Not available 10/03/2024 09:50:11 02/07/2025 [id number] behavioral healt h screen* [email or web address] Not available 02/07/2025 14:32:12 chronic pain: care instructions [email or web address] Not available 02/07/2025 14:12:51 A healthy lifestyle: care instructions [email or web address] Not available 02/07/2025 14:12:51 safe use of opioid pain medicine: care instructions [email or web address] Not available 02/07/2025 14:12:51 Reason for Referral None Reported. Results Created Date Observation Date Name Description Value Unit Range Abnormal Flag Note LastModifiedBy Organization Detail LastModifiedTime Result Notes None recorded. Problems Name Problem SNOMED Code Status Onset Date Resolution Date Notes Provider Name and Address Organization Details Recorded Time Cervical radiculopathy 81720916 Active 2017 Chika Milton herman [place] - [facility] 8 08:20:26 Long-term drug therapy Active 2018 Bettye sutton, [place] 9 10:37:54 Cervical spondylosis 079091326 Active 2018 [place] Campoverde [facility] 5 14:26:46 Low back pain 392454527 Active 2022 MERCEDES NAVA NP [address] [place], [address] , [facility] 3 13:22:39 Chronic pain 89766498 Active 2023 Grecia sutton [facility] 5 14:00:37 Problem Notes None recorded. Procedures Surgical History Date Name Laterality Status Provider Name and Address Organization Details Recorded Time 07/18/19 25 excision of distal clavicle completed Ryan Grimaldo [facility] 07/21/2024 09:34:54 07/18/19 25 operation on shoulder joint completed MERCEDES NAVA NP [address] [place], [address], [facility] 07/21/2024 09:54:36 07/27/19 24 Cervical RFA: Posterior (2 Level Unilateral) completed Arcadio Boggs MD [address] [place] [address], [phone], [facility] 07/27/2023 09:41:47 06/23/19 24 Diagnostic Cervical MBB: Posterior (2 Level Unilateral) completed Arcadio Boggs MD [address] [place] [address], [phone], [facility] 06/23/2023 11:24:31 09/02/19 22 Cervical RFA: Posterior (2 Level Unilateral) completed Arcadio Boggs MD [address] [place], [address], [facility] 09/01/2021 14:48:52 07/15/19 22 Cervical RFA: Posterior (2 Level Unilateral) completed Arcadio Boggs MD [facility] [address], [place], [address], [place] - [facility] 07/14/2021 14:21:48 01/28/20 21 Cervical RFA: Posterior (2 Level Unilateral) completed Arcadio Boggs MD [facility] [place], [address], [place] - [facility] 01/27/2021 09:35:13 12/24/19 21 Cervical RFA: Posterior (2 Level Unilateral) completed Arcadio Boggs MD [address] [place] [address], [address], [place] - [facility] 12/23/2020 10:09:32 07/18/19 21 Cervical RFA: Posterior (2 Level Unilateral) completed Arcadio Boggs MD [address] [place] [address], [address], [place] - [facility] 07/17/2020 09:06:51 05/28/19 21 Cervical RFA: Posterior (2 Level Unilateral) completed Arcadio Boggs MD [address] [place] [address], [address], [place] - [facility] 05/27/2020 16:19:02 09/28/19 20 Cervical RFA: Posterior (2 Level Unilateral) completed Arcadio Boggs MD [address] [place] [address], [phone], [place] - [facility] 09/28/2019 09:16:09 08/30/19 20 Diagnostic Cervical MBB: Posterior (2 Level Unilateral) completed Arcadio Boggs MD [address] [place] [address], [address], [place] - [facility] 08/30/2019 10:39:23 08/16/19 20 Diagnostic Cervical MBB: Posterior (2 Level Unilateral) completed Arcadio Boggs MD [address] [place] [address], [address], [place] - [facility] 08/16/2019 09:49:04 07/17/19 20 Cervical RFA: Posterior (2 Level Unilateral) completed Arcadio Boggs MD [address] [place] [address], [address], [place] - [facility] 07/17/2019 16:11:22 01/12/20 19 Cervical RFA: Posterior (2 Level Unilateral) completed Arcadio Boggs MD [address] [place], [address], Anita Margarita - [facility] 01/11/2019 10:24:52 12/01/19 19 Cervical MBB (Lateral) 2 level completed Arcadio Boggs MD [address] [place], [address], An[place] Margarita - [facility] 11/30/2018 10:39:15 11/10/19 19 Cervical MBB (Lateral) 2 level completed Arcadio Boggs MD [address] [place] [address], [address], An[facility] Margarita - [facility] 11/09/2018 09:49:48 09/15/19 19 Cervical Epidural Steroid Injection: Interlaminar completed Arcadio Boggs MD [address] [place] [address], [address], Anita Margarita - [facility] 09/14/2018 11:37:03 06/08/19 19 Cervical Epidural Steroid Injection: Interlaminar completed Arcadio Boggs MD [address] [place] [address], [address], Anita Margarita - [facility] 06/07/2018 13:12:42 02/23/20 18 Cervical Epidural Steroid Injection: Interlaminar completed Arcadio Boggs MD [address] [place] [address], [address], Anita Margarita - [facility] 02/22/2018 11:51:00 11/25/19 18 Cervical Epidural Steroid Injection: Interlaminar completed Arcadio Boggs MD [address] [place] [address], [address], Anita Margarita - [facility] 11/24/2017 10:05:10 11/11/19 18 Cervical Epidural Steroid Injection: Interlaminar completed Eleanor Díaz [place] - [facility] 11/10/2017 12:37:14 08/07/19 17 General Surgery completed Chika Rose [place] - [facility] 11/10/2017 08:31:22 Carpal Tunnel Release completed Maria C Rice [place] - [facility] 09/19/2019 09:30:44 ACDF completed Maria C Rice [place] - [facility] 09/19/2019 09:30:44 General Surgery completed Reyna Alvarado [facility] 03/15/2023 11:01:05 Hysterectomy completed [facility] 11/10/2017 08:21:30 Cholecystectomy completed [facility] 11/10/2017 08:21:32 General Surgery completed [facility] 11/10/2017 08:21:44 Imaging Results None recorded. Procedure [...] 1 TABLETS BY MOUTH ONCE DAILY DIRECTED active Not Available Not Available No t Available prednisolon e acetate 1 % eye drops,suspe nsion 02/05 completed Not Available Not Available Not Available gabapentin 800 mg tablet TAKE 1 TABLET BY MOUTH 3 TIMES A DAY FOR 30 DAYS. active Not Available Not Available No [...] completed Not Available Not Available Not Available diltiazem CD 120 mg capsule,ext ended release 24 hr TAKE 1 CAPSULE BY MOUTH DAILY. active Not Available Not Available No t Available metoprolol succinate ER 25 mg tablet,exte nded release 24 hr 04/10 completed Not Available Not Available Not Available Valium 10 mg tablet Take one tab 30 mins prior to procedure . Must have spike driver to and from appoint 09/12 completed [...] Vitals Date Recorded Body height Heart rate Oxygen saturation Body mass index (BMI) Body weight Pain severity - 0-10 verbal numeric rating [Score] - Reported Systolic And Diastolic Provider Name and Address Organization Details Last Updated DateTime 5 162.56 cm 69 /min 97 % 27.5 kg/m2 46739.7 8 g 2 141/83 mm[Hg] Ryan Grimaldo [facility] 5 10:17:36 Date Recorded Body height Body mass index (BMI) Body weight Pain severity - 0-10 verbal numeric rating [Score] - Reported Heart rate Oxygen saturation Systolic And Diastolic Provider Name and Address Organization Details Last Updated DateTime 5 162.56 cm 27.5 kg/m2 47444.7 8 g 2 81 /min 99 % 77/66 mm[Hg] Ryan Grimaldo [facility] 5 09:35:12 Date Recorded Body height Body mass index (BMI) Body weight Provider Name and Address Organization Details Last Updated DateTime 10/03/2024 162.56 cm 27.5 kg/m2 09970.78 g Ryan [facility] 10/03/2024 09:28:39 Date Recorded Body height Body mass index (BMI) Body weight Pain severity - 0-10 verbal numeric rating [Score] - Reported Heart rate Oxygen saturation Systolic And Diastolic Provider Name and Address Organization Details Last Updated DateTime 5 162.56 cm 27.8 kg/m2 16401.9 6 g 3 68 /min 100 % 165/76 mm[Hg] Grecia Viveros [facility] 5 08:52:04 Date Recorded Body height Pain severity - 0-10 verbal numeric rating [Score] - Reported Body mass index (BMI) Body weight Oxygen saturation Heart rate Systolic And Diastolic Provider Name and Address Organization Details Last Updated DateTime 5 162.56 cm 2 27.8 kg/m2 22721.9 6 g 98 % 73 /min 133/81 mm[Hg] Grecia Viveros [facility] 5 13:23:46 Social History Question Answer Notes LastModified by Organizat ion Details LastModified Time Tobacco Smoking Status Current Some Day Smoker Chika sutton [facility] 11/10/2017 08:20:35 Do You Have An Advance Directive? No [email or web address] Information not available 11/23/2022 What Is Your [...] Type Of Diet Are You Following? REGULAR [email or web address] Information not available 11/23/2022 Which Illicit Or Recreational Drugs Have You Used? None [email or web address] Information not available 11/10/2017 Education 12 Information n ot available 07/28/2022 What Is The Highest Grade Or Level Of School You Have Completed Or The Highest Degree You Have Received? SF57570-9 [email or web address] Information not available 11/23/2022 How Many Times Per Week Do You Exercise? Less Than 1 Time Per Week [email or web address] Information not available 11/23/2022 Hard Of Hearing Or Deaf In One Or Both Ears? No Information not available 07/28/2022 Prescription Drug Abuse No [email or web address] Information not available 11/10/2017 Disability No [email or web address] Information no t available 11/10/2017 History Of Sexual Abuse No [email or web address] Information not available 11/10/2017 Marital Status Informati on not available 07/28/2022 What Was The Date Of Your Most Recent Tobacco Screening? 02/07/2025 [email or web address] Information not available 02/07/2025 What Is Your Relationship Status? Information not available 07/28/2022 At What Age Did You Start Smoking Tobacco? 19 Information not available 07/28/2022 How Much Tobacco Do You Smoke? 0.25 PPD Information not available 11/10/2017 General Stress Level Medium Information not available 07/28/2022 Has Tobacco Cessation Counseling Been Provided? No Information not available 07/28/2022 On What Date Was Tobacco Cessation Counseling Provided? 02/07/2025 [email or web address] Information not available 02/07/2025 How Many Years Have You Smoked Tobacco? 30 Information not available 07/28/2022 Do You Have Difficulty Walking Or Climbing Stairs? No Information not available 07/28/2022 Sex: Unknown Functional Status Question Answer Note LastModified by Organizat ion Details LastModified Time What is your level of alcohol consumption? Occasional [email or web address] Information not available 11/10/2017 Do you or have you ever used smokeless tobacco? Never used smokeless tobacco Information not available 07/28/2022 Are you currently employed? Yes [email or web address] Information not available 11/23/2022 Are you able to walk independently without assistance or assistive devices? [email or web address] Information not available 09/19/2019 Do you have difficulty doing errands alone? 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 [email or web address] Information not available 11/10/2017 Do you have [...] Time Father No current problems or disability Not available 11/10 08:20:31 Mother No current problems or disability [email or web address] Not available 11/10 08:20:31 Medical History Condition Response Bipolar Disease N Coronary Artery Disease N Gout N Seizure Disorder N Thyroid Disease N Atrial Fibrillation N Hernia N Head Trauma/Injury N COPD N Depression N Anxiety Disorder N Acid Reflux (GERD) N Cancer N Skin Disorder N Stroke Y High Cholesterol N Liver Disease N Rheumatoid Arthritis N Fibromyalgia N Headaches N Autoimmune Disease N Kidney Disease N Osteoarthritis N Neurosurgery N DVT N Peptic Ulcer Disease N Anemia N Heart Attack (SC) N Diabetes N Cardiomyopathy N Bleeding Disorder [...] ICD10 Code Diagnosis IMO Codes Diagnosis Note [id number] Arcadio Boggs MD [place] [address] [place] [address] 11/10/2017 08:11:20 11/10/2017 09:26:37 Long-term drug therapy 475292197 Z79.899 Cervical radiculopathy 86164587 M54.12 history and exam are consistent with cervical radiculiti s, supported by imaging. Symptoms have not responded to >3 months conservati ve therapy and symptoms are affecting her ability to perform ADLs. I will set her up for a diagnostic cervical epidural injection. Medication monitoring 39 9120973 Z79.899 A preliminar y urine drug screen was obtained today and will be sent for confirmati on of all substances for baseline testing to aid in risk stratifica tion and rule out illicit drug use prior to prescribin g controlled substances . [id number] Arcadio Boggs MD [place] [address] [place] [address] 11/10/2017 08:12:41 11/10/2017 09:26:13 Cervical radiculopathy 84183604 M54.12 [id number] Arcadio Boggs MD [place] [address] [place] [address] 11/24/2017 09:08:50 11/24/2017 09:50:32 Cervical radiculopathy 29708588 M54.12 [id number] MD Ling Zendejas [place] [address] [place] [address] 12/22/2017 09:29:11 12/22/2017 10:03:28 Long-term drug therapy 629968976 Z79.899 Cervical radiculopathy 43011945 M54.12 Consider MATILDA in future as patient reports ongoing relief of 95% at this time from injection on 11/24/17. [id number] Arcadio Boggs MD [place] [address],[facility] [address] [place] [address] 6 02/18/2018 09:11:00 02/18/2018 09:38:56 Cervical radiculopathy 28839052 M54.12 History and exam are consistent with cervical radiculiti s, supported by imaging. Has not responded to greater than 3 months conservati ve therapy including but not limited to rest, ice/heat, medication s, therapy. Symptoms are affecting ability to perform ADLs. History of >95% intermediate frame tender relief with MATILDA. [id number] rAcadio Boggs MD [place] [address],[facility] [address] [place] [address] 6 02/22/2018 10:28:56 02/22/2018 11:35:23 Cervical radiculopathy 44928422 M54.12 [id number] Arcadio Boggs MD [place] [address],[facility] [address] [place] [phone] 03/24/2018 10:11:49 03/24/2018 10:49:38 Cervical radiculopathy 18135031 M54.12 Long-term drug therapy 678576797 Z79.899 [id number] Arcadio Boggs MD [place] [address],[facility] [address] [place] [address] 05/23/2018 13:25:18 05/23/2018 14:10:25 Long-term drug therapy 490537910 Z79.899 Cervical radiculopathy 35064162 M54.12 History and exam are consistent with cervical radiculiti s, supported by imaging which we reviewed today. Has not responded to greater than 3 months conservati ve therapy including but not limited to rest, ice/heat, medication s, therapy. Symptoms are affecting ability to perform ADLs. Prior MATILDA's offering up to 95% relief. I will submit for therapeuti c MATILDA C6-7. [id number] MD [place] [address],[facility] [address] [place] [address] 06/07/2018 10:15:22 06/07/2018 10:56:34 Cervical radiculopathy 88696885 M54.12 [id number] Arcadio Boggs MD [place] [address] [place] [address] 07/06/2018 10:42:10 07/06/2018 11:06:20 Cervical radiculopathy 01237241 M54.12 Most recent epidural injection with ongoing relief of >60%. Long-term drug therapy 492183607 Z79.899 [id number] Arcadio Boggs MD [place] [address] [place] [address] 08/31/2018 08:46:33 08/31/2018 09:53:57 Cervical radiculopathy 53689323 M54.12 History and exam are consistent with [...] therapeuti c MATILDA C6-7. Long-term drug therapy 593936189 Z79.899 [id number] Arcadio Boggs MD [place] [address] [place] [address] 09/14/2018 08:49:22 09/14/2018 09:49:38 Cervical radiculopathy 57915065 M54.12 [id number] Arcadio Boggs MD [place] [address] [place] [address] 10/19/2018 08:47:57 10/19/2018 09:58:31 Long-term drug therapy 242531527 Z79.899 Cervical spondylosis 387 967255 M47.812 History and exam are consistent with symptoms from cervical facet OA, supported by imaging. Pain is axial with no radicular component. Has not responded to > 3 months conservati ve therapy and symptoms are affecting her ability to perform ADLs. Will submit for left CMBB C2-4 and plan to proceed to RFA if results favorable. [id number] Arcadio Boggs MD [place] [address] [place] [address] 11/09/2018 08:07:32 11/09/2018 08:42:19 Cervical spondylosis 576240887 M47.812 [id number] Arcadio Boggs MD [place] [address] [place] [address] 11/30/2018 08:15:08 11/30/2018 08:58:45 Cervical spondylosis 124165097 M47.812 [id number] Bettye Hill NP [place] [address] [place] [address] 12/07/2018 08:38:43 12/07/2018 09:02:48 Cervical spondylosis 733124499 M47.812 Patient with cervical arthritis confirmed by imaging. She has completed two successful left sided CMBB's on with >90% relief lasting up to 4 days. Will submit for left RFA C2-4. Long-term drug therapy 666207337 Z79.899 [id number] Arcadio Boggs MD [place] [address] [place] [address] 01/11/2019 08:14:25 01/11/2019 09:35:23 Cervical spondylosis 859607134 M47.812 [id number] Bettye Hill NP [place] [address] [place] [address] 02/09/2019 09:34:34 02/09/2019 10:26:46 Cervical spondylosis 602858648 M47.812 Long-term drug therapy 827608577 Z79.899 [id number] Arcadio Boggs MD [place] [address] [place] [address] 04/10/2019 08:44:45 04/10/2019 09:24:16 Long-term drug therapy 917895576 Z79.899 Send for LCMS confirmati on of Gabapentin to confirm the quantitati ve level of this drug and its metabolite as it will not be detected in IA testing and the patient is currently prescribed Gabapentin . Cervical radiculopathy 59190460 M54.12 [id number] Bettye Hill NP [place] [address] [place] [address] 07/06/2019 08:46:45 07/06/2019 09:20:36 Long-term drug therapy 258138373 Z79.899 Cervical spondylosis 387 406699 M47.812 Patient with cervical arthritis confirmed by imaging. She has completed two successful left sided CMBB's with >90% relief lasting up to 4 days. Prior left cervical RFA offering 98% relief for nearly 6 months. Will submit for repeat Cervical RFA left sided C2-4. [id number] Arcadio Boggs MD [place] [address] [place] [address] 07/17/2019 14:34:46 07/17/2019 15:32:14 Cervical spondylosis 894832871 M47.812 [id number] Bettye Hill NP [place] [address] [place] [address] 08/03/2019 11:30:46 08/03/2019 12:16:39 Long-term drug therapy 052163106 Z79.899 Send for LCMS confirmati on of Gabapentin to confirm the quantitati ve level of this drug and its metabolite as it will not be detected in [place] testing and the patient is currently prescribed Gabapentin . Cervical spondylosis 387 319547 M47.812 History and exam are consistent with pain from cervical spondylosi s, supported by imaging. Pain is axial, no radicular component. Has not responded to > 3 months conservati ve therapy and symptoms are affecting her ability to perform ADLs. Schedule for right sided diagnostic CMBB C2-4 with eventual advancemen t to cervical RFA if appropriat e. [id number] Arcadio Boggs MD [place] [address] [place] [address] 08/16/2019 08:54:50 08/16/2019 09:42:07 Cervical spondylosis 450295943 M47.812 [id number] Arcadio Boggs MD [place] [address] [place] [address] 08/30/2019 08:58:00 08/30/2019 09:14:30 Cervical spondylosis 705324468 M47.812 [id number] Arcadio Boggs MD [place] [address] [place] [address] 09/19/2019 09:02:47 09/19/2019 09:43:25 Cervical spondylosis 219199060 M47.812 Long-term drug therapy 340645459 Z79.899 The urine sample is being sent [...] not prescribed or reported by the patient. [id number] Arcadio Boggs MD [place] [address] [place] [address] 09/28/2019 07:57:01 09/28/2019 08:30:09 Cervical spondylosis 981560055 M47.812 [id number] Arcadio oBggs MD [place] [address] [place] [address] 10/17/2019 09:39:46 10/17/2019 10:03:13 Cervical spondylosis 790257649 M47.812 Long-term drug therapy 048586605 Z79.899 Send for LCMS confirmati on of [...] medication s in our community. Cervical radiculopathy 28718598 M54.12 [id number] Arcadio Boggs MD [place] [address] [place] [address] 12/07/2019 09:07:16 12/07/2019 09:48:37 Cervical spondylosis 123521819 M47.812 Cervical radiculopathy 44124514 M54.12 Long-term drug therapy 837363770 Z79.899 Up to date Informed Consent and Opioid Agreement have been signed and incorporat ed into the chart. Patient has been provided written educationa l materials regarding potential adverse effects of intermediate frame tender opioid therapy MEDICAL INDICATION S: Pain has [...] THIS PATIENT IS BENEFITING FROM OPIOID THERAPY. [id number] Arcadio Boggs MD [place] [address] [place] [address] 02/06/2020 13:00:21 02/06/2020 13:20:41 Long-term drug therapy 666474321 Z79.899 Up to date Informed Consent and Opioid Agreement have been signed and incorporat ed into the chart. Patient has been provided written educationa l materials regarding potential adverse effects of intermediate frame tender opioid therapy MEDICAL INDICATION S: Pain has [...] BENEFITING FROM OPIOID THERAPY. Cervical spondylosis 387 952827 M47.812 Cervical radiculopathy 01312809 M54.12 [id number] MD [place] [place] [address] [address] 04/08/2020 09:18:48 04/08/2020 09:40:41 Cervical spondylosis 475331280 M47.812 Cervical radiculopathy 01802563 M54.12 Long-term drug therapy 450363776 Z79.358 [id number] Arcadio Boggs MD [place] [address],[place] [address] 05/07/2020 11:27:53 05/07/2020 12:10:21 Long-term drug therapy 206850905 Z79.899 Send for LCMS confirmati on of [...] prescribed a Synthetic Opioid. Cervical spondylosis 387 567114 M47.812 Patient with cervical arthritis confirmed by imaging. She has completed two successful left sided CMBB's with >90% relief lasting up to 4 days. Previous cervical RFA with 90% relief lasting >6 months. Will submit to repeat Cervical RFA C2-4 starting with right side and proceeding to the left. Cervical radiculopathy 29687164 M54.12 [id number] MD Ling Zendejas [facility] [address] [address] 05/27/2020 14:28:50 05/27/2020 15:17:12 Cervical spondylosis 086298022 M47.458 [id number] MD [place] [address] [place] [address] 07/04/2020 11:12:57 07/04/2020 11:43:33 Cervical spondylosis 914542098 M47.812 Long-term drug therapy 790931071 Z79.987 [id number] Arcadio Boggs MD [place] [address] [place] [address] 07/17/2020 07:50:10 07/17/2020 08:20:49 Cervical spondylosis 041974277 M47.314 [id number] Arcadio Boggs MD [place] [address] [place] [address] 09/03/2020 10:19:03 09/03/2020 10:41:02 Long-term drug therapy 266899242 Z79.463 [id number] Arcadio Boggs MD [place] [address] [place] [address] 10/31/2020 10:16:26 10/31/2020 10:49:58 Cervical spondylosis 572209761 M47.812 Long-term drug therapy 741029314 Z79.899 Cervical radiculopathy 27907433 M54.12 [id number] Arcadio Boggs MD [place] [address] [place] [address] 12/23/2020 08:52:44 12/23/2020 09:26:02 Cervical spondylosis 668515798 M47.739 [id number] Arcadio Boggs MD [place] [address],[place] [address] 12/31/2020 10:00:22 12/31/2020 10:30:56 Cervical spondylosis 952004488 M47.812 Long-term drug therapy 106987877 Z79.899 Cervical radiculopathy 48395621 M54.12 [id number] Arcadio Boggs MD [place] [address] [place] [address] 01/27/2021 08:32:56 01/27/2021 09:00:29 Cervical spondylosis 727213453 M47.376 [id number] Arcadio Boggs MD [place] [address] [place] [address] 02/25/2021 10:23:25 02/25/2021 10:36:33 Cervical spondylosis 206262870 M47.812 Cervical radiculopathy 21738900 M54.12 Long-term drug therapy 412306541 Z79.899 Send for LCMS confirmati on of [...] the patient is currently prescribed Gabapentin . [id number] MD Ling Zendejas [place] [address] [address] 04/29/2021 09:40:01 04/29/2021 10:00:57 Cervical spondylosis 475570153 M47.812 Cervical radiculopathy 31783542 M54.12 [id number] MD [place] [address],[facility] [address] [place] [address] 06/24/2021 09:17:17 06/24/2021 10:14:56 Long-term drug therapy 743953076 Z79.899 Send for LCMS confirmati on of Synthetic Opioids (Fentanyl, Tramadol, Tapentadol , Methadone, and Buprenorph ine) confirm the quantitati ve levels of these drugs as they will not be detected in [place] testing and the patient is currently prescribed a Synthetic Opioid. Cervical spondylosis 387 512478 M47.812 Cervical radiculopathy 03686002 M54.12 [id number] MD Ling Zendejas [facility] [address] [place] [address] 07/14/2021 12:38:25 07/14/2021 13:07:18 Cervical spondylosis 522127217 M47.424 [id number] MD Ling Zendejas [facility] [address] [place] [address] 08/19/2021 09:19:27 08/19/2021 09:54:52 Long-term drug therapy 883257715 Z79.899 Send for LCMS confirmati on of Synthetic Opioids (Fentanyl, Tramadol, Tapentadol , Methadone, and Buprenorph ine) confirm the quantitati ve levels of these drugs as they will not be detected in [place] testing and the patient is currently prescribed a Synthetic Opioid. Cervical spondylosis 387 056870 M47.812 Cervical radiculopathy 20462891 M54.12 [id number] Arcadio Boggs MD [place] [address] [place] [address] 09/01/2021 13:06:58 09/01/2021 13:54:11 Cervical spondylosis 257563711 M47.046 [id number] Arcadio Boggs MD [place] [address] [address] 01/12/2022 07:50:42 01/12/2022 08:05:37 Long-term drug therapy 377775886 Z79.899 Send for LCMS confirmati on of Synthetic Opioids (Fentanyl, Tramadol, Tapentadol , Methadone, and Buprenorph ine) confirm the quantitati ve levels of these drugs as they will not be detected in [place] testing and the patient is currently prescribed a Synthetic Opioid. Cervical spondylosis 387 205007 M47.812 Cervical radiculopathy 12132797 M54.12 [id number] Arcadio Boggs MD [place] [address] [place] [address] 03/16/2022 08:19:26 03/16/2022 08:42:16 Long-term drug therapy 640555423 Z79.899 Cervical spondylosis 387 249461 M47.812 Cervical radiculopathy 97835083 M54.12 [id number] [place] York APRN [place] [address] [place] [address] 06/02/2022 12:49:42 06/02/2022 13:12:20 Long-term drug therapy 865055957 Z79.899 Based on the patients urine confirmati on (LCMS) results, the patient's overall risk level will remain the same. I would consider the patient to be Low risk based on these new results. In response to the patient's risk level and urine confirmati on I plan to not change the patient's opioid prescripti on. Cervical spondylosis 387 210939 M47.812 Cervical radiculopathy 19004449 M54.12 [id number] Arcadio Boggs MD [place] [address] [place] [address] 07/28/2022 14:42:13 07/28/2022 15:12:54 Cervical spondylosis 588792168 M47.812 Cervical radiculopathy 17688309 M54.12 Long-term drug therapy 549715572 Z79.899 Up to date Informed Consent and Opioid Agreement have been signed and incorporat ed into the chart. Patient has been provided written educationa l materials regarding potential adverse effects of intermediate opioid therapy MEDICAL INDICATION S: Pain has [...] THIS PATIENT IS BENEFITING FROM OPIOID THERAPY. [id number] Arcadio Boggs MD [place] [address] [address] 09/16/2022 12:28:42 09/16/2022 12:52:14 Long-term drug therapy 239832652 Z79.899 Up to date Informed Consent and Opioid Agreement have been signed and incorporat ed into the chart. Patient has been provided written educationa l materials regarding potential adverse effects of intermediate frame tender opioid therapy MEDICAL INDICATION S: Pain has [...] IS BENEFITING FROM OPIOID THERAPY. Cervical radiculopathy 71646563 M54.12 Cervical spondylosis 387 524540 M47.775 [id number] Arcadio Boggs MD [place] [address] [place] [address] 6 11/23/2022 07:49:14 11/23/2022 08:24:14 Cervical radiculopathy 36663253 M54.12 Cervical spondylosis 387 042320 M47.812 Long-term drug therapy 819720669 Z79.893 [id number] Arcadio Boggs MD [place] [address],[facility] [address] [place] [address] 6 01/21/2023 12:49:23 01/21/2023 13:13:31 Cervical spondylosis 038028907 M47.812 Cervical radiculopathy 10576614 M54.12 Long-term drug therapy 465451578 Z79.899 Low back pain 965710278 M54.50 [id number] Arcadio Boggs MD [place] [address],[place] [address] 6 03/15/2023 10:50:44 03/15/2023 11:11:09 Long-term drug therapy 934102916 Z79.899 Cervical spondylosis 387 421716 M47.812 Low back pain 300666847 M54.50 Cervical radiculopathy 72025782 M54.12 [id number] Arcadio Boggs MD [place] [address],[facility] [place] [address] 6 05/17/2023 12:36:48 05/17/2023 13:03:11 Cervical spondylosis 901405726 M47.812 Long-term drug therapy 575154953 Z79.899 Send for LCMS confirmati on of [...] is currently prescribed Gabapentin . Cervical radiculopathy 38495824 M54.12 Low back pain 369579526 M54.50 [id number] Arcadio Boggs MD [place] [address] [place] [address] 6 06/23/2023 09:42:41 06/23/2023 10:47:33 Cervical spondylosis 662489528 M47.290 [id number] Arcadio Boggs MD [place] [address] [place] [address] 6 07/15/2023 13:51:26 07/15/2023 14:28:20 Cervical spondylosis 665794388 M47.812 Cervical radiculopathy 37747492 M54.12 Long-term drug therapy 465544155 Z79.508 [id number] Arcadio Boggs MD [place] [address] [place] [address] 6 07/27/2023 07:51:28 07/27/2023 08:00:19 Cervical spondylosis 006429932 M47.407 [id number] Arcadio Boggs MD [place] [address] [place] [address] 6 09/13/2023 13:32:37 09/13/2023 13:55:42 Long-term drug therapy 739177659 Z79.899 Cervical radiculopathy 30514722 M54.12 Cervical spondylosis 387 710648 M47.812 Chronic pain 97940849 G8 9.29 [id number] Arcadio Boggs MD [place] [address] [place] [address] 11/18/2023 13:24:16 11/18/2023 13:51:27 Cervical radiculopathy 28786160 M54.12 Cervical spondylosis 387 406631 M47.812 Chronic pain 47215312 G8 9.29 Long-term drug therapy 389295826 Z79.746 [id number] ABDIAZIZ QUIROZ MD [place] [address] [place] [address] 01/18/2024 09:07:06 01/18/2024 09:57:27 Long-term drug therapy 290356800 Z79.899 Cervical radiculopathy 80764247 M54.12 Patient denies any radiating pain into the arms. She has ongoing benefit with use of the gabapentin would like to continue as prescribed . Cervical spondylosis 387 199954 M47.812 Ongoing relief from cervical RFA performed back in July. She states she will let us know if pain returns and she wishes to repeat this treatment. Overall with use of the tramadol she states she is able to remain functional on a daily basis and denies any side effects. Will continue this plan unchanged. Chronic pain 95397651 G8 9.29 [id number] ABDIAZIZ QUIROZ MD [place] [address] [address] 03/14/2024 10:47:09 03/14/2024 11:03:56 Long-term drug therapy 812478922 Z79.899 Send for LCMS confirmati on of [...] is currently prescribed Gabapentin . Chronic pain 43905745 G8 9.29 Cervical spondylosis 387 068973 M47.812 Patient reports continued benefit with use [...] she wishes to repeat this. Cervical radiculopathy 68385697 M54.12 No significan t radiating arm pain at this time. [id number] ABDIAZIZ QUIROZ MD [place] [address] [address] 05/19/2024 10:09:27 05/19/2024 10:32:03 Long-term current use of drug therapy 942622805 Z79.899 [id number] Send for LCMS confirmati on of Tramadol [...] is currently prescribed Gabapentin . Chronic pain 76404279 G8 9.29 Cervical spondylosis 387 129993 M47.812 For now the patient feels well-maint ained with use of oral medication . She states she is able to remain functional and care for self on a daily basis. She does have ongoing relief from cervical RFA performed back in July 2023. She will let us know if pain increases and she wishes to repeat this. Cervical radiculopathy 94405933 M54.12 [id number] LENIN YOUNG MD [place] [address] [place] [address] 07/21/2024 09:26:30 07/21/2024 09:50:31 Cervical spondylosis 129353412 M47.812 She does not feel injection therapy [...] shoulder surgery 5 days ago. Chronic pain 76727820 G8 9.29 Cervical radiculopathy 27238449 M54.12 [id number] LENIN YOUNG MD [place] [address] [place] [address] 10/03/2024 09:24:49 10/03/2024 09:45:11 Cervical spondylosis 871331703 M47.812 Patient's had success with cervical RFA [...] changes with this plan today. Chronic pain 19684735 G8 9.29 Long-term drug therapy 802528882 Z79.899 Send for LCMS confirmati on of Tramadol to confirm the quantitati ve levels of these drugs that the patient is prescribed . Send for LCMS confirmati on of Gabapentin to confirm the quantitati ve level of this drug and its metabolite as it will not be detected in qualitativ e screen and the patient is currently prescribed Gabapentin . [id number] LENIN YOUNG MD [place] [address] [place] [address] 11/29/2024 08:42:48 11/29/2024 09:19:58 Cervical spondylosis 446319812 M47.812 Patient's had success with cervical RFA [...] any changes at this time. Chronic pain 29041906 G8 9. [id number] Anil Yates MD [place] [address] [place] [address] 02/07/2025 13:08:48 02/07/2025 13:32:45 Long-term current use of drug therapy 446988612 Z79.899 [id number] The patient was advised that the purpose of this urine drug screen is to monitor for compliance and to assist in risk stratifica tion. Cervical spondylosis 387 138090 M47.812 Patient's had success with cervical RFA in the past. She states she will let us know if pain increases and she wishes to repeat. At this time is well-contr olled with medication as well as conservati ve measures. She is able to maintain a fairly normal level of activity and physical functionin g with her current medication regimen. No change with this today. Chronic pain 57369975 G8 9. [id number] Health Concerns Section Related Observation LastModified by Organization Detai ls LastModified Time None Recorded Concern Status LastModified by Organization Details LastModified Time None Recorded Advance Directives Directive N: Payers Insurance Date Sequence Insurance Name Policy Number Policy Munoz Covered Member ID Munoz Member ID Guarantor Name 02/12/2025 1 [place] [id number] Teja Díaz [id number] Maryjo Díaz 03/15/2023 1 [place] [id number] Teja Díaz [id number] Maryjo Díaz Notes Date Note Type Note Provider Name and Address Organization Details Recorded Time 05/20/19 25 text/ht ml Neck painReported by PatientHPIFor quality, patient reportsthrobbing,stabbing,sharp, andtingling. For associated symptoms, patient reportsnumbnessandtinglingbut reportsno weakness,no dizziness,no pain in upper extremities,no popping/clicking,no bladder incontinence, andno bowel incontinence. 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 MERCEDES NAVA NP [address] [place] [address], [phone], [facility] 05/19/2024 11:03:01 07/22/19 25 text/ht ml Neck painReported by PatientHPIFor quality, patient reportsthrobbing,stabbing,sharp, andtingling. For associated symptoms, patient reportsnumbnessandtinglingbut reportsno weakness,no dizziness,no pain in upper extremities,no popping/clicking,no bladder incontinence, andno bowel incontinence. 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 MERCEDES NAVA NP [address] [place] [address], [phone], [facility] 07/21/2024 09:56:22 10/04/19 25 text/ht ml Neck painReported by PatientHPIFor quality, patient reportsthrobbing,stabbing,sharp, andtingling. For associated symptoms, patient reportsnumbnessandtinglingbut reportsno weakness,no dizziness,no pain in upper extremities,no popping/clicking,no bladder incontinence, andno bowel incontinence. 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 MERCEDES NAVA NP [address] [place] [address], [phone], [facility] 10/03/2024 09:56:15 11/30/19 25 text/ht ml Neck painReported by PatientHPIFor quality, patient reportsthrobbing,stabbing,sharp, andtingling. For associated symptoms, patient reportsnumbnessandtinglingbut reportsno weakness,no dizziness,no pain in upper extremities,no popping/clicking,no bladder incontinence, andno bowel incontinence. 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 Caroline York, HOME LIGHTING ADVISER [address] [place], [address], [facility] 11/29/2024 09:53:13 02/08/20 25 text/ht ml Neck painReported by PatientHPIFor quality, patient reportsthrobbing,stabbing,sharp, andtingling. For associated symptoms, patient reportsnumbnessandtinglingbut reportsno weakness,no dizziness,no pain in upper extremities,no popping/clicking,no bladder incontinence, andno bowel incontinence. 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 For medications history, patient reportsnsaids: (meloxicam-not helpful, ibu 800-not helpful.)andneuropathics: (cymbalta-not helpful.). For working, patient reportsregular duty. For prior pain management, patient reportsno. For for female patients, patient reportsare you ? no. For complete care program, patient reportsorder date: (02/07/25). MERCEDES NAVA NP [address] [place] [address], [phone], [facility] 02/07/2025 14:14:27 OBGyn Episode No OBEpisode recorded.
--- OUTSIDE RECORDS SUMMARY | 2025-02-23 10:42 | XMS_ITS | Continuity of Care Document ---
Author Organization [facility], [place] Address [address] [place] [address] Care Team Providers Care Junior Account Manager Name Role Phone Unavailable Primary Care Provider Unavailabl e Assessment Encounter Date Assessment Date Assessment LastModified by Organization Details LastModified Time 02/07/2025 02/07/2025 Pain History: 54-year-old female comes [...] recognition technology. There may be unintended errors. [email or web address] Not available 02/07/2025 14:10:45 Plan of Treatment Reminders Order Date Submit Date Provider Last Modified By Organization Details Last Modified Time Details Appointments FOLLOW UP 15 2025 01:00P Eliazar NAVA NP Not available Not available Not available Lab drug screen, urine 2024 [facility], [address] [place] [address], [address], 02/12/2025 09:45:38 Referral None recorded. Procedures remote therapeut ic monitorin g to monitor musculosk eletal system (PROC) - Patient prescribe d RTM (Remote Therapeut ic Monitorin g) to prevent further functiona l decline and monitor treatment effective ness. Patient will complete medicatio n tracking and physical therapy exercises as instructe d. Monitorin g to take place over the next 12 months using the CP&S Ezra to also include functiona l assessmen ts as well as daily pain scores. Patient consent obtained and device provided. 2024 [email or web address] Not available 02/07/2025 14:12:52 Surgeries None recorded. Imaging None recorded. Medication Orders gabapenti n 800 mg tablet 2024 [facility], [address] [facility] [facility] [place], [address], 02/07/2025 15:01:20 tramadol 50 mg tablet 2024 025 [facility], [address], [address], [place], [address], 02/07/2025 15:02:30 Patient TargetsNo targets recorded. Patient Instructions Encounter Date Encounter Id Patient Instructions Last Modified By Organization Details Last Modified Time 02/07/2025 [id number] behavioral healt h screen* [email or web address] Not available 02/07/2025 14:32:12 chronic pain: care instructions [email or web address] Not available 02/07/2025 14:12:51 A healthy lifestyle: care instructions [email or web address] Not available 02/07/2025 14:12:51 safe use of opioid pain medicine: care instructions [email or web address] Not available 02/07/2025 14:12:51 Reason for Referral None Reported. Results Created Date Observation Date Name Description Value Unit Range Abnormal Flag Note LastModifiedBy Organization Detail LastModifiedTime Result Notes None recorded. Problems Name Problem SNOMED Code Status Onset Date Resolution Date Notes Provider Name and Address Organization Details Recorded Time Cervical radiculopathy 56344893 Active 2017 Chika sutton [facility] 8 08:20:26 Long-term drug therapy Active 2018 Bettye sutton [facility] 9 10:37:54 Cervical spondylosis 659927223 Active 2018 Grecia sutton [facility] 5 14:26:46 Low back pain 647819968 Active 2022 MERCEDES NAVA NP [address] [place], [address] , [facility] 3 13:22:39 Chronic pain 25052643 Active 2023 Grecia sutton [facility] 5 14:00:37 Problem Notes None recorded. Procedures Surgical History Date Name Laterality Status Provider Name and Address Organization Details Recorded Time 07/18/19 25 excision of distal clavicle completed Ryan Grimaldo [place] [facility] 07/21/2024 09:34:54 07/18/19 25 operation on shoulder joint completed MERCEDES NAVA NP [address] [place], [address], [place] [facility] 07/21/2024 09:54:36 07/27/19 24 Cervical RFA: Posterior (2 Level Unilateral) completed Arcadio Boggs MD [address] [place], [address], [facility] 07/27/2023 09:41:47 06/23/19 24 Diagnostic Cervical MBB: Posterior (2 Level Unilateral) completed Aracdio Boggs MD [address] [place] [address], [address], [facility] - [facility] 06/23/2023 11:24:31 09/02/19 22 Cervical RFA: Posterior (2 Level Unilateral) completed Arcadio Boggs MD [address] [place] [address], [address], [facility] - [facility] 09/01/2021 14:48:52 07/15/19 22 Cervical RFA: Posterior (2 Level Unilateral) completed Arcadio Boggs MD [address] [place] [address], [address], [place] [facility] 07/14/2021 14:21:48 01/28/20 21 Cervical RFA: Posterior (2 Level Unilateral) completed Arcadio Boggs MD [address] [place] [address], [address], [facility] - [facility] 01/27/2021 09:35:13 12/24/19 21 Cervical RFA: Posterior (2 Level Unilateral) completed Arcadio Boggs MD [address] [place], [address], [place] [facility] 12/23/2020 10:09:32 07/18/19 21 Cervical RFA: Posterior (2 Level Unilateral) completed Arcadio Boggs MD [address] [place] [address], [address], [facility] - [facility] 07/17/2020 09:06:51 05/28/19 21 Cervical RFA: Posterior (2 Level Unilateral) completed Arcadio Boggs MD [address] [place] [address], [address], [facility] 05/27/2020 16:19:02 09/28/19 20 Cervical RFA: Posterior (2 Level Unilateral) completed Arcadio Boggs MD [address] [place], [address], [facility] 09/28/2019 09:16:09 08/30/19 20 Diagnostic Cervical MBB: Posterior (2 Level Unilateral) completed Arcadio Boggs MD [address] [place], [address], [facility] 08/30/2019 10:39:23 08/16/19 20 Diagnostic Cervical MBB: Posterior (2 Level Unilateral) completed Arcadio Boggs MD [address] [place] [address], [address], [facility] 08/16/2019 09:49:04 07/17/19 20 Cervical RFA: Posterior (2 Level Unilateral) completed Arcadio Boggs MD [address] [place] [address], [address], [facility] 07/17/2019 16:11:22 01/12/20 19 Cervical RFA: Posterior (2 Level Unilateral) completed Arcadio Boggs MD [address] [place] [address], [address], [facility] 01/11/2019 10:24:52 12/01/19 19 Cervical MBB (Lateral) 2 level completed Arcadio Boggs MD [address] [place] [address], [address], [facility] 11/30/2018 10:39:15 11/10/19 19 Cervical MBB (Lateral) 2 level completed Arcadio Boggs MD [address] [place], [address], [facility] 11/09/2018 09:49:48 09/15/19 19 Cervical Epidural Steroid Injection: Interlaminar completed Arcadio Boggs MD [address] [place] [address], [address], [facility] 09/14/2018 11:37:03 06/08/19 19 Cervical Epidural Steroid Injection: Interlaminar completed Arcadio Boggs MD [address] [place] [address], [address], [facility] 06/07/2018 13:12:42 02/23/20 18 Cervical Epidural Steroid Injection: Interlaminar completed Arcadio Boggs MD [address] [place] [address], [address], [facility] 02/22/2018 11:51:00 11/25/19 18 Cervical Epidural Steroid Injection: Interlaminar completed Arcadio Boggs MD [address] [place], [address], [facility] 11/24/2017 10:05:10 11/11/19 18 Cervical Epidural Steroid Injection: Interlaminar completed Eleanor Díaz [facility] 11/10/2017 12:37:14 08/07/19 17 General Surgery completed Chika [facility] 11/10/2017 08:31:22 Carpal Tunnel Release completed Maria C Higuera [facility] 09/19/2019 09:30:44 ACDF completed Maria C Higuera [facility] 09/19/2019 09:30:44 General Surgery completed Reyna Alvarado [facility] 03/15/2023 11:01:05 Hysterectomy completed [facility] 11/10/2017 08:21:30 Cholecystectomy completed [facility] 11/10/2017 08:21:32 General Surgery completed [facility] 11/10/2017 08:21:44 Imaging Results None recorded. Procedure [...] mins prior to procedure . Must have dedicated driver to and from appoint 09/12 completed [...] t Available Vitals Date Recorded Body height Pain severity - 0-10 verbal numeric rating [Score] - Reported Body mass index (BMI) Body weight Oxygen saturation Heart rate Systolic And Diastolic Provider Name and Address Organization Details Last Updated DateTime 5 162.56 cm 2 27.8 kg/m2 25041.9 6 g 98 % 73 /min 133/81 mm[Hg] Grecia Viveros [facility] 13:23:46 Social History Question Answer Notes LastModified by Organizat ion Details LastModified Time Tobacco Smoking Status [facility] 08:20:35 Do You Have An Advance Directive? No [email or web address] Information not available 11/23/2022 What Is Your [...] Type Of Diet Are You Following? REGULAR [email or web address] Information not available 11/23/2022 Which Illicit Or Recreational Drugs Have You Used? None Information not available 11/10/2017 Education 12 Information n ot available 07/28/2022 What Is The Highest Grade Or Level Of School You Have Completed Or The Highest Degree You Have Received? [id number] [email or web address] Information not available 11/23/2022 How Many Times Per Week Do You Exercise? Less Than 1 Time Per Week [email or web address] Information not available 11/23/2022 Hard Of Hearing Or Deaf In One Or Both Ears? No Information not available 07/28/2022 Prescription Drug Abuse No [email or web address] Information not available 11/10/2017 Disability No [email or web address] Information no t available 11/10/2017 History Of Sexual Abuse No [email or web address] Information not available 11/10/2017 Marital Status Informati on not available 07/28/2022 What Was The Date Of Your Most Recent Tobacco Screening? 02/07/2025 [email or web address] Information not available 02/07/2025 What Is Your Relationship Status? Information not available 07/28/2022 At What Age Did You Start Smoking Tobacco? 19 Information not available 07/28/2022 How Much Tobacco Do You Smoke? 0.25 PPD [email or web address] Information not available 11/10/2017 General Stress Level Medium Information not available 07/28/2022 Has Tobacco Cessation Counseling Been Provided? No Information not available 07/28/2022 On What Date Was Tobacco Cessation Counseling Provided? 02/07/2025 [email or web address] Information not available 02/07/2025 How Many Years Have You Smoked Tobacco? 30 Information not available 07/28/2022 Do You Have Difficulty Walking Or Climbing Stairs? No Information not available 07/28/2022 Sex: Unknown Functional Status Question Answer Note LastModified by Organizat ion Details LastModified Time What is your level of alcohol consumption? Occasional [email or web address] Information not available 11/10/2017 Do you or have you ever used smokeless tobacco? Never used smokeless tobacco Information not available 07/28/2022 Are you currently employed? Yes [email or web address] Information not available 11/23/2022 Are you able to walk independently without assistance or assistive devices? [email or web address] Information not available 09/19/2019 Do you have difficulty doing errands alone? 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 [email or web address] Information not available 11/10/2017 Do you have [...] Time Father No current problems or disability [email or web address] Not available 11/10 08:20:31 Mother No current problems or disability Not available 11/10 08:20:31 Medical History Condition Response Bipolar Disease N Coronary Artery Disease N Seizure Disorder N Gout N Thyroid Disease N Atrial Fibrillation N Head Trauma/Injury N Hernia N Depression N COPD N Anxiety Disorder N Acid Reflux (GERD) N Cancer N Stroke Y Skin Disorder N High Cholesterol N Liver Disease N Rheumatoid Arthritis N Headaches N Fibromyalgia N Kidney Disease N Autoimmune Disease N Osteoarthritis N Neurosurgery N DVT N Peptic Ulcer Disease N Anemia N Heart Attack ([place]) N Diabetes N Cardiomyopathy N Bleeding Disorder [...] ICD10 Code Diagnosis IMO Codes Diagnosis Note [id number] Anil Yates MD [address] [place] [address] 02/07/2025 13:08:48 02/07/2025 13:32:45 Long-term current use of drug therapy 430643403 Z79.899 [id number] The patient was advised that the purpose of this urine drug screen is to monitor for compliance and to assist in risk stratifica tion. Cervical spondylosis 387 971525 M47.812 Patient's had success with cervical RFA [...] No change with this today. Chronic pain 70887591 G8 9.29 [id number] Health Concerns Section Related Observation LastModified by Organization Detai ls LastModified Time None Recorded Concern Status LastModified by Organization Details LastModified Time None Recorded Payers Encounter Date Sequence Insurance Name Policy Number Policy Munoz Covered Member ID Munoz Member ID Guarantor Name 02/07/2025 1 [place] [id number] Teja Grant Arjun [id number] Maryjo Díaz Notes Date Note Type Note Provider Name and Address Organization Details Recorded Time 02/08/20 25 text/ht ml Neck painReported by PatientHPIFor quality, patient reportsthrobbing,stabbing,sharp, andtingling. For associated symptoms, patient reportsnumbnessandtinglingbut reportsno weakness,no dizziness,no pain in upper extremities,no popping/clicking,no bladder incontinence, andno bowel incontinence. 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 MERCEDES NAVA NP [address] [place] [address], [address], [facility] 02/07/2025 14:14:27 OBGyn Episode No OBEpisode recorded.
--- OUTSIDE RECORDS SUMMARY | 2025-02-23 10:42 | XMS_ITS | Clinical Summary ---
Author Organization Healthcare Address [address] [place] [address] Care Team Providers Care Link Trainer Maintenance Worker Name Role Phone George Alvarez MD Primary Care Provider [phone] Social History Tobacco Use Types Packs/Day Years [...] of Treatment Not on file Care Teams Link Trainer Maintenance Worker Relationship Specialty Start Date End Date George Alvarez MD [address] [place], [place] [id number] PCP - General 07/19/20
--- OUTSIDE RECORDS SUMMARY | 2025-02-23 10:42 | XMS_ITS | Continuity of Care Document ---
Author Organization [facility], [place] Address [address] [place] [address] Care Team Providers Care Tire Repair Mechanic Name Role Phone Unavailable Primary Care Provider [...] gabapenti n 800 mg tablet 2024 025 [facility], [address] [place], [address], 12/02/2024 09:02:27 tramadol 50 mg tablet 2024 025 [facility], [address] [place], [address], 12/02/2024 09:02:08 Patient TargetsNo targets recorded. Patient InstructionsNo instructions recorded. Reason for Referral None Reported. Problems Name Problem SNOMED Code Status Onset Date Resolution Date Notes Provider Name and Address Organization Details Recorded Time Cervical radiculopathy 55359852 Active 2017 CODIE Zuniga - [facility] 8 08:20:26 Long-term drug therapy Active 2018 CODIE Cole - [facility] 9 10:37:54 Cervical spondylosis 853376117 Active 2018 Grecia sutton, [facility] 5 14:26:46 Low back pain 311647584 Active 2022 MERCEDES NAVA NP [address] [place] [address], [phone] , [facility] 3 13:22:39 Chronic pain 91453133 Active 2023 Grecia sutton [facility] 5 14:00:37 Problem Notes None recorded. Procedures Surgical History Date Name Laterality Status Provider Name and Address Organization Details Recorded Time 07/18/19 25 excision of distal clavicle completed Ryan Grimaldo [facility] 07/21/2024 09:34:54 07/18/19 25 operation on shoulder joint completed MERCEDES NAVA NP [address] [place] [address], [phone], [facility] 07/21/2024 09:54:36 07/27/19 24 Cervical RFA: Posterior (2 Level Unilateral) completed Arcadio Boggs MD [address] [place] [address], [phone], [facility] 07/27/2023 09:41:47 06/23/19 24 Diagnostic Cervical MBB: Posterior (2 Level Unilateral) completed Arcadio Boggs MD [address] [place] [address], [phone], [facility] 06/23/2023 11:24:31 09/02/19 22 Cervical RFA: Posterior (2 Level Unilateral) completed Arcadio Boggs MD [address] [place] [address], [phone], [facility] 09/01/2021 14:48:52 07/15/19 22 Cervical RFA: Posterior (2 Level Unilateral) completed Arcadio Boggs MD [address] [place] [address], [phone], [facility] 07/14/2021 14:21:48 01/28/20 21 Cervical RFA: Posterior (2 Level Unilateral) completed Arcadio Boggs MD [address] [place] [address], [phone], [facility] - [facility] 01/27/2021 09:35:13 12/24/19 21 Cervical RFA: Posterior (2 Level Unilateral) completed Arcadio Boggs MD [address] [place] [address], [phone], [facility] - [facility] 12/23/2020 10:09:32 07/18/19 21 Cervical RFA: Posterior (2 Level Unilateral) completed Arcadio Bogsg MD [address] [place] [address], [address], [facility] 07/17/2020 09:06:51 05/28/19 21 Cervical RFA: Posterior (2 Level Unilateral) completed Arcadio Boggs MD [address] [place] [address], [phone], [facility] 05/27/2020 16:19:02 09/28/19 20 Cervical RFA: Posterior (2 Level Unilateral) completed Arcadio Boggs MD [address] [place] [address], [phone], [facility] - [facility] 09/28/2019 09:16:09 08/30/19 20 Diagnostic Cervical MBB: Posterior (2 Level Unilateral) completed Arcadio Boggs MD [address] [place] [address], [phone], [facility] 08/30/2019 10:39:23 08/16/19 20 Diagnostic Cervical MBB: Posterior (2 Level Unilateral) completed Arcadio Boggs MD [address] [place] [address], [address], [facility] 08/16/2019 09:49:04 07/17/19 20 Cervical RFA: Posterior (2 Level Unilateral) completed Arcadio Boggs MD [address] [place] [address], [phone], [facility] 07/17/2019 16:11:22 01/12/20 19 Cervical RFA: Posterior (2 Level Unilateral) completed Arcadio Boggs MD [address] [place] [address], [phone], [facility] - [facility] 01/11/2019 10:24:52 12/01/19 19 Cervical MBB (Lateral) 2 level completed Arcadio Boggs MD [address] [place], [address], [facility] 11/30/2018 10:39:15 11/10/19 19 Cervical MBB (Lateral) 2 level completed Arcadio Boggs MD [address] [place] [address], [address], [facility] - [facility] 11/09/2018 09:49:48 09/15/19 19 Cervical Epidural Steroid Injection: Interlaminar completed Arcadio Boggs MD [address] [place] [address], [phone], [facility] 09/14/2018 11:37:03 06/08/19 19 Cervical Epidural Steroid Injection: Interlaminar completed Arcadio Boggs MD [address] [place] [address], [address], [facility] - [facility] 06/07/2018 13:12:42 02/23/20 18 Cervical Epidural Steroid Injection: Interlaminar completed Arcadio Boggs MD [address] [place] [address], [address], [facility] - [facility] 02/22/2018 11:51:00 11/25/19 18 Cervical Epidural Steroid Injection: Interlaminar completed Arcadio Boggs MD [address] [place] [address], [phone], [facility] 11/24/2017 10:05:10 11/11/19 18 Cervical Epidural Steroid Injection: Interlaminar completed Eleanor Díaz [place] - [facility] 11/10/2017 12:37:14 08/07/19 17 General Surgery completed Chika Rose [place] - [facility] 11/10/2017 08:31:22 Carpal Tunnel Release completed Maria C Rice [place] - [facility] 09/19/2019 09:30:44 ACDF completed Maria C Rice [place] [facility] 09/19/2019 09:30:44 General Surgery completed Reyna Alvarado [place] - [facility] 03/15/2023 11:01:05 Hysterectomy completed Chika [place] - [facility] 11/10/2017 08:21:30 Cholecystectomy completed Chika [place] - [facility] 11/10/2017 08:21:32 General Surgery completed Chika Rose [facility] 11/10/2017 08:21:44 Imaging Results None recorded. Procedure [...] mins prior to procedure . 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 5 08:52:04 Social History Question Answer Notes LastModified by Organizat ion Details LastModified Time Tobacco Smoking Status Current Some Day Smoker CODIE Zuniga [facility] 11/10/2017 08:20:35 Do You Have An Advance Directive? No [email or web address] Information not available 11/23/2022 What Is Your [...] Type Of Diet Are You Following? REGULAR [email or web address] Information not available 11/23/2022 Which Illicit Or Recreational Drugs Have You Used? None [email or web address] Information not available 11/10/2017 Education 12 Information n ot available 07/28/2022 What Is The Highest Grade Or Level Of School You Have Completed Or The Highest Degree You Have Received? [id number] Information not available 11/23/2022 How Many Times Per Week Do You Exercise? Less Than 1 Time Per Week [email or web address] Information not available 11/23/2022 Hard Of Hearing Or Deaf In One Or Both Ears? No Information not available 07/28/2022 Prescription Drug Abuse No [email or web address] Information not available 11/10/2017 Disability No Information no t available 11/10/2017 History Of Sexual Abuse No [email or web address] Information not available 11/10/2017 Marital Status Informati on not available 07/28/2022 What Was The Date Of Your Most Recent Tobacco Screening? 02/07/2025 Information not available 02/07/2025 What Is Your [...] Date Was Tobacco Cessation Counseling Provided? 02/07/2025 [email or web address] Information not available 02/07/2025 How Many Years Have You Smoked Tobacco? 30 Information not available 07/28/2022 Do You Have Difficulty Walking Or Climbing Stairs? No Information not available 07/28/2022 Sex: Unknown Functional Status Question Answer Note LastModified by Organizat ion Details LastModified Time What is your level of alcohol consumption? Occasional [email or web address] Information not available 11/10/2017 Do you or have you ever used smokeless tobacco? Never used smokeless tobacco Information not available 07/28/2022 Are you currently employed? Yes Information not available 11/23/2022 Are you able to walk independently without assistance or assistive devices? [email or web address] Information not available 09/19/2019 Do you have difficulty doing errands alone? 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 Information not available 11/10/2017 Do you have [...] Time Father No current problems or disability [email or web address] Not available 11/10 08:20:31 Mother No current problems or disability [email or web address] Not available 11/10 08:20:31 Medical History Condition [...] Ulcer Disease N Anemia N Heart Attack ([place]) N Diabetes N Cardiomyopathy N Bleeding Disorder [...] ICD10 Code Diagnosis IMO Codes Diagnosis Note [id number] LENIN YOUNG MD [place] [address] [facility] [address] [place] [address] 11/29/2024 08:42:48 11/29/2024 09:19:58 Cervical spondylosis 780196848 M47.812 Patient's had success with cervical RFA [...] any changes at this time. Chronic pain 47565333 G8 9.29 Health Concerns Section Related Observation LastModified by Organization Detai ls LastModified Time None Recorded Concern Status LastModified by Organization Details LastModified Time None Recorded Payers Encounter Date Sequence Insurance Name Policy Number Policy Munoz Covered Member ID Munoz Member ID Guarantor Name 11/29/2024 1 [id number] Teja Rudy Arjun [id number] Maryjo Díaz Notes Date Note Type Note Provider Name and Address Organization Details Recorded Time 11/30/19 25 text/ht ml Neck painReported by PatientHPIFor quality, patient reportsthrobbing,stabbing,sharp, andtingling. For associated symptoms, patient reportsnumbnessandtinglingbut reportsno weakness,no dizziness,no pain in upper extremities,no popping/clicking,no bladder incontinence, andno bowel incontinence. 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 Caroline York APRN [address] [facility], [place], [address], [facility] 11/29/2024 09:53:13 OBGyn Episode No OBEpisode recorded.
--- OUTSIDE RECORDS SUMMARY | 2025-02-23 10:42 | XMS_ITS | Encounter Summary ---
Author Organization [place] [address] Care Team Providers Care Back Tender Insulation Board Name Role Phone Nayeli Nelson Primary Care Provider [phone] Reason for Visit * Reason Onset Date Comments Medication Question 02/12/2025 Needs pharma cy changed Encounter Details Date Type Department Care Team (Late Contact Info) Description 02/12/2025 Telephone [facility] [address] [place] [address] Michael Jacome R, DO [address] [place] [address] Medication Question (Needs pharmacy changed) Social History Tobacco Use Types Packs/Day Years [...] on file documented as of this encounter Ordered Prescriptions Prescription Sig Dispense Quantity Refills Last Filled Start Date End Date dilTIAZem 120 mg Oral Capsule, Sust. Release 24 hrIndications:Supr aventricular tachycardia Take 1 Capsule by mouth daily. 90 Capsule 3 02/12/2025 documented in this encounter Miscellaneous Notes * Telephone Encounter - Lew Neil RN - 02/12/2025 12:14 PM EST Patient calling into office requesting pharmacy be changed. Patient was seen in office today and prescribed diltiazem that was sent into [facility] ([place], [place]). Patient would like this sent into [facility]. New prescription was sent in as advised. Advised call center to notify patient that prescription has been sent to requested pharmacy but that patient will need to call/notify [facility] of transfer as well. documented in this encounter Plan of Treatment Upcoming Encounters Date Type Department Care Team (Late st Contact Info) Description 03/05/2025 1:00 PM EST Appointment [facility] [place] [address] Michael Jacome, [address] [place] [address] 05/16/2025 1:15 PM EDT Office Visit [facility] [address] [address] Luis Alberto Lezama MD [address] [address] 08/13/2025 10:00 AM EDT Office Visit [facility] [address] [place] [address] Michael Jacome DO [address] [place] [address] documented as of this encounter Visit Diagnoses Diagnosis Supraventricular tachycardia Other specified cardiac dysrhythmias documented in this encounter Discontinued Medications Medication Sig Discontinue Reason Start Date End Da te dilTIAZem 120 mg Oral Capsule, Sust. Release 24 hrIndications:Supraventr icular tachycardia Take 1 Capsule by mouth daily. 02/12/2025 02/12/2025 documented as of this encounter Care Teams Back Tender Insulation Board Relationship Specialty Start Date End Date Nayeli Nelson [address] [facility] [address] [place] [id number] PCP - General Family Medicine 08/07/15 documented as of this encounter
[2025-02-24 04:08] LABS: Hepatitis B Surface Antigen Negative (Negative)
== END 2025-02-22 23:59 | disposition home or self-care (01) ==
LOC: LAB.DROPOF 02-23 10:39
PROVIDERS: PCP Nurse Practitioner; Visit Provider Nurse Practitioner
DX: E78.5 Hyperlipidemia, unspecified (principal); K21.9 Gastro-esophageal reflux disease without esophagitis; N95.1 Menopausal and female climacteric states; Z86.39 Personal history of other endocrine, nutritional and metabolic disease; Z11.59 Encounter for screening for other viral diseases
CPT/HCPCS: 80053; 80061; 82607; 85025; 86803; 87340; 87389